=== PATIENT | female | born 1950 | race Caucasian/White ===

== ENCOUNTER → 2020-02-09 16:13 | Outpatient (CLI) | payer MEDICARE, OTHER, SELFPAY ==
[2020-02-09 17:04] LABS: Absolute Lymphocyte Count 2.25 X10^3/uL (0.83-4.51); Absolute Neutrophil Count 3.7 X10^3/uL (2.0-7.7); Basophil# 0.04 X10^3/uL; Basophil% 0.6 % (0-1); Eosinophil# 0.08 X10^3/uL; Eosinophils% 1.2 % (0-5); Hematocrit 38.9 % (37-47); Hemoglobin 12.5 g/dL (12.0-15.0); Lymphocyte # 2.25 X10^3/ul (4.0); Lymphocyte % 33.9 % (19-41); Mean Corp Hgb Conc 32.1 g/dL (32-36); Mean Corpuscular Hgb 31.4 pg (27.0-32.0); Mean Corpuscular Volume 97.7 fL (81-99); Mean Platelet Vol. 9.9 fl (6.2-12.0); Monocyte# 0.57 X10^3/uL; Monocyte% 8.6 % (0-10); NRBC Flagged by Analyzer 0 % (0-5); Neutrophil # 3.66 X10^3/uL (2.7-7.7); Neutrophil % 55.2 % (47-70); Platelet Count 282 K/mm3 (150-450); RBC Distribution Width CV 12.4 % (11.6-14.6); RBC Distribution Width SD 44.6 fl (35.1-43.9); Red Blood Count 3.98 M/mm3 (4.2-5.4); White Blood Count 6.6 K/mm3 (4.4-11.0)
[2020-02-09 18:39] LABS: AST(SGOT) 22 U/L (15-37); Alanine Aminotransfer ALT/SGPT 30 U/L (13-56); Alkaline Phosphatase 94 U/L (45-117); Anion Gap 4 (5-15); BUN 22 mg/dL (7-18); BUN/Creat Ratio 27.1 RATIO (10-20); Calcium,Total 9.3 mg/dL (8.5-10.1); Chloride 107 mmol/L (98-107); Creatinine, Serum 0.81 mg/dL (0.55-1.02); EST Glomerular Filtration Rate 74 mL/min (>60); Est Glom Filt Rate - Afr Amer 89 mL/min (>60); Glucose 89 mg/dL (74-106); Sodium Level 141 mmol/L (136-145); Thyroid Stim Hormone (TSH) 2.64 uIU/mL (0.358-3.74)
== END ==
PROVIDERS: PCP Internal Medicine; Referring Provider Internal Medicine; Visit Provider Internal Medicine
DX: I10 Essential (primary) hypertension (principal)
CPT/HCPCS: 36415; 80053; 84443; 85025

== ENCOUNTER 2024-10-28 11:02 | Inpatient (IN) | payer MEDICARE, SELFPAY ==
[2024-10-28] VITALS (9 sets, daily range): BP systolic 93–132; BP diastolic 59–87; PULSE 68–73; RESP 14–19; TEMP 35.6–36.9; O2SAT 95–100; BMI 29.3
--- NOTE | 2024-10-28 11:33 | EDS_ITS ---
HPI HPI - GI History of Present Illness Chief Complaint: GI Bleed Informant: patient and family Abdominal Pain/Flank Pain Onset: Hours Context: Gradual Onset Timing: Intermittent Current Severity: Mild Maximum Severity: Mild Worsened by: Nothing Relieved by: Nothing Nausea/Vomiting/Emesis GI Symptom: Positive for Nausea; Negative for Vomiting Severity: Mild Diarrhea/Melena/Hematochezia GI Symptom: Positive for Melena and Hematochezia; Negative for Diarrhea Onset: Today Severity: Moderate Associated Symptoms Associated Symptoms: Negative for Dysuria, Frequency, Hematuria or Urgency Narrative Narrative: 73-year-old female history of hypertension. She has had some mild nausea and intermittent abdominal discomfort. Said today she thinks she had bright red blood, clot and possibly dark stool also. She has had nausea without vomiting. She has had 3 bowel movements today. No history of GI bleed. She takes daily baby aspirin but no other blood thinners. No history of upper or lower endoscopy. Prior similar symptoms: No Recent Illness/Hospitalization: No PFSH PFS Medical History Pneumonia History of stroke History of bladder cancer Hypertension Home Medications ?Medication ?Instructions ?Recorded ?Last Taken ?Type aspirin 81 mg tablet,delayed 81 mg PO DAILY 01/01/20 0 10/27/24 History release amlodipine 5 mg tablet 5 mg PO DAILY #90 tabs 02/1310/27/24 Rx losartan 50 mg tablet 50 mg PO DAILY #90 tabs 01/2010/27/24 Rx magnesium 250 mg tablet 250 mg PO QDAY 05/07/2402/12 History turmeric 400 mg capsule 400 mg PO DAILY 10/28/2402/12 History Allergy/AdvReac Type Severity Reaction Status Date / Time No Known Allergies Allergy Verified 10/28/24 11:03 Family History Mother Myocardial infarction, Onset Age: 80 Heart disease Hypertension CVA (cerebral vascular accident) Father Myocardial infarction, Onset Age: 56 Surgical History History of hysterectomy Social History Smoking Status: Never smoker alcohol intake: never substance use type: does not use what type of physical activity do you participate in: none ROS ROS ED ROS Narrative Mild intermittent abdominal pain. Nausea. Dark stool. Bright red blood per rectum. Constitutional Constitutional ED: Denies chills or fever(s) ENT ENT ED: Denies ear pain Cardiovascular Cardiovascular: Denies chest pain Respiratory/Chest Respiratory/Chest: Denies cough or dyspnea Gastrointestinal Gastrointestinal: Reports abdominal pain, melena and nausea; Denies constipation, diarrhea or vomiting Genitourinary Genitourinary ED: Denies hematuria Musculoskeletal Musculoskeletal: Denies arthralgias Integumentary Denies abscess Neurologic Neurologic: Denies headache(s) Psychiatric Psychiatric: Denies anxiety Endocrine Endocrinology: Denies polydipsia Hematologic/Lymphatic Hematologic/Lymphatic: Denies easy bleeding Allergic/Immunologic Allergic/Immunologic ED: Denies mouth swelling, tongue swelling or urticaria EXAM Physical Exam Narrative Exam Narrative: 73-year-old female vital signs stable afebrile. No acute distress. Believes her daughter at bedside. Vital signs are stable afebrile. Patient does appear pale. H EENT exam pupils round react light. Pale. Moist mucous membranes. Neck nontender no lymphadenopathy. Lungs clear to auscultation bilaterally. Heart regular rhythm rate about 70 she does have a 4/6 systolic ejection murmur. Chest wall nontender. Abdomen soft nontender. Moving all 4 extremities. Nontender no edema. Back nontender. Neurologically she is awake alert. No focal motor deficits. Const Vital Signs: 10/28/24 11:02 10/28/24 12:30 10/28/24 13:00 Temperature 96.1 F L Temperature Source Temporal Pulse Rate 70 68 70 Respiratory Rate 14 14 16 Blood Pressure 118/76 126/76 H 131/71 H Blood Pressure Mean 90 92 91 Pulse Ox 98 96 95 Oxygen Delivery Method Room Air Room Air 10/28/24 14:00 Temperature Temperature Source Pulse Rate 70 Respiratory Rate Blood Pressure 128/69 H Blood Pressure Mean 88 Pulse Ox 97 Oxygen Delivery Method Positive well nourished and well developed; Negative for cachectic, contractures or unkempt General Appearance ED: well developed, NAD and pallor; Negative for unkempt, cachectic or contractures Nutritional Appearance: Negative for cachectic HEENT Reports moist mucous membranes normocephalic and atraumatic Eyes EOMs intact bilaterally General Eye ED: Yes pale conjunctiva Neck no lymphadenopathy, supple and no JVD General: Negative for tenderness Resp normal respiratory effort and clear to auscultation bilaterally Effort and Inspection: Negative for respiratory distress Auscultation: Negative for rales, rhonchi or wheezes Cardio regular rate, regular rhythm, S1 normal heart sound, S2 normal heart sound and no murmurs Rate: Negative for bradycardia or tachycardic Rhythm: Negative for abnormal rhythm GI non-tender, non-distended and no masses Auscultation: normoactive bowel sounds Palpation: soft; Negative for tender, guarding or rebound tenderness present Back/Spine no CVA tenderness Extremity full ROM General Extremety ED: Negative for edema or tenderness General Extremity: Negative for edema Neuro CN's II-XII intact bilaterally and moves all extremities Sensorium / Orientation: alert, oriented to person and oriented to time; Negative for orientation impaired, confused or lethargic Motor Exam: strength 5/5 throughout Psych mental status grossly normal and thought process normal Appearance: Negative for unkempt Skin no wounds General Skin Exam: pallor; Negative for jaundice Lesions: no lesions Rashes: no rashes Trauma: Negative for abrasion MDM MDM MDM Narrative Medical decision making narrative: 73-year-old female concern for GI bleed. Typed and screened and typed and crossed. Screening labs. She does not need imaging at this time abdomen is benign. If she does have a GI bleed she will need to be admitted for further evaluation. She was started on Protonix because she said her stool was dark to black which could be consistent with an upper GI bleed. Repeat exam patient doing well at 2:27 PM. I did do a rectal exam with her daug hter present in the room. It was black loose stool consistent with an upper GI bleed. No bright red blood. No clots. I discussed the patient's test results with her. She will be admitted for GI bleed suspect upper. She is already received Protonix. She has been typed and crossed but does not need blood at this time. I have the hospitalist and GI on page. History & Record Review Discussion w/independent historian: Patient and Family Additional record(s) reviewed:: Prior inpatient record, Prior outpatient record, Prior ED visit and Prior labs Lab Data Attestation: I reviewed the patient's lab results. Lab results narrative: CBC shows a white count of 8. H&H of 10.3 and 30 prior hemoglobin was above 12. Platelets 223. Chemistries show a sodium 139. Gap 10. BUN is elevated at 46 creatinine 0.8. That could also be consistent with an upper GI bleed. Glucose 115. Liver enzymes normal. Blood type A-. PT/INR of 13.9 and 1.1. Labs: Laboratory Results - last 24 hr 10/28/24 10/28/24 12:24 12:26 WBC 8.8 RBC 3.22 L Hgb 10.3 L Hct 30.9 L MCV 96.0 MCH 32.0 MCHC 33.3 RDW Std Deviation 45.1 H RDW Coeff of Roshni 12.9 Plt Count 223 MPV 9.9 Immature Gran % (Auto) 0.500 Neut % (Auto) 83.7 H Lymph % (Auto) 11.7 L Letcher % (Auto) 3.8 Eos % (Auto) 0.0 Baso % (Auto) 0.3 Absolute Neuts (auto) 7.3 Absolute Lymphs (auto) 1.02 Nucleated RBC % 0 PT 13.9 INR 1.1 Sodium 139 Potassium 4.7 Chloride 108 Carbon Dioxide 21.0 Anion Gap 10 BUN 46 H Creatinine 0.80 Estim Creat Clear Calc 63.54 Est GFR (MDRD) Non-Af 76 BUN/Creatinine Ratio 57.8 H Glucose 115 H Calcium 9.2 Total Bilirubin 0.99 AST 20 ALT 12 Alkaline Phosphatase 90 Total Protein 6.6 Albumin 4.0 Globulin 2.6 Albumin/Globulin Ratio 1.6 Blood Type A NEGATIVE Antibody Screen NEGATIVE Discharge Plan Triage Chief Complaint: GI Bleed ED Provider: Juan Diego Sauer Dx/Rx/DC Orders Clinical Impression: Acute upper GI bleed, History of bladder cancer, Anemia Prescriptions: No Action aspirin 81 mg tablet,delayed release (DR/EC) 81 mg PO DAILY magnesium 250 mg tablet 250 mg PO QDAY turmeric 400 mg capsule 400 mg PO DAILY amlodipine 5 mg tablet 5 mg PO DAILY Qty: 90 3RF losartan 50 mg tablet 50 mg PO DAILY Qty: 90 3RF Primary Care Provider: Shirin De Oliveira Referrals: Shirin De Oliveira MD [Primary Care Provider] - Print Language: Pashto Disposition Disposition: [facility]
[2024-10-28 12:48] LABS: Absolute Lymphocyte Count 1.02 X10^3/uL (0.83-4.51); Absolute Neutrophil Count 7.3 X10^3/uL (2.0-7.7); Basophil# 0.03 X10^3/uL; Basophil% 0.3 % (0-1); Hematocrit 30.9 % (37-47); Hemoglobin 10.3 g/dL (12.0-15.0); Lymphocyte # 1.02 X10^3/ul (0.83-4.51); Lymphocyte % 11.7 % (19-41); Mean Corp Hgb Conc 33.3 g/dL (32-36); Mean Platelet Vol. 9.9 fl (6.2-12.0); Monocyte# 0.33 X10^3/uL; Monocyte% 3.8 % (0-10); NRBC Flagged by Analyzer 0 % (0-5); Neutrophil # 7.33 X10^3/uL (2.7-7.7); Neutrophil % 83.7 % (47-70); Platelet Count 223 K/mm3 (150-450); RBC Distribution Width CV 12.9 % (11.6-14.6); RBC Distribution Width SD 45.1 fl (35.1-43.9); Red Blood Count 3.22 M/mm3 (4.2-5.4); White Blood Count 8.8 K/mm3 (4.4-11.0)
[2024-10-28] MEDS: Ondansetron 4 MG/2 ML Vial IV (12:53)
[2024-10-28] MEDS: Pantoprazole Sodium 80 MG in 0.9% Normal Saline (50mL Bag) 15 ML 420 MG IV BOLUS (12:53)
[2024-10-28 12:59] LABS: International Normalized Ratio 1.1; Prothrombin Time (Protime)PT. 13.9 SECONDS (11.7-14.9)
[2024-10-28 13:13] LABS: ALB/GLOB Ratio 1.6 RATIO (0.9-2.4); AST(SGOT) 20 U/L (<=31); Alanine Aminotransfer ALT/SGPT 12 U/L (<=34); Alkaline Phosphatase 90 U/L (35-104); Anion Gap 10 (5-15); BUN 46 mg/dL (4-19); BUN/Creat Ratio 57.8 RATIO (10-20); Calcium,Total 9.2 mg/dL (7.6-11.0); Chloride 108 mmol/L (98-108); EST Glomerular Filtration Rate 76 (>60); Estimated Creatinine Clearance 63.54 ml/min (50-250); Globulin 2.6 g/dL (2.2-4.2); Glucose 115 mg/dL (70-99); Potassium 4.7 mmol/L (3.3-5.1); Protein, Total 6.6 g/dL (5.9-8.4); Sodium Level 139 mmol/L (133-145); Total Bilirubin 0.99 mg/dL (0.00-1.30)
--- NOTE | 2024-10-28 14:33 | PCM.HP.STD ---
HPI - General General Date of Admission: 10/28/24 Date of Service: 10/28/24 Chief Complaint: Bright red and dark stools HPI Narrative ADEN LINDO, is a 73 F who presented to [facility] ED on 10/28/2024 with bright red and dark stools. Patient lives at home with her , has good functional status at baseline. Is on a baby aspirin, no other blood thinners. No prior history of GI bleed. She has had intermittent nausea over the past week or so but no vomiting. This morning she noticed with her first bowel movement that there was bright red blood with clot noted. She then had 2 more loose bowel movements that were very dark after this, so she came in for further evaluation. Denies any pain with these bowel movements. In the ED was hemodynamically stable with heart rate in the 70s and normal blood pressure. Last hemoglobin in 2019 was 12.5 and hemoglobin today was 10.3. BUN was elevated at 46 with normal creatinine. Given suspected upper GI bleed, she was given a dose of IV Protonix and hospitalist was contacted for admission. I saw the patient at bedside in the ED, daughter was present. Patient was sitting back comfortably in bed, conversing normally, in no acute distress. She reported feeling mildly fatigued but denied any other acute concerns currently. On my physical exam she had a significant systolic heart murmur noted. She states she has never been told she has a heart murmur. She has never had a colonoscopy done before. Has never had an upper scope done either. No other acute concerns at this time. [facility] Medical History Pneumonia History of stroke History of bladder cancer Hypertension Home Medications ?Medication ?Instructions ?Recorded ?Last Taken ?Type aspirin 81 mg tablet,delayed 81 mg PO DAILY 01/01/20 10/27/24 History release amlodipine 5 mg tablet 5 mg PO DAILY #90 tabs 02/14/24 10/27/24 Rx losartan 50 mg tablet 50 mg PO DAILY #90 tabs 02/14/24 10/27/24 Rx magnesium 250 mg tablet 250 mg PO QDAY 05/07/24 10/27/24 History turmeric 400 mg capsule 400 mg PO DAILY 10/28/24 10/27/24 History Allergy/AdvReac Type Severity Reaction Status Date / Time No Known Allergies Allergy Verified 10/28/24 11:03 Family History Mother Myocardial infarction, Onset Age: 80 Heart disease Hypertension CVA (cerebral vascular accident) Father Myocardial infarction, Onset Age: 56 Surgical History History of hysterectomy Social History Smoking Status: Never smoker alcohol intake: never substance use type: does not use what type of physical activity do you participate in: none ROS Constitutional Constitutional: Reports fatigue; Denies chills, fever(s) or weakness Eyes Eyes: Denies change in vision Cardiovascular Cardiovascular: Denies chest pain, lightheadedness or palpitations Respiratory/Chest Respiratory/Chest: Denies cough, dyspnea or shortness of breath at rest Gastrointestinal Gastrointestinal: Reports abdominal pain, dyspepsia, hematochezia, melena and nausea; Denies coffee ground emesis, constipation, hematemesis or vomiting Genitourinary Genitourinary: Denies dysuria Musculoskeletal Musculoskeletal: Denies arthralgias or myalgias Neurologic Neurologic: Denies dizziness, focal weakness or headache(s) Vital Signs Vital Signs Vital Signs: 10/28/24 11:02 10/28/24 12:30 10/28/24 13:00 Temperature 96.1 F L Temperature Source Temporal Pulse Rate 70 68 70 Respiratory Rate 14 14 16 Blood Pressure 118/76 126/76 H 131/71 H Blood Pressure Mean 90 92 91 Pulse Ox 98 96 95 Oxygen Delivery Method Room Air Room Air 10/28/24 14:00 Temperature Temperature Source Pulse Rate 70 Respiratory Rate Blood Pressure 128/69 H Blood Pressure Mean 88 Pulse Ox 97 Oxygen Delivery Method Weight Weight: 80.104 kg Body Mass Index (BMI) 29.3 Physical Exam Const alert, oriented x3, no apparent distress, average body habitus, healthy appearing and well nourished Constitutional Narrative: Pleasant elderly female, appears younger than stated age, sitting back comfortably in bed, conversing normally, in no acute distress. General Appearance: cooperative, comfortable, well kempt and well developed HEENT normocephalic, head/scalp atraumatic, hearing grossly normal bilaterally, nasal mucous membranes and turbinates normal and moist oral mucous membranes Eyes PERRL, EOMs intact bilaterally and conjunctivae normal Neck full ROM Chest inspection of chest normal Resp normal respiratory effort, normal air movement, no use of accessory muscles and clear to auscultation bilaterally Cardio regular rate, regular rhythm and peripheral pulses 2+ throughout Cardio Narrative: Significant systolic murmur noted. GI normal to inspection, nondistended, normoactive bowel sounds, soft to palpation, non-tender and non-distended Back/Spine normal ROM Extremity normal to inspection, full ROM and no pedal edema Skin no rashes or lesions noted Psych mental status grossly normal Results Lab / Micro Data 10/28/24 12:26 10/28/24 12:24 Labs: Laboratory Results - last 24 hr 10/28/24 12:24: PT 13.9, INR 1.1, Sodium 139, Potassium 4.7, Chloride 108, Carbon Dioxide 21.0, Anion Gap 10, BUN 46 H, Creatinine 0.80, Estim Creat Clear Calc 63.54, Est GFR (MDRD) Non-Af 76, BUN/Creatinine Ratio 57.8 H, Glucose 115 H, Calcium 9.2, Total Bilirubin 0.99, AST 20, ALT 12, Alkaline Phosphatase 90, Total Protein 6.6, Albumin 4.0, Globulin 2.6, Albumin/Globulin Ratio 1.6 10/28/24 12:26: WBC 8.8, RBC 3.22 L, Hgb 10.3 L, Hct 30.9 L, MCV 96.0, MCH 32.0, MCHC 33.3, RDW Std Deviation 45.1 H, RDW Coeff of Roshni 12.9, Plt Count 223, MPV 9.9, Immature Gran % (Auto) 0.500, Neut % (Auto) 83.7 H, Lymph % (Auto) 11.7 L, Carl[place] % (Auto) 3.8, Eos % (Auto) 0.0, Baso % (Auto) 0.3, Absolute Neuts (auto) 7.3, Absolute Lymphs (auto) 1.02, Nucleated RBC % 0, Blood Type A NEGATIVE, Antibody Screen NEGATIVE Assessment & Plan Assessment/Plan (1) Acute upper GI bleed: PLAN: Plan Patient is a 73-year-old female who presented to [facility] ED on 10/28/2024 with bright red and dark stools. 1. Suspected upper GI bleed with mild acute blood loss anemia ? Admit under inpatient status to PCU. GI consulted. Baseline hemoglobin around 12, hemoglobin 10.3 on admit. Most consistent with upper GI bleed given primarily melena and elevated BUN to creatinine ratio. Have suspicion for AVMs in setting of possible aortic stenosis given her systolic murmur noted on exam. Okay for clear liquid diet for now, then n.p.o. at midnight. Start IV PPI twice daily. Hold home baby aspirin. Follow-up CBC tonight and tomorrow morning. 2. Systolic murmur ? Significant systolic murmur noted on exam on admit. High suspicion is for aortic stenosis given location of murmur and patient's age. Patient denies any symptoms related to this. Echo ordered for further evaluation. 3. Hypertension ? Normotensive on admit. Will hold home amlodipine and losartan for now, restart as able. 4. History of remote CVA ? No residual deficits. Holding home baby aspirin as noted above. DVT prophylaxis: SCDs CODE STATUS: Full code, verified Expected disposition: Home, 2 to 3 days Total clinical time spent by myself addressing the patient's medical issues, reviewing all the data, and collaborating with patient's care team: 75 minutes. Charges/Coding Visit Charges Inpatient E&M: 71393 Init Hosp L3
--- NOTE | 2024-10-28 14:57 | ECHOD_ITS ---
Reason For Study : Murmur Procedure This was a 2D Doppler, Color Flow transthoracic echocardiogram. Exam performed portable in ED. Left Ventricle Normal LV size. Moderate concentric left ventricular hypertrophy. The LV systolic function is normal. EF is 65 %. Stage 1 diastolic dysfunction. Right Ventricle Normal right ventricle. Atria The left atrium is severely enlarged. Normal right atrium. Mitral Valve Mild focal mitral valve calcification, bileaflet. Mild (1+) mitral valve insufficiency. Tricuspid Valve Normal tricuspid valve. Unable to estimate RV systolic pressure due to insufficient tricuspid regurgitant envelope. Aortic Valve Aortic valve moderately calcified. Planimetered aortic valve area 1.8 cm??. However severely elevated gradients with mean peak gradient 68 mmHg. Moderate aortic valve regurgitation. Pulmonic Valve The pulmonic valve is not well visualized. Great Vessels Normal sized aortic root. Pericardium/Pleural No pericardial effusion. MMode/2D Measurements & Calculations LVIDd: 4.3 cm IVSd: 1.6 cm LVOT diam: 2.4 cm LVIDs: 2.8 cm LVPWd: 1.6 cm LVOT area: 4.5 cm2 RVDd: 3.4 cm FS: 35.2 % Ao root diam: 3.3 cm LAV(MOD-bp): 61.9 ml LVAd ap4: 25.1 cm2 LAV(MOD-bp) Indexed: 33.1 ml/m2 LVLd ap4: 7.1 cm LAV(MOD-sp2): 59.9 ml EDV(MOD-sp4): 73.7 ml LAV(MOD-sp4): 64.8 ml EDV(sp4-el): 75.8 ml LVAs ap4: 14.7 cm2 LVLs ap4: 5.7 cm ESV(MOD-sp4): 31.7 ml ESV(sp4-el): 31.8 ml EF(MOD-sp4): 56.9 % EF(sp4-el): 58.1 % SV(MOD-sp4): 41.9 ml SV(sp4-el): 44.1 ml Aortic Valve Planimetry: 1.8 cm2 SI(MOD-sp4): 22.4 ml/m2 LA A4 area: 19.7 cm2 LA dimension(2D): 5.1 cm RA A4 area: 9.1 cm2 TAPSE: 2.6 cm Time Measurements MV dec time: 0.26 sec Doppler Measurements & Calculations MV E max benton: 42.2 cm/sec Lat Peak E' Benton: 4.6 cm/sec Med Peak E' B[place]: 3.6 cm/sec MV A max benton: 87.5 cm/sec E/E' lat: 9.3 E/E' med: 11.8 MV E/A: 0.48 Ao V2 max: 478.2 cm/sec AI max benton: 338.2 cm/sec MV dec slope: 163.8 cm/sec2 Ao max P.6 mmHg AI max P.8 mmHg Ao V2 mean: 405.1 cm/sec Ao mean P.1 mmHg AI dec slope: 249.3 cm/sec2 Ao V2 VTI: 118.8 cm AI P1/2t: 397.5 msec AV (velocity ratio): 0.19 RADHA(I,D): 0.86 cm2 RADHA(V,D): 0.92 cm2 LV V1 max: 96.9 cm/sec SV(LVOT): 102.6 ml PA V2 max: 75.4 cm/sec LV V1 max P.8 mmHg LV V1 mean P.3 mmHg LV V1 mean: 73.5 cm/sec LV V1 VTI: 22.7 cm ECHO/Echo Complete Interpretation Summary The LV systolic function is normal. EF is 65 %. Stage 1 diastolic dysfunction. The left atrium is severely enlarged. Mild (1+) mitral valve insufficiency. Moderately calcified aortic valve with discordant 2D and Doppler findings. Plan imetered area compatible with mild aortic valve stenosis however mean peak gradient severely elevated at 68 mmHg. This co uld happen in high output state. Also consider supravalvular stenosis. Recommend cardiac CT scan for further evaluati on. Moderate aortic valve regurgitation. Ordering Physician: Guero Pagan Referring Physician: Shirin De Oliveira Performed By: Yi Guzman, KAMILLE, RVT
[2024-10-28 19:18] LABS: Hematocrit 27.1 % (37-47); Mean Corp Hgb Conc 33.2 g/dL (32-36); Mean Corpuscular Hgb 31.8 pg (27.0-32.0); Mean Corpuscular Volume 95.8 fL (81-99); Mean Platelet Vol. 9.9 fl (6.2-12.0); Platelet Count 203 K/mm3 (150-450); RBC Distribution Width SD 45.1 fl (35.1-43.9); Red Blood Count 2.83 M/mm3 (4.2-5.4); White Blood Count 6.9 K/mm3 (4.4-11.0)
--- NOTE | 2024-10-28 20:54 | PCM.HOSP.N ---
Hospitalist Note Notified by cardiac imaging department that preliminary read for echo showed severe aortic stenosis. Full report will be finalized tomorrow morning. I notified Dr. Moreno of this finding and will defer to him on timing of EGD given this finding.
[2024-10-28] MEDS: Pantoprazole Sodium 40 MG in 0.9% Normal Saline (100mL MB+) 100 ML 330 MG IV (21:35)
[2024-10-29] VITALS (12 sets, daily range): BP systolic 100–133; BP diastolic 63–77; PULSE 64–77; RESP 14–16; TEMP 36.1–36.9; O2SAT 93–99
[2024-10-29 05:03] LABS: Hematocrit 26.2 % (37-47); Hemoglobin 8.6 g/dL (12.0-15.0); Mean Corp Hgb Conc 32.8 g/dL (32-36); Mean Corpuscular Hgb 31.4 pg (27.0-32.0); Mean Corpuscular Volume 95.6 fL (81-99); Mean Platelet Vol. 10.1 fl (6.2-12.0); Platelet Count 207 K/mm3 (150-450); RBC Distribution Width CV 13.1 % (11.6-14.6); RBC Distribution Width SD 45.4 fl (35.1-43.9); Red Blood Count 2.74 M/mm3 (4.2-5.4); White Blood Count 5.7 K/mm3 (4.4-11.0)
[2024-10-29 05:45] LABS: Anion Gap 9 (5-15); BUN 48 mg/dL (4-19); Calcium,Total 8.9 mg/dL (7.6-11.0); Carbon Dioxide 21.7 mmol/L (21.0-32.0); Chloride 109 mmol/L (98-108); Creatinine, Serum 1.04 mg/dL (0.70-1.20); EST Glomerular Filtration Rate 56 (>60); Estimated Creatinine Clearance 48.88 ml/min (50-250); Glucose 84 mg/dL (70-99); Potassium 4.4 mmol/L (3.3-5.1); Sodium Level 139 mmol/L (133-145)
--- NOTE | 2024-10-29 05:55 | EKG12_ITS ---
Test Reason : PRE SCOPE Blood Pressure : */* mmHG Vent. Rate : 67 BPM Atrial Rate : 67 BPM P-R Int : 214 ms QRS Dur : 94 ms QT Int : 414 ms P-R-T Axes : 27 -17 149 degrees QTcB Int : 437 ms Sinus rhythm with 1st degree A-V block Left ventricular hypertrophy with repolarization abnormality ( R in aVL , [place] product ) Abnormal ECG No previous ECGs available Confirmed by Kerwin Anne ([id number]), editorial project manager CONCHITA SYLVESTER ([id number]) on 10/29/2024 10:38:55 AM Referred By: KEVIN Confirmed By: Kerwin Anne
--- NOTE | 2024-10-29 10:31 | PCM.PRE.AN2 ---
ASA Classification* ASA Classification ASA Classification: 3 Assessment & Plan Anesthesia* Anesthesia Assessment Anesthesia Assessment: Discussed sedation and/or anesthesia options, risks, benefits, and alternatives with patient/parents/legal guardian/POA. Questions invited. The patient/parents/legal guardian/POA seems to understand and agrees to proceed with anesthesia plan. Reviewed the physical assessment, medical history, allergy history and patient home medications list prior to surgery/procedure/anesthetic and documented any changes. Performed airway and anesthesia risk assessments. Anesthesia Type Anesthesia Type: MAC Anesthesia Focused Assessment* Temperature: 98.4 F Pulse Rate: 71 Blood Pressure: 111/66 Respiratory Rate: 16 Pulse Ox: 99 Airway Assessment Mouth opens: >3 cm Mallampati Score: II Labs Anesthesia Preop lab: CBC WBC 5.7 K/mm3 (4.4-11.0) 10/29/24 04:10 10/29/24 RBC 2.74 M/mm3 (4.2-5.4) L 10/29/24 04:10 10/29/24 Hgb 8.6 g/dL (12.0-15.0) L 10/29/24 04:10 10/29/24 Hct 26.2 % (37-47) L 10/29/24 04:10 10/29/24 Plt Count 207 K/mm3 (150-450) 10/29/24 04:10 10/29/24 CHEMISTRY Potassium 4.4 mmol/L (3.3-5.1) 10/29/24 04:10 10/29/24 Sodium 139 mmol/L (133-145) 10/29/24 04:10 10/29/24 BUN 48 mg/dL (4-19) H 10/29/24 04:10 10/29/24 Creatinine 1.04 mg/dL (0.70-1.20) 10/29/24 04:10 10/29/24 Glucose 84 mg/dL (70-99) 10/29/24 04:10 10/29/24 TSH 2.64 uIU/mL (0.358-3.74) 02/09/20 16:16 02/09/20 COAG PT 13.9 SECONDS (11.7-14.9) 10/28/24 12:24 10/28/24 Pre-Assessment Diagnosis/Proposed Procedure Planned Operative Procedure(s): EGD Anesthesia History 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 When Was Last Pacemaker Check QUESTION #4 FULL TEXT: You/Your Family Experience fever (hyperthermia) with Anesthesia Last Oral Intake Last Oral intake: Last Oral Intake NPO since Meds taken in AM with sips of water? 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 Has anyone observed you stop No 10/28/24 16:40 breathing during sleep? STOP Results Negative 10/28/24 16:40 QUESTION #5 FULL TEXT : Do you snore loudly (louder than talking or can be heard through closed doors)? 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 Specify any problems Hx of Preganancy in last 3 N/A 10/28/24 16:40 Months Nurse Filling Out Transfusion AHAGGERTY 10/28/24 16:40 & Questions: Date: 10/28/24 10/28/24 16:40 Time: 18:16 10/28/24 16:40 Patient unable to answer at this time (ie. 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: /Reproductive Hx- wire loop machine operator Hx Now Gestational Age (in weeks): EDC: Hx Hx Para Hx Section SAB Active Medications Active Medications: Current Medications Generic Name Dose Route Start Last Admin Trade Name Freq PRN Reason Stop Dose Admin Acetaminophen 650 mg 10/28/24 17:02 Acetaminophen 325 Mg Tablet PO Q6H PRN PRN Pain 1-10 Or Fever>100.7 Pantoprazole Sodium 40 mg/ 100 mls @ 330 mls/hr 10/28/24 22:00 10/28/24 21:54 Sodium Chloride IV Infused Q12 RAIN Infusion Melatonin 3 mg 10/28/24 17:02 Melatonin 3 Mg Tablet PO QHS PRN PRN INSOMNIA Ondansetron HCl 4 mg 10/28/24 17:02 Ondansetron 4 Mg/2 Ml Vial IV Q8H PRN PRN NAUSEA/VOMITING Sodium Chloride 10 - 40 ml 10/28/24 18:24 0.9% Saline Lock 10 Ml Syringe IV UD PRN SALINE FLUSH PFSH Medical History Pneumonia History of stroke History of bladder cancer Hypertension Home Medications ?Medication ?Instructions ?Recorded ?Last Taken ?Type aspirin 81 mg tablet,delayed 81 mg PO DAILY 01/01/20 10/27/24 History release amlodipine 5 mg tablet 5 mg PO DAILY #90 tabs 02/14/24 10/27/24 Rx losartan 50 mg tablet 50 mg PO DAILY #90 tabs 02/14/24 10/27/24 Rx magnesium 250 mg tablet 250 mg PO QDAY 05/07/24 10/27/24 History turmeric 400 mg capsule 400 mg PO DAILY 10/28/24 10/27/24 History Allergy/AdvReac Type Severity Reaction Status Date / Time No Known Allergies Allergy Verified 10/28/24 11:03 Family History Mother Myocardial infarction, Onset Age: 80 Heart disease Hypertension CVA (cerebral vascular accident) Father Myocardial infarction, Onset Age: 56 Surgical History History of hysterectomy Social History Smoking Status: Never smoker alcohol intake: never substance use type: does not use what type of physical activity do you participate in: none Review of Systems (Anesthesia) ROS Narrative System reviewed and no additional complaints, except as documented.
[2024-10-29] MEDS: Pantoprazole Sodium 40 MG in 0.9% Normal Saline (100mL MB+) 100 ML 330 MG IV ×2 (10:41→20:20)
[2024-10-29] MEDS: 0.9% Saline Lock 10 ML Syringe IV (10:41)
--- NOTE | 2024-10-29 11:34 | PCM.PN.BLA ---
Progress Note 73-year-old female history of hypertension. She has had some mild nausea and intermittent abdominal discomfort she thinks she had bright red blood, clot and possibly dark stool also. She has had nausea without vomiting. She takes daily baby aspirin but no other blood thinners. No history of upper or lower endoscopy. Physical Exam Const alert, oriented x3, no apparent distress and healthy appearing General Appearance: cooperative GI normal to inspection, nondistended, normoactive bowel sounds, soft to palpation, non-tender and non-distended Percussion: normal to percussion Rectal Exam: deferred Assessment & Plan Assessment/Plan (1) Anemia: (2) Acute upper GI bleed: PLAN: 73-year-old female history of hypertension. She has had some mild nausea and intermittent abdominal discomfort. Said today she thinks she had bright red blood, clot and possibly dark stool also. She has had nausea without vomiting. She has had 3 bowel movements today. No history of GI bleed. She takes daily baby aspirin but no other blood thinners. No history of upper or lower endoscopy.
--- NOTE | 2024-10-29 12:01 | OP.CCLET_ITS ---
10/29/2024 Shirin De Oliveira [facility] [address] [place] [address] Re : Upper GI endoscopy procedure for Idakelly Sen Dear Dr. De Oliveira This procedure was performed on Tuesday, October 29, 2024. My impressions and recommendations are as follows: Impressions : - Normal esophagus. - Chronic gastritis. Biopsied. - No gross lesions in the entire examined duodenum. Recommendations : - Return patient to hospital [facility] for ongoing care. - Clear liquid diet. - Continue present medications. - Await pathology results. My findings are described in the full procedure note, which is enclosed. If I can be of further assistance, please feel free to contact me at . Sincerely, Ney Moreno, 10/29/2024 12:00:50 PM This report has been signed electronically.
--- NOTE | 2024-10-29 12:01 | OP.EGD_ITS ---
Patient Name: Ida Sen Procedure Date: 10/29/2024 11:34 AM Date of : 1950 Age: 73 Procedure: Upper GI endoscopy Indications: Iron deficiency anemia, Melena, Recent gastrointestinal bleeding Providers: Ney Moreno DO Medicines: Monitored Anesthesia Care Patient Profile: This is a 73 year old female. Refer to note in patient chart for documentation of history and physical. Patient has symptoms of chronic epigastric abdominal pain. Complications: No immediate complications. Procedure: Pre-Anesthesia Assessment: - Prior to the procedure, a History and Physical was performed, and patient medications and allergies were reviewed. The patient is competent. The risks and benefits of the procedure and the sedation options and risks were discussed with the patient. All questions were answered and informed consent was obtained. Patient identification and proposed procedure were verified by the physician in the pre-procedure area. Mental Status Examination: alert and oriented. Airway Examination: normal oropharyngeal airway and neck mobility. Respiratory Examination: clear to auscultation. CV Examination: normal. Prophylactic Antibiotics: The patient does not require prophylactic antibiotics. Prior Anticoagulants: The patient has taken no anticoagulant or antiplatelet agents. ASA Grade Assessment: II - A patient with mild systemic disease. After reviewing the risks and benefits, the patient was deemed in satisfactory condition to undergo the procedure. The anesthesia plan was to use monitored anesthesia care (MAC). Immediately prior to administration of medications, the patient was re-assessed for adequacy to receive sedatives. The heart rate, respiratory rate, oxygen saturations, blood pressure, adequacy of pulmonary ventilation, and response to care were monitored throughout the procedure. The physical status of the patient was re-assessed after the procedure. After obtaining informed consent, the endoscope was passed under direct vision. Throughout the procedure, the patient's blood pressure, pulse, and oxygen saturations were monitored continuously. The Endoscope was introduced through the mouth, and advanced to the third part of the duodenum. Small bowel enteroscopy was deemed necessary. The upper GI endoscopy was accomplished without difficulty. The patient tolerated the procedure well. Scope In: 11:46:51 AM Scope Out: 11:50:38 AM Total Procedure Duration Time 0 hours 3 minutes 47 seconds Findings: The examined esophagus was normal. Patchy moderate inflammation characterized by erosions and erythema was found in the gastric body and in the gastric antrum. Biopsies were taken with a cold forceps for histology. Biopsies were taken with a cold forceps for Helicobacter pylori testing. Verification of patient identification for the specimen was done. Estimated blood loss was minimal. No gross lesions were noted in the entire examined duodenum. Impression: - Normal esophagus. - Chronic gastritis. Biopsied. - No gross lesions in the entire examined duodenum. Recommendation: - Return patient to hospital [facility] for ongoing care. - Clear liquid diet. - Continue present medications. - Await pathology results. Procedure Code(s): --- Professional --- 98522, Small intestinal endoscopy, enteroscopy beyond second portion of duodenum, not including ileum; with biopsy, single or multiple CPT copyright 2021 [employer]. All rights reserved. The codes documented in this report are preliminary and upon water quality control engineer review may be revised to meet current compliance requirements. Ney Moreno DO 10/29/2024 12:00:50 PM This report has been signed electronically. Number of Addenda: 0 Note Initiated On: 10/29/2024 11:34 AM
--- NOTE | 2024-10-29 12:04 | PCM.POST.ANE ---
Anesthesia: Postop Eval I Current Vital Signs Temperature: 97 F Pulse Rate: 77 Blood Pressure: 100/63 Respiratory Rate: 16 Pulse Ox: 93 Oxygen Delivery Method: Room Air Assessment Airway patent: Yes Spontaneous unlabored respirations: Yes Mental status: Awake and Calm nausea: No Vomiting: No Anesthesia Complication: No Fluid Hydration Crystalloid volume administer (ml): 300 Total IV fluid infused: 300 Progress Note Anesthesia document: Postop Eval 1 completed: Yes
--- NOTE | 2024-10-29 13:53 | PCM.POSTANE2 ---
Anesthesia Postop Eval I Sum Postop Eval Completion status Anesthesia document: Postop Eval 1 completed: Yes Anesthesia Postop Eval I Summary Anesthesia Postop Eval I Summary: Anesthesia Postop Eval I: Assessment Summary Airway patent Yes 10/29/24 12:04 [email or web address] Spontaneous unlabored Yes 10/29/24 12:04 [email or web address] respirations Mental status Awake,Calm 10/29/24 12:04 [email or web address] nausea No 10/29/24 12:04 [email or web address] Vomiting No 10/29/24 12:04 [email or web address] Anesthesia Postop Eval I: Fluid Summary Crystalloid volume administer 300 10/29/24 12:04 [email or web address] (ml) Colloids volume administered ( ml) Blood Product volume administered (ml) Total IV fluid infused 300 10/29/24 12:04 [email or web address] Anesthesia Postop Eval I: Summary Notes Anesthesia Complication No 10/29/24 12:04 [email or web address] Anesthesia Complication Comment: Post-operative progress note Anesthesia: Postop Eval II Evaluation Mental status: Awake Pain Level: 0 nausea: No Vomiting: No
--- NOTE | 2024-10-29 14:00 | EGD_PTH ---
PATIENT: ADEN LINDO LOC: [facility] U#:[id number] AGE/SX: 73/F ROOM: [facility] RE10/28/[address]: Dr. Dewayne Gonzalez DO : 1950 BED: 1 DIS: 10/30/2024 SPEC #: [id number] RECD: 10/29/24 14:38 STATUS: CHERELLE HENNING #: [id number] GERALD: 10/29/24 14:[address]: Ra Joshhsaan DEPT: SURGICAL PATHOLOGY RECD BY: Brian Roberson ENTERED: 10/29/24 15:34 SP TYPE: EGD BIOPSY OT DR: DO Dr. Shirin Espitia MD Dr. Mark Tereletsky, DO Tissues: A - Gastric mucous membrane Procedures: Immunohistochemical Stains Surgery Specimen Level IV HEADER OPERATION: EGD with biopsy PRE-OP DIAGNOSIS: Anemia, acute upper GI bleed TISSUE SUBMITTED: A- Gastric body biopsy MICROSCOPIC DIAGNOSIS A. Stomach, body, biopsy: * Oxyntic mucosa with chronic active inflammation * An immunohistochemical stain for Helicobacter pylori is negative. MICROSCOPIC DESCRIPTION Slides are reviewed. All matched controls reacted appropriately. These tests were developed and their performance characteristics determined by [facility]. They may not have been cleared or approved by the U.S. Food and Drug Administration. The FDA has determined that such clearance or approval is not necessary. The above immunohistochemical/dualISH markers are reviewed by the Pathologist. GROSS DESCRIPTION A. Received in formalin labeled with the patient's name and date of . Designated as gastric body for H. pylori and path are 4 monroe tissue fragments, 0.2 cm to 0.6 cm. Entirely submitted in 1 cassette. [facility] 10/29/2024 CPT:31866,40516
--- NOTE | 2024-10-29 14:36 | CASEMGMT ---
ARNULFO MCCALL Assessment: Face to Face with pt for initial transition planning/care coordination assessment. RN STEFANY introduced self and role at [facility], pt voices understanding and consents to assessment. Pt is A&O x4 and answers all questions appropriately at this time. Pt lying in bed in no distress, and daughter in the room. Pt agreeable to doing assessment with family present. Care providers, pharmacy, and demographics verified/updated. Strata: 1 Admitting Dx: GI Bleed PCP: Alvino Specialists: Denies Preferred Pharmacy: [facility] Insurance: [facility] Prescription Benefit: yes LNOK: Son, Chepe; Daughter, Latasha Living Arrangements: Pt lives with in a 1 level home with 1 step to enter. ADLs: Pt I with ADLs and IADLs. Transportation: Pt family provides transportation. DME: Denies HHC/SNF: Denies Hx of. Pt states no concerns with going home at time of dc. Pt states no further concerns/needs. CM to follow. Advised pt to ask CM if any further question/concerns/needs arise, voices understanding. Pt Goal: Home Plan: Home with family support. Josh ARREDONDO CM
[2024-10-29] MEDS: Bisacodyl 5 MG Tablet 20 MG PO (18:21)
--- NOTE | 2024-10-29 19:13 | PCM.PN.HOSP ---
Reason for Visit Reason for Visit: Diagnoses Anemia, unspecified (10/28/24) Gastrointestinal hemorrhage, unspecified (10/28/24) Subjective Subjective Patient was seen and examined today, she underwent an EGD which showed gastritis, there is no evidence of bleeding. Patient is due to undergo a colonoscopy tomorrow. I talked briefly with gastroenterology. Objective Data Objective Data Vital Signs: Vital Signs Temp Pulse Resp BP Pulse Ox O2 Del Method 98.3 F 76 14 108/74 95 Room Air 10/29/24 18:21 10/29/24 18:21 10/29/24 18:21 10/29/24 18:21 10/29/24 18:21 10/29/24 18:21 Oxygen Delivery Method Room Air Weight: 80.104 kg Body Mass Index (BMI) 29.3 Intake & Output: Intake and Output for Last 24 Hours 10/27/24 10/28/24 10/29/24 23:59 23:59 23:59 Intake Total 495 / 495 1100 / 1100 Output Total 2 / 2 Balance 495 / 495 1098 / 1098 Lab / Micro Data 10/29/24 04:10 10/29/24 04:10 Labs: Laboratory Results - last 24 hr 10/28/24 18:50: WBC 6.9, RBC 2.83 L, Hgb 9.0 L, Hct 27.1 L, MCV 95.8, MCH 31.8, MCHC 33.2, RDW Std Deviation 45.1 H, RDW Coeff of Roshni 13.0, Plt Count 203, MPV 9.9 10/29/24 04:10: WBC 5.7, RBC 2.74 L, Hgb 8.6 L, Hct 26.2 L, MCV 95.6, MCH 31.4, MCHC 32.8, RDW Std Deviation 45.4 H, RDW Coeff of Roshni 13.1, Plt Count 207, MPV 10.1, Sodium 139, Potassium 4.4, Chloride 109 H, Carbon Dioxide 21.7, Anion Gap 9, BUN 48 H, Creatinine 1.04, Estim Creat Clear Calc 48.88 L, Est GFR (MDRD) Non-Af 56 L, BUN/Creatinine Ratio 46.0 H, Glucose 84, Calcium 8.9 Radiography Diagnostic Testing: Radiology Impression Echocardiogram 10/28/24 14:57 Interpretation Summary The LV systolic function is normal. EF is 65 %. Stage 1 diastolic dysfunction. The left atrium is severely enlarged. Mild (1+) mitral valve insufficiency. Moderately calcified aortic valve with discordant 2D and Doppler findings. Planimetered area compatible with mild aortic valve stenosis however mean peak gradient severely elevated at 68 mmHg. This could happen in high output state. Also consider supravalvular stenosis. Recommend cardiac CT scan for further evaluation. Moderate aortic valve regurgitation. Ordering Physician: Guero Pagan Referring Physician: Shirin De Oliveira Performed By: Yi Guzman, KAMILLE, RVT Physical Exam Const alert, oriented x3, no apparent distress and healthy appearing General Appearance: cooperative, well kempt and well developed Orientation / Consciousness: awake, oriented to person, oriented to place and oriented to time HEENT normocephalic and moist oral mucous membranes Eyes PERRL, EOMs intact bilaterally and conjunctivae normal Neck supple, no JVD and thyroid normal General: trachea midline Resp normal respiratory effort, no retractions, no use of accessory muscles and clear to auscultation bilaterally Auscultation: Negative for rales, rhonchi or wheezes Cardio regular rate, regular rhythm, S1 normal heart sound, S2 normal heart sound, no rub and no gallops Cardio Narrative: There is a 2/6 systolic murmur noted at the apex and left sternal border GI normal to inspection, nondistended, normoactive bowel sounds, soft to palpation, non-tender and non-distended Extremity no clubbing, cyanosis or edema Skin no rashes or lesions noted General Skin Exam: no breakdown Neuro oriented x3, CN's II-XII intact bilaterally, moves all extremities, no focal motor deficits and no sensory deficits noted Sensorium / Orientation: awake and alert Speech: speech normal Psych affect normal Assessment & Plan Assessment/Plan (1) Anemia: PLAN: Plan 1. 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
[2024-10-29] MEDS: Electrolyte Solution/Peg's 4000 ML PO (19:36)
[2024-10-30] VITALS (10 sets, daily range): BP systolic 109–136; BP diastolic 48–79; PULSE 64–79; RESP 16–24; TEMP 36.3–37.4; O2SAT 94–99
[2024-10-30 06:18] LABS: Absolute Lymphocyte Count 1.95 X10^3/uL (0.83-4.51); Absolute Neutrophil Count 2.4 X10^3/uL (2.0-7.7); Basophil# 0.04 X10^3/uL; Basophil% 0.8 % (0-1); Eosinophil# 0.11 X10^3/uL; Eosinophils% 2.3 % (0-5); Hematocrit 25.1 % (37-47); Hemoglobin 8.3 g/dL (12.0-15.0); Lymphocyte # 1.95 X10^3/ul (0.83-4.51); Lymphocyte % 40.2 % (19-41); Mean Corp Hgb Conc 33.1 g/dL (32-36); Mean Corpuscular Hgb 31.8 pg (27.0-32.0); Mean Corpuscular Volume 96.2 fL (81-99); Mean Platelet Vol. 10.1 fl (6.2-12.0); Monocyte# 0.38 X10^3/uL; Monocyte% 7.8 % (0-10); NRBC Flagged by Analyzer 0 % (0-5); Neutrophil # 2.35 X10^3/uL (2.7-7.7); Neutrophil % 48.5 % (47-70); Platelet Count 200 K/mm3 (150-450); RBC Distribution Width CV 12.9 % (11.6-14.6); RBC Distribution Width SD 44.6 fl (35.1-43.9); Red Blood Count 2.61 M/mm3 (4.2-5.4); White Blood Count 4.9 K/mm3 (4.4-11.0)
[2024-10-30 07:04] LABS: International Normalized Ratio 1.1; Prothrombin Time (Protime)PT. 14.9 SECONDS (11.7-14.9)
[2024-10-30 07:05] LABS: Partial Thromboplast Time 26.8 Seconds (24.1-36.2)
[2024-10-30] MEDS: Pantoprazole Sodium 40 MG in 0.9% Normal Saline (100mL MB+) 100 ML 330 MG IV (08:14)
[2024-10-30] MEDS: Lactated Ringers 1,000 ML 15 ML IV (15:06)
--- NOTE | 2024-10-30 15:17 | PRE.ANES_ITS ---
ASA Classification* ASA Classification ASA Classification: 3 Assessment & Plan Anesthesia* Anesthesia Assessment Anesthesia Assessment: Discussed sedation and/or anesthesia options, risks, benefits, and alternatives with patient/parents/legal guardian/POA. Questions invited. The patient/parents/legal guardian/POA seems to understand and agrees to proceed with anesthesia plan. Reviewed the physical assessment, medical history, allergy history and patient home medications list prior to surgery/procedure/anesthetic and documented any changes. Performed airway and anesthesia risk assessments. Anesthesia Type Anesthesia Type: MAC Anesthesia Focused Assessment* Temperature: 97.3 F Pulse Rate: 64 Blood Pressure: 135/77 Respiratory Rate: 16 Pulse Ox: 96 Airway Assessment Mouth opens: >3 cm Mallampati Score: II Labs Anesthesia Preop lab: CBC WBC 4.9 K/mm3 (4.4-11.0) 10/30/24 05:00 10/30/24 RBC 2.61 M/mm3 (4.2-5.4) L 10/30/24 05:00 10/30/24 Hgb 8.3 g/dL (12.0-15.0) L 10/30/24 05:00 10/30/24 Hct 25.1 % (37-47) L 10/30/24 05:00 10/30/24 Plt Count 200 K/mm3 (150-450) 10/30/24 05:00 10/30/24 CHEMISTRY Potassium 4.4 mmol/L (3.3-5.1) 10/29/24 04:10 10/29/24 Sodium 139 mmol/L (133-145) 10/29/24 04:10 10/29/24 BUN 48 mg/dL (4-19) H 10/29/24 04:10 10/29/24 Creatinine 1.04 mg/dL (0.70-1.20) 10/29/24 04:10 10/29/24 Glucose 84 mg/dL (70-99) 10/29/24 04:10 10/29/24 TSH 2.64 uIU/mL (0.358-3.74) 02/09/20 16:16 COAG PT 14.9 SECONDS (11.7-14.9) 10/30/24 05:00 Pre-Assessment Diagnosis/Proposed Procedure Planned Operative Procedure(s): Colonoscopy Anesthesia History 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 When Was Last Pacemaker Check QUESTION #4 FULL TEXT: You/Your Family Experience fever (hyperthermia) with Anesthesia Last Oral Intake Last Oral intake: Last Oral Intake NPO since Meds taken in AM with sips of water? 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 Has anyone observed you stop No 10/28/24 16:40 breathing during sleep? STOP Results Negative 10/29/24 12:00 QUESTION #5 FULL TEXT : Do you snore loudly (louder than talking or can be heard through closed doors)? 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 Specify any problems Hx of Preganancy in last 3 N/A 10/28/24 16:40 Months Nurse Filling Out Transfusion AHAGGERTY 10/28/24 16:40 & Questions: Date: 10/28/24 10/28/24 16:40 Time: 18:16 10/28/24 16:40 Patient unable to answer at this time (ie. 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 tensioning ironworker: /Reproductive Hx- post tensioning ironworker Hx Now Gestational Age (in weeks): EDC: Hx Hx Para Hx Section SAB Active Medications Active Medications: Current Medications Generic Name Dose Route Start Last Admin Trade Name Freq PRN Reason Stop Dose Admin Acetaminophen 650 mg 10/28/24 17:02 Acetaminophen 325 Mg Tablet PO Q6H PRN PRN Pain 1-10 Or Fever>100.7 Pantoprazole Sodium 40 mg/ 100 mls @ 330 mls/hr 10/28/24 22:00 10/30/24 08:33 Sodium Chloride IV Infused Q12 RAIN Infusion Lactated Ringer's 1,000 mls @ 15 mls/hr 10/30/24 15:00 10/30/24 15:06 IV 15 mls/hr .Q48H RAIN Administration Melatonin 3 mg 10/28/24 17:02 Melatonin 3 Mg Tablet PO QHS PRN PRN INSOMNIA Ondansetron HCl 4 mg 10/28/24 17:02 Ondansetron 4 Mg/2 Ml Vial IV Q8H PRN PRN NAUSEA/VOMITING Sodium Chloride 10 - 40 ml 10/28/24 18:24 10/29/24 10:41 0.9% Saline Lock 10 Ml Syringe IV 10 ml UD PRN Administration SALINE FLUSH PFSH Medical History Pneumonia History of stroke History of bladder cancer Hypertension Home Medications ?Medication ?Instructions ?Recorded ?Last Taken ?Type aspirin 81 mg tablet,delayed 81 mg PO DAILY 01/01/20 0 10/27/24 History release amlodipine 5 mg tablet 5 mg PO DAILY #90 tabs 02/1310/27/24 Rx losartan 50 mg tablet 50 mg PO DAILY #90 tabs 01/2010/27/24 Rx magnesium 250 mg tablet 250 mg PO QDAY 05/07/2402/12 History turmeric 400 mg capsule 400 mg PO DAILY 10/28/2402/12 History Allergy/AdvReac Type Severity Reaction Status Date / Time No Known Allergies Allergy Verified 10/28/24 11:03 Family History Mother Myocardial infarction, Onset Age: 80 Heart disease Hypertension CVA (cerebral vascular accident) Father Myocardial infarction, Onset Age: 56 Surgical History History of hysterectomy Social History Smoking Status: Never smoker alcohol intake: never substance use type: does not use what type of physical activity do you participate in: none Review of Systems (Anesthesia) ROS Narrative System reviewed and no additional complaints, except as documented.
--- NOTE | 2024-10-30 16:00 | COLBX_PTH ---
PATIENT: ADEN LINDO LOC: [facility] U#:[id number] AGE/SX: 73/F ROOM: [facility] RE10/28/[address]: Dr. Dewayne Gonzalez DO : 1950 BED: 1 DIS: 10/30/2024 SPEC #: [id number] RECD: 10/31/24 07:36 STATUS: CHERELLE RETayo #: [id number] GERALD: 10/30/24 16:[address]: Ney Moreno DEPT: SURGICAL PATHOLOGY RECD BY: Brian Roberson ENTERED: 10/31/24 09:54 SP TYPE: COLON BX OTHR DR: DO Dr. Shirin Espitia MD Dr. Mark Tereletsky, DO Tissues: A - Transverse colon B - Ileum, NOS C - Rectum, NOS Procedures: Surgery Specimen Level IV Comments: @ Ordering doctor for SUIV edited from to @ ashlee COPE at 10/31/24 0955 @ Submitting doctor edited from to @ by ANATOLIY at 10/31/24 0955 HEADER OPERATION: Colonoscopy with biopsies PRE-OP DIAGNOSIS: Anemia, GI bleed TISSUE SUBMITTED: A- Transverse colon biopsy, B- Terminal ileum biopsy, C- Rectum biopsy MICROSCOPIC DIAGNOSIS A. Transverse colon, biopsy: Tubular adenoma. B. Terminal ileum, colon, biopsy: Prominent mucosal lymphoid aggregate, favor reactive. C. Rectum, colon, biopsy: Polypoid colorectal mucosa with prolapse features and melanosis coli. MICROSCOPIC DESCRIPTION Slides are reviewed. GROSS DESCRIPTION Received in 3 formalin containers labeled with the patient's name and date of .? Designated as: A.? Transverse colon BX is a 0.8 cm monroe soft tissue core.? Entirely submitted in 1 cassette. B.? Terminal ileum BX are 2 monroe soft tissue fragments, 0.3 cm each.? Entirely submitted in 1 cassette. C.? Rectum BX is a 0.8 cm monroe tissue fragment.? Entirely submitted in 1 cassette. [place] 10/31/2024 CPT:41313s1
--- NOTE | 2024-10-30 17:17 | PCM.POST.ANE ---
Anesthesia: Postop Eval I Current Vital Signs Temperature: 99.4 F Pulse Rate: 75 Blood Pressure: 109/59 Respiratory Rate: 24 Pulse Ox: 99 Oxygen Delivery Method: Room Air Assessment Airway patent: Yes Spontaneous unlabored respirations: Yes Mental status: Awake and Calm nausea: No Vomiting: No Anesthesia Complication: No Fluid Hydration Crystalloid volume administer (ml): 300 Total IV fluid infused: 300 Progress Note Anesthesia document: Postop Eval 1 completed: Yes
--- NOTE | 2024-10-30 17:19 | POSTOPAN2_ITS ---
Anesthesia Postop Eval I Sum Postop Eval Completion status Anesthesia document: Postop Eval 1 completed: Yes Anesthesia Postop Eval I Summary Anesthesia Postop Eval I Summary: Anesthesia Postop Eval I: Assessment Summary Airway patent Yes 10/30/24 17:18 [email or web address] Spontaneous unlabored Yes 10/30/24 17:18 [email or web address] respirations Mental status Awake,Calm 10/30/24 17:18 [email or web address] nausea No 10/30/24 17:18 [email or web address] Vomiting No 10/30/24 17:18 [email or web address] Anesthesia Postop Eval I: Fluid Summary Crystalloid volume administer 300 10/30/24 17:18 [email or web address] (ml) Colloids volume administered ( ml) Blood Product volume administered (ml) Total IV fluid infused 300 10/30/24 17:18 [email or web address] Anesthesia Postop Eval I: Summary Notes Anesthesia Complication No 10/30/24 17:18 [email or web address] Anesthesia Complication Comment: Post-operative progress note Anesthesia: Postop Eval II Evaluation Mental status: Awake Pain Level: 0 nausea: No Vomiting: No
--- NOTE | 2024-10-30 17:19 | PCM.POSTANE2 ---
Anesthesia Postop Eval I Sum Postop Eval Completion status Anesthesia document: Postop Eval 1 completed: Yes Anesthesia Postop Eval I Summary Anesthesia Postop Eval I Summary: Anesthesia Postop Eval I: Assessment Summary Airway patent Yes 10/30/24 17:18 [email or web address] Spontaneous unlabored Yes 10/30/24 17:18 [email or web address] respirations Mental status Awake,Calm 10/30/24 17:18 [email or web address] nausea No 10/30/24 17:18 [email or web address] Vomiting No 10/30/24 17:18 [email or web address] Anesthesia Postop Eval I: Fluid Summary Crystalloid volume administer 300 10/30/24 17:18 [email or web address] (ml) Colloids volume administered ( ml) Blood Product volume administered (ml) Total IV fluid infused 300 10/30/24 17:18 [email or web address] Anesthesia Postop Eval I: Summary Notes Anesthesia Complication No 10/30/24 17:18 [email or web address] Anesthesia Complication Comment: Post-operative progress note Anesthesia: Postop Eval II Evaluation Mental status: Awake Pain Level: 0 nausea: No Vomiting: No
--- NOTE | 2024-10-30 17:19 | ANES.CONFIRM ---
Anesthesia: Confirm Documents Multiple Procedures on Account (2) Confirmed Documents: Yes
--- NOTE | 2024-10-30 19:19 | DCINST_ITS ---
Discharge Instructions Diet Discharge Diet: No restrictions DC O2, CPAP, BIPAP needs Home O2 Discharge instructions: No Dressing / Incision Discharge Activity: Return to Normal Activity Weight Bearing Status: Full weight bearing Follow Up Care Test Results: Test results from this visit will be discussed in further detail at your follow- up appointment, if applicable. Discharge Plan Admission Admit Date/Time: 10/28/24 14:34 Primary Reason for Your Visit: Chronic gastritis, ischemic bowel Attending Provider: Dewayne Gonzalez Primary Care Provider: Shirin De Oliveira Consulting Providers: Guero Pagan Discharge Orders/Prescriptions Prescriptions: Continued aspirin 81 mg tablet,delayed release (DR/EC) 81 mg PO DAILY magnesium 250 mg tablet 250 mg PO QDAY turmeric 400 mg capsule 400 mg PO DAILY amlodipine 5 mg tablet 5 mg PO DAILY Qty: 90 3RF losartan 50 mg tablet 50 mg PO DAILY Qty: 90 3RF Referrals / Follow Up: Shirin De Oliveira MD [Primary Care Provider] - Within 2 Weeks Disposition Disposition (needs filled in before D/C Order can be placed): Home, Self Care
--- NOTE | 2024-10-30 19:24 | PCM.DC.SUM ---
Providers Date of Admission: 10/28/24 Date of Discharge: 10/30/24 Primary Care Physician: Dr. Shirin De Oliveira MD Consultations 10/28/24 17:02 Consult: Gastroenterology Routine Consulting Provider: [facility] Reason for Consult: suspected upper GI bleed EMERGENT Consult: No MD Notified: Yes Date Notified: 10/28/24 Time Notified: 17:07 Method of Notification: Text Reason For Visit: GI BLEED Diagnosis Discharge Diagnosis (1) Anemia: Status: Acute Code(s): D64.9 - Anemia, unspecified Plan 1. 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 will need follow-up with her radiographer mammographer #3 essential hypertension-patient will remain on her current blood pressure medication #4 melena with red rectal bleeding-again patient will undergo colonoscopy tomorrow #5 rectal bleeding secondary to ischemic colitis Total clinical time spent by myself addressing the patient's medical issues, reviewing all of her data, and collaborating with patient's care team: 35-minute Medications at Discharge Home Medications aspirin 81 mg tablet,delayed release 81 mg PO DAILY 01/01/20 amlodipine 5 mg tablet 5 mg PO DAILY #90 tabs 02/14/24 losartan 50 mg tablet 50 mg PO DAILY #90 tabs 02/14/24 magnesium 250 mg tablet 250 mg PO QDAY 05/07/24 turmeric 400 mg capsule 400 mg PO DAILY 10/28/24 Hospital Course Procedures Colonoscopy and EGD Summary of Care Provided Minutes Spent on Discharge: 31 Hospital Course: This 73-year-old white female was seen in the emergency room at [facility] with complaints of rectal bleeding and melanotic appearing stools. CBC showed a hemoglobin of 10.3, chemistry profile showed a BUN of 46 but was otherwise unremarkable. Patient was admitted to PCU and CBCs were monitored, patient did not require any blood transfusion. Patient underwent an EGD which showed chronic gastritis and no evidence of bleeding. Patient then underwent a colonoscopy the next day which showed areas compatible with ischemic colitis. On 10/30/2024, patient was seen and examined: On examination she appeared in good health and spirits, she does not appear to be in any distress. Vital signs as documented. Skin warm and dry and without overt rashes. Neck without JVD, thyroid appears normal, trachea is midline, neck is supple. Lungs clear, normal air movement was noted. Heart exam notable for regular rhythm, normal sounds and absence of murmurs, rubs or gallops. Abdomen unremarkable and without evidence of organomegaly, masses, or abdominal aortic enlargement, bowel sounds are present in all 4 quadrants, no abdominal tenderness was noted. Extremities nonedematous, no cyanosis was noted, no clubbing was noted. Neuro: Cranial nerves II through XII are grossly intact, no focal motor deficits were noted, sensation to light touch and pinprick is intact, motor exam 5/5 throughout. Psych: Patient is alert and oriented x3, she does not appear anxious or depressed, she does not appear agitated. Patient appears to be stable for discharge home on 10/30/2024. Weight / BMI Weight Weight: 80.104 kg Body Mass Index (BMI) 29.3 ABG / Lab / Microbiology Data 10/30/24 05:00 10/29/24 04:10 Laboratory: Laboratory Results - last 24 hr 10/28/24 12:26: Crossmatch See Detail 10/30/24 05:00: WBC 4.9, RBC 2.61 L, Hgb 8.3 L, Hct 25.1 L, MCV 96.2, MCH 31.8, MCHC 33.1, RDW Std Deviation 44.6 H, RDW Coeff of [place] 12.9, Plt Count 200, MPV 10.1, Immature Gran % (Auto) 0.400, Neut % (Auto) 48.5, Lymph % (Auto) 40.2, [place] % (Auto) 7.8, Eos % (Auto) 2.3, Baso % (Auto) 0.8, Absolute Neuts (auto) 2.4, Absolute Lymphs (auto) 1.95, Nucleated RBC % 0, PT 14.9, INR 1.1, APTT 26.8 D/C Instructions Discharge Diet: No restrictions Weight Bearing Status: Full weight bearing DC O2, CPAP, BIPAP Needs Home O2 Discharge instructions: No Meaningful Use Info Meaningful Use Meaningful Use Diagnoses (Choose all that apply): None applicable Ischemic Stroke Statin Dosing Therapy Reference: STATIN DOSE THERAPY REFERENCE: * Patients > 75 years receive moderate or high dose statin therapy. * Patients 75 years or YOUNGER should receive HIGH intensity statin dose unless contraindicated. You will be required to document reason for non-treatment if statin daily dose does not meet guidelines. HIGH DOSE STATIN THERAPY DAILY Atorvastatin > than or = to 40 mg Rosuvastatin > than or = to 20 mg Amlodipine + Atorvastatin > than or = to 2.5/40 mg Ezetimibe + Simvastatin 10/80 mg Simvastatin 80mg Discharge Plan Admission Admit Date/Time: 10/28/24 14:34 Primary Reason for Your Visit: Chronic gastritis, ischemic bowel Attending Provider: Dewayne Gonzalez Primary Care Provider: Shirin De Oliveira Consulting Providers: Guero Pagan Discharge Orders/Prescriptions Prescriptions: Continued aspirin 81 mg tablet,delayed release (DR/EC) 81 mg PO DAILY magnesium 250 mg tablet 250 mg PO QDAY turmeric 400 mg capsule 400 mg PO DAILY amlodipine 5 mg tablet 5 mg PO DAILY Qty: 90 3RF losartan 50 mg tablet 50 mg PO DAILY Qty: 90 3RF Referrals / Follow Up: Shirin De Oliveira MD [Primary Care Provider] - Within 2 Weeks Disposition Disposition (needs filled in before D/C Order can be placed): Home, Self Care Charges/Coding Visit Charges Inpatient E&M: 29324 Disch Hosp >30min
--- NOTE | 2024-10-30 19:27 | OP.COLON_ITS ---
Patient Name: Ida Sen Procedure Date: 10/30/2024 4:26 PM Date of : 1950 Age: 73 Procedure: Colonoscopy Indications: Hematochezia Providers: Ney Moreno DO Medicines: Monitored Anesthesia Care Patient Profile: This is a 73 year old female. Refer to note in patient chart for documentation of history and physical. Last Colonoscopy: none. The patient's first colonoscopy is today. Complications: No immediate complications. Procedure: Pre-Anesthesia Assessment: - Prior to the procedure, a History and Physical was performed, and patient medications and allergies were reviewed. The patient is competent. The risks and benefits of the procedure and the sedation options and risks were discussed with the patient. All questions were answered and informed consent was obtained. Patient identification and proposed procedure were verified by the physician in the pre-procedure area. Mental Status Examination: alert and oriented. CV Examination: normal. Prophylactic Antibiotics: The patient does not require prophylactic antibiotics. Prior Anticoagulants: The patient has taken no anticoagulant or antiplatelet agents except for NSAID medication. ASA Grade Assessment: II - A patient with mild systemic disease. After reviewing the risks and benefits, the patient was deemed in satisfactory condition to undergo the procedure. The anesthesia plan was to use monitored anesthesia care (MAC). Immediately prior to administration of medications, the patient was re-assessed for adequacy to receive sedatives. The heart rate, respiratory rate, oxygen saturations, blood pressure, adequacy of pulmonary ventilation, and response to care were monitored throughout the procedure. The physical status of the patient was re-assessed after the procedure. After I obtained informed consent, the scope was passed under direct vision. Throughout the procedure, the patient's blood pressure, pulse, and oxygen saturations were monitored continuously. The Colonoscope was introduced through the anus and advanced to the terminal ileum. The colonoscopy was performed without difficulty. The patient tolerated the procedure well. The quality of the bowel preparation was adequate. The terminal ileum, ileocecal valve, appendiceal orifice, and rectum were photographed. Scope In: 4:47:23 PM Scope Withdrawal Time 0 hours 6 minutes 15 seconds Scope Out: 5:04:52 PM Total Procedure Duration Time 0 hours 17 minutes 29 seconds Findings: The perianal and digital rectal examinations were normal. Non-bleeding internal hemorrhoids were found during retroflexion. The hemorrhoids were Grade II (internal hemorrhoids that prolapse but reduce spontaneously). A diffuse area of moderate melanosis was found in the entire colon. Biopsies were taken with a cold forceps for histology. Verification of patient identification for the specimen was done. Estimated blood loss was minimal. Localized moderate inflammation was found at the splenic flexure. A patchy area of the terminal ileum was congested. Biopsies were taken with a cold forceps for histology. Verification of patient identification for the specimen was done. Estimated blood loss was minimal. A 5 mm polyp was found in the transverse colon. The polyp was sessile. The polyp was removed with a cold biopsy forceps. Resection and retrieval were complete. Verification of patient identification for the specimen was done. Estimated blood loss was minimal. Impression: - Non-bleeding internal hemorrhoids. - Melanosis in the colon. Biopsied. - Localized moderate inflammation was found at the splenic flexure secondary to ischemic colitis. - Congested mucosa in the terminal ileum. Biopsied. Recommendation: - Discharge patient to home. - Resume previous diet. - Continue present medications. - Await pathology results. - Repeat colonoscopy is recommended for surveillance. The colonoscopy date will be determined after pathology results from today's exam become available for review. Procedure Code(s): --- Professional --- 72596, Colonoscopy, flexible; with biopsy, single or multiple CPT copyright 2021 [employer]. All rights reserved. The codes documented in this report are preliminary and upon telemetry rn review may be revised to meet current compliance requirements. Ney Moreno DO 10/30/2024 7:27:16 PM This report has been signed electronically. Number of Addenda: 0 Note Initiated On: 10/30/2024 4:26 PM
--- NOTE | 2024-10-30 19:27 | OP.CCLET_ITS ---
10/30/2024 Shirin De Oliveira [facility] [address] [place] [address] Re : Colonoscopy procedure for Ida Sen Dear Dr. De Oliveira This procedure was performed on October. My impressions and recommendations are as follows: Impressions : - Non-bleeding internal hemorrhoids. - Melanosis in the colon. Biopsied. - Localized moderate inflammation was found at the splenic flexure secondary to ischemic colitis. - Congested mucosa in the terminal ileum. Biopsied. Recommendations : - Discharge patient to home. - Resume previous diet. - Continue present medications. - Await pathology results. - Repeat colonoscopy is recommended for surveillance. The colonoscopy date will be determined after pathology results from today's exam become available for review. My findings are described in the full procedure note, which is enclosed. If I can be of further assistance, please feel free to contact me at . Sincerely, Ney Moreno, 10/30/2024 7:27:16 PM This report has been signed electronically.
== END 2024-10-30 20:55 | disposition home or self-care (01) | DRG 395 ==
LOC: ED 14:33 → PCU 14:58
PROVIDERS: Anesthesiology; Internal Medicine Gastroenterology; Admitting Provider Hospitalist; Emergency Provider Emergency Medicine; PCP Internal Medicine; Visit Provider Internal Medicine
PROC: 0DJ08ZZ Inspection of Upper Intestinal Tract, Via Natural or Artificial Opening Endoscopic (ICD-10-PCS; CPT 43235; principal; 2024-10-29 15:55)
PROC: 0DJD8ZZ Inspection of Lower Intestinal Tract, Via Natural or Artificial Opening Endoscopic (ICD-10-PCS; CPT 45378; principal; 2024-10-30 15:55)
DX: K55.039 Acute (reversible) ischemia of large intestine, extent unspecified (principal); D64.9 Anemia, unspecified; I10 Essential (primary) hypertension; I35.0 Nonrheumatic aortic (valve) stenosis; K29.50 Unspecified chronic gastritis without bleeding; K64.1 Second degree hemorrhoids; Z90.710 Acquired absence of both cervix and uterus; Z79.82 Long term (current) use of aspirin; K63.89 Other specified diseases of intestine; Z86.73 Personal history of transient ischemic attack (TIA), and cerebral infarction without residual deficits; R01.1 Cardiac murmur, unspecified
CPT/HCPCS: 36415; 80048; 80053; 85025; 85027; 85610; 85730; 86850; 86900; 86901; 86920; 88305; 88342; 93005; 93306; 94668; 97802; 99284; A4216; J2405

== ENCOUNTER 2024-11-27 08:58 | Inpatient (IN) | payer MEDICARE, SELFPAY ==
[2024-11-27] VITALS (22 sets, daily range): BP systolic 86–133; BP diastolic 41–71; PULSE 63–99; RESP 12–24; TEMP 36.1–37.1; O2SAT 92–100; BMI 31.1; BMI 30.1; BMI 31.4
--- NOTE | 2024-11-27 09:09 | EX.ED.DYSGE1 ---
HPI History of Present Illness Chief Complaint: Fatigue Informant: patient Onset/Context/Timing Onset: Today Context: Sudden Onset Timing: Continuous Quality: Weakness Location: Generalized Worsened by: Nothing Relieved by: Nothing Narrative Narrative: Patient presents with bloody stools with began today. Patient states she has been feeling weak. Patient states that she had a colonoscopy which showed the mucosal lining was thin. Patient states this was because she was using [id number] laxatives. Patient states she stopped using the laxatives. Patient states she has been feeling better until today when she noted some blood in her stools. Patient states it was dark red blood. Patient states she feels weak. Patient admits to some abdominal discomfort where it feels like her stomach is in a knot. Patient admits to some nausea but denies any vomiting. Patient admits to some generalized weakness. [facility] Medical History Aortic regurgitation Aortic stenosis Anemia Acute upper GI bleed Pneumonia History of stroke History of bladder cancer Hypertension Home Medications ?Medication ?Instructions ?Recorded ?Last Taken ?Type aspirin 81 mg tablet,delayed 81 mg PO DAILY 01/01/20 11/26/24 History release amlodipine 5 mg tablet 5 mg PO DAILY #90 tabs 02/14/24 11/26/24 Rx losartan 50 mg tablet 50 mg PO DAILY #90 tabs 02/14/24 11/26/24 Rx magnesium 250 mg tablet 250 mg PO QDAY 05/07/24 11/26/24 History turmeric 400 mg capsule 400 mg PO DAILY 10/28/24 11/26/24 History iron bisglycinate chelate 28 mg PO QDAY #90 caps 11/19/24 11/26/24 Rx Allergy/AdvReac Type Severity Reaction Status Date / Time No Known Allergies Allergy Verified 11/27/24 08:59 Family History Mother Myocardial infarction, Onset Age: 80 Heart disease Hypertension CVA (cerebral vascular accident) Father Myocardial infarction, Onset Age: 56 Surgical History H/O esophagogastroduodenoscopy History of hysterectomy Social History Smoking Status: Never smoker alcohol intake: never substance use type: does not use what type of physical activity do you participate in: none ROS ROS ED Constitutional Constitutional ED: Denies chills or fever(s) Eyes Eyes: Denies blurry vision or change in vision ENT ENT ED: Denies rhinorrhea or sore throat Cardiovascular Cardiovascular: Denies chest pain or palpitations Respiratory/Chest Respiratory/Chest: Denies cough or dyspnea Gastrointestinal Gastrointestinal: Reports abdominal pain and nausea; Denies vomiting Genitourinary Genitourinary ED: Denies dysuria or hematuria Musculoskeletal Musculoskeletal: Denies back pain or neck pain Integumentary Denies abscess or rash Neurologic Neurologic: Reports weakness; Denies headache(s) Allergic/Immunologic Allergic/Immunologic ED: Denies mouth swelling or urticaria EXAM Physical Exam Const Vital Signs: 11/27/24 08:59 11/27/24 08:59 11/27/24 09:18 Temperature 97 F L Temperature Source Temporal Pulse Rate 77 66 Respiratory Rate 14 12 Respiratory Effort Normal Respiratory Pattern Normal Blood Pressure 86/55 L 89/59 L Blood Pressure Mean 65 69 Pulse Ox 100 100 Oxygen Delivery Method Room Air Room Air 11/27/24 10:05 11/27/24 11:00 11/27/24 12:00 Temperature Temperature Source Pulse Rate 66 72 89 Respiratory Rate 16 21 H 24 H Respiratory Effort Respiratory Pattern Blood Pressure 102/54 L 101/54 L 90/60 Blood Pressure Mean 70 69 70 Pulse Ox 93 98 100 Oxygen Delivery Method Room Air 11/27/24 13:00 Temperature Temperature Source Pulse Rate 65 Respiratory Rate 19 H Respiratory Effort Respiratory Pattern Blood Pressure 119/58 L Blood Pressure Mean 78 Pulse Ox 100 Oxygen Delivery Method Positive well nourished and well developed General Appearance ED: well developed and NAD HEENT Reports moist mucous membranes Neck supple Resp normal respiratory effort and clear to auscultation bilaterally Cardio regular rate and regular rhythm GI non-tender and non-distended GI Narrative: Rectal exam showed good sphincter tone. There are no masses. There are no hemorrhoids noted. There is dark stool. This was Hemoccult positive. Palpation: soft Neuro oriented x3, CN's II-XII intact bilaterally and no sensory deficits noted Sensorium / Orientation: alert Motor Exam: general weakness Psych mental status grossly normal MDM MDM MDM Narrative Medical decision making narrative: Differential diagnosis includes but is not limited to gastroenteritis, diverticulitis, colitis, bowel obstruction, perforation, anemia, coagulopathy, and electrolyte abnormality. CT scan of the abdomen and pelvis will be obtained to assess for bowel obstruction, perforation, diverticulitis, and colitis. CBC will be obtained to assess for leukocytosis and anemia. Comprehensive metabolic profile will be obtained to assess for hepatic function, renal function, and electrolyte abnormality. PT with INR and PTT will be obtained to assess for coagulopathy. History & Record Review Additional record(s) reviewed:: Prior outpatient record, Prior ED visit and Prior labs Lab Data Attestation: I reviewed the patient's lab results. Lab results narrative: CBC was reviewed. There is a mild anemia with a hemoglobin of 7.8 and hematocrit of 24.6. Platelets were normal. Comprehensive metabolic profile was reviewed. BUN was elevated at 38. Glucose was slightly elevated at 155. The remainder is within normal limits. PT with INR and PTT were reviewed and were essentially within normal limits. Urinalysis was reviewed. Leukocyte Estrace was 100. There are 0-5 white blood cells. There is 1+ bacteria. Nitrites were positive. Stool for occult blood was reviewed and was positive. Labs: Laboratory Results - last 24 hr 11/27/24 11/27/24 11/27/24 09:16 09:17 10:40 WBC 8.8 RBC 2.53 L Hgb 7.8 L Hct 24.6 L MCV 97.2 MCH 30.8 MCHC 31.7 L RDW Std Deviation 46.8 H RDW Coeff of [place] 13.2 Plt Count 260 MPV 10.0 Immature Gran % (Auto) 0.300 Neut % (Auto) 85.0 H Lymph % (Auto) 10.6 L [place] % (Auto) 3.6 Eos % (Auto) 0.2 Baso % (Auto) 0.3 Absolute Neuts (auto) 7.5 Absolute Lymphs (auto) 0.93 Nucleated RBC % 0 PT 14.2 INR 1.1 APTT 23.8 L Sodium 139 Potassium 4.6 Chloride 108 Carbon Dioxide 19.3 L Anion Gap 12 BUN 38 H Creatinine 1.12 Estim Creat Clear Calc 41.75 L Est GFR (MDRD) Non-Af 51 L BUN/Creatinine Ratio 33.6 H Glucose 155 H Calcium 8.8 Phosphorus 2.1 L Magnesium 2.1 Total Bilirubin 0.82 AST 17 ALT 11 Alkaline Phosphatase 87 Total Protein 6.2 Albumin 3.8 Globulin 2.5 Albumin/Globulin Ratio 1.5 Urine Color Yellow Urine Clarity Clear Urine pH 6.0 Ur Specific [place] 1.020 Urine Protein 30 H Urine Glucose (UA) Normal Urine Ketones 5 H Urine Occult Blood 10 H Urine Nitrite Positive H Urine Bilirubin Negative Urine Urobilinogen Normal Ur Leukocyte Esterase 100 H Urine RBC 0 SEEN Urine WBC 0-5 SEEN Ur Squamous Epith Cells 0-5 SEEN Urine Bacteria 1+ Hyaline Casts 0-5 SEEN Urine Mucus 1+ Blood Type A NEGATIVE Antibody Screen NEGATIVE Radiography Diagnostic Testing: Clinical Impression(s) from Imaging Studies Abdomen/Pelvis CT 11/27/24 09:36 IMPRESSION: Hepatomegaly and fatty infiltration of the liver. Solitary gallstone Reading Location: [place] [id number] CT scan of the abdomen and pelvis was obtained. There is no mass. There is no evidence of diverticulitis. There is a solitary gallstone. There is no bowel obstruction or perforation. There is no free air or free fluid. This was interpreted by the radiologist and was also independently reviewed by myself. Management Discussion w/another healthcare provider: Hospitalist and [employer] Worker (Dr. Moreno) Treatment and Re-Evaluation :: Patient was given IV fluids and Zofran. Patient's blood pressure improved after IV fluids. Patient was given a repeat bolus of normal saline. Case was discussed with Dr. Moreno. He is agreeable to keep the patient here. Will follow patient in the hospital. Case was discussed with the hospitalist. He will admit the patient to his service. Patient and family understood and were agreeable with the plan. All questions were answered. Discharge Plan Dx/Rx/DC Orders Clinical Impression: Gastrointestinal bleeding, upper, Anemia, Aortic stenosis Disposition Disposition: Acute Care Hospital [facility] Discharge Date/Time: 11/27/24 15:36
--- NOTE | 2024-11-27 09:36 | CT_ITS ---
PROCEDURE: ABDOMEN/PELVIS W IV CONT ONLY 11/27/2024 REASON FOR EXAM: ABDOMINAL PAIN Weakness. Decreased appetite. History of bladder cancer. TECHNIQUE: ABDOMEN/PELVIS W IV CONT ONLY Coronal and Sagittal reconstruction series were provided. CONTRAST: Isovue-300 VOLUME: 100 mL One or more dose reduction techniques were used (e.g., Automated exposure control, adjustment of the mA and/or kV according to patient size, use of iterative reconstruction technique. RADIATION DOSE SUMMARY: CTDlvol: 16 mGy DLP: 715.45 mGycm COMPARISON: None FINDINGS: Lung bases: Mild dependent atelectasis Liver: Diffuse fatty infiltration.. Hepatomegaly. Gallbladder: Solitary gallstone. Spleen: Normal size. Pancreas: Diffuse fatty atrophy. Adrenals: Unremarkable Kidneys: Normal renal sizes. No hydronephrosis. Bladder: Unremarkable Reproductive Organs: Status post hysterectomy. Bowel: Colonic diverticulosis without diverticulitis. Appendix: The appendix is not identified. There is no inflammatory process identified in the right lower quadrant to suggest appendicitis. Lymph nodes: Unremarkable. Vasculature: Mild diffuse atherosclerotic calcifications are noted. Peritoneum / Retroperitoneum: Unremarkable Bones: Degenerative changes of the spine. CT/Abdomen/Pelvis W IV Cont ONLY IMPRESSION: Hepatomegaly and fatty infiltration of the liver. Solitary gallstone [id number]
[2024-11-27 09:57] LABS: Hematocrit 24.6 % (37-47); Hemoglobin 7.8 g/dL (12.0-15.0); Immature Granulocytes Count 0.030 X10^3/uL (0.0-0.0); Mean Corp Hgb Conc 31.7 g/dL (32-36); Mean Corpuscular Volume 97.2 fL (81-99); Mean Platelet Vol. 10.0 fl (6.2-12.0); NRBC Flagged by Analyzer 0 % (0-5); Platelet Count 260 K/mm3 (150-450); RBC Distribution Width CV 13.2 % (11.6-14.6); RBC Distribution Width SD 46.8 fl (35.1-43.9); Red Blood Count 2.53 M/mm3 (4.2-5.4); White Blood Count 8.8 K/mm3 (4.4-11.0)
[2024-11-27] MEDS: 0.9% Normal Saline (1000mL) 1,000 ML 999 ML IV (10:00)
[2024-11-27 10:09] LABS: Prothrombin Time (Protime)PT. 14.2 SECONDS (11.7-14.9)
[2024-11-27 10:10] LABS: Partial Thromboplast Time 23.8 Seconds (24.1-36.2)
[2024-11-27 10:14] LABS: AST(SGOT) 17 U/L (<=31); Alanine Aminotransfer ALT/SGPT 11 U/L (<=34); Albumin, Serum 3.8 g/dL (3.4-4.8); Alkaline Phosphatase 87 U/L (35-104); Anion Gap 12 (5-15); BUN 38 mg/dL (4-19); BUN/Creat Ratio 33.6 RATIO (10-20); Calcium,Total 8.8 mg/dL (7.6-11.0); Carbon Dioxide 19.3 mmol/L (21.0-32.0); Chloride 108 mmol/L (98-108); Estimated Creatinine Clearance 41.75 ml/min (50-250); Globulin 2.5 g/dL (2.2-4.2); Glucose 155 mg/dL (70-99); Potassium 4.6 mmol/L (3.3-5.1)
--- OUTSIDE RECORDS SUMMARY | 2024-11-27 10:34 | XMS RPT_ITS | CCD ---
Author Organization [facility] Care Team Providers Care Manager Procurement Name Role Phone BERNICE DE LA TORRE Attending Unavailable BERNICE DE LA TORRE Consulting Unavailable BERNICE DE LA TORRE Primary Care Unavailable BERNICE DE LA TORRE Admitting Unavailable PROVIDER, UNKNOWN Consulting Unavailable Alvino CAMACHO, Dr. Carpio Primary Care Provider [phone] Dr. Juan Diego Sauer MD Emergency Provider Kevin VELOZ, Dr. Jack Admit Provider Dr. Guero Pagan DO Attending Provider Dr. Guero Pagan DO Other Provider Dr. Dewayne Gonzalez DO Attending Provider Dr. Arya Johnson MD Attending Provider Dr. Dewayne Gonzalez DO Other Provider Dr. Ney Moreno DO Attending Provider Dr. Dewayne Gonzalez DO Referring Provider Alvino CAMACHO, Dr. Carpio Attending Provider Dewayne Gonzalez Attending Unavailable Guero Pagan Consulting Unavailable Guero Pagan Admitting Unavailable Bernice De La Torre Primary Care Unavailable Dewayne Gonzalez Consulting Unavailable Guero Pagan Attending Unavailable Ney Moreno Attending Unavailable Dewayne Gonzalez Referring Unavailable Bernice De La Torre Attending Unavailable Bernice De La Torre Primary Care Unavailable Bernice De La Torre Primary Care Unavailable Bernice De La Torre Attending Unavailable Ney Moreno Attending Unavailable Dewayne Gonzalez Referring Unavailable Bernice De La Torre Primary Care Unavailable Bernice De La Torre Primary Care Unavailable Arya Johnson Attending Unavailable Bernice De La Torre Primary Care Unavailable Bernice De La Torre Attending Unavailable Guero Pagan Admitting Unavailable Dewayne Gonzalez Attending Unavailable Guero Pagan Consulting Unavailable Bernice De La Torre Primary Care Unavailable Medications Current Medications Medication Drug Class(es) Dates Sig (Normalized) Sig (Original) aspirin 81 mg delayed release oral tablet (3 sources) Platelet Aggregation Inhibitor, Nonsteroidal Anti-inflammatory Drug Start: 01-01-2020 take 1 tablet by mouth once daily Aspirin 81 mg tablet,delayed release (DR/EC) Active 81 mg PO DAILY January 01, 2020 12:00am Iron Bisglycinate Chelate 28 mg iron capsule (1 source) Start: 11-19-2024 take 1 capsule by mouth once daily Iron Bisglycinate Chelate 28 mg iron capsule Active 28 mg PO daily 90 November 19, 2024 12:00am Magnesium (3 sources) Start: 05-07-2024 take 1 tablet by mouth once daily Magnesium 250 mg tablet Active 250 mg PO daily May 07, 2024 1:00am Turmeric extract (3 sources) Start: 10-28-2024 take 1 capsule by mouth once daily Turmeric 400 mg capsule Active 400 mg PO DAILY October 28, 2024 12:00am Completed/Discontinued Medications Medication Drug Class(es) Dates Sig (Normalized) Sig (Original) amLODIPine 5 mg oral tablet (18 sources) Dihydropyridine Calcium Channel José Miguel Start: 01-01-2020 End: 02-14-2024 take 1 tablet by mouth once daily Amlodipine 5 mg tablet Discontinued 5 mg PO DAILY March 21, 2023 11:24am February 14, 2024 3:39pm azithromycin 500 mg oral tablet (3 sources) Macrolide Antimicrobial Start: 05-07-2024 End: 05-14-2024 take 1 tablet by mouth once daily Azithromycin (Zithromax) 500 mg tablet Discontinued 500 mg PO daily 7 7 0 May 07, 2024 1:00am May 13, 2024 1:00am May 14, 2024 1:09am losartan potassium 50 mg oral tablet (18 sources) Angiotensin 2 Receptor José Miguel Start: 01-01-2020 End: 02-14-2024 take 1 tablet by mouth once daily Losartan 50 mg tablet Discontinued 50 mg PO DAILY March 21, 2023 11:24am February 14, 2024 3:39pm Butte-3 Fatty Acids 1,000 mg capsule (3 sources) Start: 05-07-2024 End: 10-28-2024 take 1 capsule by mouth once daily Butte-3 Fatty Acids 1,000 mg capsule Discontinued 1000 mg PO daily May 07, 2024 1:00am October 28, 2024 11:25am Problems Active Problems Problem Classification Problem Date Documented Da te Episodic/Chronic Cancer of bladder (6 sources) H/O: malignant neoplasm; Translations: [Personal history of malignant neoplasm of bladder] 01-01-2020 Episodic Deficiency and other anemia (6 sources) Anemia; Translations: [Anemia, unspecified] 10-28-2024 Episodic Deficiency and other anemia (2 sources) Anemia, unspecified; Translations: [Anemia, unspecified] Onset: 5 Episodic Essential hypertension (4 sources) Hypertensive disorder; Translations: [Essential (primary) hypertension] Onset: 5 01-01-2020 Chronic Fracture of lower limb (3 sources) Fracture of distal end of fibula; Translations: [Other fracture of upper and lower end of unspecified fibula, initial encounter for closed fracture] 04-28-2021 Episodic Gastrointestinal hemorrhage (8 sources) Acute upper gastrointestinal hemorrhage; Translations: [Gastrointestinal hemorrhage, unspecified] Onset: 5 10-28-2024 Episodic Other circulatory disease (3 sources) History of cerebrovascular accident; Translations: [Personal history of transient ischemic attack (TIA), and cerebral infarction without residual deficits] 01-01-2020 Episodic Residual codes; unclassified (3 sources) Pain, unspecified; Translations: [Pain aggravated by walking] 04-28-2021 Episodic Sprains and strains (3 sources) Sprain of left knee; Translations: [Sprain of unspecified site of left knee, initial encounter] 04-28-2021 Episodic Past or Other Problems Problem Classification Problem Date Documented Da te Episodic/Chronic Pneumonia (except that caused by tuberculosis or sexually transmitted disease) (4 sources) Pneumonia; Translations: [Pneumonia, unspecified organism] Onset: 05-07-2024 05-07-2024 Episodic Results Test Name Value Interpretation Reference Range Facility /Angelo 11-19-2024 [facility] [address] [facility] [address] [place] [id number] OFFICE VISIT Date of Service: 11/19/24 MR#: [id number] Acct: [id number] Name: ADEN LINDO Rep #: [id number] : 1950 Provider: Dr. Bernice edmond MD Age/Sex: 73/F Location: [facility] Status: Signed Intake Vital Signs 10/29/24 13:49 11/19/24 09:52 Height 5 ft 5 in 5 ft 5 in Weight: 171 lb 4 oz BMI 28.5 BP 163/69 H Blood Pressure Location Lt brachial Position Sitting Respiration 16 Pulse 55 L Pulse Source Monitor Temp 98.6 F Temp Source Temporal Pulse Oximetry (%) 98 Oxygen Delivery Method room air Intake Visit Reasons: [facility] Discharge FU Chief Complaint: [facility] Discharge FU Hot Box Checker Required: No Accompanied by: Is patient in pain?: No Allergies No Known Allergies Allergy (Verified 11/19/24 09:47) Medications ???Medication ???Instructions ???Recorded ???Confirmed ???Type aspirin 81 mg tablet,delayed 81 mg PO DAILY 01/01/20 11/19/24 H istory release amlodipine 5 mg tablet 5 mg PO DAILY #90 tabs 02/14/24 Rx losartan 50 mg tablet 50 mg PO DAILY #90 tabs 02/14/24 0 11/19/24 Rx magnesium 250 mg tablet 250 mg PO QDAY 05/07/24 11/19/24 H istory turmeric 400 mg capsule 400 mg PO DAILY 10/28/24 11/19/24 History iron bisglycinate chelate 28 mg PO QDAY #90 caps 11/19/24 Rx Have you fallen in the past year?: No [facility] Medical History (Updated 11/19/24 @ 10:[address] Bernice De La Torre MD) Aortic regurgitation Aortic stenosis Anemia Acute upper GI bleed Pneumonia History of stroke History of bladder cancer Hypertension Surgical History History of hysterectomy Family History Mother Myocardial infarction, Onset Age: 80 Heart disease Hypertension CVA (cerebral vascular accident) Father Myocardial infarction, Onset Age: 56 Social History Smoking Status: Never smoker alcohol intake: never substance use type: does not use what type of physical activity do you participate in: none HPI HPI Chief Complaint: [facility] Discharge FU Details: ADEN LINDO, is a 73 F who presents to the office today for is a 73-year-old female follows up after recent hospitalization. She was having GI bleeding, ultimately appeared to be a hemorrhagic colitis, presumed related to her regular use of laxatives. She has longstanding history of constipation since childhood, and previously would discuss this. In addition, she had an upper scope apparently, showing some chronic gastritis. I had always suggested she increased amount of fiber in the diet, fresh fruits and vegetables, and try and avoid laxatives. In any event, her hemoglobin which is normally over 12, was 8.3 at discharge. She was not recommended to use any iron supplement. She can continues to have ongoing fatigue and tiredness that she did not have prior to the GI bleed episode. Does not get easily or overtly winded anything beyond her usual. They did have concern about murmurs and evaluated with echo at the hospital. She has a known history of mild AI, mild , and mild MR, follow clinically. Last echo was in 2019, done outside institution, [facility]. Did not appears to be significantly worse than previous at her last visit in 2023. During hospitalization again because of the concerned about the murmurs, she did have an echo, suggesting of significantly worsened AI and AAS with a high gradient although she is under high flow state at that point in time. Some degree of MR as well. Despite this she did not report being significantly short of breath, chest pain, chest tightness under those circumstances of the anemia. No further GI bleeding. There was a polyp removed. The patient herself was unaware of this. I am not sure if gastroenterology reached out to patient since her pathology came back. They were uncl ear about whether any follow-up was needed. I do suggest they might reach out to Dr. Moreno's office and see exactly what the follow-up was recommended but presumed 5-year, based off of the polyp pathology. She did get back onto her blood pressure medication and her average blood pressure currently as she brings in readings is 136/74. Review of systems per chart. Physical exam. Vital signs on chart. PERRLA. Sclera are clear. TMs are unremarkable with normal light reflexes. Canals are unremarkable. Posterior pharynx is unremarkable. Upper and lower plates. No cervical or supraclavicular lymph nodes enlarged or tender. No clear thyromegaly. No thyroid nodules readily palpable. Lungs are without wheeze, rhonchi, rales. No E/A changes are heard. Heart is regular. Not tachycardic. No clear rub or (more content not included)... Normal [facility] Absolute lymphocyte countOrd ered By: Alejandro Davila on 10-30-2024 Lymphocytes Auto (Unsp spec) [#/Vol] 1.95 10*3/uL 0.83-4.51 [facility] Absolute neutrophil countOrd ered By: Alejandro Davila on 10-30-2024 Neutrophils (Bld) [#/Vol] 2.4 10*3/uL 2.0-7.7 [facility] Activated partial thrombopla stin time (aPTT) in platelet poor plasma by coagulation aOrdered By: Alejandro Davial on 10-30-2024 aPTT Coag (PPP) [Time] 26.8 s 24.1-36.2 [facility] Automated blood erythrocyte countOrdered By: Alejandro Davila on 10-30-2024 RBC (Bld) [#/Vol] 2.61 10*6/uL Low 4.2-5.4 [facility] Comment on above: Performed By: #### L 100.0100, L300.4310, L300.3900 ####[facility] [address] [place], [place], [phone] Automated blood hematocrit ( percentage)Ordered By: Alejandro Davila on 10-30-2024 Hematocrit (Bld) [Volume fraction] 25.1 % Low 37-47 [facility] Comment on above: Performed By: #### L 100.0100, L300.4310, L300.3900 ####[facility] [address] [place], [place], [phone] Automated lymphocyte count a s percentage of total leukocytesOrdered By: Alejandro Davila on 10-30-2024 Lymphocytes/100 WBC Auto (Unsp spec) 40.2 % [facility] Basophil percentageOrdered B y: Alejandro Davila on 10-30-2024 Basophils/100 WBC (Bld) 0.8 % Normal 0-1 [facility] Comment on above: Performed By: #### L 100.0100, L300.4310, L300.3900 ####[facility] [address] [place], [address] CBC W/Diff, Automatedon 10-19 Absolute Lymph 1.95 X10 3/uL Normal 0.83-4.51 [facility] Comment on above: Performed By: #### L 100.0100, L300.4310, L300.3900 ####[facility] [address] [place], [address] Absolute Neut 2.4 X10 3/uL Normal 2.0-7.7 [facility] Comment on above: Performed By: #### L 100.0100, L300.4310, L300.3900 ####[facility] [address] [place], [address] IG% 0.400 Normal 0.0-0.9 [facility] Comment on above: Result Comment: IG% - Immature Granulocytes (promyelocytes, myelocytes and metamyelocytes) > 1% indicates that a LEFT SHIFT is Present. Performed By: #### L 100.0100, L300.4310, L300.3900 ####[facility] [address] [place], [address] Lymphocytes/100 WBC (Bld) 40.2 % Normal [facility] Comment on above: Performed By: #### L 100.0100, L300.4310, L300.3900 ####[facility] [address] [place], [address] Nucleated RBC (Bld) [#/Vol] 0 10*3/uL Normal 0-5 [facility] Comment on above: Performed By: #### L 100.0100, L300.4310, L300.3900 ####[facility] [address] [place], [address] RDW SD 44.6 fl High 35.1-43.9 [facility] Comment on above: Performed By: #### L 100.0100, L300.4310, L300.3900 ####[facility] [address] [place], [address] Colonoscopy Reporton 025 Colonoscopy Report [facility] Medical Records Department [address] [place] [address] Colonoscopy Report MR#: [id number] Acct: [id number] Name: ADEN LINDO Rep #: [id number] : 1950 73 From: Ney Moreno DO PCP: Dr. Bernice De La Torre MD Status:ADM IN Patient Name: Aden Lindo Procedure Date: 10/30/2024 4:26 PM Date of : 1950 Age: 73 Procedure: Colonoscopy Indications: Hematochezia Providers: Ney Moreno DO Medicines: Monitored Anesthesia Care Patient Profile: This is a 73 year old female. Refer to note in patient chart for documentation of history and physical. Last Colonoscopy: none. The patient's first colonoscopy is today. Complications: No immediate complications. Procedure: Pre-Anesthesia Assessment: - Prior to the procedure, a History and Physical was performed, and patient medications and allergies were reviewed. The patient is competent. The risks and benefits of the procedure and the sedation options and risks were discussed with the patient. All questions were answered and informed consent was obtained. Patient identification and proposed procedure were verified by the physician in the pre-procedure area. Mental Status Examination: alert and oriented. CV Examination: normal. Prophylactic Antibiotics: The patient does not require prophylactic antibiotics. Prior Anticoagulants: The patient has taken no anticoagulant or antiplatelet agents except for NSAID medication. ASA Grade Assessment: II - A patient with mild systemic disease. After reviewing the risks and benefits, the patient was deemed in satisfactory condition to undergo the procedure. The anesthesia plan was to use monitored anesthesia care (MAC). Immediately prior to administration of medications, the patient was re-assessed for adequacy to receive sedatives. The heart rate, respiratory rate, oxygen saturations, blood pressure, adequacy of pulmonary ventilation, and response to care were monitored throughout the procedure. The physical status of the patient was re-assessed after the procedure. After I obtained informed consent, the scope was passed under direct vision. Throughout the procedure, the patient's blood pressure, pulse, and oxygen saturations were monitored continuously. The Colonoscope was introduced through the anus and advanced to the terminal ileum. The colonoscopy was performed without difficulty. The patient tolerated the procedure well. The quality of the bowel preparation was adequate. The terminal ileum, ileocecal valve, appendiceal orifice, and rectum were photographed. Scope In: 4:47:23 PM Scope Withdrawal Time 0 hours 6 minutes 15 seconds Scope Out: 5:04:52 PM Total Procedure Duration Time 0 hours 17 minutes 29 seconds Findings: The perianal and digital rectal examinations were normal. Non-bleeding internal hemorrhoids were found during retroflexion. The hemorrhoids were Grade II (internal hemorrhoids that prolapse but reduce spontaneously). A diffuse area of moderate melanosis was found in the entire colon. Biopsies were taken with a cold forceps for histology. Verification of patient identification for the specimen was done. Estimated blood loss was minimal. Localized moderate inflammation was found at the splenic flexure. A patchy area of the terminal ileum was congested. Biopsies were taken with a cold forceps for histology. Verification of patient identification for the specimen was done. Estimated blood loss was minimal. A 5 mm polyp was found in the transverse colon. The polyp was sessile. The polyp was removed with a cold biopsy forceps. Resection and retrieval were complete. Verification of patient identification for the specimen was done. Estimated blood loss was minimal. Impression: - Non-bleeding internal hemorrhoids. - Melanosis in the colon. Biopsied. - Localized moderate inflammation was found at the splenic flexure secondary to ischemic colitis. - Congested mucosa in the terminal ileum. Biopsied. Recommendation: - Discharge patient to home. - Resume previous diet. - Continue present medications. - Await pathology results. - Repeat colonoscopy is recommended for surveillance. The colonoscopy date will be determined after pathology results from today's exam become available for review. Procedure Code(s): --- Professional --- 73500, Colonoscopy, flexible; with biopsy, single or multiple CPT copyright 2021 [employer]. All rights reserved. The codes documented in this report are preliminary and upon site controller review may be revised to meet current compliance requirements. Ney DO Josh 10/30/2024 7:27:16 PM This report has been signed electronically. Number of Addenda: 0 Note Initiated On: 10/30/2024 4:26 PM 10/30/241926 Date Ra (more content not included)... Normal [facility] Discharge Instructionon 10-19 Discharge Instruction [facility] Medical Records Department [address] [place] [address] Instructions for Home/Discharge Instructions 10/30/241918 MR#: [id number] Acct: [id number] Name: ADEN LINDO Rep #: [id number] : 1950 73 From: Dewayne Gonzalez DO PCP: Dr. Bernice De La Torre MD Status:ADM IN Discharge Instructions Diet Discharge Diet: No restrictions DC O2, CPAP, BIPAP needs Home O2 Discharge instructions: No Dressing / Incision Discharge Activity: Return to Normal Activity Weight Bearing Status: Full weight bearing Follow Up Care Test Results: Test results from this visit will be discussed in further detail at your follow-up appointment, if applicable. Discharge Plan Admission Admit Date/Time: 10/28/24 14:34 Primary Reason for Your Visit: Chronic gastritis, ischemic bowel Attending Provider: Dewayne Gonzalez Primary Care Provider: Bernice De La Torre Consulting Providers: Guero Pagan Discharge Orders/Prescriptions Prescriptions: Continued aspirin 81 mg tablet,delayed release (DR/EC) 81 mg PO DAILY magnesium 250 mg tablet 250 mg PO QDAY turmeric 400 mg capsule 400 mg PO DAILY amlodipine 5 mg tablet 5 mg PO DAILY Qty: 90 3RF losartan 50 mg tablet 50 mg PO DAILY Qty: 90 3RF Referrals / Follow Up: Bernice De La Torre MD [Primary Care Provider] - Within 2 Weeks Disposition Disposition (needs filled in before D/C Order can be placed): Home, Self Care 10/30/241923 Dewayne Gonzalez DO CC: Dr. Guero Pagan DO; Dr. Bernice De La Torre MD Signed Normal [facility] Eosinophil percentageOrdered By: Alejandro Davila on 10-30-2024 Eosinophils/100 WBC (Bld) 2.3 % Normal 0-5 [facility] Comment on above: Performed By: #### L 100.0100, L300.4310, L300.3900 ####[facility] [address] [place], [address] Erythrocyte distribution wid th ratioOrdered By: Alejandro Davila on 10-30-2024 Erythrocyte distribution width (RBC) [Ratio] 12.9 % Normal 11.6-14.6 [facility] Comment on above: Performed By: #### L 100.0100, L300.4310, L300.3900 ####[facility] [address] [place], [address] Erythrocyte distribution wid th standard deviationOrdered By: Alejandro Davila on 10-30-2024 Erythrocyte distribution width (RBC) [Ratio] 44.6 fl High 35.1-43.9 [facility] Hemoglobin measurementOrdere d By: Alejandro Davila on 10-30-2024 Hemoglobin (Bld) [Mass/Vol] 8.3 g/dL Low 12.0-15.0 [facility] Comment on above: Performed By: #### L 100.0100, L300.4310, L300.3900 ####[facility] [address] [place], [address] Immature granulocytes/100 WB C Auto (Bld)Ordered By: Alejandro Davila on 10-30-2024 Immature granulocytes/100 WBC (Bld) 0.400 % 0.0-0.9 [facility] Comment on above: IG% - Immature Granu locytes (promyelocytes, myelocytes and metamyelocytes) > 1% indicates that a LEFT SHIFT is Present. International normalized rat io (INR) calculationOrdered By: Alejandro Davila on 10-30-2024 INR Coag (Bld) [Relative time] 1.1 {INR} [facility] MCV (mean corpuscular volume ) determinationOrdered By: Alejandro Davila on 10-30-2024 MCV (RBC) [Entitic vol] 96.2 fL Normal 81-99 [facility] Comment on above: Performed By: #### L 100.0100, L300.4310, L300.3900 ####[facility] [address] [place], [address] MR/POSTOP.ANEon 10-30-2024 MR/POSTOP.[facility] Medical Records Department [address] [place] [address] Anesthesia Postop Eval I 10/30/241716 MR#: [id number] Acct: [id number] Name: ADEN LINDO Rep #: [id number] : 1950 73 From: Pedro Akers CRNA PCP: Dr. Bernice De La Torre MD Status:ADM IN Y Race: C Location: [place] [address] Anesthesia: Postop Eval I Current Vital Signs Temperature: 99.4 F Pulse Rate: 75 Blood Pressure: 109/59 Respiratory Rate: 24 Pulse Ox: 99 Oxygen Delivery Method: Room Air Assessment Airway patent: Yes Spontaneous unlabored respirations: Yes Mental status: Awake and Calm nausea: No Vomiting: No Anesthesia Complication: No Fluid Hydration Crystalloid volume administer (ml): 300 Total IV fluid infused: 300 Progress Note Anesthesia document: Postop Eval 1 completed: Yes 10/30/241717 Date Pedro Akers CRNA Cosigner Signature: Date CC: Signed Normal [facility] MR/FOWYROOE3ow 10-30-2024 MR/POSTOPAN2 [facility] Medical Records Department [address] [place] [address] Anesthesia Postop Eval II 10/30/241718 MR#: [id number] Acct: [id number] Name: ADEN LINDO Rep #: [id number] : 1950 73 From: Alejandro Davila MD PCP: Dr. Bernice De La Torre MD Status:ADM IN Y Race: C Location: [place] [address] Anesthesia Postop Eval I Sum Postop Eval Completion status Anesthesia document: Postop Eval 1 completed: Yes Anesthesia Postop Eval I Summary Anesthesia Postop Eval I Summary: Anesthesia Postop Eval I: Assessment Summary Airway patent Yes 10/30/24 17:18 KEY ACCOUNT REPRESENTATIVE.DMAY Spontaneous unlabored Yes 10/30/24 17:18 KEY ACCOUNT REPRESENTATIVE.DMAY respirations Mental status Awake,Calm 10/30/24 17:18 KEY ACCOUNT REPRESENTATIVE.DMAY nausea No 10/30/24 17:18 KEY ACCOUNT REPRESENTATIVE.DMAY Vomiting No 10/30/24 17:18 KEY ACCOUNT REPRESENTATIVE.DMAY Anesthesia Postop Eval I: Fluid Summary Crystalloid volume administer 300 10/30/24 17:18 KEY ACCOUNT REPRESENTATIVE.DMAY (ml) Colloids volume administered ( ml) Blood Product volume administered (ml) Total IV fluid infused 300 10/30/24 17:18 KEY ACCOUNT REPRESENTATIVE.DMAY Anesthesia Postop Eval I: Summary Notes Anesthesia Complication No 10/30/24 17:18 KEY ACCOUNT REPRESENTATIVE.DMAY Anesthesia Complication Comment: Post-operative progress note Anesthesia: Postop Eval II Evaluation Mental status: Awake Pain Level: 0 nausea: No Vomiting: No 10/30/241718 Date [facility] Signature: Date CC: Signed Normal [facility] Mean corpuscular hemoglobin (MCH) determinationOrdered By: Alejandro Davila on 10-30-2024 MCH (RBC) [Entitic mass] 31.8 pg Normal 27.0-32.0 [facility] Comment on above: Performed By: #### L 100.0100, L300.4310, L300.3900 ####[facility] [address] [place], [address] Mean corpuscular hemoglobin concentration (MCHC) determinationOrdered By: Alejandro Davila on 10-30-2024 MCHC (RBC) [Mass/Vol] 33.1 g/dL Normal 32-36 [facility] Comment on above: Performed By: #### L 100.0100, L300.4310, L300.3900 ####[facility] [address] [place], [address] Mean platelet volume determi nationOrdered By: Alejandro Davila on 10-30-2024 Platelet mean volume (Bld) [Entitic vol] 10.1 fL Normal 6.2-12.0 [facility] Comment on above: Performed By: #### L 100.0100, L300.4310, L300.3900 ####[facility] [address] [place], [address] Monocyte percentageOrdered B y: Alejandro Davila on 10-30-2024 Monocytes/100 WBC (Bld) 7.8 % Normal 0-10 [facility] Comment on above: Performed By: #### L 100.0100, L300.4310, L300.3900 ####[facility] [address] [place], [address] Neutrophil percentageOrdered By: Alejandro Davila on 10-30-2024 Neutrophils/100 WBC (Bld) 48.5 % Normal 47-70 [facility] Comment on above: Performed By: #### L 100.0100, L300.4310, L300.3900 ####[facility] [address] [place], [address] Nucleated red blood cell per centageOrdered By: Alejandro Davila on 10-30-2024 Nucleated RBC/100 WBC (Bld) [Ratio] 0 % 0-5 [facility] Partial Thromboplast Timeon 10-30-2024 aPTT Coag (Bld) [Time] 26.8 s Normal 24.1-36.2 [facility] Comment on above: Performed By: #### L 100.0100, L300.4310, L300.3900 ####[facility] [address] [place], [place], [phone] Platelet countOrdered By: Marco A Davila on 10-30-2024 Platelets (Bld) [#/Vol] 200 10*3/uL Normal 150-450 [facility] Comment on above: Performed By: #### L 100.0100, L300.4310, L300.3900 ####[facility] [address] [place], [place], [id number] Prothrombin Time w/INRon INR Coag (PPP) [Relative time] 1.1 {INR} Normal [facility] Comment on above: Performed By: #### L 100.0100, L300.4310, L300.3900 ####[facility] [address] [place], [place], [phone] Prothrombin timeOrdered By: Alejandro Davila on 10-30-2024 PT Coag (PPP) [Time] 14.9 s Normal 11.7-14.9 [facility] Comment on above: Performed By: #### L 100.0100, L300.4310, L300.3900 ####[facility] [address] [place], [place], [id number] Surgery Specimen Level Carlos 10-30-2024 Surgery Specimen Level IV ---- Patient Age/Sex Location Account Attending Physician ---- ADEN LINDO 73/F [facility] [id number] Dr. Dewayne Gonzalez, DO ---- Specimen: [id number] Received: 10/31/24 Status: CHERELLE Stewart Num: [id number] Spec Type: COLON BX Subm Dr: DO ELIANA Lockwood OPERATION: Colonoscopy with biopsies PRE-OP DIAGNOSIS: Anemia, GI bleed TISSUE SUBMITTED: A- Transverse colon biopsy, B- Terminal ileum biopsy, C- Rectum biopsy ---- MICROSCOPIC DIAGNOSIS A. Transverse colon, biopsy: Tubular adenoma. B. Terminal ileum, colon, biopsy: Prominent mucosal lymphoid aggregate, favor reactive. C. Rectum, colon, biopsy: Polypoid colorectal mucosa with prolapse features and melanosis coli. MICROSCOPIC DESCRIPTION Slides are reviewed. GROSS DESCRIPTION Received in 3 formalin containers labeled with the patient's name and date of .??? Designated as: A.??? Transverse colon BX is a 0.8 cm monroe soft tissue core.??? Entirely submitted in 1 cassette. B.??? Terminal ileum BX are 2 monroe soft tissue fragments, 0.3 cm each.??? Entirely submitted in 1 cassette. C.??? Rectum BX is a 0.8 cm monroe tissue fragment.??? Entirely submitted in 1 cassette. ND 10/31/2024 CPT:13121b5 ---- Patient Age/Sex Location Account Attending Physician ---- ADEN LINDO 73/F [facility] [id number] Dr. Dewayne Gonzalez, DO ---- Signed (signature on file) Dr. Sravatnhi Jaramillo MD 11/11/24 0903 ---- Normal [facility] Comment on above: Performed By: #### P SUIV #### [facility] Laboratory [address] [place], [place], [address] Surgical pathology reportOrd ered By: Sulaiman Brown on 10-30-2024 Surgical pathology study [facility] White blood cell (WBC) count Ordered By: Alejandro Davila on 10-30-2024 WBC (Bld) [#/Vol] 4.9 10*3/uL Normal 4.4-11.0 [facility] Comment on above: Performed By: #### L 100.0100, L300.4310, L300.3900 ####[facility] [address] [facility] [place], [address] 12 Lead EKGon 10-29-2024 12 Lead EKG [facility] Cardiovascular Services [address] [place] [address] 12 Lead EKG 10/29/24 0508 MR#: [id number] Acct: [id number] Name: ADEN LINDO Rep #: [id number] : 1950 73 From: Kerwin Anne MD Attending Dr: Dr. Dewayne Gonzalez, DO Status: A DM IN Ordering Dr: Alejandro Davila MD Date: 10/29/24 Location: [facility] Sex: F C Admitted: 10/28/24 Test Reason : PRE SCOPE Blood Pressure : */* mmHG Vent. Rate : 67 BPM Atrial Rate : 67 BPM P-R Int : 214 ms QRS Dur : 94 ms QT Int : 414 ms P-R-T Axes : 27 -17 149 degrees QTcB Int : 437 ms Sinus rhythm with 1st degree A-V block Left ventricular hypertrophy with repolarization abnormality ( R in aVL , Todd product ) Abnormal ECG No previous ECGs available Confirmed by Kerwin Anne ([id number]), non linear editor CONCHITA SYLVESTER ([id number]) on 10/29/2024 10:38:55 AM Referred By: KEVIN Confirmed By: Kerwin Anne 10/29/24 1038 Date Kerwin Anne MD CC: Dr. Alejandro Davila MD; Dr. Bernice De La Torre MD; Dr. Dewayne Gonzalez, DO Signed Normal [facility] Anion gap in Serum or Plasma Ordered By: Guero Pagan on 10-29-2024 Anion gap [Moles/Vol] 9 mmol/L -15 [facility] BUN/creatinine ratioOrdered By: Guero Pagan on 10-29-2024 Urea nitrogen/Creatinine [Mass ratio] 46.0 mg/mg High 03-09 [facility] Basic Metabolic Profile (BMP )on 10-29-2024 BUN/CRE 46.0 RATIO High 03-09 [facility] Comment on above: Performed By: #### L 500.2500, L100.0500 ####[facility] [address] [place], [address] Calcium [Mass/Vol] 8.9 mg/dL Normal 7.6-11.0 [facility] Comment on above: Performed By: #### L 500.2500, L100.0500 ####[facility] [address] [place], [address] Chloride [Moles/Vol] 109 mmol/L High 98-108 [facility] Comment on above: Performed By: #### L 500.2500, L100.0500 ####[facility] [address] [place], [address] CO2 [Moles/Vol] 21.7 mmol/L Normal 21.0-32.0 [facility] Comment on above: Performed By: #### L 500.2500, L100.0500 ####[facility] [address] [place], [address] Creatinine [Mass/Vol] 1.04 mg/dL Normal 0.70-1.20 [facility] Comment on above: Performed By: #### L 500.2500, L100.0500 ####[facility] [address] [place], [address] ECRCL 48.88 ml/min Low 50-250 [facility] Comment on above: Performed By: #### L 500.2500, L100.0500 ####[facility] [address] [place], [address] GAP 9 Normal 5-15 [facility] Comment on above: Performed By: #### L 500.2500, L100.0500 ####[facility] [address] [place], [address] GFR/1.73 sq M.predicted among non-blacks MDRD (S/P/Bld) [Vol rate/Area] 56 mL/min/{1.73_m2} Low >60 [facility] Comment on above: Result Comment: mL/m in/1.73m2 CKD-EPI Creatinine Equation (2020) Performed By: #### L 500.2500, L100.0500 ####[facility] [address] [place], [address] Glucose [Mass/Vol] 84 mg/dL Normal 70-99 [facility] Comment on above: Performed By: #### L 500.2500, L100.0500 ####[facility] [address] [place], [address] Potassium [Moles/Vol] 4.4 mmol/L Normal 3.3-5.1 [facility] Comment on above: Performed By: #### L 500.2500, L100.0500 ####[facility] [address] [place], [address] Sodium [Moles/Vol] 139 mmol/L Normal 133-145 [facility] Comment on above: Performed By: #### L 500.2500, L100.0500 ####[facility] [address] [place], [address] Urea nitrogen [Mass/Vol] 48 mg/dL High 4-19 [facility] Comment on above: Performed By: #### L 500.2500, L100.0500 ####[facility] [address] [place], [address] CBC-Complete Blood Cnt No Di ffon 10-29-2024 Erythrocyte distribution width (RBC) [Ratio] 13.1 % Normal 11.6-14.6 [facility] Comment on above: Performed By: #### L 500.2500, L100.0500 ####[facility] [address] [place], [address] Hematocrit (Bld) [Volume fraction] 26.2 % Low 37-47 [facility] Comment on above: Performed By: #### L 500.2500, L100.0500 ####[facility] [address] [place], [address] Hemoglobin (Bld) [Mass/Vol] 8.6 g/dL Low 12.0-15.0 [facility] Comment on above: Performed By: #### L 500.2500, L100.0500 ####[facility] [address] [place], [address] MCH (RBC) [Entitic mass] 31.4 pg Normal 27.0-32.0 [facility] Comment on above: Performed By: #### L 500.2500, L100.0500 ####[facility] [address] [place], [address] MCHC (RBC) [Mass/Vol] 32.8 g/dL Normal 32-36 [facility] Comment on above: Performed By: #### L 500.2500, L100.0500 ####[facility] [address] [place], [address] MCV (RBC) [Entitic vol] 95.6 fL Normal 81-99 [facility] Comment on above: Performed By: #### L 500.2500, L100.0500 ####[facility] [address] [place], [address] Platelet mean volume (Bld) [Entitic vol] 10.1 fL Normal 6.2-12.0 [facility] Comment on above: Performed By: #### L 500.2500, L100.0500 ####[facility] [address] [place], [address] Platelets (Bld) [#/Vol] 207 10*3/uL Normal 150-450 [facility] Comment on above: Performed By: #### L 500.2500, L100.0500 ####[facility] [address] [place], [address] RBC (Bld) [#/Vol] 2.74 10*6/uL Low 4.2-5.4 [facility] Comment on above: Performed By: #### L 500.2500, L100.0500 ####[facility] [address] [place], [address] RDW SD 45.4 fl High 35.1-43.9 [facility] Comment on above: Performed By: #### L 500.2500, L100.0500 ####[facility] [address] [place], [address] WBC (Bld) [#/Vol] 5.7 10*3/uL Normal 4.4-11.0 [facility] Comment on above: Performed By: #### L 500.2500, L100.0500 ####[facility] [address] [place], [address] Carbon dioxide, total [Moles /volume] in Central venous bloodOrdered By: Guero Pagan on 10-29-2024 CO2 [Moles/Vol] 21.7 mmol/L 21.0-32.0 [facility] Chloride assayOrdered By: Josué billbryanna Pagan on 10-29-2024 Chloride [Moles/Vol] 109 mmol/L High 98-108 [facility] EGD Reporton 10-29-2024 EGD Report [facility] Medical Records Department [address] [place] [address] EGD Report MR#: [id number] Acct: [id number] Name: ADEN LINDO Rep #: [id number] : 1950 73 From: Ney Moreno DO PCP: Dr. Bernice De La Torre MD Status:ADM IN Patient Name: Aden Lindo Procedure Date: 10/29/2024 11:34 AM Date of : 1950 Age: 73 Procedure: Upper GI endoscopy Indications: Iron deficiency anemia, Melena, Recent gastrointestinal bleeding Providers: Ney Moreno DO Medicines: Monitored Anesthesia Care Patient Profile: This is a 73 year old female. Refer to note in patient chart for documentation of history and physical. Patient has symptoms of chronic epigastric abdominal pain. Complications: No immediate complications. Procedure: Pre-Anesthesia Assessment: - Prior to the procedure, a History and Physical was performed, and patient medications and allergies were reviewed. The patient is competent. The risks and benefits of the procedure and the sedation options and risks were discussed with the patient. All questions were answered and informed consent was obtained. Patient identification and proposed procedure were verified by the physician in the pre-procedure area. Mental Status Examination: alert and oriented. Airway Examination: normal oropharyngeal airway and neck mobility. Respiratory Examination: clear to auscultation. CV Examination: normal. Prophylactic Antibiotics: The patient does not require prophylactic antibiotics. Prior Anticoagulants: The patient has taken no anticoagulant or antiplatelet agents. ASA Grade Assessment: II - A patient with mild systemic disease. After reviewing the risks and benefits, the patient was deemed in satisfactory condition to undergo the procedure. The anesthesia plan was to use monitored anesthesia care (MAC). Immediately prior to administration of medications, the patient was re-assessed for adequacy to receive sedatives. The heart rate, respiratory rate, oxygen saturations, blood pressure, adequacy of pulmonary ventilation, and response to care were monitored throughout the procedure. The physical status of the patient was re-assessed after the procedure. After obtaining informed consent, the endoscope was passed under direct vision. Throughout the procedure, the patient's blood pressure, pulse, and oxygen saturations were monitored continuously. The Endoscope was introduced through the mouth, and advanced to the third part of the duodenum. Small bowel enteroscopy was deemed necessary. The upper GI endoscopy was accomplished without difficulty. The patient tolerated the procedure well. Scope In: 11:46:51 AM Scope Out: 11:50:38 AM Total Procedure Duration Time 0 hours 3 minutes 47 seconds Findings: The examined esophagus was normal. Patchy moderate inflammation characterized by erosions and erythema was found in the gastric body and in the gastric antrum. Biopsies were taken with a cold forceps for histology. Biopsies were taken with a cold forceps for Helicobacter pylori testing. Verification of patient identification for the specimen was done. Estimated blood loss was minimal. No gross lesions were noted in the entire examined duodenum. Impression: - Normal esophagus. - Chronic gastritis. Biopsied. - No gross lesions in the entire examined duodenum. Recommendation: - Return patient to hospital [facility] for ongoing care. - Clear liquid diet. - Continue present medications. - Await pathology results. Procedure Code(s): --- Professional --- 67148, Small intestinal endoscopy, enteroscopy beyond second portion of duodenum, not including ileum; with biopsy, single or multiple CPT copyright 2021 [employer]. All rights reserved. The codes documented in this report are preliminary and upon site controller review may be revised to meet current compliance requirements. Ney Moreno DO 10/29/2024 12:00:50 PM This report has been signed electronically. Number of Addenda: 0 Note Initiated On: 10/29/2024 11:34 AM 10/29/24 1200 Date Ney Sloan Signature: Date (if indicated) CC: Dr. Bernice De La Torre MD; Ney Moreno DO Date Dictated: 10/29/24 1134 Date Transcribed: Bulb Weeder: RF Signed Normal [facility] Echocardiogram study reportO rdered By: Arya Johnson on 10-29-2024 Study report [facility] [place] [address] Echo Complete 10/28/24 1521 MR#: [id number] Acct: [id number] Name: ADEN LINDO Rep #:[id number] : 1950 73 From: Arya Johnson MD Attending Dr: Dr. Dewayne Gonzalez DO Status: ADM IN Ordering Dr: Guero Pagan DO Da te: 10/28/24 Location: [facility] Sex: F C Admitted: 10/28/24 Reason For Study Reason For Study: Murmur Procedure This was a 2D Doppler, Color Flow transthoracic echocardiogram. Exam performed portable in ED. Left Ventricle Normal LV size. Moderate concentric left ventricular hypertrophy. The LV systolic function is normal. EF is 65 %. Stage 1 diastolic dysfunction. Right Ventricle Normal right ventricle. Atria The left atrium is severely enlarged. Normal right atrium. Mitral Valve Mild focal mitral valve calcification, bileaflet. Mild (1+) mitral valve insufficiency. Tricuspid Valve Normal tricuspid valve. Unable to estimate RV systolic pressure due to insufficient tricuspid regurgitant envelope. 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 Planimetered aortic valve area 1.8 cm??. However severely elevated gradients with mean peak gradient 68 mmHg. Moderate aortic valve regurgitation. Pulmonic Valve The pulmonic valve is not well visualized. Great Vessels Normal sized aortic root. Pericardium/Pleural No pericardial effusion. MMode/2D Measurements & Calculations LVIDd: 4.3 cm IVSd: 1.6 cm LVOT diam: 2.4 cm LVIDs: 2.8 cm LVPWd: 1.6 cm LVOT area: 4.5 cm2 RVDd: 3.4 cm FS: 35.2 % Ao root diam: 3.3 cm LAV(MOD-bp): 61.9 ml LVAd ap4: 25.1 cm2 LAV(MOD-bp) Indexed: 33.1 ml/m2 LVLd ap4: 7.1 cm LAV(MOD-sp2): 59.9 ml EDV(MOD-sp4): 73.7 ml LAV(MOD-sp4): 64.8 ml EDV(sp4-el): 75.8 ml LVAs ap4: 14.7 cm2 LVLs ap4: 5.7 cm ESV(MOD-sp4): 31.7 ml ESV(sp4-el): 31.8 ml EF(MOD-sp4): 56.9 % EF(sp4-el): 58.1 % SV(MOD-sp4): 41.9 ml SV(sp4-el): 44.1 ml Aortic Valve Planimetry: 1.8 cm2 SI(MOD-sp4): 22.4 ml/m2 LA A4 area: 19.7 cm2 LA dimension(2D): 5.1 cm RA A4area: 9.1 cm2 TAPSE: 2.6 cm Time Measurements MV dec time: 0.26 sec Doppler Measurements & Calculations MV E max benton: 42.2 cm/sec Lat Peak E' Benton: 4.6 cm/sec Med Peak E' Benton: 3.6 cm/sec MV A max benton: 87.5 cm/sec E/E' lat: 9.3 E/E' med: 11.8 MV E/A: 0.48 Ao V2 max: 478.2 cm/sec AI max benton: 338.2 cm/sec MV dec slope: 163.8 cm/sec2 Ao max P.6 mmHg AI max P.8 mmHg Ao V2 mean: 405.1 cm/sec Ao mean P.1 mmHg AI dec slope: 249.3 cm/sec2 Ao V2 VTI: 118.8 cm AI P1/2t: 397.5 msec AV (velocity ratio): 0.19 RADHA(I,D): 0.86 cm2 RADHA(V,D): 0.92 cm2 LV V1 max: 96.9 cm/sec SV(LVOT): 102.6 ml PA V2 max: 75.4 cm/sec LV V1 max P.8 mmHg LV V1 mean P.3 mmHg LV V1 mean: 73.5 cm/sec LV V1 VTI: 22.7 cm ECHO/Echo Complete Interpretation Summary The LV systolic function is normal. EF is 65 %. Stage 1 diastolic dysfunction. The left atrium is severely enlarged. Mild (1+) mitral valve insufficiency. Moderately calcified aortic valve with discordant 2D and Doppler findings. Planimetered area compatible with mild aortic valve stenosis however mean peak gradient severely elevated at 68 mmHg. This could happen in high output state. Also consider supravalvular stenosis. Recommend cardiac CT scan for further evaluation. Moderate aortic valve regurgitation. Ordering Physician: Guero Pagan Referring Physician: Bernice De La Torre Performed By: Yi Guzman, KAMILLE, RVT 10/29/24930 Date _ Arya Johnson MD CC: Dr. Guero Pagan DO; Dr. Bernice De La Torre MD; Dr. Dewayne Gonzalez DO ~ Date Dictated: 10/28/24 1521 Date Transcribed: 10/29/24930 Bulb Weeder: Signed [facility] Work Phone: Electrocardiogram reportOrde red By: Kerwin Anne on 10-29-2024 EKG study [facility] Cardiovascular Services [address] [place] [address] 12 Lead EKG 10/29/24 0508 MR#: [id number] Acct: [id number] Name: ELVIRAMARTAADEN Rep #:[id number] : 1950 73 From: Kerwin de la rosa MD Attending Dr: Dr. Dewayne Gonzalez, Status: ADM IN Ordering Dr: Alejandro Davila MD Date: 10/19 06/14 Location: [facility] Sex: F C Admitted: 10/28/24 Test Reason : PRE SCOPE Blood Pressure : */* mmHG Vent. Rate : 67 BPM Atrial Rate : 67 BPM P-R Int : 214 ms QRS Dur : 94 ms QT Int : 414 ms P-R-T Axes : 27 -17 149 degrees QTcB Int : 437 ms Sinus rhythm with 1st degree A-V block Left ventricular hypertrophy with repolarization abnormality ( R in aVL , Todd product ) Abnormal ECG No previous ECGs available Confirmed by Kerwin Anne ([id number]), non linear editor CONCIHTA SYLVESTER ([id number]) on 10/29/2024 10:38:55 AM Referred By: KEVIN Confirmed By: Kerwin Anne 10/29/24 1038 Date _ Kerwin Anne MD CC: Dr. Alejandro Davila MD; Dr. Bernice De La Torre MD; Dr. Dewayne Gonzalez, ~ Signed [facility] Other Phone: Glomerular filtration rate ( GFR) estimation/1.73 sq m using serum, plasma, or whole bOrdered By: Guero Pagan on 10-29-2024 GFR/1.73 sq M.predicted among non-blacks MDRD (S/P/Bld) [Vol rate/Area] 56 mL/min/{1.73_m2} Low >60 [facility] Comment on above: mL/min/1.73m2 CKD-EP I Creatinine Equation (2020) MR/POSTOP.ANEon 10-29-2024 MR/POSTOP.[facility] Medical Records Department [address] [place] [address] Anesthesia Postop Eval I 10/29/24 1204 MR#: [id number] Acct: [id number] Name: ADEN LINDO Rep #: [id number] : 1950 73 From: Kevin Sage PCP: Dr. Bernice De La Torre MD Status:ADM IN Y Race: C Location: [place] [address] Anesthesia: Postop Eval I Current Vital Signs Temperature: 97 F Pulse Rate: 77 Blood Pressure: 100/63 Respiratory Rate: 16 Pulse Ox: 93 Oxygen Delivery Method: Room Air Assessment Airway patent: Yes Spontaneous unlabored respirations: Yes Mental status: Awake and Calm nausea: No Vomiting: No Anesthesia Complication: No Fluid Hydration Crystalloid volume administer (ml): 300 Total IV fluid infused: 300 Progress Note Anesthesia document: Postop Eval 1 completed: Yes 10/29/24 1204 Date Kevin Suarez Signature: Date CC: Signed Normal [facility] MR/USXWBDHP2gj 10-29-2024 [facility] Medical Records Department [address] [place], [place] [id number] Anesthesia Postop Eval II 10/29/24 1353 MR#: [id number] Acct: [id number] Name: ADEN LINDO Rep #: [id number] : 1950 73 From: Alejandro Davila MD PCP: Dr. Bernice De La Torre MD Status:ADM IN Y Race: C Location: [place] [address] Anesthesia Postop Eval I Sum Postop Eval Completion status Anesthesia document: Postop Eval 1 completed: Yes Anesthesia Postop Eval I Summary Anesthesia Postop Eval I Summary: Anesthesia Postop Eval I: Assessment Summary Airway patent Yes 10/29/24 12:04 [email or web address] Spontaneous unlabored Yes 10/29/24 12:04 [email or web address] respirations Mental status Awake,Calm 10/29/24 12:04 [email or web address] nausea No 10/29/24 12:04 [email or web address] Vomiting No 10/29/24 12:04 [email or web address] Anesthesia Postop Eval I: Fluid Summary Crystalloid volume administer 300 10/29/24 12:04 [email or web address] (ml) Colloids volume administered ( ml) Blood Product volume administered (ml) Total IV fluid infused 300 10/29/24 12:04 [email or web address] Anesthesia Postop Eval I: Summary Notes Anesthesia Complication No 10/29/24 12:04 [email or web address] Anesthesia Complication Comment: Post-operative progress note Anesthesia: Postop Eval II Evaluation Mental status: Awake Pain Level: 0 nausea: No Vomiting: No 10/29/24 1353 Date Alejandro Suarez Signature: Date CC: Signed [facility] Potassium measurement (mass/ volume)Ordered By: Guero aPgan on 10-29-2024 Potassium (Unsp spec) [Mass/Vol] 4.4 mmol/L 3.3-5.1 [facility] ,Urineon 10-29-2024 Beta HCG ( test) Ql (U) [facility] Comment on above: Order Comment: Femal es 12-55 or menstruation outside age [id number] Result Comment: NOT NEEDED. PATIENT IS 73 Performed By: #### L 400.7600 ####[facility] [address] [place], [place], [address] INTERNAL QC OK? Normal [facility] Comment on above: Order Comment: Femal es 12-55 or menstruation outside age [id number] Result Comment: NOT NEEDED. PATIENT IS 73 Performed By: #### L 400.7600 ####[facility] [address] [place], [place], [address] RECORD KIT LOT# Normal [facility] Comment on above: Order Comment: Femal es 12-55 or menstruation outside age [id number] Result Comment: NOT NEEDED. PATIENT IS 73 Performed By: #### L 400.7600 ####[facility] [address] [place], [address] Serum creatinine measurement (mass/volume)Ordered By: Guero Pagan on 10-29-2024 Creatinine [Mass/Vol] 1.04 mg/dL 0.70-1.20 [facility] Serum glucose measurement (m ass/volume)Ordered By: Guero Pagan on 10-29-2024 Glucose [Mass/Vol] 84 mg/dL 70-99 [facility] Serum or plasma calcium armen urement (mass/volume)Ordered By: Guero Pagan on 10-29-2024 Calcium [Mass/Vol] 8.9 mg/dL 7.6-11.0 [facility] Serum or plasma urea nitroge n measurement (mass/volume)Ordered By: Guero Pagan on 10-29-2024 Urea nitrogen [Mass/Vol] 48 mg/dL High 4-19 [facility] Sodium levelOrdered By: Hector Pagan on 10-29-2024 Sodium [Moles/Vol] 139 mmol/L 133-145 [facility] Surgery Specimen Level Carlos 10-29-2024 Surgery Specimen Level IV ---- Patient Age/Sex Location Account Attending Physician ---- ADEN LINDO 73/F [facility] [id number] Dr. Dewayne Gonzalez, DO ---- Specimen: [id number] Received: 10/29/24 Status: CHERELLE Stewart Num: [id number] Spec Type: EGD BIOPSY Subm Dr: Ney Moreno DO HEADER OPERATION: EGD with biopsy PRE-OP DIAGNOSIS: Anemia, acute upper GI bleed TISSUE SUBMITTED: A- Gastric body biopsy ---- MICROSCOPIC DIAGNOSIS A. Stomach, body, biopsy: * Oxyntic mucosa with chronic active inflammation * An immunohistochemical stain for Helicobacter pylori is negative. MICROSCOPIC DESCRIPTION Slides are reviewed. All matched controls reacted appropriately. These tests were developed and their performance characteristics determined by [facility]. They may not have been cleared or approved by the U.S. Food and Drug Administration. The FDA has determined that such clearance or approval is not necessary. The above immunohistochemical/du alISH markers are reviewed by the Pathologist. GROSS DESCRIPTION A. Received in formalin labeled with the patient's name and date of . Designated as gastric body for H. pylori and path are 4 monroe tissue fragments, 0.2 cm to 0.6 cm. Entirely submitted in 1 cassette. [facility] [place] 10/29/2024 CPT:68921,30241 ---- Patient Age/Sex Location Account Attending Physician ---- ADEN LINDO 73/F [facility] [id number] Dr. Dewayne Gonzalez, DO ---- Signed (signature on file) Dr. Sulaiman Sorensen MD 10/30/24 1333 ---- Normal [facility] Comment on above: Performed By: #### P SUIV ####[facility] [address] [place], [place], [id number] Absolute lymphocyte countOrd ered By: Juan Diego Sauer on 10-28-2024 Lymphocytes Auto (Unsp spec) [#/Vol] 1.02 10*3/uL 0.83-4.51 [facility] Absolute neutrophil countOrd ered By: Juan Diego Sauer on 10-28-2024 Neutrophils (Bld) [#/Vol] 7.3 10*3/uL 2.0-7.7 [facility] Anion gap in Serum or Plasma Ordered By: Juan Diego Sauer on 10-28-2024 Anion gap [Moles/Vol] 10 mmol/L 5-15 [facility] Automated lymphocyte count a s percentage of total leukocytesOrdered By: Juan Diego Sauer on 10-28-2024 Lymphocytes/100 WBC Auto (Unsp spec) 11.7 % Low 19-41 [facility] BRCon 10-28-2024 RC Normal [facility] Comment on above: Result Comment: [id number] ON RC XM COMPATIBLE [id number] ON RC XM COMPATIBLE Performed By: #### B RC ####[facility] [address] [place], [address] BUN/creatinine ratioOrdered By: Juan Diego Sauer on 10-28-2024 Urea nitrogen/Creatinine [Mass ratio] 57.8 mg/mg High 10-20 [facility] Basophil percentageOrdered B y: Juan Diego Sauer on 10-28-2024 Basophils/100 WBC (Bld) 0.3 % 0-1 [facility] Bilirubin, totalOrdered By: Juan Diego Sauer on 10-28-2024 Bilirubin [Mass/Vol] 0.99 mg/dL 0.00-1.30 [facility] CBC W/Diff, Automatedon 10-19-2024 Absolute Lymph 1.02 X10 3/uL Normal 0.83-4.51 [facility] Comment on above: Performed By: #### L 300.3900, L500.4050, L100.0100, BTS #### [facility] [address] [place], [address] Absolute Neut 7.3 X10 3/uL Normal 2.0-7.7 [facility] Comment on above: Performed By: #### L 300.3900, L500.4050, L100.0100, BTS #### [facility] [address] [place], [address] Basophils/100 WBC (Bld) 0.3 % Normal 0-1 [facility] Comment on above: Performed By: #### L 300.3900, L500.4050, L100.0100, BTS #### [facility] [address] [place], [address] Eosinophils/100 WBC (Bld) 0.0 % Normal 0-5 [facility] Comment on above: Performed By: #### L 300.3900, L500.4050, L100.0100, BTS #### [facility] [address] [place], [address] Erythrocyte distribution width (RBC) [Ratio] 12.9 % Normal 11.6-14.6 [facility] Comment on above: Performed By: #### L 300.3900, L500.4050, L100.0100, BTS #### [facility] [address] [place], [address] Hematocrit (Bld) [Volume fraction] 30.9 % Low 37-47 [facility] Comment on above: Performed By: #### L 300.3900, L500.4050, L100.0100, BTS #### [facility] [address] [place], [address] Hemoglobin (Bld) [Mass/Vol] 10.3 g/dL Low 12.0-15.0 [facility] Comment on above: Performed By: #### L 300.3900, L500.4050, L100.0100, BTS #### [facility] [address] [place], [address] IG% 0.500 Normal 0.0-0.9 [facility] Comment on above: Result Comment: IG% - Immature Granulocytes (promyelocytes, myelocytes and metamyelocytes) > 1% indicates that a LEFT SHIFT is Present. Performed By: #### L 300.3900, L500.4050, L100.0100, BTS #### [facility] [address] [place], [address] Lymphocytes/100 WBC (Bld) 11.7 % Low 19-41 [facility] Comment on above: Performed By: #### L 300.3900, L500.4050, L100.0100, BTS #### [facility] [address] [place], [address] MCH (RBC) [Entitic mass] 32.0 pg Normal 27.0-32.0 [facility] Comment on above: Performed By: #### L 300.3900, L500.4050, L100.0100, BTS #### [facility] [address] [place], [address] MCHC (RBC) [Mass/Vol] 33.3 g/dL Normal 32-36 [facility] Comment on above: Performed By: #### L 300.3900, L500.4050, L100.0100, BTS #### [facility] [address] [place], [address] MCV (RBC) [Entitic vol] 96.0 fL Normal 81-99 [facility] Comment on above: Performed By: #### L 300.3900, L500.4050, L100.0100, BTS #### [facility] [address] [place], [address] Monocytes/100 WBC (Bld) 3.8 % Normal 0-10 [facility] Comment on above: Performed By: #### L 300.3900, L500.4050, L100.0100, BTS #### [facility] [address] [place], [address] Neutrophils/100 WBC (Bld) 83.7 % High 47-70 [facility] Comment on above: Performed By: #### L 300.3900, L500.4050, L100.0100, BTS #### [facility] [address] [place], [address] Nucleated RBC (Bld) [#/Vol] 0 10*3/uL Normal 0-5 [facility] Comment on above: Performed By: #### L 300.3900, L500.4050, L100.0100, BTS #### [facility] [address] [place], [address] Platelet mean volume (Bld) [Entitic vol] 9.9 fL Normal 6.2-12.0 [facility] Comment on above: Performed By: #### L 300.3900, L500.4050, L100.0100, BTS #### [facility] [address] [place], [address] Platelets (Bld) [#/Vol] 223 10*3/uL Normal 150-450 [facility] Comment on above: Performed By: #### L 300.3900, L500.4050, L100.0100, BTS #### [facility] [address] [place], [address] RBC (Bld) [#/Vol] 3.22 10*6/uL Low 4.2-5.4 [facility] Comment on above: Performed By: #### L 300.3900, L500.4050, L100.0100, BTS #### [facility] [address] [place], [address] RDW SD 45.1 fl High 35.1-43.9 [facility] Comment on above: Performed By: #### L 300.3900, L500.4050, L100.0100, BTS #### [facility] [address] [place], [address] WBC (Bld) [#/Vol] 8.8 10*3/uL Normal 4.4-11.0 [facility] Comment on above: Performed By: #### L 300.3900, L500.4050, L100.0100, BTS #### [facility] [address] [place], [address] CBC-Complete Blood Cnt No Di ffon 10-28-2024 Erythrocyte distribution width (RBC) [Ratio] 13.0 % Normal 11.6-14.6 [facility] Comment on above: Performed By: #### L 100.0500 #### [facility] [address] [place], [address] Hematocrit (Bld) [Volume fraction] 27.1 % Low 37-47 [facility] Comment on above: Performed By: #### L 100.0500 #### [facility] [address] [place], [address] Hemoglobin (Bld) [Mass/Vol] 9.0 g/dL Low 12.0-15.0 [facility] Comment on above: Performed By: #### L 100.0500 #### [facility] [address] [place], [address] MCH (RBC) [Entitic mass] 31.8 pg Normal 27.0-32.0 [facility] Comment on above: Performed By: #### L 100.0500 #### [facility] [address] [place], [address] MCHC (RBC) [Mass/Vol] 33.2 g/dL Normal 32-36 [facility] Comment on above: Performed By: #### L 100.0500 #### [facility] [address] [place], [address] MCV (RBC) [Entitic vol] 95.8 fL Normal 81-99 [facility] Comment on above: Performed By: #### L 100.0500 #### [facility] [address] [place], [address] Platelet mean volume (Bld) [Entitic vol] 9.9 fL Normal 6.2-12.0 [facility] Comment on above: Performed By: #### L 100.0500 #### [facility] [address] [place], [address] Platelets (Bld) [#/Vol] 203 10*3/uL Normal 150-450 [facility] Comment on above: Performed By: #### L 100.0500 #### [facility] [address] [place], [address] RBC (Bld) [#/Vol] 2.83 10*6/uL Low 4.2-5.4 [facility] Comment on above: Performed By: #### L 100.0500 #### [facility] [address] [place], [address] RDW SD 45.1 fl High 35.1-43.9 [facility] Comment on above: Performed By: #### L 100.0500 #### [facility] [address] [place], [address] WBC (Bld) [#/Vol] 6.9 10*3/uL Normal 4.4-11.0 [facility] Comment on above: Performed By: #### L 100.0500 #### [facility] [address] [place], [address] Carbon dioxide, total [Moles /volume] in Central venous bloodOrdered By: Juan Diego Sauer on 10-28-2024 CO2 [Moles/Vol] 21.0 mmol/L 21.0-32.0 [facility] Chloride assayOrdered By: Nav Sauer on 10-28-2024 Chloride [Moles/Vol] 108 mmol/L 98-108 [facility] Comprehensive Metabolic Prof ilon 10-28-2024 Albumin [Mass/Vol] 4.0 g/dL Normal 3.4-4.8 [facility] Comment on above: Performed By: #### L 300.3900, L500.4050, L100.0100, BTS #### [facility] [address] [place], [address] Albumin/Globulin [Mass ratio] 1.6 {ratio} Normal 0.9-2.4 [facility] Comment on above: Performed By: #### L 300.3900, L500.4050, L100.0100, BTS #### [facility] [address] [place], [address] ALK PHOS 90 U/L Normal 35-104 [facility] Comment on above: Performed By: #### L 300.3900, L500.4050, L100.0100, BTS #### [facility] [address] [place], [address] ALT [Catalytic activity/Vol] 12 U/L Normal <=34 [facility] Comment on above: Performed By: #### L 300.3900, L500.4050, L100.0100, BTS #### [facility] [address] [place], [address] AST [Catalytic activity/Vol] 20 U/L Normal <=31 [facility] Comment on above: Performed By: #### L 300.3900, L500.4050, L100.0100, BTS #### [facility] [address] [place], [address] Bilirubin [Mass/Vol] 0.99 mg/dL Normal 0.00-1.30 [facility] Comment on above: Performed By: #### L 300.3900, L500.4050, L100.0100, BTS #### [facility] [address] [place], [address] BUN/CRE 57.8 RATIO High 10-20 [facility] Comment on above: Performed By: #### L 300.3900, L500.4050, L100.0100, BTS #### [facility] [address] [place], [address] Calcium [Mass/Vol] 9.2 mg/dL Normal 7.6-11.0 [facility] Comment on above: Performed By: #### L 300.3900, L500.4050, L100.0100, BTS #### [facility] [address] [place], [address] Chloride [Moles/Vol] 108 mmol/L Normal 98-108 [facility] Comment on above: Performed By: #### L 300.3900, L500.4050, L100.0100, BTS #### [facility] [address] [place], [address] CO2 [Moles/Vol] 21.0 mmol/L Normal 21.0-32.0 [facility] Comment on above: Performed By: #### L 300.3900, L500.4050, L100.0100, BTS #### [facility] [address] [place], [address] Creatinine [Mass/Vol] 0.80 mg/dL Normal 0.70-1.20 [facility] Comment on above: Performed By: #### L 300.3900, L500.4050, L100.0100, BTS #### [facility] [address] [place], [address] ECRCL 63.54 ml/min Normal 50-250 [facility] Comment on above: Performed By: #### L 300.3900, L500.4050, L100.0100, BTS #### [facility] [address] [place], [address] GAP 10 Normal 5-15 [facility] Comment on above: Performed By: #### L 300.3900, L500.4050, L100.0100, BTS #### [facility] [address] [place], [address] GFR/1.73 sq M.predicted among non-blacks MDRD (S/P/Bld) [Vol rate/Area] 76 mL/min/{1.73_m2} Normal >60 [facility] Comment on above: Result Comment: mL/m in/1.73m2 CKD-EPI Creatinine Equation (2020) Performed By: #### L 300.3900, L500.4050, L100.0100, BTS #### [facility] [address] [place], [address] Globulin (S) [Mass/Vol] 2.6 g/dL Normal 2.2-4.2 [facility] Comment on above: Performed By: #### L 300.3900, L500.4050, L100.0100, BTS #### [facility] [address] [place], [address] Glucose [Mass/Vol] 115 mg/dL High 70-99 [facility] Comment on above: Performed By: #### L 300.3900, L500.4050, L100.0100, BTS #### [facility] [address] [place], [address] Potassium [Moles/Vol] 4.7 mmol/L Normal 3.3-5.1 [facility] Comment on above: Performed By: #### L 300.3900, L500.4050, L100.0100, BTS #### [facility] [address] [place], [address] Sodium [Moles/Vol] 139 mmol/L Normal 133-145 [facility] Comment on above: Performed By: #### L 300.3900, L500.4050, L100.0100, BTS #### [facility] [address] [place], [address] T PROT 6.6 g/dL Normal 5.9-8.4 [facility] Comment on above: Performed By: #### L 300.3900, L500.4050, L100.0100, BTS #### [facility] [address] [place], [address] Urea nitrogen [Mass/Vol] 46 mg/dL High 4-19 [facility] Comment on above: Performed By: #### L 300.3900, L500.4050, L100.0100, BTS #### [facility] [address] [place], [address] Echo Completeon 10-28-2024 Echo Complete [facility] [address] [place] [address] Echo Complete 10/28/24 1521 MR#: [id number] Acct: [id number] Name: ADEN LINDO Rep #: [id number] : 1950 73 From: Arya Johnson MD Attending Dr: Dr. Dewayne Gonzalez DO Status: A DM IN Ordering Dr: Guero Pagan DO Date: 10/28/24 Location: PCU Sex: F C Admitted: 10/28/24 Reason For Study Reason For Study: Murmur Procedure This was a 2D Doppler, Color Flow transthoracic echocardiogram. Exam performed portable in ED. Left Ventricle Normal LV size. Moderate concentric left ventricular hypertrophy. The LV systolic function is normal. EF is 65 %. Stage 1 diastolic dysfunction. Right Ventricle Normal right ventricle. Atria The left atrium is severely enlarged. Normal right atrium. Mitral Valve Mild focal mitral valve calcification, bileaflet. Mild (1+) mitral valve insufficiency. Tricuspid Valve Normal tricuspid valve. Unable to estimate RV systolic pressure due to insufficient tricuspid regurgitant envelope. 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 Planimetered aortic valve area 1.8 cm??. However severely elevated gradients with mean peak gradient 68 mmHg. Moderate aortic valve regurgitation. Pulmonic Valve The pulmonic valve is not well visualized. Great Vessels Normal sized aortic root. Pericardium/Pleural No pericardial effusion. MMode/2D Measurements Calculations LVIDd: 4.3 cm IVSd: 1.6 cm LVOT diam: 2.4 cm LVIDs: 2.8 cm LVPWd: 1.6 cm LVOT area: 4.5 cm2 RVDd: 3.4 cm FS: 35.2 % Ao root diam: 3.3 cm LAV(MOD-bp): 61.9 ml LVAd ap4: 25.1 cm2 LAV(MOD-bp) Indexed: 33.1 ml/m2 LVLd ap4: 7.1 cm LAV(MOD-sp2): 59.9 ml EDV(MOD-sp4): 73.7 ml LAV(MOD-sp4): 64.8 ml EDV(sp4-el): 75.8 ml LVAs ap4: 14.7 cm2 LVLs ap4: 5.7 cm ESV(MOD-sp4): 31.7 ml ESV(sp4-el): 31.8 ml EF(MOD-sp4): 56.9 % EF(sp4-el): 58.1 % SV(MOD-sp4): 41.9 ml SV(sp4-el): 44.1 ml Aortic Valve Planimetry: 1.8 cm2 SI(MOD-sp4): 22.4 ml/m2 LA A4 area: 19.7 cm2 LA dimension(2D): 5.1 cm RA A4 area: 9.1 cm2 TAPSE: 2.6 cm Time Measurements MV dec time: 0.26 sec Doppler Measurements Calculations MV E max benton: 42.2 cm/sec Lat Peak E' Benton: 4.6 cm/sec Med Peak E' Benton: 3.6 cm/sec MV A max benton: 87.5 cm/sec E/E' lat: 9.3 E/E' med: 11.8 MV E/A: 0.48 Ao V2 max: 478.2 cm/sec AI max benton: 338.2 cm/sec MV dec slope: 163.8 cm/sec2 Ao max P.6 mmHg AI max P.8 mmHg Ao V2 mean: 405.1 cm/sec Ao mean P.1 mmHg AI dec slope: 249.3 cm/sec2 Ao V2 VTI: 118.8 cm AI P1/2t: 397.5 msec AV (velocity ratio): 0.19 RADHA(I,D): 0.86 cm2 RADHA(V,D): 0.92 cm2 LV V1 max: 96.9 cm/sec SV(LVOT): 102.6 ml PA V2 max: 75.4 cm/sec LV V1 max P.8 mmHg LV V1 mean P.3 mmHg LV V1 mean: 73.5 cm/sec LV V1 VTI: 22.7 cm ECHO/Echo Complete Interpretation Summary The LV systolic function is normal. EF is 65 %. Stage 1 diastolic dysfunction. The left atrium is severely enlarged. Mild (1+) mitral valve insufficiency. Moderately calcified aortic valve with discordant 2D and Doppler findings. Planimetered area compatible with mild aortic valve stenosis however mean peak gradient severely elevated at 68 mmHg. This could happen in high output state. Also consider supravalvular stenosis. Recommend cardiac CT scan for further evaluation. Moderate aortic valve regurgitation. Ordering Physician: Guero Pagan Referring Physician: Bernice De La Torre Performed By: Yi Guzman, KAMILLE, RVT 10/29/24930 Date Arya Johnson MD CC: Dr. Guero Pagan DO; Dr. Bernice De La Torre MD; Dr. Dewayne Gonzalez DO Date Dictated: 10/28/24 1521 Date Transcribed: 10/29/24930 Bulb Weeder: Signed Normal [facility] Emergency Department Summary on 10-28-2024 Emergency Department Summary [facility] Medical Records Department [address] [place] [address] Emergency Department Summary 10/28/24 MR#: [id number] Acct: [id number] Name: ADEN LINDO Rep #: [id number] : 1950 73 From: Juan Diego Sauer MD PCP: Dr. Bernice De La Torre MD Status:REG ER Location: ED HPI HPI - GI History of Present Illness Chief Complaint: GI Bleed Informant: patient and family Abdominal Pain/Flank Pain Onset: Hours Context: Gradual Onset Timing: Intermittent Current Severity: Mild Maximum Severity: Mild Worsened by: Nothing Relieved by: Nothing Nausea/Vomiting/Emesis GI Symptom: Positive for Nausea; Negative for Vomiting Severity: Mild Diarrhea/Melena/Hemato chezia GI Symptom: Positive for Melena and Hematochezia; Negative for Diarrhea Onset: Today Severity: Moderate Associated Symptoms Associated Symptoms: Negative for Dysuria, Frequency, Hematuria or Urgency Narrative Narrative: 73-year-old female history of hypertension. She has had some mild nausea and intermittent abdominal discomfort. Said today she thinks she had bright red blood, clot and possibly dark stool also. She has had nausea without vomiting. She has had 3 bowel movements today. No history of GI bleed. She takes daily baby aspirin but no other blood thinners. No history of upper or lower endoscopy. Prior similar symptoms: No Recent Illness/Hospitalizatio n: No PFSH [facility] Medical History Pneumonia History of stroke History of bladder cancer Hypertension Home Medications ???Medication ???Instructions ???Recorded ???Last Taken ???Type aspirin 81 mg tablet,delayed 81 mg PO DAILY 01/01/20 10/27/24 H istory release amlodipine 5 mg tablet 5 mg PO DAILY #90 tabs 02/14/24 Rx losartan 50 mg tablet 50 mg PO DAILY #90 tabs 02/14/24 0 10/27/24 Rx magnesium 250 mg tablet 250 mg PO QDAY 05/07/24 10/27/24 H istory turmeric 400 mg capsule 400 mg PO DAILY 10/28/24 10/27/24 History Allergy/AdvReac Type Severity Reaction Status Date / Time No Known Allergies Allergy Verified 10/28/24 11:03 Family History Mother Myocardial infarction, Onset Age: 80 Heart disease Hypertension CVA (cerebral vascular accident) Father Myocardial infarction, Onset Age: 56 Surgical History History of hysterectomy Social History Smoking Status: Never smoker alcohol intake: never substance use type: does not use what type of physical activity do you participate in: none ROS ROS ED ROS Narrative Mild intermittent abdominal pain. Nausea. Dark stool. Bright red blood per rectum. Constitutional Constitutional ED: Denies chills or fever(s) ENT ENT ED: Denies ear pain Cardiovascular Cardiovascular: Denies chest pain Respiratory/Chest Respiratory/Chest: Denies cough or dyspnea Gastrointestinal Gastrointestinal: Reports abdominal pain, melena and nausea; Denies constipation, diarrhea or vomiting Genitourinary Genitourinary ED: Denies hematuria Musculoskeletal Musculoskeletal: Denies arthralgias Integumentary Denies abscess Neurologic Neurologic: Denies headache(s) Psychiatric Psychiatric: Denies anxiety Endocrine Endocrinology: Denies polydipsia Hematologic/Lymphatic Hematologic/Lymphatic: Denies easy bleeding Allergic/Immunologic Allergic/Immunologic ED: Denies mouth swelling, tongue swelling or urticaria EXAM Physical Exam Narrative Exam Narrative: 73-year-old female vital signs stable afebrile. No acute distress. Believes her daughter at bedside. Vital signs are stable afebrile. Patient does appear pale. H EENT exam pupils round react light. Pale. Moist mucous membranes. Neck nontender no lymphadenopathy. Lungs clear to auscultation bilaterally. Heart regular rhythm rate about 70 she does have a 4/6 systolic ejection murmur. Chest wall nontender. Abdomen soft nontender. Moving all 4 extremities. Nontender no edema. Back nontender. Neurologically she is awake alert. No focal motor deficits. Const Vital Signs: 10/28/24 11:02 10/28/24 12:30 10/28/24 13:00 Temperature 96.1 F L Temperature Source Temporal Pulse Rate 70 68 70 Respiratory Rate 14 14 16 Blood Pressure 118/76 126/76 H 131/71 H Blood Pressure Mean 90 92 91 Pulse Ox 98 96 95 Oxygen Delivery Method Room Air Room Air 10/28/24 14:00 Temperature Temperature Source Pulse Rate 70 Respiratory Rate Blood Pressure 128/69 H Blood Pressure Mean 88 Pulse Ox 97 Oxygen Delivery Method Positive well nourished and well developed; Negative for cachectic, contractures or unkempt General Appearance ED: [facility] develo (more content not included)... Normal [facility] Eosinophil percentageOrdered By: Juan Diego Sauer on 10-28-2024 Eosinophils/100 WBC (Bld) 0.0 % 0-5 [facility] Erythrocyte distribution wid th ratioOrdered By: Juan Diego Sauer on 10-28-2024 Erythrocyte distribution width (RBC) [Ratio] 12.9 % 11.6-14.6 [facility] Erythrocyte distribution wid th standard deviationOrdered By: Juan Diego Sauer on 10-28-2024 Erythrocyte distribution width (RBC) [Ratio] 45.1 fl High 35.1-43.9 [facility] Glomerular filtration rate ( GFR) estimation/1.73 sq m using serum, plasma, or whole bOrdered By: Juan Diego Sauer on 10-28-2024 GFR/1.73 sq M.predicted among non-blacks MDRD (S/P/Bld) [Vol rate/Area] 76 mL/min/{1.73_m2} >60 [facility] Comment on above: mL/min/1.73m2 CKD-EP I Creatinine Equation (2020) H AND P Exam - [place] 10-28-2024 H&P Exam - Hospitalist [facility] Medical Records Department [address] [place] [address] H P Exam - Hospitalist 10/28/24 1433 MR#: [id number] Acct: [id number] Name: ADEN LINDO Rep #: [id number] : 1950 73 From: Guero Pagan DO PCP: Dr. Bernice De La Torre MD Status:ADM IN Location: [facility] [id number] HPI - General General Date of Admission: 10/28/24 Date of Service: 10/28/24 Chief Complaint: Bright red and dark stools HPI Narrative ADEN LINDO, is a 73 F who presented to [facility] ED on 10/28/2024 with bright red and dark stools. Patient lives at home with her , has good functional status at baseline. Is on a baby aspirin, no other blood thinners. No prior history of GI bleed. She has had intermittent nausea over the past week or so but no vomiting. This morning she noticed with her first bowel movement that there was bright red blood with clot noted. She then had 2 more loose bowel movements that were very dark after this, so she came in for further evaluation. Denies any pain with these bowel movements. In the ED was hemodynamically stable with heart rate in the 70s and normal blood pressure. Last hemoglobin in 2019 was 12.5 and hemoglobin today was 10.3. BUN was elevated at 46 with normal creatinine. Given suspected upper GI bleed, she was given a dose of IV Protonix and hospitalist was contacted for admission. I saw the patient at bedside in the ED, daughter was present. Patient was sitting back comfortably in bed, conversing normally, in no acute distress. She reported feeling mildly fatigued but denied any other acute concerns currently. On my physical exam she had a significant systolic heart murmur noted. She states she has never been told she has a heart murmur. She has never had a colonoscopy done before. Has never had an upper scope done either. No other acute concerns at this time. [facility] Medical History Pneumonia History of stroke History of bladder cancer Hypertension Home Medications ???Medication ???Instructions ???Recorded ???Last Taken ???Type aspirin 81 mg tablet,delayed 81 mg PO DAILY 01/01/20 10/27/24 H istory release amlodipine 5 mg tablet 5 mg PO DAILY #90 tabs 02/14/24 Rx losartan 50 mg tablet 50 mg PO DAILY #90 tabs 02/14/24 0 10/27/24 Rx magnesium 250 mg tablet 250 mg PO QDAY 05/07/24 10/27/24 H istory turmeric 400 mg capsule 400 mg PO DAILY 10/28/24 10/27/24 History Allergy/AdvReac Type Severity Reaction Status Date / Time No Known Allergies Allergy Verified 10/28/24 11:03 Family History Mother Myocardial infarction, Onset Age: 80 Heart disease Hypertension CVA (cerebral vascular accident) Father Myocardial infarction, Onset Age: 56 Surgical History History of hysterectomy Social History Smoking Status: Never smoker alcohol intake: never substance use type: does not use what type of physical activity do you participate in: none ROS Constitutional Constitutional: Reports fatigue; Denies chills, fever(s) or weakness Eyes Eyes: Denies change in vision Cardiovascular Cardiovascular: Denies chest pain, lightheadedness or palpitations Respiratory/Chest Respiratory/Chest: Denies cough, dyspnea or shortness of breath at rest Gastrointestinal Gastrointestinal: Reports abdominal pain, dyspepsia, hematochezia, melena and nausea; Denies coffee ground emesis, constipation, hematemesis or vomiting Genitourinary Genitourinary: Denies dysuria Musculoskeletal Musculoskeletal: Denies arthralgias or myalgias Neurologic Neurologic: Denies dizziness, focal weakness or headache(s) Vital Signs Vital Signs Vital Signs: 10/28/24 11:02 10/28/24 12:30 10/28/24 13:00 Temperature 96.1 F L Temperature Source Temporal Pulse Rate 70 68 70 Respiratory Rate 14 14 16 Blood Pressure 118/76 126/76 H 131/71 H Blood Pressure Mean 90 92 91 Pulse Ox 98 96 95 Oxygen Delivery Method Room Air Room Air 10/28/24 14:00 Temperature Temperature Source Pulse Rate 70 Respiratory Rate Blood Pressure 128/69 H Blood Pressure Mean 88 Pulse Ox 97 Oxygen Delivery Method Weight Weight: 80.104 kg Body Mass Index (BMI) 29.3 Physical Exam Const alert, oriented x3, no apparent distress, average body habitus, healthy appearing and well nourished Constitutional Narrative: Pleasant elderly female, appears younger than stated age, sitting back comfortably in bed, conversing normally, in no acute distress. General Appearance: cooperative, comfortable, well kempt and well developed HEENT normocephalic, head/ (more content not included)... Normal [facility] Hematocrit Auto (Bld) [Volum e fraction]Ordered By: Juan Diego Sauer on 10-28-2024 Hematocrit (Bld) [Volume fraction] 30.9 % Low 37-47 [facility] Hemoglobin measurementOrdere d By: Juan Diego Sauer on 10-28-2024 Hemoglobin (Bld) [Mass/Vol] 10.3 g/dL Low 12.0-15.0 [facility] Immature granulocytes/100 WB C Auto (Bld)Ordered By: Juan Diego Sauer on 10-28-2024 Immature granulocytes/100 WBC (Bld) 0.500 % 0.0-0.9 [facility] Comment on above: IG% - Immature Granu locytes (promyelocytes, myelocytes and metamyelocytes) > 1% indicates that a LEFT SHIFT is Present. International normalized rat io (INR) calculationOrdered By: Juan Diego Sauer on 10-28-2024 INR Coag (Bld) [Relative time] 1.1 {INR} [facility] Laboratory - Chemistry and C hemistry - challengeOrdered By: Juan Diego Sauer on 10-28-2024 AST [Catalytic activity/Vol] 20 U/L <32 [facility] MCV (mean corpuscular volume ) determinationOrdered By: Juan Diego Sauer on 10-28-2024 MCV (RBC) [Entitic vol] 96.0 fL 81-99 [facility] Mean corpuscular hemoglobin (MCH) determinationOrdered By: Juan Diego Sauer on 10-28-2024 MCH (RBC) [Entitic mass] 32.0 pg 27.0-32.0 [facility] Mean corpuscular hemoglobin concentration (MCHC) determinationOrdered By: Juan Diego Sauer on 10-28-2024 MCHC (RBC) [Mass/Vol] 33.3 g/dL 32-36 [facility] Mean platelet volume determi nationOrdered By: Juan Diego Sauer on 10-28-2024 Platelet mean volume (Bld) [Entitic vol] 9.9 fL 6.2-12.0 [facility] Monocyte percentageOrdered B y: Juan Diego Sauer on 10-28-2024 Monocytes/100 WBC (Bld) 3.8 % 0-10 [facility] Neutrophil percentageOrdered By: Juan Diego Sauer on 10-28-2024 Neutrophils/100 WBC (Bld) 83.7 % High 47-70 [facility] Nucleated red blood cell per centageOrdered By: Juan Diego Sauer on 10-28-2024 Nucleated RBC/100 WBC (Bld) [Ratio] 0 % 0-5 [facility] Platelet countOrdered By: Nav Sauer on 10-28-2024 Platelets (Bld) [#/Vol] 223 10*3/uL 150-450 [facility] Potassium measurement (mass/ volume)Ordered By: Juan Diego Sauer on 10-28-2024 Potassium (Unsp spec) [Mass/Vol] 4.7 mmol/L 3.3-5.1 [facility] Prothrombin Time w/INRon INR Coag (PPP) [Relative time] 1.1 {INR} Normal [facility] Comment on above: Performed By: #### L 300.3900, L500.4050, L100.0100, BTS #### [facility] Laboratory [address] [place], [address] PT Coag (PPP) [Time] 13.9 s Normal 11.7-14.9 [facility] Comment on above: Performed By: #### L 300.3900, L500.4050, L100.0100, BTS #### [facility] Laboratory [address] [place], [address] Prothrombin timeOrdered By: Juan Diego Sauer on 10-28-2024 PT Coag (PPP) [Time] 13.9 s 11.7-14.9 [facility] RBC Auto (Bld) [#/Vol]Ordere d By: Juan Diego Sauer on 10-28-2024 RBC (Bld) [#/Vol] 3.22 10*6/uL Low 4.2-5.4 [facility] Serum creatinine measurement (mass/volume)Ordered By: Juan Diego Sauer on 10-28-2024 Creatinine [Mass/Vol] 0.80 mg/dL 0.70-1.20 [facility] Serum globulin measurementOr dered By: Juan Diego Sauer on 10-28-2024 Globulin (S) [Mass/Vol] 2.6 g/dL 2.2-4.2 [facility] Serum glucose measurement (m ass/volume)Ordered By: Juan Diego Sauer on 10-28-2024 Glucose [Mass/Vol] 115 mg/dL High 70-99 [facility] Serum or plasma alanine jackson otransferase (ALT) measurementOrdered By: Juan Diego Sauer on 10-28-2024 ALT [Catalytic activity/Vol] 12 U/L <35 [facility] Serum or plasma albumin armen urement (mass/volume)Ordered By: Juan Diego Sauer on 10-28-2024 Albumin [Mass/Vol] 4.0 g/dL 3.4-4.8 [facility] Serum or plasma albumin/glob ulin mass ratioOrdered By: Juan Diego Sauer on 10-28-2024 Albumin/Globulin [Mass ratio] 1.6 {ratio} 0.9-2.4 [facility] Serum or plasma alkaline erasmo sphatase measurementOrdered By: Juan Diego Sauer on 10-28-2024 ALP [Catalytic activity/Vol] 90 U/L 35-104 [facility] Serum or plasma calcium armen urement (mass/volume)Ordered By: Juan Diego Sauer on 10-28-2024 Calcium [Mass/Vol] 9.2 mg/dL 7.6-11.0 [facility] Serum or plasma urea nitroge n measurement (mass/volume)Ordered By: Juan Diego Sauer on 10-28-2024 Urea nitrogen [Mass/Vol] 46 mg/dL High 4-19 [facility] Sodium levelOrdered By: Juan Diego Sauer on 10-28-2024 Sodium [Moles/Vol] 139 mmol/L 133-145 [facility] Total proteinOrdered By: Michael Sauer on 10-28-2024 Protein [Mass/Vol] 6.6 g/dL 5.9-8.4 [facility] Type AND Screenon 10-28-2024 Ab SCREEN GEL Negative Normal [facility] Comment on above: Order Comment: HGI Performed By: #### L 300.3900, L500.4050, L100.0100, BTS ####[facility] [id number] [place], [place], [id number] White blood cell (WBC) count Ordered By: Juan Diego Sauer on 10-28-2024 WBC (Bld) [#/Vol] 8.8 10*3/uL 4.4-11.0 [facility] CHEST 2 VIEWSon 05-07-2024 CHEST [address] [address] Patient: ADEN LINDO Phone#: : 1950 Age: 73 Gender: F Pt. Type: Out Account: [id number] Location: Ordering: BERNICE DE LA TORRE Exam Date: 05/07/2024/10:44 Family Phys: Charge Code: [id number] Physician: [place] Order #: [id number] Dose#: PROCEDURE: X-RAY CHEST 2 VIEWS COMPARISON: None. INDICATIONS: Pneumonia. FINDINGS: LUNGS: Normal. No significant pulmonary parenchymal abnormalities. VASCULATURE: Normal. Unremarkable pulmonary vasculature. CARDIAC: Normal. No cardiac silhouette abnormality or cardiomegaly. MEDIASTINUM: Normal. No visible mass or adenopathy. PLEURA: Normal. No effusion or pleural thickening. BONES: Normal. No fracture or visible bony lesion. OTHER: Negative. CONCLUSION: No acute disease. Dictated by: Jennifer Boston MD on 05/07/2024 at 11:03 Approved by: Jennifer Boston MD on 05/07/2024 at 11:18 Normal [facility] MR/BMS.[facility] 05-07-2024 MR/BMS.B [facility] [address] [place] [address] [place] [address] OFFICE VISIT Date of Service: 05/07/24 MR#: [id number] Acct: [id number] Name: ADEN LINDO Rep #: [id number] : 1950 Provider: Dr. Bernice edmond MD Age/Sex: 73/F Location: [facility] Status: Signed Intake Vital Signs 04/28/21 10:11 05/07/24 09:07 Height 5 ft 3 in 5 ft 3 in Weight: 175 lb 4 oz BMI 31.0 BP 132/78 H Blood Pressure Location Rt brachial Position Sitting Respiration 16 Pulse 65 Pulse Source Monitor Temp 98.6 F Temp Source Temporal Pulse Oximetry (%) 95 Oxygen Delivery Method room air Intake Visit Reasons: Cough, Congestion Chief Complaint: cough, congestion Hot Box Checker Required: No Accompanied by: Is patient in pain?: No Allergies No Known Allergies Allergy (Unverified 05/07/24 08:54) Medications ???Medication ???Instructions ???Recorded ???Confirmed ???Type aspirin 81 mg tablet,delayed 81 mg PO DAILY 01/01/20 05/07/24 History release amlodipine 5 mg tablet 5 mg PO DAILY #90 tabs 02/14/24 05/07/24 Rx losartan 50 mg tablet 50 mg PO DAILY #90 tabs 02/14/24 05/07/24 Rx magnesium 250 mg tablet 250 mg PO QDAY 05/07/24 05/07/24 History omega-3 fatty acids 1,000 mg 1,000 mg PO QDAY 05/07/24 05/07/24 History capsule Have you fallen in the past year?: No PFSH Medical History (Updated 05/07/24 @ 09:[address] Bernice De La Torre MD) Pneumonia History of stroke History of bladder cancer Hypertension Surgical History History of hysterectomy Family History Mother Myocardial infarction, Onset Age: 80 Heart disease Hypertension CVA (cerebral vascular accident) Father Myocardial infarction, Onset Age: 56 Social History Smoking Status: Never smoker alcohol intake: never substance use type: does not use what type of physical activity do you participate in: none HPI HPI Chief Complaint: cough, congestion Details: ADEN LINDO, is a 73 F who presents to the office today for acute care follow-up visit. Patient has a history of CVA remotely, hypertension, on amlodipine 5 mg daily losartan as well as aspirin, magnesium and omega-3 fatty acids. Generally speaking she has been doing quite well. Her is also being seen today and will be admitted the hospital for pneumonia. She started about 1 week ago with cough, chest congestion, diffuse achiness, weakness, chills. No high-grade fevers documented. Her actually started with symptoms back Thanksgiving time however was seemingly getting better but then both basically over the last week of developed similar symptoms. This may actually represent a different organism or cause. Most likely viral as we discussed. Appetite has been decreased. Trying to maintain good oral volume fluid intake however. Using some electrolyte drinks. Review of systems per chart. Physical exam. Vital signs on chart. PERRLA. Sclera are clear. TMs are unremarkable with normal light reflexes. Canals are unremarkable. Posterior pharynx is unremarkable. No cervical supraclavicular lymph nodes enlarged or tender. No thyromegaly. No clear thyroid nodules noted. Her lungs are largely clear however she does have left basilar rales posteriorly. Subtle E/a changes present there as well. Cannot appreciate rales elsewhere in the chest. No clear rhonchi. Heart is regular. Not tachycardic. No gallops are noted. The abdomen is soft. Bowel sounds are present. ROS Const Constitutional: Positive for body ache, chills and weakness; No excessive sweating, fatigue, fever(s), frequent falls, headache(s), snoring or change in appetite Eyes Eyes: No blurry vision, change in vision, eye pain or Light sensitivity ENT ENT: No abnormal hearing, ear or mastoid pain, tinnitus, headache(s), neck pain or sore throat Resp Respiratory: Positive for cough; No shortness of breath, snoring or wheezing Cardio Cardiology: No chest pain at rest, chest pain with exertion, excessive sweating, dyspnea on exertion, lightheadedness, orthopnea or palpitations Gastro GI: No abdominal pain, change in bowel habits, constipation, cramping, diarrhea, nausea/dyspepsia or vomiting Genitourinary-Female: No burning urination, painful urination, urinary incontinence or urinary frequency Musc Musculoskeletal: No abnormal gait, joint pain, back pain, limited range of motion, muscle weakness, neck pain or numbness Skin Skin: No dry skin, redness, lesions, itchy eyes, rash or wounds Neuro Neurology: Positive for weakness; No abnormal gait, abnormal hearing, frequent falls, headache(s), memory loss or numbness Psych Psychiatric: No anxiety, No c (more content not included)... Normal [facility] Vital Signs Date Time Vital Sign Value Performing Clinician Rosetta almanzar 11-19-2024 09:52-0400 Body height 165.[address] Bernice De La Torre MD Work Phone: [facility] 11-19-2024 09:52-0400 Body mass index (BMI) [Ratio] 28.5 kg/m2 Dr. Bernice De La Torre MD Work Phone: [facility] 11-19-2024 09:52-0400 Body temperature 98.6 [degF] Dr. Bernice De La Torre MD Work Phone: [facility] 11-19-2024 09:52-0400 Body weight 77.[address] Bernice De La Torre MD Work Phone: [facility] 11-19-2024 09:52-0400 Diastolic blood pressure 69 mm[Hg] Dr. Bernice De La Torre MD Work Phone: [facility] 11-19-2024 09:52-0400 Heart rate 55 /min Dr. Bernice De La Torre MD Work Phone: [facility] 11-19-2024 09:52-0400 Respiratory rate 16 /min Dr. Bernice De La Torre MD Work Phone: [facility] 11-19-2024 09:52-0400 SaO2% (BldA) [Mass fraction] 98 % Dr. Bernice De La Torre MD Work Phone: [facility] 11-19-2024 09:52-0400 Systolic blood pressure 163 mm[Hg] Dr. Bernice De La Torre MD Work Phone: [facility] 10-30-2024 18:33-0400 Body temperature 98.2 [degF] Dr. Bernice De La Torre MD Work Phone: [facility] 10-30-2024 18:33-0400 Diastolic blood pressure 79 mm[Hg] Dr. Bernice De La Torre MD Work Phone: [facility] 10-30-2024 18:33-0400 Heart rate 66 /min Dr. Bernice De La Torre MD Work Phone: [facility] 10-30-2024 18:33-0400 Respiratory rate 16 /min Dr. Bernice De La Torre MD Work Phone: [facility] 10-30-2024 18:33-0400 SaO2% (BldA) [Mass fraction] 97 % Dr. Bernice De La Torre MD Work Phone: [facility] 10-30-2024 18:33-0400 Systolic blood pressure 133 mm[Hg] Dr. Bernice De La Torre MD Work Phone: [facility] 10-29-2024 13:49-0400 Body height 165.[address] Bernice De La Torre MD Work Phone: [facility] 10-29-2024 13:49-0400 Body weight 80.[address] Bernice De La Torre MD Work Phone: [facility] 10-28-2024 16:40-0400 Body mass index (BMI) [Ratio] 29.3 kg/m2 Dr. Berniec De La Torre MD Work Phone: [facility] 10-28-2024 16:00-0400 Diastolic blood pressure 59 mm[Hg] Dr. Bernice De La Torre MD Work Phone: [facility] 10-28-2024 16:00-0400 Heart rate 71 /min Dr. Bernice De aL Torre MD Work Phone: [facility] 10-28-2024 16:00-0400 Respiratory rate 17 /min Dr. Bernice De La Torre MD Work Phone: [facility] 10-28-2024 16:00-0400 SaO2% (BldA) [Mass fraction] 98 % Dr. Bernice De La Torre MD Work Phone: [facility] [facility] [place] 10-28-2024 16:00-0400 Systolic blood pressure 93 mm[Hg] Dr. Bernice De La Torre MD Work Phone: [facility] 10-28-2024 14:59-0400 Body temperature 98.4 [degF] Dr. Bernice De La Torre MD Work Phone: [facility] 10-28-2024 12:02-0400 Body mass index (BMI) [Ratio] 29.3 kg/m2 Dr. Bernice De La Torre MD Work Phone: [facility] 10-28-2024 12:02-0400 Body weight 80.[address] Bernice De La Torre MD Work Phone: [facility] 10-28-2024 11:02-0400 Body height 165.[address] Bernice De La Torre MD Work Phone: [facility] Encounters Encounter Date Encounter Type Care Provider Facility Start: 11-19-2024 End: 11-19-[address] Bernice De La Torre MD -[facility] Work Phone: Start: 11-19-2024 End: 11-19-[address] Bernice De La Torre MD Work Phone: -[facility] Start: 10-30-2024 Non-patient / Non-visit Dr. Dewayne Parrish DO [facility] Work Phone: Start: 10-30-2024 ambulatory Ney Moreno Facility :[facility] Start: 10-30-2024 Non-patient / Non-visit Ney Kathleen nd [facility] Start: 10-29-2024 Non-patient / Non-visit Dr. Dewayne Parrish [facility] Work Phone: Start: 10-29-2024 Non-patient / Non-visit Ney Kathleen nd [facility] Start: 10-28-2024 Non-patient / Non-visit Dr. Arya schwartz MD -[facility] Start: 10-28-2024 ambulatory Bernice De La Torre Facility :[facility] Start: 10-28-2024 End: 10-30-2024 Evaluation and management of inpatient Dr. Guero Pagan DO [facility] Work Phone: Start: 05-07-2024 End: 05-07-2024 ambulatory BERNICE DE LA TORRE [facility] Start: 05-07-2024 End: 05-07-2024 ambulatory Bernice De La Torre Facility:[facility] Procedures Date Procedure Procedure Detail Performing Clinician Start: 10-30-[address] Bernice Diggs Work Phone: Start: 10-29-[address] Bernice ceballos MD Work Phone: Start: 10-29-[address] Bernice De La Torre MD Work Phone: Start: 10-28-[address] Bernice De La Torre MD Work Phone: Plan of Treatment Date Care Activity Detail Author Start: 10-30-2024 Patient discharge [facility] Start: 10-29-2024 Care planning and pr oblem solving actions [facility] Start: 10-28-2024 Application of inter mittent pneumatic compression device [facility] Start: 10-28-2024 Following clinical p athway protocol [facility] Start: 10-28-2024 Ambulation without limitation [facility] Start: 10-28-2024 Assessment of risk o f venous thromboembolism [facility] Start: 10-28-2024 Insertion of cathete r into peripheral vein [facility] Start: 10-28-2024 Oxygen therapy [facility] Start: 10-28-2024 Providing care accor ding to standard [facility] Start: 10-28-2024 Referral to gastroen terology service [facility] Start: 10-28-2024 [facility] Start: 10-28-2024 Verification routine [facility] Start: 10-28-2024 Admission procedure [facility] Start: 10-28-2024 Hospital admission, emergency, from emergency room, medical nature [facility] Start: 10-28-2024 Leukocyte reduced red blood cells [facility] Start: 10-28-2024 [facility] Start: 10-28-2024 Patient referral to dietitian [facility] Basic metabolic 2008 panel with ionized calcium - Serum or Plasma [facility] spital CBC W Auto Different ial panel - Blood [facility] Iron and Iron bindin g capacity panel - Serum or Plasma [facility] Patient referral [facility] Work Phone: Thyroid stimulating hormone measurement [facility] Payers Date Payer Category Payer Medicare [id number] 2024 Medicare [id number] 2024 Self-pay 2024 Unknown [id number] 1950 Unknown [id number] 2.16.8 [id number] Unknown [id number] 2.16.8 [id number] Unknown [id number] 2.16.8 [id number] Unknown [id number] 2.16.8 [id number] Unknown [id number] 2.16.8 [id number] Unknown [id number] 2.16.8 [id number] Unknown [id number] 2.16.8 [id number] Unknown [id number] 2.16.8 [id number] Unknown [id number] 2.16.8 [id number] Unknown [id number] 2.16.8 [id number] Unknown [id number] 2.16.8 [id number] Social History Date Type Detail Facility Start: 10-28-2024 End: 10-28-2024 Tobacco smoking status NHIS Never smoked tobacco (finding) [facility] Start: 1950 Sex Assigned At Female W [facility] Goals Date Patient Goal Desired Activity /State Functional Status Date Assessment Result Facility 10-30-2024 Functional status Ambulates [facility] Work Phone: Mental Status Date Assessment Result Facility 10-30-2024 Cognitive function Voice/Name [facility] Work Phone: 10-30-2024 Cognitive function Appropriate;Zak tapia [facility] Work Phone: Clinical Notes 10-28-2024 to 10-30-2024 Note Date & Type Note Facility 10-30-2024 Discharge summary Note Date/Time October 30, 2024 7:24pm [facility] Medical Records Department [address] [place] [address] Instructions for Home/Discharge Instructions 10/30/241918 MR#: [id number] Acct: [id number] Name: ADEN LINDO Rep #:[id number] : 1950 73 From: Dewayne Gonzalez DO PCP: Dr. Bernice De La Torre MD Status:ADM IN Discharge Instructions Diet Discharge Diet: No restrictions DC O2, CPAP, BIPAP needs Home O2 Discharge instructions: No Dressing / Incision Discharge Activity: Return to Normal Activity Weight Bearing Status: Full weight bearing Follow Up Care Test Results: Test results from this visit will be discussed in further detail at your follow-up appointment, if applicable. Discharge Plan Admission Admit Date/Time: 10/28/24 14:34 Primary Reason for Your Visit: Chronic gastritis, ischemic bowel Attending Provider: Dewayne Gonzalez Primary Care Provider: Bernice De La Torre Consulting Providers: Guero Pagan Discharge Orders/Prescriptions Prescriptions: Continued aspirin 81 mg tablet,delayed release (DR/EC) 81 mg PO DAILY magnesium 250 mg tablet 250 mg PO QDAY turmeric 400 mg capsule 400 mg PO DAILY amlodipine 5 mg tablet 5 mg PO DAILY Qty: 90 3RF losartan 50 mg tablet 50 mg PO DAILY Qty: 90 3RF Referrals / Follow Up: Bernice De La Torre MD [Primary Care Provider] - Within 2 Weeks Disposition Disposition (needs filled in before D/C Order can be placed): Home, Self Care 10/30/241923<Electronically signed by Dewayne Gonzalez DO>Dewayne Gonzalez DO CC: Dr. Guero Pagan DO; Dr. Bernice De La Torre MD ~ Signed [facility] Work Phone: 1(674) 287-528606-12-2025 Procedure note [facility] Medical Records Department [address] [place] [address] Colonoscopy Report MR#: [id number] Acct: [id number] Name: ADEN LINDO Rep #:[id number] : 1950 73 From: Ney Moreno DO PCP: Dr. Bernice De La Torre MD Status:ADM IN Patient Name: Aden Lindo Procedure Date: 10/30/2024 4:26 PM Date of : 1950 Age: 73 Procedure: Colonoscopy Indications: Hematochezia Providers: Ney Moreno DO Medicines: Monitored Anesthesia Care Patient Profile: This is a 73 year old female. Refer to note in patient chart for documentation of history and physical. Last Colonoscopy: none. The patient's first colonoscopy is today. Complications: No immediate complications. Procedure: Pre-Anesthesia Assessment: - Prior to the procedure, a History and Physical was performed, and patient medications and allergies were reviewed. The patient is competent. The risks and benefits of the procedure and the sedation options and risks were discussed with the patient. All questions were answered and informed consent was obtained. Patient identification and proposed procedure were verified by the physician in the pre-procedure area. Mental Status Examination: alert and oriented. CV Examination: normal. Prophylactic Antibiotics: The patient does not require prophylactic antibiotics. Prior Anticoagulants: The patient has taken no anticoagulant or antiplatelet agents except for NSAID medication. ASA Grade Assessment: II - A patient with mild systemic disease. After reviewing the risks and benefits, the patient was deemed in satisfactory condition to undergo the procedure. The anesthesia plan was to use monitored anesthesia care (MAC). Immediately prior to administration of medications, the patient was re-assessed for adequacy to receive sedatives. The heart rate, respiratory rate, oxygen saturations, blood pressure, adequacy of pulmonary ventilation, and response to care were monitored throughout the procedure. The physical status of the patient was re-assessed after the procedure. After I obtained informed consent, the scope was passed under direct vision. Throughout the procedure, the patient's blood pressure, pulse, and oxygen saturations were monitored continuously. The Colonoscope was introduced through the anus and advanced to the terminal ileum. The colonoscopy was performed without difficulty. The patient tolerated the procedure well. The quality of the bowel preparation was adequate. The terminal ileum, ileocecal valve, appendiceal orifice, and rectum were photographed. Scope In: 4:47:23 PM Scope Withdrawal Time 0 hours 6 minutes 15 seconds Scope Out: 5:04:52 PM Total Procedure Duration Time 0 hours 17 minutes 29 seconds Findings: The perianal and digital rectal examinations were normal. Non-bleeding internal hemorrhoids were found during retroflexion. The hemorrhoids were Grade II (internal hemorrhoids that prolapse but reduce spontaneously). A diffuse area of moderate melanosis was found in the entire colon. Biopsies were taken with a cold forceps for histology. Verification of patient identification for the specimen was done. Estimated blood loss was minimal. Localized moderate inflammation was found at the splenic flexure. A patchy area of the terminal ileum was congested. Biopsies were taken with a cold forceps for histology. Verification of patient identification for the specimen was done. Estimated blood loss was minimal. A 5 mm polyp was found in the transverse colon. The polyp was sessile. The polyp was removed with a cold biopsy forceps. Resection and retrieval were complete. Verification of patient identification for the specimen was done. Estimated blood loss was minimal. Impression: - Non-bleeding internal hemorrhoids. - Melanosis in the colon. Biopsied. - Localized moderate inflammation was found at the splenic flexure secondary to ischemic colitis. - Congested mucosa in the terminal ileum. Biopsied. Recommendation: - Discharge patient to home. - Resume previous diet. - Continue present medications. - Await pathology results. - Repeat colonoscopy is recommended for surveillance. The colonoscopy date will be determined after pathology results from today's exam become available for review. Procedure Code(s): --- Professional --- 71436, Colonoscopy, flexible; with biopsy, single or multiple CPT copyright 2021 [employer]. All rights reserved. The codes documented in this report are preliminary and upon site controller review may be revised to meet current compliance requirements. Ney Moreno DO 10/30/2024 7:27:16 PM This report has been signed electronically. Number of Addenda: 0 Note Initiated On: 10/30/2024 4:26 PM 10/30/241926 Date _ Ney Moreno DO Cosigner Signature: Date (if indicated) CC: Dr. Bernice De La Torre MD; Ney Moreno DO ~ Date Dictated: 10/30/24 1626 Date Transcribed: Bulb Weeder: RF Signed [facility]06-12-2025 Procedure note [facility] Medical Records Department [address] [place] [address] Operative Report - CC Letter MR#: [id number] Acct: [id number] Name: ADEN LINDO Rep #:[id number] : 1950 73 From: Ney Moreno DO PCP: Dr. Bernice De La Torre MD Status:ADM IN 10/30/2024 Bernice De La Torre [facility] [address] [place] [address] Re : Colonoscopy procedure for Aden Lindo Dear Dr. De La Torre This procedure was performed on October. My impressions and recommendations are as follows: Impressions : - Non-bleeding internal hemorrhoids. - Melanosis in the colon. Biopsied. - Localized moderate inflammation was found at the splenic flexure secondary to ischemic colitis. - Congested mucosa in the terminal ileum. Biopsied. Recommendations : - Discharge patient to home. - Resume previous diet. - Continue present medications. - Await pathology results. - Repeat colonoscopy is recommended for surveillance. The colonoscopy date will be determined after pathology results from today's exam become available for review. My findings are described in the full procedure note, which is enclosed. If I can be of further assistance, please feel free to contact me at . Sincerely, Ney Moreno DO 10/30/2024 7:27:16 PM This report has been signed electronically. 10/30/241926 Date _ Ney Moreno DO Cosigner Signature: Date (if indicated) CC: Dr. Guero Pagan DO; Dr. Bernice De La Torre MD; Dr. Dewayne Gonzalez DO ~ Date Dictated: 10/30/24 1626 Date Transcribed: Bulb Weeder: RF Signed [facility]06-12-2025 Discharge summary [facility] Medical Records Department [address] [place] [address] Instructions for Home/Discharge Instructions 10/30/241918 MR#: [id number] Acct: [id number] Name: ADEN LINDO Rep #:[id number] : 1950 73 From: Dewayne Gonzalez DO PCP: Dr. Bernice De La Torre MD Status:ADM IN Discharge Instructions Diet Discharge Diet: No restrictions DC O2, CPAP, BIPAP needs Home O2 Discharge instructions: No Dressing / Incision Discharge Activity: Return to Normal Activity Weight Bearing Status: Full weight bearing Follow Up Care Test Results: Test results from this visit will be discussed in further detail at your follow- up appointment, if applicable. Discharge Plan Admission Admit Date/Time: 10/28/24 14:34 Primary Reason for Your Visit: Chronic gastritis, ischemic bowel Attending Provider: Dewayne Gonzalez Primary Care Provider: Bernice De La Torre Consulting Providers: Guero Pagan Discharge Orders/Prescriptions Prescriptions: Continued aspirin 81 mg tablet,delayed release (DR/EC) 81 mg PO DAILY magnesium 250 mg tablet 250 mg PO QDAY turmeric 400 mg capsule 400 mg PO DAILY amlodipine 5 mg tablet 5 mg PO DAILY Qty: 90 3RF losartan 50 mg tablet 50 mg PO DAILY Qty: 90 3RF Referrals / Follow Up: Bernice De La Torre MD [Primary Care Provider] - Within 2 Weeks Disposition Disposition (needs filled in before D/C Order can be placed): Home, Self Care 10/30/241923Dewayne Gonzalez DO CC: Dr. Guero Pagan DO; Dr. Bernice De La Torre MD ~ Signed [facility]06-12-2025 [facility] Medical Records Department [address] [place] [address] Discharge Summary 10/30/241923 MR#: [id number] Acct: [id number] Name: ADEN LINDO Rep #: [id number] : 1950 73 From: Dewayne Gonzalez DO PCP: Dr. Bernice De La Torre MD Status:DIS IN Location: [place] [address] Providers Date of Admission: 10/28/24 Date of Discharge: 10/30/24 Primary Care Physician: Dr. Bernice De La Torre MD Consultations 10/28/24 17:02 Consult: Gastroenterology Routine Consulting Provider: [facility] Reason for Consult: suspected upper GI bleed EMERGENT Consult: No MD Notified: Yes Date Notified: 10/28/24 Time Notified: 17:07 Method of Notification: Text Reason For Visit: GI BLEED Diagnosis Discharge Diagnosis (1) Anemia: Status: Acute Code(s): D64.9 - Anemia, unspecified Plan 1. 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 #3 essential hypertension-patient will remain on her current blood pressure medication #4 melena with red rectal bleeding-again patient will undergo colonoscopy tomorrow #5 rectal bleeding secondary to ischemic colitis Total clinical time spent by myself addressing the patient's medical issues, reviewing all of her data, and collaborating with patient's care team: 35-minute Medications at Discharge Home Medications aspirin 81 mg tablet,delayed release 81 mg PO DAILY 01/01/20 amlodipine 5 mg tablet 5 mg PO DAILY #90 tabs 02/14/24 losartan 50 mg tablet 50 mg PO DAILY #90 tabs 02/14/24 magnesium 250 mg tablet 250 mg PO QDAY 05/07/24 turmeric 400 mg capsule 400 mg PO DAILY 10/28/24 Hospital Course Procedures Colonoscopy and EGD Summary of Care Provided Minutes Spent on Discharge: 31 Hospital Course: This 73-year-old white female was seen in the emergency room at [facility] with complaints of rectal bleeding and melanotic appearing stools. CBC showed a hemoglobin of 10.3, chemistry profile showed a BUN of 46 but was otherwise unremarkable. Patient was admitted to PCU and CBCs were monitored, patient did not require any blood transfusion. Patient underwent an EGD which showed chronic gastritis and no evidence of bleeding. Patient then underwent a colonoscopy the next day which showed areas compatible with ischemic colitis. On 10/30/2024, patient was seen and examined: On examination she appeared in good health and spirits, she does not appear to be in any distress. Vital signs as documented. Skin warm and dry and without overt rashes. Neck without JVD, thyroid appears normal, trachea is midline, neck is supple. Lungs clear, normal air movement was noted. Heart exam notable for regular rhythm, normal sounds and absence of murmurs, rubs or gallops. Abdomen unremarkable and without evidence of organomegaly, masses, or abdominal aortic enlargement, bowel sounds are present in all 4 quadrants, no abdominal tenderness was noted. Extremities nonedematous, no cyanosis was noted, no clubbing was noted. Neuro: Cranial nerves II through XII are grossly intact, no focal motor deficits were noted, sensation to light touch and pinprick is intact, motor exam 5/5 throughout. Psych: Patient is alert and oriented x3, she does not appear anxious or depressed, she does not appear agitated. Patient appears to be stable for discharge home on 10/30/2024. Weight / BMI Weight Weight: 80.104 kg Body Mass Index (BMI) 29.3 ABG / Lab / Microbiology Data 10/30/24 05:00 10/29/24 04:10 Laboratory: Laboratory Results - last 24 hr 10/28/24 12:26: Crossmatch See Detail 10/30/24 05:00: WBC 4.9, RBC 2.61 L, Hgb 8.3 L, Hct 25.1 L, MCV 96.2, MCH 31.8, MCHC 33.1, RDW Std Deviation 44.6 H, RDW Coeff of Roshni 12.9, Plt Count 200, MPV 10.1, Immature Gran % (Auto) 0.400, Neut % (Auto) 48.5, Lymph % (Auto) 40.2, [place] % (Auto) 7.8, Eos % (Auto) 2.3, Baso % (Auto) 0.8, Absolute Neuts (auto) 2.4, Absolute Lymphs (auto) 1.95, Nucleated RBC % 0, PT 14.9, INR 1.1, APTT 26.8 D/C Instructions Discharge Diet: No restrictions Weight Bearing Status: Full weight bearing DC O2, CPAP, BIPAP Needs Home O2 Discharge instructions: No Meaningful Use Info Meaningful Use Meaningful Use Diagnoses (Choose all that apply): None applicable Ischemic Stroke Statin Dosing Therapy Reference: STATIN DOSE THERAPY REFERENCE: * Patients > 75 years receive moderate or high dose statin therapy. * Patients 75 years or YOUNGER should receive HIGH intensity statin dose unless contraindicated. You will be required to document reason for non-treatment if statin daily dose does not meet guidelines. HIGH DOSE STATIN THERAPY DAILY Atorvas (more content not included)...[facility]06-12-2025 Consult note Author Alejandro Davila [facility] [place] Note Date/Time October 30, 2024 5:19 pm [facility] Medical Records Department [address] [facility] [place] [address] Anesthesia Postop Eval II 10/30/24 1719 MR#: [id number] Acct: [id number] Name: ADEN LINDO Rep #:[id number] : 1950 73 From: Alejandro Davila MD PCP: Dr. Bernice De La Torre MD Status:ADM IN Y Race: C Location: [place] [address] 3-1 Anesthesia Postop Eval I Sum Postop Eval Completion status Anesthesia document: Postop Eval 1 completed: Yes Anesthesia Postop Eval I Summary Anesthesia Postop Eval I Summary: Anesthesia Postop Eval I: Assessment Summary Airway patent Yes 10/30/24 17:18 KEY ACCOUNT REPRESENTATIVE.DMAY Spontaneous unlabored Yes 10/30/24 17:18 KEY ACCOUNT REPRESENTATIVE.DMAY respirations Mental status Awake,Calm 10/30/24 17:18 KEY ACCOUNT REPRESENTATIVE.DMAY nausea No 10/30/24 17:18 KEY ACCOUNT REPRESENTATIVE.DMAY Vomiting No 10/30/24 17:18 KEY ACCOUNT REPRESENTATIVE.DMAY Anesthesia Postop Eval I: Fluid Summary Crystalloid volume administer 300 10/30/24 17:18 KEY ACCOUNT REPRESENTATIVE.DMAY (ml) Colloids volume administered ( ml) Blood Product volume administered (ml) Total IV fluid infused 300 10/30/24 17:18 KEY ACCOUNT REPRESENTATIVE.DMAY Anesthesia Postop Eval I: Summary Notes Anesthesia Complication No 10/30/24 17:18 KEY ACCOUNT REPRESENTATIVE.DMAY Anesthesia Complication Comment: Post-operative progress note Anesthesia: Postop Eval II Evaluation Mental status: Awake Pain Level: 0 nausea: No Vomiting: No 10/30/241718 <Electronically signed by Alejandro Davila MD > Date _ Alejandro Davila MD Cosigner Signature: Date CC: ~ Signed [facility] Work Phone: 1(320) 377-517006-12-2025 Consult note Author [facility] Note Date/Time October 30, 2024 5:18 pm [facility] Medical Records Department [address] [place] [address] Anesthesia Postop Eval I 10/30/241716 MR#: [id number] Acct: [id number] Name: ADEN LINDO Rep #:[id number] : 1950 73 From: Pedro Negrete PCP: Dr. Bernice De La Torre MD Status:ADM IN Y Race: C Location: [address] Anesthesia: Postop Eval I Current Vital Signs Temperature: 99.4 F Pulse Rate: 75 Blood Pressure: 109/59 Respiratory Rate: 24 Pulse Ox: 99 Oxygen Delivery Method: Room Air Assessment Airway patent: Yes Spontaneous unlabored respirations: Yes Mental status: Awake and Calm nausea: No Vomiting: No Anesthesia Complication: No Fluid Hydration Crystalloid volume administer (ml): 300 Total IV fluid infused: 300 Progress Note Anesthesia document: Postop Eval 1 completed: Yes 10/30/241717 <Electronically signed by Pedro Carter RNA> Date _ Pedro [facility] KEY ACCOUNT REPRESENTATIVE Cosigner Signature: CC: ~ Signed [facility] Work Phone: 1(561) 905-928806-12-2025 Consult note [facility] Medical Records Department [address] [place] [address] Anesthesia Postop Eval II 10/30/241718 MR#: [id number] Acct: [id number] Name: ADEN LINDO Rep #:[id number] : 1950 73 From: Alejandro Davila MD PCP: Dr. Bernice De La Torre MD Status:ADM IN Y Race: C Location: [place] [address] 3-1 Anesthesia Postop Eval I Sum Postop Eval Completion status Anesthesia document: Postop Eval 1 completed: Yes Anesthesia Postop Eval I Summary Anesthesia Postop Eval I Summary: Anesthesia Postop Eval I: Assessment Summary Airway patent Yes 10/30/24 17:18 KEY ACCOUNT REPRESENTATIVE.DMAY Spontaneous unlabored Yes 10/30/24 17:18 KEY ACCOUNT REPRESENTATIVE.DMAY respirations Mental status Awake,Calm 10/30/24 17:18 KEY ACCOUNT REPRESENTATIVE.DMAY nausea No 10/30/24 17:18 KEY ACCOUNT REPRESENTATIVE.DMAY Vomiting No 10/30/24 17:18 KEY ACCOUNT REPRESENTATIVE.DMAY Anesthesia Postop Eval I: Fluid Summary Crystalloid volume administer 300 10/30/24 17:18 KEY ACCOUNT REPRESENTATIVE.DMAY (ml) Colloids volume administered ( ml) Blood Product volume administered (ml) Total IV fluid infused 300 10/30/24 17:18 KEY ACCOUNT REPRESENTATIVE.DMAY Anesthesia Postop Eval I: Summary Notes Anesthesia Complication No 10/30/24 17:18 KEY ACCOUNT REPRESENTATIVE.DMAY Anesthesia Complication Comment: Post-operative progress note Anesthesia: Postop Eval II Evaluation Mental status: Awake Pain Level: 0 nausea: No Vomiting: No 10/30/241718 > Date _ Alejandro Davila MD Cosigner Signature: Date CC: ~ Signed [facility]06-12-2025 Consult note [facility] Medical Records Department [address] [place] [address] Anesthesia Postop Eval I 10/30/241716 MR#: [id number] Acct: [id number] Name: ADEN LINDO Rep #:[id number] : 1950 73 From: Pedro Negrete PCP: Dr. Bernice De La Torre MD Status:ADM IN Y Race: C Location: [place] [address] Anesthesia: Postop Eval I Current Vital Signs Temperature: 99.4 F Pulse Rate: 75 Blood Pressure: 109/59 Respiratory Rate: 24 Pulse Ox: 99 Oxygen Delivery Method: Room Air Assessment Airway patent: Yes Spontaneous unlabored respirations: Yes Mental status: Awake and Calm nausea: No Vomiting: No Anesthesia Complication: No Fluid Hydration Crystalloid volume administer (ml): 300 Total IV fluid infused: 300 Progress Note Anesthesia document: Postop Eval 1 completed: Yes 10/30/241717 RNA> Date _ Pedro Akers KEY ACCOUNT REPRESENTATIVE Cosigner Signature: Date CC: ~ Signed [facility]06-12-2025 Consult note Author Alejandro Davila [facility] Note Date/Time October 30, 2024 3:17 pm [facility] Medical Records Department [address] [place] [address] Pre-Anesthesia Evaluation 10/30/24 1517 MR#: [id number] Acct: [id number] Name: ADEN LINDO Rep #:[id number] : 1950 73 From: Alejandro Davila MD PCP: Dr. Bernice De La Torre MD Status:ADM IN Y Race: C Location: [place] [address] 3-1 ASA Classification* ASA Classification ASA Classification: 3 Assessment & Plan Anesthesia* Anesthesia Assessment Anesthesia Assessment: Discussed sedation and/or anesthesia options, risks, benefits, and alternatives with patient/parents/legal guardian/POA. Questions invited. The patient/parents/legal guardian/POA seems to understand and agrees to proceedwith anesthesia plan. Reviewed the physical assessment, medical history, allergy history and patient home medications list prior to surgery/procedure/anesthetic and documented any changes. Performed airway and anesthesia risk assessments. Anesthesia Type Anesthesia Type: MAC Anesthesia Focused Assessment* Temperature: 97.3 F Pulse Rate: 64 Blood Pressure: 135/77 Respiratory Rate: 16 Pulse Ox: 96 Airway Assessment Mouth opens: >3 cm Mallampati Score: II Labs Anesthesia Preop lab: CBC WBC 4.9 K/mm3 (4.4-11.0) 10/30/24 05:00 10/30/24 RBC 2.61 M/mm3 (4.2-5.4) L 10/30/24 05:00 10/30/24 Hgb 8.3 g/dL (12.0-15.0) L 10/30/24 05:00 10/30/24 Hct 25.1 % (37-47) L 10/30/24 05:00 10/30/24 Plt Count 200 K/mm3 (150-450) 10/30/24 05:00 10/30/24 CHEMISTRY Potassium 4.4 mmol/L (3.3-5.1) 10/29/24 04:10 10/29/24 Sodium 139 mmol/L (133-145) 10/29/24 04:10 10/29/24 BUN 48 mg/dL (4-19) H 10/29/24 04:10 10/29/24 Creatinine 1.04 mg/dL (0.70-1.20) 10/29/24 04:10 10/29/24 Glucose 84 mg/dL (70-99) 10/29/24 04:10 10/29/24 TSH 2.64 uIU/mL (0.358-3.74) 02/09/20 16:16 COAG PT 14.9 SECONDS (11.7-14.9) 10/30/24 05:00 Pre-Assessment Diagnosis/Proposed Procedure Planned Operative Procedure(s): Colonoscopy Anesthesia History 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 When Was Last Pacemaker Check QUESTION #4 FULL TEXT: You/Your Family Experience fever (hyperthermia) with Anesthesia Last Oral Intake Last Oral intake: Last Oral Intake NPO since Meds taken in AM with sips of water? Meds patient instructed to take am of surgery PONV PONV - casino cage cashier: PONV - casino cage cashier Female HX of Motion Sickness HX of N/V After Surgery Non-Smoker Duration of Surgery greater than 60 minutes Number of Risk Factors PONV Score Height & Weight Height & Weight: Anesthesia: Height & Weight Height 5 ft 5 in 10/29/24 13:49 Weight: 80.104 kg 10/29/24 13:49 Body Mass Index (BMI) 29.3 10/28/24 16:40 Respiratory Assessment Respiratory Assessment - casino cage cashier: Respiratory Tract Infection Hx - casino cage cashier Hx Respiratory Tract Infection STOP Sleep Apnea STOP Sleep Apnea - casino cage cashier: STOP Sleep Apnea - casino cage cashier Hx Hypertension No 10/28/24 16:40 Hx Sleep Apnea No 10/28/24 16:40 CPAP BIPAP Do you snore loudly (louder No 10/28/24 16:40 than talking or can be heard Do you often feel tired/ No 10/28/24 16:40 fatigued/ sleepy during daytime? Has anyone observed you stop No 10/28/24 16:40 breathing during sleep? STOP Results Negative 10/29/24 12:00 QUESTION #5 FULL TEXT : Do you snore loudly (louder than talking or can be heard through closed doors)? 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 Specify any problems Hx of Preganancy in last 3 N/A 10/28/24 16:40 Months Nurse Filling Out Transfusion AHAGGERTY 10/28/24 16:40 & Questions: Date: 10/28/24 10/28/24 16:40 Time: 18:16 10/28/24 16:40 Patient unable to answer at this time (ie. confused, unrespo /Reproduction History /Reproductive History - casino cage cashier: /Reproductive Hx- casino cage cashier Hx Now Gestational Age (in weeks): EDC: Hx Hx Para Hx Section SAB Active Medications Active Medications: Current Medications Generic Name Dose Route Start Last Admin Trade Name Freq PRN Reason Stop Dose Admin Acetaminophen 650 mg 10/28/24 17:02 Acetaminophen 325 Mg Tablet PO Q6H PRN PRN Pain 1-10 Or Fever>100.7 Pantoprazole Sodium 40 mg/ 100 mls @ 330 mls/hr 10/28/24 22:00 10/30/24 08:33 Sodium Chloride IV Infused Q12 RAIN Infusion Lactated Ringer's 1,000 mls @ 15 mls/hr 10/30/24 15:00 10/30/24 15:06 IV 15 mls/hr .Q48H RAIN Administration Melatonin 3 mg 10/28/24 17:02 Melatonin 3 Mg Tablet PO QHS PRN PRN INSOMNIA Ondansetron HCl 4 mg 10/28/24 17:02 Ondansetron 4 Mg/2 Ml Vial IV Q8H PRN PRN NAUSEA/VOMITING Sodium Chloride 10 - 40 ml 10/28/24 18:24 10/29/24 10:41 0.9% Saline Lock 10 Ml Syringe IV 10 ml UD PRN Administration SALINE FLUSH PFSH Medical History Pneumonia History of stroke History of bladder cancer Hypertension Home Medications ?Medication ?Instructions ?Recorded ?Last Taken ?Type aspirin 81 mg tablet,delayed 81 mg PO DAILY 01/01/20 0 10/27/24 History release amlodipine 5 mg tablet 5 mg PO DAILY #90 tabs 02/1310/27/24 Rx losartan 50 mg tablet 50 mg PO DAILY #90 tabs 01/2010/27/24 Rx magnesium 250 mg tablet 250 mg PO QDAY 05/07/2402/12 History turmeric 400 mg capsule 400 mg PO DAILY 10/28/2402/12 History Allergy/AdvReac Type Severity Reaction Status Date / Time No Known Allergies Allergy Verified 10/28/24 11:03 Family History Mother Myocardial infarction, Onset Age: 80 Heart disease Hypertension CVA (cerebral vascular accident) Father Myocardial infarction, Onset Age: 56 Surgical History History of hysterectomy Social History Smoking Status: Never smoker alcohol intake: never substance use type: does not use what type of physical activity do you participate in: none Review of Systems (Anesthesia) ROS Narrative System reviewed and no additional complaints, except as documented. 10/30/241516 <Electronically signed by Alejandro Davila MD > Date _ Alejandro Davila MD Cosigner Signature: Date CC: ~ Signed [facility] Work Phone: 1(646) 286-474406-12-2025 Consult note [facility] Medical Records Department [address] [place] [address] Pre-Anesthesia Evaluation 10/30/241516 MR#: [id number] Acct: [id number] Name: ADEN LINDO Rep #:[id number] : 1950 73 From: Alejandro Davila MD PCP: Dr. Bernice De La Torre MD Status:ADM IN Y Race: C Location: [place] [address] 3-1 ASA Classification* ASA Classification ASA Classification: 3 Assessment & Plan Anesthesia* Anesthesia Assessment Anesthesia Assessment: Discussed sedation and/or anesthesia options, risks, benefits, and alternatives with patient/parents/legal guardian/POA. Questions invited. The patient/parents/legal guardian/POA seems to understand and agrees to proceedwith anesthesia plan. Reviewed the physical assessment, medical history, allergy history and patient home medications list prior to surgery/procedure/anesthetic and documented any changes. Performed airway and anesthesia risk assessments. Anesthesia Type Anesthesia Type: MAC Anesthesia Focused Assessment* Temperature: 97.3 F Pulse Rate: 64 Blood Pressure: 135/77 Respiratory Rate: 16 Pulse Ox: 96 Airway Assessment Mouth opens: >3 cm Mallampati Score: II Labs Anesthesia Preop lab: CBC WBC 4.9 K/mm3 (4.4-11.0) 10/30/24 05:00 10/30/24 RBC 2.61 M/mm3 (4.2-5.4) L 10/30/24 05:00 10/30/24 Hgb 8.3 g/dL (12.0-15.0) L 10/30/24 05:00 10/30/24 Hct 25.1 % (37-47) L 10/30/24 05:00 10/30/24 Plt Count 200 K/mm3 (150-450) 10/30/24 05:00 10/30/24 CHEMISTRY Potassium 4.4 mmol/L (3.3-5.1) 10/29/24 04:10 10/29/24 Sodium 139 mmol/L (133-145) 10/29/24 04:10 10/29/24 BUN 48 mg/dL (4-19) H 10/29/24 04:10 10/29/24 Creatinine 1.04 mg/dL (0.70-1.20) 10/29/24 04:10 10/29/24 Glucose 84 mg/dL (70-99) 10/29/24 04:10 10/29/24 TSH 2.64 uIU/mL (0.358-3.74) 02/09/20 16:16 COAG PT 14.9 SECONDS (11.7-14.9) 10/30/24 05:00 Pre-Assessment Diagnosis/Proposed Procedure Planned Operative Procedure(s): Colonoscopy Anesthesia History 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 When Was Last Pacemaker Check QUESTION #4 FULL TEXT: You/Your Family Experience fever (hyperthermia) with Anesthesia Last Oral Intake Last Oral intake: Last Oral Intake NPO since Meds taken in AM with sips of water? Meds patient instructed to take am of surgery PONV PONV - casino cage cashier: PONV - casino cage cashier Female HX of Motion Sickness HX of N/V After Surgery Non-Smoker Duration of Surgery greater than 60 minutes Number of Risk Factors PONV Score Height & Weight Height & Weight: Anesthesia: Height & Weight Height 5 ft 5 in 10/29/24 13:49 Weight: 80.104 kg 10/29/24 13:49 Body Mass Index (BMI) 29.3 10/28/24 16:40 Respiratory Assessment Respiratory Assessment - casino cage cashier: Respiratory Tract Infection Hx - casino cage cashier Hx Respiratory Tract Infection STOP Sleep Apnea STOP Sleep Apnea - casino cage cashier: STOP Sleep Apnea - casino cage cashier Hx Hypertension No 10/28/24 16:40 Hx Sleep Apnea No 10/28/24 16:40 CPAP BIPAP Do you snore loudly (louder No 10/28/24 16:40 than talking or can be heard Do you often feel tired/ No 10/28/24 16:40 fatigued/ sleepy during daytime? Has anyone observed you stop No 10/28/24 16:40 breathing during sleep? STOP Results Negative 10/29/24 12:00 QUESTION #5 FULL TEXT : Do you snore loudly (louder than talking or can be heard through closeddoors)? 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 Specify any problems Hx of Preganancy in last 3 N/A 10/28/24 16:40 Months Nurse Filling Out Transfusion AHAGGERTY 10/28/24 16:40 & Questions: Date: 10/28/24 10/28/24 16:40 Time: 18:16 10/28/24 16:40 Patient unable to answer at this time (ie. confused, unrespo /Reproduction History /Reproductive History - casino cage cashier: /Reproductive Hx- casino cage cashier Hx Now Gestational Age (in weeks): EDC: Hx Hx Para Hx Section SAB Active Medications Active Medications: Current Medications Generic Name Dose Route Start Last Admin Trade Name Freq PRN Reason Stop Dose Admin Acetaminophen 650 mg 10/28/24 17:02 Acetaminophen 325 Mg Tablet PO Q6H PRN PRN Pain 1-10 Or Fever>100.7 Pantoprazole Sodium 40 mg/ 100 mls @ 330 mls/hr 10/28/24 22:00 10/30/24 08:33 Sodium Chloride IV Infused Q12 RAIN Infusion Lactated Ringer's 1,000 mls @ 15 mls/hr 10/30/24 15:00 10/30/24 15:06 IV 15 mls/hr .Q48H RAIN Administration Melatonin 3 mg 10/28/24 17:02 Melatonin 3 Mg Tablet PO QHS PRN PRN INSOMNIA Ondansetron HCl 4 mg 10/28/24 17:02 Ondansetron 4 Mg/2 Ml Vial IV Q8H PRN PRN NAUSEA/VOMITING Sodium Chloride 10 - 40 ml 10/28/24 18:24 10/29/24 10:41 0.9% Saline Lock 10 Ml Syringe IV 10 ml UD PRN Administration SALINE FLUSH PFSH Medical History Pneumonia History of stroke History of bladder cancer Hypertension Home Medications ?Medication ?Instructions ?Recorded ?Last Taken ?Type aspirin 81 mg tablet,delayed 81 mg PO DAILY 01/01/20 0 10/27/24 History release amlodipine 5 mg tablet 5 mg PO DAILY #90 tabs 02/1310/27/24 Rx losartan 50 mg tablet 50 mg PO DAILY #90 tabs 01/2010/27/24 Rx magnesium 250 mg tablet 250 mg PO QDAY 05/07/2402/12 History turmeric 400 mg capsule 400 mg PO DAILY 10/28/2402/12 History Allergy/AdvReac Type Severity Reaction Status Date / Time No Known Allergies Allergy Verified 10/28/24 11:03 Family History Mother Myocardial infarction, Onset Age: 80 Heart disease Hypertension CVA (cerebral vascular accident) Father Myocardial infarction, Onset Age: 56 Surgical History History of hysterectomy Social History Smoking Status: Never smoker alcohol intake: never substance use type: does not use what type of physical activity do you participate in: none Review of Systems (Anesthesia) ROS Narrative System reviewed and no additional complaints, except as documented. 10/30/24 1517 > Date _ Alejandro Davila MD Cosigner Signature: Date CC: ~ Signed [facility]06-11-2025 Progress note Author Dewayne Gonzalez [facility] Note Date/Time October 29, 2024 8:19 pm [facility] Medical Records Department [address] [place] [address] Progress Note - Hospitalist 10/29/241912 MR#: [id number] Acct: [id number] Name: ADEN LINDO Rep #:[id number] : 1950 73 From: Dewayne Gonzalez DO PCP: Dr. Bernice De La Torre MD Status:ADM IN Location: [address] Reason for Visit Reason for Visit: Diagnoses Anemia, unspecified (10/28/24) Gastrointestinal hemorrhage, unspecified (10/28/24) Subjective Subjective Patient was seen and examined today, she underwent an EGD which showed gastritis, there is no evidence of bleeding. Patient is due to undergo a colonoscopy tomorrow. I talked briefly with gastroenterology. Objective Data Objective Data Vital Signs: Vital Signs Temp Pulse Resp BP Pulse Ox O2 Del Method 98.3 F 76 14 108/74 95 Room Air 10/29/24 18:21 10/29/24 18:21 10/29/24 18:21 10/29/24 18:21 10/29/24 18:21 10/29/24 18:21 Oxygen Delivery Method Room Air Weight: 80.104 kg Body Mass Index (BMI) 29.3 Intake & Output: Intake and Output for Last 24 Hours 10/27/24 10/28/24 10/29/24 23:59 23:59 23:59 Intake Total 495 / 495 1100 / 1100 Output Total 2 / 2 Balance 495 / 495 1098 / 1098 Lab / Micro Data 10/29/24 04:10 10/29/24 04:10 Labs: Laboratory Results - last 24 hr 10/28/24 18:50: WBC 6.9, RBC 2.83 L, Hgb 9.0 L, Hct 27.1 L, MCV 95.8, MCH 31.8, MCHC 33.2, RDW Std Deviation 45.1 H, RDW Coeff of Roshni 13.0, Plt Count 203, MPV 9.9 10/29/24 04:10: WBC 5.7, RBC 2.74 L, Hgb 8.6 L, Hct 26.2 L, MCV 95.6, MCH 31.4, MCHC 32.8, RDW Std Deviation 45.4 H, RDW Coeff of Roshni 13.1, Plt Count 207, MPV 10.1, Sodium 139, Potassium 4.4, Chloride 109 H, Carbon Dioxide 21.7, Anion Gap 9, BUN 48 H, Creatinine 1.04, Estim Creat Clear Calc 48.88 L, Est GFR (MDRD) Non-Af 56 L, BUN/Creatinine Ratio 46.0 H, Glucose 84, Calcium 8.9 Radiography Diagnostic Testing: Radiology Impression Echocardiogram 10/28/24 14:57 Interpretation Summary The LV systolic function is normal. EF is 65 %. Stage 1 diastolic dysfunction. The left atrium is severely enlarged. Mild (1+) mitral valve insufficiency. Moderately calcified aortic valve with discordant 2D and Doppler findings. Planimetered area compatible with mild aortic valve stenosis however mean peak gradient severely elevated at 68 mmHg. This could happen in high output state. Also consider supravalvular stenosis. Recommend cardiac CT scan for further evaluation. Moderate aortic valve regurgitation. Ordering Physician: Guero Pagan Referring Physician: Bernice De La Torre Performed By: Yi Guzman, KAMILLE, RVT Physical Exam Const alert, oriented x3, no apparent distress and healthy appearing General Appearance: cooperative, well kempt and well developed Orientation / Consciousness: awake, oriented to person, oriented to place and oriented to time HEENT normocephalic and moist oral mucous membranes Eyes PERRL, EOMs intact bilaterally and conjunctivae normal Neck supple, no JVD and thyroid normal General: trachea midline Resp normal respiratory effort, no retractions, no use of accessory muscles and clearto auscultation bilaterally Auscultation: Negative for rales, rhonchi or wheezes Cardio regular rate, regular rhythm, S1 normal heart sound, S2 normal heart sound, no rub and no gallops Cardio Narrative: There is a 2/6 systolic murmur noted at the apex and left sternal border GI normal to inspection, nondistended, normoactive bowel sounds, soft to palpation,non-tender and non-distended Extremity no clubbing, cyanosis or edema Skin no rashes or lesions noted General Skin Exam: no breakdown Neuro oriented x3, CN's II-XII intact bilaterally, moves all extremities, no focal motor deficits and no sensory deficits noted Sensorium / Orientation: awake and alert Speech: speech normal Psych affect normal Assessment & Plan Assessment/Plan (1) Anemia: PLAN: Plan 1. 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 #3 essential hypertension-patient will remain on her current blood pressure medication #4 melena with red rectal bleeding-again patient will undergo colonoscopy tomorrow Total clinical time spent by myself addressing the patient's medical issues, reviewing all of her data, and collaborating with patient's care team: 35-minute Charges/Coding Visit Charges Inpatient E&M: 43462 Subs Hosp L2 10/29/242018 <Electronically signed by Dewayne Gonzalez DO> Cosigner Signature (if applicable): CC: ~ Signed [facility] Work Phone: 1(627) 621-639906-11-2025 Progress note [facility] Medical Records Department [address] [place] [address] Progress Note - Hospitalist 10/29/241912 MR#: [id number] Acct: [id number] Name: ADEN LINDO Rep #:[id number] : 1950 73 From: Dewayne Gonzalez DO PCP: Dr. Bernice De La Torre MD Status:ADM IN Location: [place] [address] Reason for Visit Reason for Visit: Diagnoses Anemia, unspecified (10/28/24) Gastrointestinal hemorrhage, unspecified (10/28/24) Subjective Subjective Patient was seen and examined today, she underwent an EGD which showed gastritis, there is no evidence of bleeding. Patient is due to undergo a colonoscopy tomorrow. I talked briefly with gastroenterology. Objective Data Objective Data Vital Signs: Vital Signs Temp Pulse Resp BP Pulse Ox O2 Del Method 98.3 F 76 14 108/74 95 Room Air 10/29/24 18:21 10/29/24 18:21 10/29/24 18:21 10/29/24 18:21 10/29/24 18:21 10/29/24 18:21 Oxygen Delivery Method Room Air Weight: 80.104 kg Body Mass Index (BMI) 29.3 Intake & Output: Intake and Output for Last 24 Hours 10/27/24 10/28/24 10/29/24 23:59 23:59 23:59 Intake Total 495 / 495 1100 / 1100 Output Total 2 / 2 Balance 495 / 495 1098 / 1098 Lab / Micro Data 10/29/24 04:10 10/29/24 04:10 Labs: Laboratory Results - last 24 hr 10/28/24 18:50: WBC 6.9, RBC 2.83 L, Hgb 9.0 L, Hct 27.1 L, MCV 95.8, MCH 31.8, MCHC 33.2, RDW Std Deviation 45.1 H, RDW Coeff of Roshni 13.0, Plt Count 203, MPV 9.9 10/29/24 04:10: WBC 5.7, RBC 2.74 L, Hgb 8.6 L, Hct 26.2 L, MCV 95.6, MCH 31.4, MCHC 32.8, RDW Std Deviation 45.4 H, RDW Coeff of Roshni 13.1, Plt Count 207, MPV 10.1, Sodium 139, Potassium 4.4, Chloride 109 H, Carbon Dioxide 21.7, Anion Gap 9, BUN 48 H, Creatinine 1.04, Estim Creat Clear Calc 48.88 L, Est GFR (MDRD) Non-Af 56 L, BUN/Creatinine Ratio 46.0 H, Glucose 84, Calcium 8.9 Radiography Diagnostic Testing: Radiology Impression Echocardiogram 10/28/24 14:57 Interpretation Summary The LV systolic function is normal. EF is 65 %. Stage 1 diastolic dysfunction. The left atrium is severely enlarged. Mild (1+) mitral valve insufficiency. Moderately calcified aortic valve with discordant 2D and Doppler findings. Planimetered area compatible with mild aortic valve stenosis however mean peak gradient severely elevated at 68 mmHg. This could happen in high output state. Also consider supravalvular stenosis. Recommend cardiac CT scan for further evaluation. Moderate aortic valve regurgitation. Ordering Physician: Guero Pagan Referring Physician: Bernice De La Torre Performed By: Yi Guzman, KAMILLE, RVT Physical Exam Const alert, oriented x3, no apparent distress and healthy appearing General Appearance: cooperative, well kempt and well developed Orientation / Consciousness: awake, oriented to person, oriented to place and oriented to time HEENT normocephalic and moist oral mucous membranes Eyes PERRL, EOMs intact bilaterally and conjunctivae normal Neck supple, no JVD and thyroid normal General: trachea midline Resp normal respiratory effort, no retractions, no use of accessory muscles and clearto auscultation bilaterally Auscultation: Negative for rales, rhonchi or wheezes Cardio regular rate, regular rhythm, S1 normal heart sound, S2 normal heart sound, no rub and no gallops Cardio Narrative: There is a 2/6 systolic murmur noted at the apex and left sternal border GI normal to inspection, nondistended, normoactive bowel sounds, soft to palpation,non-tender and non-distended Extremity no clubbing, cyanosis or edema Skin no rashes or lesions noted General Skin Exam: no breakdown Neuro oriented x3, CN's II-XII intact bilaterally, moves all extremities, no focal motor deficits and no sensory deficits noted Sensorium / Orientation: awake and alert Speech: speech normal Psych affect normal Assessment & Plan Assessment/Plan (1) Anemia: PLAN: Plan 1. 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 #3 essential hypertension-patient will remain on her current blood pressure medication #4 melena with red rectal bleeding-again patient will undergo colonoscopy tomorrow Total clinical time spent by myself addressing the patient's medical issues, reviewing all of her data, and collaborating with patient's care team: 35-minute Charges/Coding Visit Charges Inpatient E&M: 80309 Subs Hosp L2 10/29/242018 Cosigner Signature (if applicable): CC: ~ Signed [facility]06-11-2025 Consult note Author Alejandro Davila [facility] Note Date/Time October 29, 2024 1:53 pm [facility] Medical Records Department [address] [place] [address] Anesthesia Postop Eval II 10/29/24 1353 MR#: [id number] Acct: [id number] Name: ADEN LINDO Rep #:[id number] : 1950 73 From: Alejandro Davila MD PCP: Dr. Bernice De La Torre MD Status:ADM IN Y Race: C Location: [place] [address] 3-1 Anesthesia Postop Eval I Sum Postop Eval Completion status Anesthesia document: Postop Eval 1 completed: Yes Anesthesia Postop Eval I Summary Anesthesia Postop Eval I Summary: Anesthesia Postop Eval I: Assessment Summary Airway patent Yes 10/29/24 12:04 [email or web address] Spontaneous unlabored Yes 10/29/24 12:04 [email or web address] respirations Mental status Awake,Calm 10/29/24 12:04 [email or web address] nausea No 10/29/24 12:04 [email or web address] Vomiting No 10/29/24 12:04 [email or web address] Anesthesia Postop Eval I: Fluid Summary Crystalloid volume administer 300 10/29/24 12:04 [email or web address] (ml) Colloids volume administered ( ml) Blood Product volume administered (ml) Total IV fluid infused 300 10/29/24 12:04 [email or web address] Anesthesia Postop Eval I: Summary Notes Anesthesia Complication No 10/29/24 12:04 [email or web address] Anesthesia Complication Comment: Post-operative progress note Anesthesia: Postop Eval II Evaluation Mental status: Awake Pain Level: 0 nausea: No Vomiting: No 10/29/24 1353 <Electronically signed by Alejandro Davila MD > Date _ Alejandro Davila MD [facility] Signature: Date CC: ~ Signed [facility] Work Phone: 1(231) 799-302706-11-2025 Consult note Author Kevin Sage [facility] Note Date/Time October 29, 2024 12:0 4pm [facility] Medical Records Department [address] [place] [address] Anesthesia Postop Eval I 10/29/24 1204 MR#: [id number] Acct: [id number] Name: ADEN LINDO Rep #:[id number] : 1950 73 From: Kevin Sage PCP: Dr. Bernice De La Torre MD Status:ADM IN Y Race: C Location: [place] [address] 07-19 Anesthesia: Postop Eval I Current Vital Signs Temperature: 97 F Pulse Rate: 77 Blood Pressure: 100/63 Respiratory Rate: 16 Pulse Ox: 93 Oxygen Delivery Method: Room Air Assessment Airway patent: Yes Spontaneous unlabored respirations: Yes Mental status: Awake and Calm nausea: No Vomiting: No Anesthesia Complication: No Fluid Hydration Crystalloid volume administer (ml): 300 Total IV fluid infused: 300 Progress Note Anesthesia document: Postop Eval 1 completed: Yes 10/29/24 1204 <Electronically signed by Kevin Sage > Date _ Kevin Suarez Signature: Date CC: ~ Signed [facility] Work Phone: 1(468) 864-284706-11-2025 Consult note [facility] Medical Records Department [address] [place] [address] Anesthesia Postop Eval II 10/29/24 1353 MR#: [id number] Acct: [id number] Name: ADEN LINDO Rep #:[id number] : 1950 73 From: Alejandro Davila MD PCP: Dr. Bernice De La Torre MD Status:ADM IN Y Race: C Location: [place] [address] 07-19 Anesthesia Postop Eval I Sum Postop Eval Completion status Anesthesia document: Postop Eval 1 completed: Yes Anesthesia Postop Eval I Summary Anesthesia Postop Eval I Summary: Anesthesia Postop Eval I: Assessment Summary Airway patent Yes 10/29/24 12:04 [email or web address] Spontaneous unlabored Yes 10/29/24 12:04 [email or web address] respirations Mental status Awake,Calm 10/29/24 12:04 [email or web address] nausea No 10/29/24 12:04 [email or web address] Vomiting No 10/29/24 12:04 [email or web address] Anesthesia Postop Eval I: Fluid Summary Crystalloid volume administer 300 10/29/24 12:04 [email or web address] (ml) Colloids volume administered ( ml) Blood Product volume administered (ml) Total IV fluid infused 300 10/29/24 12:04 [email or web address] Anesthesia Postop Eval I: Summary Notes Anesthesia Complication No 10/29/24 12:04 [email or web address] Anesthesia Complication Comment: Post-operative progress note Anesthesia: Postop Eval II Evaluation Mental status: Awake Pain Level: 0 nausea: No Vomiting: No 10/29/24 1353 > Date _ Alejandro Suarez Signature: Date CC: ~ Signed [facility]06-11-2025 Progress note Author Ney Moreno [facility] Note Date/Time October 29, 2024 11:3 5am [facility] Medical Records Department [address] [place] [address] Progress Note 10/29/24 1134 MR#: [id number] Acct: [id number] Name: ADEN LINDO Rep #:[id number] : 1950 73 From: Ney Moreno DO PCP: Dr. Bernice De La Torre MD Status:ADM IN Location: [place] [address] Progress Note 73-year-old female history of hypertension. She has had some mild nausea and intermittent abdominal discomfort she thinks she had bright red blood, clot and possibly dark stool also. She has had nausea without vomiting. She takes daily baby aspirin but no other blood thinners. No history of upper or lower endoscopy. Physical Exam Const alert, oriented x3, no apparent distress and healthy appearing General Appearance: cooperative GI normal to inspection, nondistended, normoactive bowel sounds, soft to palpation,non-tender and non-distended Percussion: normal to percussion Rectal Exam: deferred Assessment & Plan Assessment/Plan (1) Anemia: (2) Acute upper GI bleed: PLAN: 73-year-old female history of hypertension. She has had some mild nausea and intermittent abdominal discomfort. Said today she thinks she had bright redblood, clot and possibly dark stool also. She has had nausea without vomiting. She has had 3 bowel movements today. No history of GI bleed. She takes daily baby aspirin but no other blood thinners. No history of upper or lower endoscopy. 10/29/24 1135 <Electronically signed by Ney Moreno DO> Ney Moreno DO Cosigner Signature (if applicable): CC: ~ Signed ADDENDUM by Ney Moreno DO on 10/29/24 at 1135 Visit Charges Inpatient E&M: 97193 Subs Hosp L2 10/29/24 1135 <Electronically signed by Ney diggs DO> Date _ Ney Moreno DO Cosigner Signature (if applicable): Date cc: ~* Signed [facility] Work Phone: 1(738) 150-710506-11-2025 Consult note Author Alejandro Davila [facility] Note Date/Time October 29, 2024 10:3 1am [facility] Medical Records Department [address] [place] [address] Pre-Anesthesia Evaluation 10/29/24 1031 MR#: [id number] Acct: [id number] Name: ADEN LINDO Rep #:[id number] : 1950 73 From: Alejandro Davila MD PCP: Dr. Bernice De La Torre MD Status:ADM IN Y Race: C Location: [place] [address] 3-1 ASA Classification* ASA Classification ASA Classification: 3 Assessment & Plan Anesthesia* Anesthesia Assessment Anesthesia Assessment: Discussed sedation and/or anesthesia options, risks, benefits, and alternatives with patient/parents/legal guardian/POA. Questions invited. The patient/parents/legal guardian/POA seems to understand and agrees to proceedwith anesthesia plan. Reviewed the physical assessment, medical history, allergy history and patient home medications list prior to surgery/procedure/anesthetic and documented any changes. Performed airway and anesthesia risk assessments. Anesthesia Type Anesthesia Type: MAC Anesthesia Focused Assessment* Temperature: 98.4 F Pulse Rate: 71 Blood Pressure: 111/66 Respiratory Rate: 16 Pulse Ox: 99 Airway Assessment Mouth opens: >3 cm Mallampati Score: II Labs Anesthesia Preop lab: CBC WBC 5.7 K/mm3 (4.4-11.0) 10/29/24 04:10 10/29/24 RBC 2.74 M/mm3 (4.2-5.4) L 10/29/24 04:10 10/29/24 Hgb 8.6 g/dL (12.0-15.0) L 10/29/24 04:10 10/29/24 Hct 26.2 % (37-47) L 10/29/24 04:10 10/29/24 Plt Count 207 K/mm3 (150-450) 10/29/24 04:10 10/29/24 CHEMISTRY Potassium 4.4 mmol/L (3.3-5.1) 10/29/24 04:10 10/29/24 Sodium 139 mmol/L (133-145) 10/29/24 04:10 10/29/24 BUN 48 mg/dL (4-19) H 10/29/24 04:10 10/29/24 Creatinine 1.04 mg/dL (0.70-1.20) 10/29/24 04:10 10/29/24 Glucose 84 mg/dL (70-99) 10/29/24 04:10 10/29/24 TSH 2.64 uIU/mL (0.358-3.74) 02/09/20 16:16 COAG PT 13.9 SECONDS (11.7-14.9) 10/28/24 12:24 Pre-Assessment Diagnosis/Proposed Procedure Planned Operative Procedure(s): EGD Anesthesia History 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 When Was Last Pacemaker Check QUESTION #4 FULL TEXT: You/Your Family Experience fever (hyperthermia) with Anesthesia Last Oral Intake Last Oral intake: Last Oral Intake NPO since Meds taken in AM with sips of water? Meds patient instructed to take am of surgery PONV PONV - casino cage cashier: PONV - casino cage cashier Female HX of Motion Sickness HX of N/V After Surgery Non-Smoker Duration of Surgery greater than 60 minutes Number of Risk Factors PONV Score Height & Weight Height & Weight: Anesthesia: Height & Weight Height 5 ft 5 in 10/28/24 16:40 Weight: 80.104 kg 10/28/24 16:40 Body Mass Index (BMI) 29.3 10/28/24 16:40 Respiratory Assessment Respiratory Assessment - casino cage cashier: Respiratory Tract Infection Hx - casino cage cashier Hx Respiratory Tract Infection STOP Sleep Apnea STOP Sleep Apnea - casino cage cashier: STOP Sleep Apnea - casino cage cashier Hx Hypertension No 10/28/24 16:40 Hx Sleep Apnea No 10/28/24 16:40 CPAP BIPAP Do you snore loudly (louder No 10/28/24 16:40 than talking or can be heard Do you often feel tired/ No 10/28/24 16:40 fatigued/ sleepy during daytime? Has anyone observed you stop No 10/28/24 16:40 breathing during sleep? STOP Results Negative 10/28/24 16:40 QUESTION #5 FULL TEXT : Do you snore loudly (louder than talking or can be heard through closed doors)? 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 Specify any problems Hx of Preganancy in last 3 N/A 10/28/24 16:40 Months Nurse Filling Out Transfusion AHAGGERTY 10/28/24 16:40 & Questions: Date: 10/28/24 10/28/24 16:40 Time: 18:16 10/28/24 16:40 Patient unable to answer at this time (ie. confused, unrespo /Reproduction History /Reproductive History - casino cage cashier: /Reproductive Hx- casino cage cashier Hx Now Gestational Age (in weeks): EDC: Hx Hx Para Hx Section SAB Active Medications Active Medications: Current Medications Generic Name Dose Route Start Last Admin Trade Name Freq PRN Reason Stop Dose Admin Acetaminophen 650 mg 10/28/24 17:02 Acetaminophen 325 Mg Tablet PO Q6H PRN PRN Pain 1-10 Or Fever>100.7 Pantoprazole Sodium 40 mg/ 100 mls @ 330 mls/hr 10/28/24 22:00 10/28/24 21:54 Sodium Chloride IV Infused Q12 RAIN Infusion Melatonin 3 mg 10/28/24 17:02 Melatonin 3 Mg Tablet PO QHS PRN PRN INSOMNIA Ondansetron HCl 4 mg 10/28/24 17:02 Ondansetron 4 Mg/2 Ml Vial IV Q8H PRN PRN NAUSEA/VOMITING Sodium Chloride 10 - 40 ml 10/28/24 18:24 0.9% Saline Lock 10 Ml Syringe IV UD PRN SALINE FLUSH PFSH Medical History Pneumonia History of stroke History of bladder cancer Hypertension Home Medications ?Medication ?Instructions ?Recorded ?Last Taken ?Type aspirin 81 mg tablet,delayed 81 mg PO DAILY 01/01/20 0 10/27/24 History release amlodipine 5 mg tablet 5 mg PO DAILY #90 tabs 02/1310/27/24 Rx losartan 50 mg tablet 50 mg PO DAILY #90 tabs 01/2010/27/24 Rx magnesium 250 mg tablet 250 mg PO QDAY 05/07/2402/12 History turmeric 400 mg capsule 400 mg PO DAILY 10/28/2402/12 History Allergy/AdvReac Type Severity Reaction Status Date / Time No Known Allergies Allergy Verified 10/28/24 11:03 Family History Mother Myocardial infarction, Onset Age: 80 Heart disease Hypertension CVA (cerebral vascular accident) Father Myocardial infarction, Onset Age: 56 Surgical History History of hysterectomy Social History Smoking Status: Never smoker alcohol intake: never substance use type: does not use what type of physical activity do you participate in: none Review of Systems (Anesthesia) ROS Narrative System reviewed and no additional complaints, except as documented. 10/29/24 1031 <Electronically signed by Alejandro Davila MD > Date _ Alejandro Davila MD Cosigner Signature: Date CC: ~ Signed [facility] Work Phone: [phone]) 105-655906-11-2025 Consult note [facility] Medical Records Department [address] [place] [address] Anesthesia Postop Eval I 10/29/24 1204 MR#: [id number] Acct: [id number] Name: ADEN LINDO Rep #:[id number] : 1950 73 From: Kevin Sage PCP: Dr. Bernice De La Torre MD Status:ADM IN Y Race: C Location: [place] [address] 3-1 Anesthesia: Postop Eval I Current Vital Signs Temperature: 97 F Pulse Rate: 77 Blood Pressure: 100/63 Respiratory Rate: 16 Pulse Ox: 93 Oxygen Delivery Method: Room Air Assessment Airway patent: Yes Spontaneous unlabored respirations: Yes Mental status: Awake and Calm nausea: No Vomiting: No Anesthesia Complication: No Fluid Hydration Crystalloid volume administer (ml): 300 Total IV fluid infused: 300 Progress Note Anesthesia document: Postop Eval 1 completed: Yes 10/29/24 1204 > Date _ Kevin Suarez Signature: Date CC: ~ Signed [facility]06-11-2025 Procedure note [facility] Medical Records Department [address] [place] [address] EGD Report MR#: [id number] Acct: [id number] Name: ADEN LINDO Rep #:[id number] : 1950 73 From: Ney Moreno DO PCP: Dr. Bernice De La Torre MD Status:ADM IN Patient Name: Aden Lindo Procedure Date: 10/29/2024 11:34 AM Date of : 1950 Age: 73 Procedure: Upper GI endoscopy Indications: Iron deficiency anemia, Melena, Recent gastrointestinal bleeding Providers: Ney Moreno DO Medicines: Monitored Anesthesia Care Patient Profile: This is a 73 year old female. Refer to note in patient chart for documentation of history and physical. Patient has symptoms of chronic epigastric abdominal pain. Complications: No immediate complications. Procedure: Pre-Anesthesia Assessment: - Prior to the procedure, a History and Physical was performed, and patient medications and allergies were reviewed. The patient is competent. The risks and benefits of the procedure and the sedation options and risks were discussed with the patient. All questions were answered and informed consent was obtained. Patient identification and proposed procedure were verified by the physician in the pre-procedure area. Mental Status Examination: alert and oriented. Airway Examination: normal oropharyngeal airway and neck mobility. Respiratory Examination: clear to auscultation. CV Examination: normal. Prophylactic Antibiotics: The patient does not require prophylactic antibiotics. Prior Anticoagulants: The patient has taken no anticoagulant or antiplatelet agents. ASA Grade Assessment: II - A patient with mild systemic disease. After reviewing the risks and benefits, the patient was deemed in satisfactory condition to undergo the procedure. The anesthesia plan was to use monitored anesthesia care (MAC). Immediately prior to administration of medications, the patient was re-assessed for adequacy to receive sedatives. The heart rate, respiratory rate, oxygen saturations, blood pressure, adequacy of pulmonary ventilation, and response to care were monitored throughout the procedure. The physical status of the patient was re-assessed after the procedure. After obtaining informed consent, the endoscope was passed under direct vision. Throughout the procedure, the patient's blood pressure, pulse, and oxygen saturations were monitored continuously. The Endoscope was introduced through the mouth, and advanced to the third part of the duodenum. Small bowel enteroscopy was deemed necessary. The upper GI endoscopy was accomplished without difficulty. The patient tolerated the procedure well. Scope In: 11:46:51 AM Scope Out: 11:50:38 AM Total Procedure Duration Time 0 hours 3 minutes 47 seconds Findings: The examined esophagus was normal. Patchy moderate inflammation characterized by erosions and erythema was found in the gastric body and in the gastric antrum. Biopsies were taken with a cold forceps for histology. Biopsies were taken with a cold forceps for Helicobacter pylori testing. Verification of patient identification for the specimen was done. Estimated blood loss was minimal. No gross lesions were noted in the entire examined duodenum. Impression: - Normal esophagus. - Chronic gastritis. Biopsied. - No gross lesions in the entire examined duodenum. Recommendation: - Return patient to hospital chaudhry for ongoing care. - Clear liquid diet. - Continue present medications. - Await pathology results. Procedure Code(s): --- Professional --- 78369, Small intestinal endoscopy, enteroscopy beyond second portion of duodenum, not including ileum; with biopsy, single or multiple CPT copyright 2021 [employer]. All rights reserved. The codes documented in this report are preliminary and upon site controller review may be revised to meet current compliance requirements. Ney Moreno DO 10/29/2024 12:00:50 PM This report has been signed electronically. Number of Addenda: 0 Note Initiated On: 10/29/2024 11:34 AM 10/29/24 1200 Date _ Ney Moreno DO Cosigner Signature: Date (if indicated) CC: Dr. Bernice De La Torre MD; Ney Moreno DO ~ Date Dictated: 10/29/24 1134 Date Transcribed: Bulb Weeder: RF Signed [facility]06-11-2025 Procedure note [facility] Medical Records Department [address] [place] [address] Operative Report - CC Letter MR#: [id number] Acct: [id number] Name: ADEN LINDO Rep #:[id number] : 1950 73 From: Ney Moreno DO PCP: Dr. Bernice De La Torre MD Status:ADM IN 10/29/2024 Bernice De La Torre [facility] [address] [place] [address] Re : Upper GI endoscopy procedure for Aden Lindo Dear Dr. De La Torre This procedure was performed on Tuesday, October 29, 2024. My impressions and recommendations are as follows: Impressions : - Normal esophagus. - Chronic gastritis. Biopsied. - No gross lesions in the entire examined duodenum. Recommendations : - Return patient to hospital chaudhry for ongoing care. - Clear liquid diet. - Continue present medications. - Await pathology results. My findings are described in the full procedure note, which is enclosed. If I can be of further assistance, please feel free to contact me at . Sincerely, Ney Moreno DO 10/29/2024 12:00:50 PM This report has been signed electronically. 10/29/24 1200 Date _ Ney Sloan Signature: Date (if indicated) CC: Dr. Guero Pagan DO; Dr. Bernice De La Torre MD; Dr. Dewayne Gonzalez DO ~ Date Dictated: 10/29/24 113 Date Transcribed: Bulb Weeder: RF Signed [facility]06-11-2025 Progress note [facility] Medical Records Department [address] [place] [address] Progress Note 10/29/241133 MR#: [id number] Acct: [id number] Name: ADEN LINDO Rep #:[id number] : 1950 73 From: Ney Moreno DO PCP: Dr. Bernice De La Torre MD Status:ADM IN Location: [place] [id number]- 1 Progress Note 73-year-old female history of hypertension. She has had some mild nausea and intermittent abdominaldiscomfort she thinks she had bright red blood, clot and possibly dark stool also. She has had nausea without vomiting. She takes daily baby aspirin but no other blood thinners. No history of upper or lower endoscopy. Physical Exam Const alert, oriented x3, no apparent distress and healthy appearing General Appearance: cooperative GI normal to inspection, nondistended, normoactive bowel sounds, soft to palpation,non-tender and non-distended Percussion: normal to percussion Rectal Exam: deferred Assessment & Plan Assessment/Plan (1) Anemia: (2) Acute upper GI bleed: PLAN: 73-year-old female history of hypertension. She has had some mild nausea and intermittent abdominal discomfort. Said today she thinks she had bright redblood, clot and possibly dark stool also.She has had nausea without vomiting. She has had 3 bowel movements today. No history of GI bleed. She takes daily baby aspirin but no other blood thinners. No history of upper or lower endoscopy. 10/29/241134 Ney Friend DO Cosigner Signature (if applicable): CC: ~ Signed ADDENDUM by Ney Moreno DO on 10/29/24 at 1135 Visit Charges Inpatient E&M: 86267 Subs Hosp L2 10/29/24 1135 d DO> Date _ Ney Moreno DO Cosigner Signature (if applicable): Date cc: ~* Signed [facility]06-11-2025 Consult note [facility] Medical Records Department [address] [facility] [place] [address] Pre-Anesthesia Evaluation 10/29/24 1031 MR#: [id number] Acct: [id number] Name: ADEN LINDO Rep #:[id number] : 1950 73 From: Alejandro Davila MD PCP: Dr. Bernice De La Torre MD Status:ADM IN Y Race: C Location: [place] [address] 3-1 ASA Classification* ASA Classification ASA Classification: 3 Assessment & Plan Anesthesia* Anesthesia Assessment Anesthesia Assessment: Discussed sedation and/or anesthesia options, risks, benefits, and alternatives with patient/parents/legal guardian/POA. Questions invited. The patient/parents/legal guardian/POA seems to understand and agrees to proceedwith anesthesia plan. Reviewed the physical assessment, medical history, allergy history and patient home medications list prior to surgery/procedure/anesthetic and documented any changes. Performed airway and anesthesia risk assessments. Anesthesia Type Anesthesia Type: MAC Anesthesia Focused Assessment* Temperature: 98.4 F Pulse Rate: 71 Blood Pressure: 111/66 Respiratory Rate: 16 Pulse Ox: 99 Airway Assessment Mouth opens: >3 cm Mallampati Score: II Labs Anesthesia Preop lab: CBC WBC 5.7 K/mm3 (4.4-11.0) 10/29/24 04:10 10/29/24 RBC 2.74 M/mm3 (4.2-5.4) L 10/29/24 04:10 10/29/24 Hgb 8.6 g/dL (12.0-15.0) L 10/29/24 04:10 10/29/24 Hct 26.2 % (37-47) L 10/29/24 04:10 10/29/24 Plt Count 207 K/mm3 (150-450) 10/29/24 04:10 10/29/24 CHEMISTRY Potassium 4.4 mmol/L (3.3-5.1) 10/29/24 04:10 10/29/24 Sodium 139 mmol/L (133-145) 10/29/24 04:10 10/29/24 BUN 48 mg/dL (4-19) H 10/29/24 04:10 10/29/24 Creatinine 1.04 mg/dL (0.70-1.20) 10/29/24 04:10 10/29/24 Glucose 84 mg/dL (70-99) 10/29/24 04:10 10/29/24 TSH 2.64 uIU/mL (0.358-3.74) 02/09/20 16:16 COAG PT 13.9 SECONDS (11.7-14.9) 10/28/24 12:24 Pre-Assessment Diagnosis/Proposed Procedure Planned Operative Procedure(s): EGD Anesthesia History 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 When Was Last Pacemaker Check QUESTION #4 FULL TEXT: You/Your Family Experience fever (hyperthermia) with Anesthesia Last Oral Intake Last Oral intake: Last Oral Intake NPO since Meds taken in AM with sips of water? Meds patient instructed to take am of surgery PONV PONV - casino cage cashier: PONV - casino cage cashier Female HX of Motion Sickness HX of N/V After Surgery Non-Smoker Duration of Surgery greater than 60 minutes Number of Risk Factors PONV Score Height & Weight Height & Weight: Anesthesia: Height & Weight Height 5 ft 5 in 10/28/24 16:40 Weight: 80.104 kg 10/28/24 16:40 Body Mass Index (BMI) 29.3 10/28/24 16:40 Respiratory Assessment Respiratory Assessment - casino cage cashier: Respiratory Tract Infection Hx - casino cage cashier Hx Respiratory Tract Infection STOP Sleep Apnea STOP Sleep Apnea - casino cage cashier: STOP Sleep Apnea - casino cage cashier Hx Hypertension No 10/28/24 16:40 Hx Sleep Apnea No 10/28/24 16:40 CPAP BIPAP Do you snore loudly (louder No 10/28/24 16:40 than talking or can be heard Do you often feel tired/ No 10/28/24 16:40 fatigued/ sleepy during daytime? Has anyone observed you stop No 10/28/24 16:40 breathing during sleep? STOP Results Negative 10/28/24 16:40 QUESTION #5 FULL TEXT : Do you snore loudly (louder than talking or can be heard through closeddoors)? 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 Specify any problems Hx of Preganancy in last 3 N/A 10/28/24 16:40 Months Nurse Filling Out Transfusion AHAGGERTY 10/28/24 16:40 & Questions: Date: 10/28/24 10/28/24 16:40 Time: 18:16 10/28/24 16:40 Patient unable to answer at this time (ie. confused, unrespo /Reproduction History /Reproductive History - casino cage cashier: /Reproductive Hx- casino cage cashier Hx Now Gestational Age (in weeks): EDC: Hx Hx Para Hx Section SAB Active Medications Active Medications: Current Medications Generic Name Dose Route Start Last Admin Trade Name Freq PRN Reason Stop Dose Admin Acetaminophen 650 mg 10/28/24 17:02 Acetaminophen 325 Mg Tablet PO Q6H PRN PRN Pain 1-10 Or Fever>100.7 Pantoprazole Sodium 40 mg/ 100 mls @ 330 mls/hr 10/28/24 22:00 10/28/24 21:54 Sodium Chloride IV Infused Q12 RAIN Infusion Melatonin 3 mg 10/28/24 17:02 Melatonin 3 Mg Tablet PO QHS PRN PRN INSOMNIA Ondansetron HCl 4 mg 10/28/24 17:02 Ondansetron 4 Mg/2 Ml Vial IV Q8H PRN PRN NAUSEA/VOMITING Sodium Chloride 10 - 40 ml 10/28/24 18:24 0.9% Saline Lock 10 Ml Syringe IV UD PRN SALINE FLUSH PFSH Medical History Pneumonia History of stroke History of bladder cancer Hypertension Home Medications ?Medication ?Instructions ?Recorded ?Last Taken ?Type aspirin 81 mg tablet,delayed 81 mg PO DAILY 01/01/20 0 10/27/24 History release amlodipine 5 mg tablet 5 mg PO DAILY #90 tabs 02/1310/27/24 Rx losartan 50 mg tablet 50 mg PO DAILY #90 tabs 01/2010/27/24 Rx magnesium 250 mg tablet 250 mg PO QDAY 05/07/2402/12 History turmeric 400 mg capsule 400 mg PO DAILY 10/28/2402/12 History Allergy/AdvReac Type Severity Reaction Status Date / Time No Known Allergies Allergy Verified 10/28/24 11:03 Family History Mother Myocardial infarction, Onset Age: 80 Heart disease Hypertension CVA (cerebral vascular accident) Father Myocardial infarction, Onset Age: 56 Surgical History History of hysterectomy Social History Smoking Status: Never smoker alcohol intake: never substance use type: does not use what type of physical activity do you participate in: none Review of Systems (Anesthesia) ROS Narrative System reviewed and no additional complaints, except as documented. 10/29/24 1031 > Date _ Alejandro Suarez Signature: Date CC: ~ Signed [facility]06-10-2025 Progress note Author [facility] Note Date/Time October 28, 2024 8:55 pm [facility] Medical Records Department [address] [place] [address] Progress Note - Hospitalist 10/28/242053 MR#: [id number] Acct: [id number] Name: BELGICAADEN E Rep #:[id number] : 1950 73 From: Guero scales DO PCP: Dr. Bernice De La Torre MD Status:ADM IN Location: [place] [address] Hospitalist Note Notified by cardiac imaging department that preliminary read for echo showed severe aortic stenosis. Full report will be finalized tomorrow morning. I notified Dr. Moreno of this finding and will defer to him on timing of EGD giventhis finding. 10/28/242054 <Electronically signed by Guero Kevin > Daniela Signature (if applicable): CC: ~ Signed [facility] Work Phone: [phone]) 218-681006-10-2025 Progress note [facility] Medical Records Department [address] [place] [address] Progress Note - Hospitalist 10/28/242053 MR#: [id number] Acct: [id number] Name: BELGICAADEN E Rep #:[id number] : 1950 73 From: Guero scales DO PCP: Dr. Bernice De La Torre MD Status:ADM IN Location: [place] [address] Hospitalist Note Notified by cardiac imaging department that preliminary read for echo showed severe aortic stenosis. Full report will be finalized tomorrow morning. I notified Dr. Moreno of this finding and will defer to him on timing of EGD giventhis finding. 10/28/242054 Cosigner Signature (if applicable): CC: ~ Signed [facility]06-10-2025 History and physical note Author Guero Pagan [facility] Note Date/Time October 28, 2024 3:09 pm [facility] Medical Records Department [address] [place] [address] H&P Exam - Hospitalist 10/28/24 1433 MR#: [id number] Acct: [id number] Name: ADEN LINDO Rep #:[id number] : 1950 73 From: Guero scales DO PCP: Dr. Bernice De La Torre MD Status:ADM IN Location: [facility] [id number] HPI - General General Date of Admission: 10/28/24 Date of Service: 10/28/24 Chief Complaint: Bright red and dark stools HPI Narrative ADEN LINDO, is a 73 F who presented to [facility] ED on 10/28/2024 with bright red and dark stools. Patient lives at home with her , has good functional status at baseline. Is on a baby aspirin, no otherblood thinners. No prior history of GI bleed. She has had intermittent nausea over the past week or so but no vomiting. This morning she noticed with her first bowel movement that there was bright red blood with clot noted. She then had 2 more loose bowel movements that were very dark after this, so she came in for further evaluation. Denies any pain with these bowel movements. In the ED was hemodynamically stable with heart rate in the 70s and normal blood pressure. Last hemoglobin in 2019 was 12.5 and hemoglobin today was 10.3. BUN was elevated at 46 with normal creatinine. Given suspected upper GI bleed, she was given a dose of IV Protonix and hospitalist was contacted for admission. I saw the patient at bedside in the ED, daughter was present. Patient was sitting back comfortably in bed, conversing normally, in no acute distress. Shereported feeling mildly fatigued but denied any other acute concerns currently. On my physical exam she had a significant systolic heart murmur noted. She states she has never been told she has a heart murmur. She has never had a colonoscopy done before. Has never had an upper scope done either. No other acute concerns at this time. [facility] Medical History Pneumonia History of stroke History of bladder cancer Hypertension Home Medications ?Medication ?Instructions ?Recorded ?Last Taken ?Type aspirin 81 mg tablet,delayed 81 mg PO DAILY 01/01/20 0 10/27/24 History release amlodipine 5 mg tablet 5 mg PO DAILY #90 tabs 02/1310/27/24 Rx losartan 50 mg tablet 50 mg PO DAILY #90 tabs 01/2010/27/24 Rx magnesium 250 mg tablet 250 mg PO QDAY 05/07/2402/12 History turmeric 400 mg capsule 400 mg PO DAILY 10/28/2402/12 History Allergy/AdvReac Type Severity Reaction Status Date / Time No Known Allergies Allergy Verified 10/28/24 11:03 Family History Mother Myocardial infarction, Onset Age: 80 Heart disease Hypertension CVA (cerebral vascular accident) Father Myocardial infarction, Onset Age: 56 Surgical History History of hysterectomy Social History Smoking Status: Never smoker alcohol intake: never substance use type: does not use what type of physical activity do you participate in: none ROS Constitutional Constitutional: Reports fatigue; Denies chills, fever(s) or weakness Eyes Eyes: Denies change in vision Cardiovascular Cardiovascular: Denies chest pain, lightheadedness or palpitations Respiratory/Chest Respiratory/Chest: Denies cough, dyspnea or shortness of breath at rest Gastrointestinal Gastrointestinal: Reports abdominal pain, dyspepsia, hematochezia, melena and nausea; Denies coffee ground emesis, constipation, hematemesis or vomiting Genitourinary Genitourinary: Denies dysuria Musculoskeletal Musculoskeletal: Denies arthralgias or myalgias Neurologic Neurologic: Denies dizziness, focal weakness or headache(s) Vital Signs Vital Signs Vital Signs: 10/28/24 11:02 10/28/24 12:30 10/28/24 13:00 Temperature 96.1 F L Temperature Source Temporal Pulse Rate 70 68 70 Respiratory Rate 14 14 16 Blood Pressure 118/76 126/76 H 131/71 H Blood Pressure Mean 90 92 91 Pulse Ox 98 96 95 Oxygen Delivery Method Room Air Room Air 10/28/24 14:00 Temperature Temperature Source Pulse Rate 70 Respiratory Rate Blood Pressure 128/69 H Blood Pressure Mean 88 Pulse Ox 97 Oxygen Delivery Method Weight Weight: 80.104 kg Body Mass Index (BMI) 29.3 Physical Exam Const alert, oriented x3, no apparent distress, average body habitus, healthy appearing and well nourished Constitutional Narrative: Pleasant elderly female, appears younger than stated age, sitting back comfortably in bed, conversing normally, in no acute distress. General Appearance: cooperative, comfortable, well kempt and well developed HEENT normocephalic, head/scalp atraumatic, hearing grossly normal bilaterally, nasal mucous membranes and turbinates normal and moist oral mucous membranes Eyes PERRL, EOMs intact bilaterally and conjunctivae normal Neck full ROM Chest inspection of chest normal Resp normal respiratory effort, normal air movement, no use of accessory muscles and clear to auscultation bilaterally Cardio regular rate, regular rhythm and peripheral pulses 2+ throughout Cardio Narrative: Significant systolic murmur noted. GI normal to inspection, nondistended, normoactive bowel sounds, soft to palpation,non-tender and non-distended Back/Spine normal ROM Extremity normal to inspection, full ROM and no pedal edema Skin no rashes or lesions noted Psych mental status grossly normal Results Lab / Micro Data 10/28/24 12:26 10/28/24 12:24 Labs: Laboratory Results - last 24 hr 10/28/24 12:24: PT 13.9, INR 1.1, Sodium 139, Potassium 4.7, Chloride 108, Carbon Dioxide 21.0, Anion Gap 10, BUN 46 H, Creatinine 0.80, Estim Creat Clear Calc 63.54, Est GFR (MDRD) Non-Af 76, BUN/Creatinine Ratio 57.8 H, Glucose 115 H, Calcium 9.2, Total Bilirubin 0.99, AST 20, ALT 12, Alkaline Phosphatase 90, Total Protein 6.6, Albumin 4.0, Globulin 2.6, Albumin/Globulin Ratio 1.6 10/28/24 12:26: WBC 8.8, RBC 3.22 L, Hgb 10.3 L, Hct 30.9 L, MCV 96.0, MCH 32.0,MCHC 33.3, RDW Std Deviation 45.1 H, RDW Coeff of [place]oshni 12.9, Plt Count 223, MPV 9.9, Immature Gran % (Auto) 0.500, Neut % (Auto) 83.7 H, Lymph % (Auto) 11.7 L, [place] % (Auto) 3.8, Eos % (Auto) 0.0, Baso % (Auto) 0.3, Absolute Neuts (auto) 7.3, Absolute Lymphs (auto) 1.02, Nucleated RBC % 0, Blood Type A NEGATIVE, Antibody Screen NEGATIVE Assessment & Plan Assessment/Plan (1) Acute upper GI bleed: PLAN: Plan Patient is a 73-year-old female who presented to [facility] ED on 10/28/2024 with bright red and dark stools. 1. Suspected upper GI bleed with mild acute blood loss anemia ? Admit under inpatient status to PCU. GI consulted. Baseline hemoglobin around 12, hemoglobin 10.3 on admit. Most consistent with upper GI bleed given primarily melena and elevated BUN to creatinine ratio. Have suspicion for AVMs in setting of possible aortic stenosis given her systolic murmur noted on exam. Okay for clear liquid diet for now, then n.p.o. at midnight. Start IV PPI twicedaily. Hold home baby aspirin. Follow-up CBC tonight and tomorrow morning. 2. Systolic murmur ? Significant systolic murmur noted on exam on admit. High suspicion is for aortic stenosis given location of murmur and patient's age. Patient denies any symptoms related to this. Echo ordered for further evaluation. 3. Hypertension ? Normotensive on admit. Will hold home amlodipine and losartan for now, restart as able. 4. History of remote CVA ? No residual deficits. Holding home baby aspirin as noted above. DVT prophylaxis: SCDs CODE STATUS: Full code, verified Expected disposition: Home, 2 to 3 days Total clinical time spent by myself addressing the patient's medical issues, reviewing all the data, and collaborating with patient's care team: 75 minutes. Charges/Coding Visit Charges Inpatient E&M: 15226 Init Hosp L3 10/28/24 0329 <Electronically signed by Guero Pagan DO> Cosigner Signature (if applicable): CC: Dr. Guero Pagan DO; Dr. Bernice De La Torre MD~ Signed [facility] Work Phone: [phone]) 290-464706-10-2025 Evaluation note* Diagnosis Onset Date Resolution Status Admit Date Acute upper GI bleed acute October 28, 2024 2:34pm [facility] Work Phone: [phone]) 771-680206-10-2025 Evaluation note* Diagnosis Onset Date Resolution Status Admit Date Acute upper GI bleed acute October 28, 2024 2:34pm Anemia acute October 28 2:34pm [facility] Work Phone: [phone]) 259-589606-10-2025 Evaluation note* Diagnosis Onset Date Resolution Status Admit Date Anemia acute October 28 2:34pm Acute upper GI bleed inactive October 28, 2024 2:34pm Anemia acute November 19, 2024 9:45am [facility] Work Phone: [phone] Discharge summary Author Juan Diego Sauer [facility] Note Date/Time October 28, 2024 2:33 pm [facility] Medical Records Department [address] [place] [address] Emergency Department Summary 10/28/24 MR#: [id number] Acct: [id number] Name: ADEN LINDO Rep #:[id number] : 1950 73 From: Juan Diego Sauer MD PCP: Dr. Bernice De La Torre MD Status:REG ER Location: ED HPI HPI - GI History of Present Illness Chief Complaint: GI Bleed Informant: patient and family Abdominal Pain/Flank Pain Onset: Hours Context: Gradual Onset Timing: Intermittent Current Severity: Mild Maximum Severity: Mild Worsened by: Nothing Relieved by: Nothing Nausea/Vomiting/Emesis GI Symptom: Positive for Nausea; Negative for Vomiting Severity: Mild Diarrhea/Melena/Hematochezia GI Symptom: Positive for Melena and Hematochezia; Negative for Diarrhea Onset: Today Severity: Moderate Associated Symptoms Associated Symptoms: Negative for Dysuria, Frequency, Hematuria or Urgency Narrative Narrative: 73-year-old female history of hypertension. She has had some mild nausea and intermittent abdominal discomfort. Said today she thinks she had bright red blood, clot and possibly dark stool also. She has had nausea without vomiting. She has had 3 bowel movements today. No history of GI bleed. She takes daily baby aspirin but no other blood thinners. No history of upper or lower endoscopy. Prior similar symptoms: No Recent Illness/Hospitalization: No PFSH PFSH Medical History Pneumonia History of stroke History of bladder cancer Hypertension Home Medications ?Medication ?Instructions ?Recorded ?Last Taken ?Type aspirin 81 mg tablet,delayed 81 mg PO DAILY 01/01/20 0 10/27/24 History release amlodipine 5 mg tablet 5 mg PO DAILY #90 tabs 02/1310/27/24 Rx losartan 50 mg tablet 50 mg PO DAILY #90 tabs 01/2010/27/24 Rx magnesium 250 mg tablet 250 mg PO QDAY 05/07/2402/12 History turmeric 400 mg capsule 400 mg PO DAILY 10/28/2402/12 History Allergy/AdvReac Type Severity Reaction Status Date / Time No Known Allergies Allergy Verified 10/28/24 11:03 Family History Mother Myocardial infarction, Onset Age: 80 Heart disease Hypertension CVA (cerebral vascular accident) Father Myocardial infarction, Onset Age: 56 Surgical History History of hysterectomy Social History Smoking Status: Never smoker alcohol intake: never substance use type: does not use what type of physical activity do you participate in: none ROS ROS ED ROS Narrative Mild intermittent abdominal pain. Nausea. Dark stool. Bright red blood per rectum. Constitutional Constitutional ED: Denies chills or fever(s) ENT ENT ED: Denies ear pain Cardiovascular Cardiovascular: Denies chest pain Respiratory/Chest Respiratory/Chest: Denies cough or dyspnea Gastrointestinal Gastrointestinal: Reports abdominal pain, melena and nausea; Denies constipation, diarrhea or vomiting Genitourinary Genitourinary ED: Denies hematuria Musculoskeletal Musculoskeletal: Denies arthralgias Integumentary Denies abscess Neurologic Neurologic: Denies headache(s) Psychiatric Psychiatric: Denies anxiety Endocrine Endocrinology: Denies polydipsia Hematologic/Lymphatic Hematologic/Lymphatic: Denies easy bleeding Allergic/Immunologic Allergic/Immunologic ED: Denies mouth swelling, tongue swelling or urticaria EXAM Physical Exam Narrative Exam Narrative: 73-year-old female vital signs stable afebrile. No acute distress. Believes her daughter at bedside. Vital signs are stable afebrile. Patient does appear pale. H EENT exam pupils round react light. Pale. Moist mucous membranes. Neck nontender no lymphadenopathy. Lungs clear to auscultation bilaterally. Heart regular rhythm rate about 70 she does have a 4/6 systolic ejection murmur. Chest wall nontender. Abdomen soft nontender. Moving all 4 extremities. Nontender no edema. Back nontender. Neurologically she is awake alert. No focal motor deficits. Const Vital Signs: 10/28/24 11:02 10/28/24 12:30 10/28/24 13:00 Temperature 96.1 F L Temperature Source Temporal Pulse Rate 70 68 70 Respiratory Rate 14 14 16 Blood Pressure 118/76 126/76 H 131/71 H Blood Pressure Mean 90 92 91 Pulse Ox 98 96 95 Oxygen Delivery Method Room Air Room Air 10/28/24 14:00 Temperature Temperature Source Pulse Rate 70 Respiratory Rate Blood Pressure 128/69 H Blood Pressure Mean 88 Pulse Ox 97 Oxygen Delivery Method Positive well nourished and well developed; Negative for cachectic, contracturesor unkempt General Appearance ED: well developed, NAD and pallor; Negative for unkempt, cachectic or contractures Nutritional Appearance: Negative for cachectic HEENT Reports moist mucous membranes normocephalic and atraumatic Eyes EOMs intact bilaterally General Eye ED: Yes pale conjunctiva Neck no lymphadenopathy, supple and no JVD General: Negative for tenderness Resp normal respiratory effort and clear to auscultation bilaterally Effort and Inspection: Negative for respiratory distress Auscultation: Negative for rales, rhonchi or wheezes Cardio regular rate, regular rhythm, S1 normal heart sound, S2 normal heart sound and no murmurs Rate: Negative for bradycardia or tachycardic Rhythm: Negative for abnormal rhythm GI non-tender, non-distended and no masses Auscultation: normoactive bowel sounds Palpation: soft; Negative for tender, guarding or rebound tenderness present Back/Spine no CVA tenderness Extremity full ROM General Extremety ED: Negative for edema or tenderness General Extremity: Negative for edema Neuro CN's II-XII intact bilaterally and moves all extremities Sensorium / Orientation: alert, oriented to person and oriented to time; Negative for orientation impaired, confused or lethargic Motor Exam: strength 5/5 throughout Psych mental status grossly normal and thought process normal Appearance: Negative for unkempt Skin no wounds General Skin Exam: pallor; Negative for jaundice Lesions: no lesions Rashes: no rashes Trauma: Negative for abrasion MDM MDM MDM Narrative Medical decision making narrative: 73-year-old female concern for GI bleed. Typed and screened and typed and crossed. Screening labs. She does not need imaging at this time abdomen is benign. If she does have a GI bleed she will need to be admitted for further evaluation. She was started on Protonix because she said her stool was dark to black which could be consistent with an upper GI bleed. Repeat exam patient doing well at 2:27 PM. I did do a rectal exam with her daughter present in the room. It was black loose stool consistent with an upperGI bleed. No bright red blood. No clots. I discussed the patient's test results with her. She will be admitted for GI bleed suspect upper. She is already received Protonix. She has been typed and crossed but does not need blood at this time. I have the hospitalist and GI on page. History & Record Review Discussion w/independent historian: Patient and Family Additional record(s) reviewed:: Prior inpatient record, Prior outpatient record,Prior ED visit and Prior labs Lab Data Attestation: I reviewed the patient's lab results. Lab results narrative: CBC shows a white count of 8. H&H of 10.3 and 30 prior hemoglobin was above 12. Platelets 223. Chemistries show a sodium 139. Gap 10. BUN is elevated at 46 creatinine 0.8. That could also be consistent with an upper GI bleed. Glucose 115. Liver enzymes normal. Blood type A-. PT/INR of 13.9 and 1.1. Labs: Laboratory Results - last 24 hr 10/28/24 10/28/24 12:24 12:26 WBC 8.8 RBC 3.22 L Hgb 10.3 L Hct 30.9 L MCV 96.0 MCH 32.0 MCHC 33.3 RDW Std Deviation 45.1 H RDW Coeff of [place] 12.9 Plt Count 223 MPV 9.9 Immature Gran % (Auto) 0.500 Neut % (Auto) 83.7 H Lymph % (Auto) 11.7 L [place] % (Auto) 3.8 Eos % (Auto) 0.0 Baso % (Auto) 0.3 Absolute Neuts (auto) 7.3 Absolute Lymphs (auto) 1.02 Nucleated RBC % 0 PT 13.9 INR 1.1 Sodium 139 Potassium 4.7 Chloride 108 Carbon Dioxide 21.0 Anion Gap 10 BUN 46 H Creatinine 0.80 Estim Creat Clear Calc 63.54 Est GFR (MDRD) Non-Af 76 BUN/Creatinine Ratio 57.8 H Glucose 115 H Calcium 9.2 Total Bilirubin 0.99 AST 20 ALT 12 Alkaline Phosphatase 90 Total Protein 6.6 Albumin 4.0 Globulin 2.6 Albumin/Globulin Ratio 1.6 Blood Type A NEGATIVE Antibody Screen NEGATIVE Discharge Plan Triage Chief Complaint: GI Bleed ED Provider: Juan Diego Sauer Dx/Rx/DC Orders Clinical Impression: Acute upper GI bleed, History of bladder cancer, Anemia Prescriptions: No Action aspirin 81 mg tablet,delayed release (DR/EC) 81 mg PO DAILY magnesium 250 mg tablet 250 mg PO QDAY turmeric 400 mg capsule 400 mg PO DAILY amlodipine 5 mg tablet 5 mg PO DAILY Qty: 90 3RF losartan 50 mg tablet 50 mg PO DAILY Qty: 90 3RF Primary Care Provider: Bernice De La Torre Referrals: Bernice De La Torre MD [Primary Care Provider] - Print Language: Azerbaijani Disposition Disposition: Acute Care Hospital [facility] What to do if you have Problems For any increased pain, shortness of breath, bleeding, nausea or vomiting, chestpain, or any unexpected problems, contact your Primary Care Provider. Call [facility] ([phone]) or report to the closest Emergency Room. Call 911 if necessary. 10/28/24 1433 <Electronically signed by Juan Diego Sauer MD> Cosigner Signature (if applicable): CC: Dr. Bernice De La Torre MD ~ Signed [facility] Work Phone: [phone] 374-394906-10-2025 Discharge summary Author Juan Diego Sauer [facility] Note Date/Time October 28, 2024 2:33 pm [facility] Medical Records Department [address] [place] [address] Emergency Department Summary 10/28/24 MR#: [id number] Acct: [id number] Name: ADEN LINDO Rep #:[id number] : 1950 73 From: Juan Diego Sauer MD PCP: Dr. Bernice De La Torre MD Status:REG ER Location: ED HPI HPI - GI History of Present Illness Chief Complaint: GI Bleed Informant: patient and family Abdominal Pain/Flank Pain Onset: Hours Context: Gradual Onset Timing: Intermittent Current Severity: Mild Maximum Severity: Mild Worsened by: Nothing Relieved by: Nothing Nausea/Vomiting/Emesis GI Symptom: Positive for Nausea; Negative for Vomiting Severity: Mild Diarrhea/Melena/Hematochezia GI Symptom: Positive for Melena and Hematochezia; Negative for Diarrhea Onset: Today Severity: Moderate Associated Symptoms Associated Symptoms: Negative for Dysuria, Frequency, Hematuria or Urgency Narrative Narrative: 73-year-old female history of hypertension. She has had some mild nausea and intermittent abdominal discomfort. Said today she thinks she had bright red blood, clot and possibly dark stool also. She has had nausea without vomiting. She has had 3 bowel movements today. No history of GI bleed. She takes daily baby aspirin but no other blood thinners. No history of upper or lower endoscopy. Prior similar symptoms: No Recent Illness/Hospitalization: No PFSH PFSH Medical History Pneumonia History of stroke History of bladder cancer Hypertension Home Medications ?Medication ?Instructions ?Recorded ?Last Taken ?Type aspirin 81 mg tablet,delayed 81 mg PO DAILY 01/01/20 0 10/27/24 History release amlodipine 5 mg tablet 5 mg PO DAILY #90 tabs 02/1310/27/24 Rx losartan 50 mg tablet 50 mg PO DAILY #90 tabs 01/2010/27/24 Rx magnesium 250 mg tablet 250 mg PO QDAY 05/07/2402/12 History turmeric 400 mg capsule 400 mg PO DAILY 10/28/2402/12 History Allergy/AdvReac Type Severity Reaction Status Date / Time No Known Allergies Allergy Verified 10/28/24 11:03 Family History Mother Myocardial infarction, Onset Age: 80 Heart disease Hypertension CVA (cerebral vascular accident) Father Myocardial infarction, Onset Age: 56 Surgical History History of hysterectomy Social History Smoking Status: Never smoker alcohol intake: never substance use type: does not use what type of physical activity do you participate in: none ROS ROS ED ROS Narrative Mild intermittent abdominal pain. Nausea. Dark stool. Bright red blood per rectum. Constitutional Constitutional ED: Denies chills or fever(s) ENT ENT ED: Denies ear pain Cardiovascular Cardiovascular: Denies chest pain Respiratory/Chest Respiratory/Chest: Denies cough or dyspnea Gastrointestinal Gastrointestinal: Reports abdominal pain, melena and nausea; Denies constipation, diarrhea or vomiting Genitourinary Genitourinary ED: Denies hematuria Musculoskeletal Musculoskeletal: Denies arthralgias Integumentary Denies abscess Neurologic Neurologic: Denies headache(s) Psychiatric Psychiatric: Denies anxiety Endocrine Endocrinology: Denies polydipsia Hematologic/Lymphatic Hematologic/Lymphatic: Denies easy bleeding Allergic/Immunologic Allergic/Immunologic ED: Denies mouth swelling, tongue swelling or urticaria EXAM Physical Exam Narrative Exam Narrative: 73-year-old female vital signs stable afebrile. No acute distress. Believes her daughter at bedside. Vital signs are stable afebrile. Patient does appear pale. H EENT exam pupils round react light. Pale. Moist mucous membranes. Neck nontender no lymphadenopathy. Lungs clear to auscultation bilaterally. Heart regular rhythm rate about 70 she does have a 4/6 systolic ejection murmur. Chest wall nontender. Abdomen soft nontender. Moving all 4 extremities. Nontender no edema. Back nontender. Neurologically she is awake alert. No focal motor deficits. Const Vital Signs: 10/28/24 11:02 10/28/24 12:30 10/28/24 13:00 Temperature 96.1 F L Temperature Source Temporal Pulse Rate 70 68 70 Respiratory Rate 14 14 16 Blood Pressure 118/76 126/76 H 131/71 H Blood Pressure Mean 90 92 91 Pulse Ox 98 96 95 Oxygen Delivery Method Room Air Room Air 10/28/24 14:00 Temperature Temperature Source Pulse Rate 70 Respiratory Rate Blood Pressure 128/69 H Blood Pressure Mean 88 Pulse Ox 97 Oxygen Delivery Method Positive well nourished and well developed; Negative for cachectic, contracturesor unkempt General Appearance ED: well developed, NAD and pallor; Negative for unkempt, cachectic or contractures Nutritional Appearance: Negative for cachectic HEENT Reports moist mucous membranes normocephalic and atraumatic Eyes EOMs intact bilaterally General Eye ED: Yes pale conjunctiva Neck no lymphadenopathy, supple and no JVD General: Negative for tenderness Resp normal respiratory effort and clear to auscultation bilaterally Effort and Inspection: Negative for respiratory distress Auscultation: Negative for rales, rhonchi or wheezes Cardio regular rate, regular rhythm, S1 normal heart sound, S2 normal heart sound and no murmurs Rate: Negative for bradycardia or tachycardic Rhythm: Negative for abnormal rhythm GI non-tender, non-distended and no masses Auscultation: normoactive bowel sounds Palpation: soft; Negative for tender, guarding or rebound tenderness present Back/Spine no CVA tenderness Extremity full ROM General Extremety ED: Negative for edema or tenderness General Extremity: Negative for edema Neuro CN's II-XII intact bilaterally and moves all extremities Sensorium / Orientation: alert, oriented to person and oriented to time; Negative for orientation impaired, confused or lethargic Motor Exam: strength 5/5 throughout Psych mental status grossly normal and thought process normal Appearance: Negative for unkempt Skin no wounds General Skin Exam: pallor; Negative for jaundice Lesions: no lesions Rashes: no rashes Trauma: Negative for abrasion MDM MDM MDM Narrative Medical decision making narrative: 73-year-old female concern for GI bleed. Typed and screened and typed and crossed. Screening labs. She does not need imaging at this time abdomen is benign. If she does have a GI bleed she will need to be admitted for further evaluation. She was started on Protonix because she said her stool was dark to black which could be consistent with an upper GI bleed. Repeat exam patient doing well at 2:27 PM. I did do a rectal exam with her daughter present in the room. It was black loose stool consistent with an upperGI bleed. No bright red blood. No clots. I discussed the patient's test results with her. She will be admitted for GI bleed suspect upper. She is already received Protonix. She has been typed and crossed but does not need blood at this time. I have the hospitalist and GI on page. History & Record Review Discussion w/independent historian: Patient and Family Additional record(s) reviewed:: Prior inpatient record, Prior outpatient record,Prior ED visit and Prior labs Lab Data Attestation: I reviewed the patient's lab results. Lab results narrative: CBC shows a white count of 8. H&H of 10.3 and 30 prior hemoglobin was above 12. Platelets 223. Chemistries show a sodium 139. Gap 10. BUN is elevated at 46 creatinine 0.8. That could also be consistent with an upper GI bleed. Glucose 115. Liver enzymes normal. Blood type A-. PT/INR of 13.9 and 1.1. Labs: Laboratory Results - last 24 hr 10/28/24 10/28/24 12:24 12:26 WBC 8.8 RBC 3.22 L Hgb 10.3 L Hct 30.9 L MCV 96.0 MCH 32.0 MCHC 33.3 RDW Std Deviation 45.1 H RDW Coeff of [place] 12.9 Plt Count 223 MPV 9.9 Immature Gran % (Auto) 0.500 Neut % (Auto) 83.7 H Lymph % (Auto) 11.7 L [place] % (Auto) 3.8 Eos % (Auto) 0.0 Baso % (Auto) 0.3 Absolute Neuts (auto) 7.3 Absolute Lymphs (auto) 1.02 Nucleated RBC % 0 PT 13.9 INR 1.1 Sodium 139 Potassium 4.7 Chloride 108 Carbon Dioxide 21.0 Anion Gap 10 BUN 46 H Creatinine 0.80 Estim Creat Clear Calc 63.54 Est GFR (MDRD) Non-Af 76 BUN/Creatinine Ratio 57.8 H Glucose 115 H Calcium 9.2 Total Bilirubin 0.99 AST 20 ALT 12 Alkaline Phosphatase 90 Total Protein 6.6 Albumin 4.0 Globulin 2.6 Albumin/Globulin Ratio 1.6 Blood Type A NEGATIVE Antibody Screen NEGATIVE Discharge Plan Triage Chief Complaint: GI Bleed ED Provider: Juan Diego Sauer Dx/Rx/DC Orders Clinical Impression: Acute upper GI bleed, History of bladder cancer, Anemia Prescriptions: No Action aspirin 81 mg tablet,delayed release (DR/EC) 81 mg PO DAILY magnesium 250 mg tablet 250 mg PO QDAY turmeric 400 mg capsule 400 mg PO DAILY amlodipine 5 mg tablet 5 mg PO DAILY Qty: 90 3RF losartan 50 mg tablet 50 mg PO DAILY Qty: 90 3RF Primary Care Provider: Bernice De La Torre Referrals: Bernice De La Torre MD [Primary Care Provider] - Print Language: Azerbaijani Disposition Disposition: Acute Care Hospital [facility] What to do if you have Problems For any increased pain, shortness of breath, bleeding, nausea or vomiting, chestpain, or any unexpected problems, contact your Primary Care Provider. Call [facility] ([phone]) or report to the closest Emergency Room. Call 911 if necessary. 10/28/24 1433 <Electronically signed by Juan Diego Sauer MD> Cosigner Signature (if applicable): CC: Dr. Bernice De La Torre MD ~ Signed [facility] Work Phone: [phone] 969-263606-10-2025 History and physical note Author Guero Pagan [facility] Note Date/Time October 28, 2024 3:09 pm [facility] Medical Records Department [address] [place] [address] H&P Exam - Hospitalist 10/28/24 1433 MR#: [id number] Acct: [id number] Name: ADEN LINDO Rep #:[id number] : 1950 73 From: Guero scales DO PCP: Dr. Bernice De La Torre MD Status:ADM IN Location: [place] [id number] HPI - General General Date of Admission: 10/28/24 Date of Service: 10/28/24 Chief Complaint: Bright red and dark stools HPI Narrative ADEN LINDO, is a 73 F who presented to [facility] ED on 10/28/2024 with bright red and dark stools. Patient lives at home with her , has good functional status at baseline. Is on a baby aspirin, no otherblood thinners. No prior history of GI bleed. She has had intermittent nausea over the past week or so but no vomiting. This morning she noticed with her first bowel movement that there was bright red blood with clot noted. She then had 2 more loose bowel movements that were very dark after this, so she came in for further evaluation. Denies any pain with these bowel movements. In the ED was hemodynamically stable with heart rate in the 70s and normal blood pressure. Last hemoglobin in 2019 was 12.5 and hemoglobin today was 10.3. BUN was elevated at 46 with normal creatinine. Given suspected upper GI bleed, she was given a dose of IV Protonix and hospitalist was contacted for admission. I saw the patient at bedside in the ED, daughter was present. Patient was sitting back comfortably in bed, conversing normally, in no acute distress. Shereported feeling mildly fatigued but denied any other acute concerns currently. On my physical exam she had a significant systolic heart murmur noted. She states she has never been told she has a heart murmur. She has never had a colonoscopy done before. Has never had an upper scope done either. No other acute concerns at this time. [facility] Medical History Pneumonia History of stroke History of bladder cancer Hypertension Home Medications ?Medication ?Instructions ?Recorded ?Last Taken ?Type aspirin 81 mg tablet,delayed 81 mg PO DAILY 01/01/20 0 10/27/24 History release amlodipine 5 mg tablet 5 mg PO DAILY #90 tabs 02/1310/27/24 Rx losartan 50 mg tablet 50 mg PO DAILY #90 tabs 01/2010/27/24 Rx magnesium 250 mg tablet 250 mg PO QDAY 05/07/2402/12 History turmeric 400 mg capsule 400 mg PO DAILY 10/28/2402/12 History Allergy/AdvReac Type Severity Reaction Status Date / Time No Known Allergies Allergy Verified 10/28/24 11:03 Family History Mother Myocardial infarction, Onset Age: 80 Heart disease Hypertension CVA (cerebral vascular accident) Father Myocardial infarction, Onset Age: 56 Surgical History History of hysterectomy Social History Smoking Status: Never smoker alcohol intake: never substance use type: does not use what type of physical activity do you participate in: none ROS Constitutional Constitutional: Reports fatigue; Denies chills, fever(s) or weakness Eyes Eyes: Denies change in vision Cardiovascular Cardiovascular: Denies chest pain, lightheadedness or palpitations Respiratory/Chest Respiratory/Chest: Denies cough, dyspnea or shortness of breath at rest Gastrointestinal Gastrointestinal: Reports abdominal pain, dyspepsia, hematochezia, melena and nausea; Denies coffee ground emesis, constipation, hematemesis or vomiting Genitourinary Genitourinary: Denies dysuria Musculoskeletal Musculoskeletal: Denies arthralgias or myalgias Neurologic Neurologic: Denies dizziness, focal weakness or headache(s) Vital Signs Vital Signs Vital Signs: 10/28/24 11:02 10/28/24 12:30 10/28/24 13:00 Temperature 96.1 F L Temperature Source Temporal Pulse Rate 70 68 70 Respiratory Rate 14 14 16 Blood Pressure 118/76 126/76 H 131/71 H Blood Pressure Mean 90 92 91 Pulse Ox 98 96 95 Oxygen Delivery Method Room Air Room Air 10/28/24 14:00 Temperature Temperature Source Pulse Rate 70 Respiratory Rate Blood Pressure 128/69 H Blood Pressure Mean 88 Pulse Ox 97 Oxygen Delivery Method Weight Weight: 80.104 kg Body Mass Index (BMI) 29.3 Physical Exam Const alert, oriented x3, no apparent distress, average body habitus, healthy appearing and well nourished Constitutional Narrative: Pleasant elderly female, appears younger than stated age, sitting back comfortably in bed, conversing normally, in no acute distress. General Appearance: cooperative, comfortable, well kempt and well developed HEENT normocephalic, head/scalp atraumatic, hearing grossly normal bilaterally, nasal mucous membranes and turbinates normal and moist oral mucous membranes Eyes PERRL, EOMs intact bilaterally and conjunctivae normal Neck full ROM Chest inspection of chest normal Resp normal respiratory effort, normal air movement, no use of accessory muscles and clear to auscultation bilaterally Cardio regular rate, regular rhythm and peripheral pulses 2+ throughout Cardio Narrative: Significant systolic murmur noted. GI normal to inspection, nondistended, normoactive bowel sounds, soft to palpation,non-tender and non-distended Back/Spine normal ROM Extremity normal to inspection, full ROM and no pedal edema Skin no rashes or lesions noted Psych mental status grossly normal Results Lab / Micro Data 10/28/24 12:26 10/28/24 12:24 Labs: Laboratory Results - last 24 hr 10/28/24 12:24: PT 13.9, INR 1.1, Sodium 139, Potassium 4.7, Chloride 108, Carbon Dioxide 21.0, Anion Gap 10, BUN 46 H, Creatinine 0.80, Estim Creat Clear Calc 63.54, Est GFR (MDRD) Non-Af 76, BUN/Creatinine Ratio 57.8 H, Glucose 115 H, Calcium 9.2, Total Bilirubin 0.99, AST 20, ALT 12, Alkaline Phosphatase 90, Total Protein 6.6, Albumin 4.0, Globulin 2.6, Albumin/Globulin Ratio 1.6 10/28/24 12:26: WBC 8.8, RBC 3.22 L, Hgb 10.3 L, Hct 30.9 L, MCV 96.0, MCH 32.0,MCHC 33.3, RDW Std Deviation 45.1 H, RDW Coeff of [place] 12.9, Plt Count 223, MPV 9.9, Immature Gran % (Auto) 0.500, Neut % (Auto) 83.7 H, Lymph % (Auto) 11.7 L, [place] % (Auto) 3.8, Eos % (Auto) 0.0, Baso % (Auto) 0.3, Absolute Neuts (auto) 7.3, Absolute Lymphs (auto) 1.02, Nucleated RBC % 0, Blood Type A NEGATIVE, Antibody Screen NEGATIVE Assessment & Plan Assessment/Plan (1) Acute upper GI bleed: PLAN: Plan Patient is a 73-year-old female who presented to [facility] ED on 10/28/2024 with bright red and dark stools. 1. Suspected upper GI bleed with mild acute blood loss anemia ? Admit under inpatient status to PCU. GI consulted. Baseline hemoglobin around 12, hemoglobin 10.3 on admit. Most consistent with upper GI bleed given primarily melena and elevated BUN to creatinine ratio. Have suspicion for AVMs in setting of possible aortic stenosis given her systolic murmur noted on exam. Okay for clear liquid diet for now, then n.p.o. at midnight. Start IV PPI twicedaily. Hold home baby aspirin. Follow-up CBC tonight and tomorrow morning. 2. Systolic murmur ? Significant systolic murmur noted on exam on admit. High suspicion is for aortic stenosis given location of murmur and patient's age. Patient denies any symptoms related to this. Echo ordered for further evaluation. 3. Hypertension ? Normotensive on admit. Will hold home amlodipine and losartan for now, restart as able. 4. History of remote CVA ? No residual deficits. Holding home baby aspirin as noted above. DVT prophylaxis: SCDs CODE STATUS: Full code, verified Expected disposition: Home, 2 to 3 days Total clinical time spent by myself addressing the patient's medical issues, reviewing all the data, and collaborating with patient's care team: 75 minutes. Charges/Coding Visit Charges Inpatient E&M: 85825 Init Hosp L3 10/28/24 1509 <Electronically signed by Guero Pagan DO> Cosigner Signature (if applicable): CC: Dr. Guero Pagan DO; Dr. Bernice De La Torre MD~ Signed [facility] Work Phone: [phone] History and physical note [facility] Medical Records Department [address] [place] [address] H&P Exam - Hospitalist 10/28/24 1433 MR#: [id number] Acct: [id number] Name: ADEN LINDO Rep #:[id number] : 1950 73 From: Guero scales DO PCP: Dr. Bernice De La Torre MD Status:ADM IN Location: [facility] [id number] HPI - General General Date of Admission: 10/28/24 Date of Service: 10/28/24 Chief Complaint: Bright red and dark stools HPI Narrative ADEN LINDO, is a 73 F who presented to [facility] ED on 10/28/2024 with bright red and dark stools. Patient lives at home with her , has good functional status at baseline. Is on a baby aspirin, no otherblood thinners. No prior history of GI bleed. She has had intermittent n ausea over the past week or so but no vomiting. This morning she noticed with her first bowel movement that there was bright red blood with clot noted. She then had 2 more loose bowel movements that were very dark after this, so she came in for further evaluation. Denies any pain with these bowel movements. In the ED was hemodynamically stable with heart rate in the 70s and normal blood pressure.Last hemoglobin in 2019 was 12.5 and hemoglobin today was 10.3. BUN was elevated at 46 with normal creatinine. Given suspected upper GI bleed, she was given a dose of IV Protonix and hospitalist was contacted for admission. I saw the patient at bedside in the ED, daughter was present. Patient was sitting back comfortably in bed, conversing normally, in no acute distress. Shereported feeling mildly fatigued but denied any other acute concerns currently. On my physical exam she had a significant systolic heart murmur not ed. She states she has never been told she has a heart murmur. She has never had a colonoscopy donebefore. Has never had an upper scope done either. No other acute concerns at this time. [facility] Medical History Pneumonia History of stroke History of bladder cancer Hypertension Home Medications ?Medication ?Instructions ?Recorded ?Last Taken ?Type aspirin 81 mg tablet,delayed 81 mg PO DAILY 01/01/20 0 10/27/24 History release amlodipine 5 mg tablet 5 mg PO DAILY #90 tabs 02/1310/27/24 Rx losartan 50 mg tablet 50 mg PO DAILY #90 tabs 01/2010/27/24 Rx magnesium 250 mg tablet 250 mg PO QDAY 05/07/2402/12 History turmeric 400 mg capsule 400 mg PO DAILY 10/28/2402/12 History Allergy/AdvReac Type Severity Reaction Status Date / Time No Known Allergies Allergy Verified 10/28/24 11:03 Family History Mother Myocardial infarction, Onset Age: 80 Heart disease Hypertension CVA (cerebral vascular accident) Father Myocardial infarction, Onset Age: 56 Surgical History History of hysterectomy Social History Smoking Status: Never smoker alcohol intake: never substance use type: does not use what type of physical activity do you participate in: none ROS Constitutional Constitutional: Reports fatigue; Denies chills, fever(s) or weakness Eyes Eyes: Denies change in vision Cardiovascular Cardiovascular: Denies chest pain, lightheadedness or palpitations Respiratory/Chest Respiratory/Chest: Denies cough, dyspnea or shortness of breath at rest Gastrointestinal Gastrointestinal: Reports abdominal pain, dyspepsia, hematochezia, melena and nausea; Denies coffeeground emesis, constipation, hematemesis or vomiting Genitourinary Genitourinary: Denies dysuria Musculoskeletal Musculoskeletal: Denies arthralgias or myalgias Neurologic Neurologic: Denies dizziness, focal weakness or headache(s) Vital Signs Vital Signs Vital Signs: 10/28/24 11:02 10/28/24 12:30 10/28/24 13:00 Temperature 96.1 F L Temperature Source Temporal Pulse Rate 70 68 70 Respiratory Rate 14 14 16 Blood Pressure 118/76 126/76 H 131/71 H Blood Pressure Mean 90 92 91 Pulse Ox 98 96 95 Oxygen Delivery Method Room Air Room Air 10/28/24 14:00 Temperature Temperature Source Pulse Rate 70 Respiratory Rate Blood Pressure 128/69 H Blood Pressure Mean 88 Pulse Ox 97 Oxygen Delivery Method Weight Weight: 80.104 kg Body Mass Index (BMI) 29.3 Physical Exam Const alert, oriented x3, no apparent distress, average body habitus, healthy appearing and well nourished Constitutional Narrative: Pleasant elderly female, appears younger than stated age, sitting back comfortably in bed, conversing normally, in no acute distress. General Appearance: cooperative, comfortable, well kempt and well developed HEENT normocephalic, head/scalp atraumatic, hearing grossly normal bilaterally, nasal mucous membranes and turbinates normal and moist oral mucous membranes Eyes PERRL, EOMs intact bilaterally and conjunctivae normal Neck full ROM Chest inspection of chest normal Resp normal respiratory effort, normal air movement, no use of accessory muscles and clear to auscultation bilaterally Cardio regular rate, regular rhythm and peripheral pulses 2+ throughout Cardio Narrative: Significant systolic murmur noted. GI normal to inspection, nondistended, normoactive bowel sounds, soft to palpation,non-tender and non-distended Back/Spine normal ROM Extremity normal to inspection, full ROM and no pedal edema Skin no rashes or lesions noted Psych mental status grossly normal Results Lab / Micro Data 10/28/24 12:26 10/28/24 12:24 Labs: Laboratory Results - last 24 hr 10/28/24 12:24: PT 13.9, INR 1.1, Sodium 139, Potassium 4.7, Chloride 108, Carbon Dioxide 21.0, Anion Gap 10, BUN 46 H, Creatinine 0.80, Estim Creat Clear Calc 63.54, Est GFR (MDRD) Non-Af 76, BUN/Creatinine Ratio 57.8 H, Glucose 115 H, Calcium 9.2, Total Bilirubin 0.99, AST 20, ALT 12, Alkaline Phosphatase 90, Total Protein 6.6, Albumin 4.0, Globulin 2.6, Albumin/Globulin Ratio 1.6 10/28/24 12:26: WBC 8.8, RBC 3.22 L, Hgb 10.3 L, Hct 30.9 L, MCV 96.0, MCH 32.0,MCHC 33.3, RDW Std Deviation 45.1 H, RDW Coeff of [place] 12.9, Plt Count 223, MPV 9.9, Immature Gran % (Auto) 0.500, Neut % (Auto) 83.7 H, Lymph % (Auto) 11.7 L, [place] % (Auto) 3.8, Eos % (Auto) 0.0, Baso % (Auto) 0.3, Absolute Neuts (auto) 7.3, Absolute Lymphs (auto) 1.02, Nucleated RBC % 0, Blood Type A NEGATIVE, Antibody Screen NEGATIVE Assessment & Plan Assessment/Plan (1) Acute upper GI bleed: PLAN: Plan Patient is a 73-year-old female who presented to [facility] ED on 10/28/2024 with bright red and dark stools. 1. Suspected upper GI bleed with mild acute blood loss anemia ? Admit under inpatient status to PCU. GI consulted. Baseline hemoglobin around 12, hemoglobin 10.3on admit. Most consistent with upper GI bleed given primarily melena and elevated BUN to creatinineratio. Have suspicion for AVMs in setting of possible aortic stenosis given her systolic murmur noted on exam. Okay for clear liquid diet for now, then n.p.o. at midnight. Start IV PPI twicedaily. Hol d home baby aspirin. Follow-up CBC tonight and tomorrow morning. 2. Systolic murmur ? Significant systolic murmur noted on exam on admit. High suspicion is for aortic stenosis given location of murmur and patient's age. Patient denies any symptoms related to this. Echo ordered for further evaluation. 3. Hypertension ? Normotensive on admit. Will hold home amlodipine and losartan for now, restart as able. 4. History of remote CVA ? No residual deficits. Holding home baby aspirin as noted above. DVT prophylaxis: SCDs CODE STATUS: Full code, verified Expected disposition: Home, 2 to 3 days Total clinical time spent by myself addressing the patient's medical issues, reviewing all the data, and collaborating with patient's care team: 75 minutes. Charges/Coding Visit Charges Inpatient E&M: 82807 Init Hosp L3 10/28/24 1509 Cosigner Signature (if applicable): CC: Dr. Guero Pagan DO; Dr. Bernice De La Torre MD~ Signed [facility]06-10-2025 Discharge summary [facility] Medical Records Department [address] [place] [address] Emergency Department Summary 10/28/24 MR#: [id number] Acct: [id number] Name: ADEN LINDO Rep #:[id number] : 1950 73 From: Juan Diego Sauer MD PCP: Dr. Bernice De La Torre MD Status:REG ER Location: ED HPI HPI - GI History of Present Illness Chief Complaint: GI Bleed Informant: patient and family Abdominal Pain/Flank Pain Onset: Hours Context: Gradual Onset Timing: Intermittent Current Severity: Mild Maximum Severity: Mild Worsened by: Nothing Relieved by: Nothing Nausea/Vomiting/Emesis GI Symptom: Positive for Nausea; Negative for Vomiting Severity: Mild Diarrhea/Melena/Hematochezia GI Symptom: Positive for Melena and Hematochezia; Negative for Diarrhea Onset: Today Severity: Moderate Associated Symptoms Associated Symptoms: Negative for Dysuria, Frequency, Hematuria or Urgency Narrative Narrative: 73-year-old female history of hypertension. She has had some mild nausea and intermittent abdominaldiscomfort. Said today she thinks she had bright red blood, clot and possibly dark stool also. She has had nausea without vomiting. She has had 3 bowel movements today. No history of GI bleed. She takes daily baby aspirin but no other blood thinners. No history of upper or lower endoscopy. Prior similar symptoms: No Recent Illness/Hospitalization: No PFSH PFS Medical History Pneumonia History of stroke History of bladder cancer Hypertension Home Medications ?Medication ?Instructions ?Recorded ?Last Taken ?Type aspirin 81 mg tablet,delayed 81 mg PO DAILY 01/01/20 0 10/27/24 History release amlodipine 5 mg tablet 5 mg PO DAILY #90 tabs 02/1310/27/24 Rx losartan 50 mg tablet 50 mg PO DAILY #90 tabs 01/2010/27/24 Rx magnesium 250 mg tablet 250 mg PO QDAY 05/07/2402/12 History turmeric 400 mg capsule 400 mg PO DAILY 10/28/2402/12 History Allergy/AdvReac Type Severity Reaction Status Date / Time No Known Allergies Allergy Verified 10/28/24 11:03 Family History Mother Myocardial infarction, Onset Age: 80 Heart disease Hypertension CVA (cerebral vascular accident) Father Myocardial infarction, Onset Age: 56 Surgical History History of hysterectomy Social History Smoking Status: Never smoker alcohol intake: never substance use type: does not use what type of physical activity do you participate in: none ROS ROS ED ROS Narrative Mild intermittent abdominal pain. Nausea. Dark stool. Bright red blood per rectum. Constitutional Constitutional ED: Denies chills or fever(s) ENT ENT ED: Denies ear pain Cardiovascular Cardiovascular: Denies chest pain Respiratory/Chest Respiratory/Chest: Denies cough or dyspnea Gastrointestinal Gastrointestinal: Reports abdominal pain, melena and nausea; Denies constipation, diarrhea or vomiting Genitourinary Genitourinary ED: Denies hematuria Musculoskeletal Musculoskeletal: Denies arthralgias Integumentary Denies abscess Neurologic Neurologic: Denies headache(s) Psychiatric Psychiatric: Denies anxiety Endocrine Endocrinology: Denies polydipsia Hematologic/Lymphatic Hematologic/Lymphatic: Denies easy bleeding Allergic/Immunologic Allergic/Immunologic ED: Denies mouth swelling, tongue swelling or urticaria EXAM Physical Exam Narrative Exam Narrative: 73-year-old female vital signs stable afebrile. No acute distress. Believes her daughter at bedside. Vital signs are stable afebrile. Patient does appear pale. H EENT exam pupils round react light. Pale. Moist mucous membranes. Neck nontender no lymphadenopathy. Lungs clear to auscultation bilaterally. Heart regular rhythm rate about 70 she does have a 4/6 systolic ejection murmur. Chest wall nontender. Abdomen soft nontender. Moving all 4 extremities. Nontender no edema. Back nontender. Neurologically she is awake alert. No focal motor deficits. Const Vital Signs: 10/28/24 11:02 10/28/24 12:30 10/28/24 13:00 Temperature 96.1 F L Temperature Source Temporal Pulse Rate 70 68 70 Respiratory Rate 14 14 16 Blood Pressure 118/76 126/76 H 131/71 H Blood Pressure Mean 90 92 91 Pulse Ox 98 96 95 Oxygen Delivery Method Room Air Room Air 10/28/24 14:00 Temperature Temperature Source Pulse Rate 70 Respiratory Rate Blood Pressure 128/69 H Blood Pressure Mean 88 Pulse Ox 97 Oxygen Delivery Method Positive well nourished and well developed; Negative for cachectic, contracturesor unkempt General Appearance ED: well developed, NAD and pallor; Negative for unkempt, cachectic or contractures Nutritional Appearance: Negative for cachectic HEENT Reports moist mucous membranes normocephalic and atraumatic Eyes EOMs intact bilaterally General Eye ED: Yes pale conjunctiva Neck no lymphadenopathy, supple and no JVD General: Negative for tenderness Resp normal respiratory effort and clear to auscultation bilaterally Effort and Inspection: Negative for respiratory distress Auscultation: Negative for rales, rhonchi or wheezes Cardio regular rate, regular rhythm, S1 normal heart sound, S2 normal heart sound and no murmurs Rate: Negative for bradycardia or tachycardic Rhythm: Negative for abnormal rhythm GI non-tender, non-distended and no masses Auscultation: normoactive bowel sounds Palpation: soft; Negative for tender, guarding or rebound tenderness present Back/Spine no CVA tenderness Extremity full ROM General Extremety ED: Negative for edema or tenderness General Extremity: Negative for edema Neuro CN's II-XII intact bilaterally and moves all extremities Sensorium / Orientation: alert, oriented to person and oriented to time; Negative for orientation impaired, confused or lethargic Motor Exam: strength 5/5 throughout Psych mental status grossly normal and thought process normal Appearance: Negative for unkempt Skin no wounds General Skin Exam: pallor; Negative for jaundice Lesions: no lesions Rashes: no rashes Trauma: Negative for abrasion MDM MDM MDM Narrative Medical decision making narrative: 73-year-old female concern for GI bleed. Typed and screened and typed and crossed. Screening labs. She does not need imaging at this time abdomen is benign. If she does have a GI bleed she will need to be admitted for further evaluation. She was started on Protonix because she said her stool was dark to black which could be consistent with an upper GI bleed. Repeat exam patient doing well at 2:27 PM. I did do a rectal exam with her daughter present in the room. It was black loose stool consistent with an upperGI bleed. No bright red blood. No clots. I discussed the patient's test results with her. She will be admitted for GI bleed suspect upper. She isalready received Protonix. She has been typed and crossed but does not need blood at this time. I have the hospitalist and GI on page. History & Record Review Discussion w/independent historian: Patient and Family Additional record(s) reviewed:: Prior inpatient record, Prior outpatient record,Prior ED visit and Prior labs Lab Data Attestation: I reviewed the patient's lab results. Lab results narrative: CBC shows a white count of 8. H&H of 10.3 and 30 prior hemoglobin was above 12. Platelets 223. Chemistries show a sodium 139. Gap 10. BUN is elevated at 46 creatinine 0.8. That could also be consistent with an upper GI bleed. Glucose 115. Liver enzymes normal. Blood type A-. PT/INR of 13.9 and 1.1. Labs: Laboratory Results - last 24 hr 10/28/24 10/28/24 12:24 12:26 WBC 8.8 RBC 3.22 L Hgb 10.3 L Hct 30.9 L MCV 96.0 MCH 32.0 MCHC 33.3 RDW Std Deviation 45.1 H RDW Coeff of [place] 12.9 Plt Count 223 MPV 9.9 Immature Gran % (Auto) 0.500 Neut % (Auto) 83.7 H Lymph % (Auto) 11.7 L [place] % (Auto) 3.8 Eos % (Auto) 0.0 Baso % (Auto) 0.3 Absolute Neuts (auto) 7.3 Absolute Lymphs (auto) 1.02 Nucleated RBC % 0 PT 13.9 INR 1.1 Sodium 139 Potassium 4.7 Chloride 108 Carbon Dioxide 21.0 Anion Gap 10 BUN 46 H Creatinine 0.80 Estim Creat Clear Calc 63.54 Est GFR (MDRD) Non-Af 76 BUN/Creatinine Ratio 57.8 H Glucose 115 H Calcium 9.2 Total Bilirubin 0.99 AST 20 ALT 12 Alkaline Phosphatase 90 Total Protein 6.6 Albumin 4.0 Globulin 2.6 Albumin/Globulin Ratio 1.6 Blood Type A NEGATIVE Antibody Screen NEGATIVE Discharge Plan Triage Chief Complaint: GI Bleed ED Provider: Juan Diego Sauer Dx/Rx/DC Orders Clinical Impression: Acute upper GI bleed, History of bladder cancer, Anemia Prescriptions: No Action aspirin 81 mg tablet,delayed release (DR/EC) 81 mg PO DAILY magnesium 250 mg tablet 250 mg PO QDAY turmeric 400 mg capsule 400 mg PO DAILY amlodipine 5 mg tablet 5 mg PO DAILY Qty: 90 3RF losartan 50 mg tablet 50 mg PO DAILY Qty: 90 3RF Primary Care Provider: Bernice De La Torre Referrals: Bernice De La Torre MD [Primary Care Provider] - Print Language: Azerbaijani Disposition Disposition: [facility] What to do if you have Problems For any increased pain, shortness of breath, bleeding, nausea or vomiting, chestpain, or any unexpected problems, contact your Primary Care Provider. Call [facility] ([phone]) or report tothe closest Emergency Room. Call 911 if necessary. 10/28/24 1433 Cosigner Signature (if applicable): CC: Dr. Bernice De La Torre MD ~ Signed [facility] (narrative)No reason for referral information availableWProMedica Flower [facility] Work Phone: Summary Purpose Family History No Family History Records Found Relationship Condition Age at Onset Recorded Date/T nelia mother Myocardial infarction 80 Cardiac disease Unknown Hypertension Unknown Cerebrovascular accident (CVA) Unknown father Myocardial infarction 56 Advance Directives No Advanced Directives Records Found Advance Directive Response Recorded Date/ Time Do you have a Healthcare Power of [employer]? No October 28, 2024 12:31pm Advance Directive Response Recorded Date/ Time Do you have a Healthcare Power of [employer]? No October 28, 2024 4:40pm Chief Complaint and Reason for Visit Chief Complaint Admit Date GI BLEED October 28, 2024 2:34 pm Reason for Visit Admit Date Acute upper GI bleed October 28, 2024 2:3 4pm Chief Complaint Admit Date GI BLEED October 28, 2024 2:34 pm GI BLEED October 29, 2024 11:3 4am GI BLEED October 29, 2024 7:13 pm Reason for Visit Admit Date Acute upper GI bleed October 28, 2024 2:3 4pm Anemia October 28, 2024 2:34 pm Chief Complaint Admit Date GI BLEED October 28, 2024 2:34 pm GI BLEED October 29, 2024 11:3 4am GI BLEED October 29, 2024 7:13 pm GI BLEED October 30, 2024 7:24 pm [facility] Discharge FU November 19, 2024 9:45a m Reason for Visit Admit Date Anemia October 28, 2024 2:34 pm Acute upper GI bleed October 28, 2024 2:3 4pm Anemia November 19, 2024 9:45a m Additional Source Comments INFORMATION SOURCE (unrecogn ized section and content) DATE CREATED AUTHOR 05/10/2024 [facility] DATE CREATED AUTHOR AUTHOR'S ORGANIZ ATION 11/20/2024 [facility] Care Teams (unrecognized sec tion and content) Team Status: Active Member Role Status Dates Dr. Bernice De La Torre MD Primary Care Provider Active Team Status: Inactive Member Role Status Dates Dr. Bernice De La Torre MD Primary Care Provider Active Start: October 28, 2024 End: October 30, 2024 Dr. Juan Diego Sauer MD Emergency Provider Active S tart: October 28, 2024 End: October 30, 2024 Dr. Guero Pagan DO Admit Provider Active Start: October 28, 2024 End: October 30, 2024 Dr. Guero Pagan DO Other Provider Active Start: October 28, 2024 End: October 30, 2024 Dr. Dewayne Gonzalez DO Attending Provider Active Start: October 28, 2024 End: October 30, 2024 Team Status: Active Member Role Status Dates Dr. Bernice De La Torre MD Primary Care Provider Active Start: October 28, 2024 Dr. Arya Johnson MD Attending Provider Active Start: October 28, 2024 Team Status: Active Member Role Status Dates Dr. Bernice De La Torre MD Primary Care Provider Active Start: October 29, 2024 Dr. Juan Diego Sauer MD Emergency Provider Active S tart: October 29, 2024 Dr. Guero Pagan DO Admit Provider Active Start: October 29, 2024 Dr. Guero Pagan DO Other Provider Active Start: October 29, 2024 Dr. Dewayne Gonzalez DO Other Provider Active S tart: October 29, 2024 Dr. Ney Moreno DO Attending Provider Active Start: October 29, 2024 Team Status: Active Member Role Status Dates Dr. Bernice De La Torre MD Primary Care Provider Active Start: October 29, 2024 Dr. Juan Diego Sauer MD Emergency Provider Active S tart: October 29, 2024 Dr. Guero Pagan DO Admit Provider Active Start: October 29, 2024 Dr. Guero Pagan DO Other Provider Active Start: October 29, 2024 Dr. Dewayne Gonzalez DO Attending Provider Active Start: October 29, 2024 Dr. Dewayne Gonzalez DO Other Provider Active S tart: October 29, 2024 Team Status: Active Member Role Status Dates Dr. Bernice De La Torre MD Primary Care Provider Active Start: October 30, 2024 Dr. Ney Moreno DO Attending Provider Active Start: October 30, 2024 Team Status: Active Member Role Status Dates Dr. Bernice De La Torre MD Primary Care Provider Active Start: October 28, 2024 Dr. Juan Diego Sauer MD Emergency Provider Active S tart: October 28, 2024 Dr. Guero Pagan DO Admit Provider Active Start: October 28, 2024 Dr. Guero Pagan DO Attending Provider Active Start: October 28, 2024 Dr. Guero Pagan DO Other Provider Active Start: October 28, 2024 Team Status: Active Member Role/Relationship Status Dates Dr. Bernice De La Torre MD Primary Care Provider Active Team Status: Inactive Member Role/Relationship Status Dates Dr. Bernice De La Torre MD Primary Care Provider Active Start: October 28, 2024 End: October 30, 2024 Dr. Juan Diego Sauer MD Emergency Provider Active S tart: October 28, 2024 End: October 30, 2024 Dr. Guero Pagan DO Admit Provider Active Start: October 28, 2024 End: October 30, 2024 Dr. Guero Pagan DO Other Provider Active Start: October 28, 2024 End: October 30, 2024 Dr. Dewayne Gonzalez DO Attending Provider Active Start: October 28, 2024 End: October 30, 2024 Team Status: Active Member Role/Relationship Status Dates Dr. Bernice De La Torre MD Primary Care Provider Active Start: October 28, 2024 Dr. Arya Johnson MD Attending Provider Active Start: October 28, 2024 Team Status: Active Member Role/Relationship Status Dates Dr. Bernice De La Torre MD Primary Care Provider Active Start: October 29, 2024 Dr. Juan Diego Sauer MD Emergency Provider Active S tart: October 29, 2024 Dr. Guero Pagan , DO Admit Provider Active Start: October 29, 2024 Dr. Guero Pagan , DO Other Provider Active Start: October 29, 2024 Dr. Dewayne Gonzalez DO Referring Provider Active Start: October 29, 2024 Dr. Dewayne Gonzalez DO Other Provider Active S tart: October 29, 2024 Dr. Ney Moreno , Attending Provider Active Start: October 29, 2024 Team Status: Active Member Role/Relationship Status Dates Dr. Bernice De La Torre MD Primary Care Provider Active Start: October 29, 2024 Dr. Juan Diego Sauer MD Emergency Provider Active S tart: October 29, 2024 Dr. Guero Pagan DO Admit Provider Active Start: October 29, 2024 Dr. Guero Pagan DO Other Provider Active Start: October 29, 2024 Dr. Dewayne Gonzalez DO Attending Provider Active Start: October 29, 2024 Dr. Dewayne Gonzalez DO Other Provider Active S tart: October 29, 2024 Team Status: Active Member Role/Relationship Status Dates Dr. Bernice De La Torre MD Primary Care Provider Active Start: October 30, 2024 Dr. Ney Moreno , Attending Provider Active Start: October 30, 2024 Dr. Dewayne Gonzalez DO Referring Provider Active Start: October 30, 2024 Team Status: Active Member Role/Relationship Status Dates Dr. Bernice De La Torre MD Primary Care Provider Active Start: October 30, 2024 Dr. Juan Diego Sauer MD Emergency Provider Active S tart: October 30, 2024 Dr. Guero Pagan DO Admit Provider Active Start: October 30, 2024 Dr. Guero Pagan DO Other Provider Active Start: October 30, 2024 Dr. Dewayne Gonzalez DO Attending Provider Active Start: October 30, 2024 Dr. Dewayne Gonzalez DO Other Provider Active S tart: October 30, 2024 Team Status: Inactive Member Role/Relationship Status Dates Dr. Bernice De La Torre MD Primary Care Provider Active Start: November 19, 2024 End: November 19, 2024 Dr. Bernice De La Torre MD Attending Provider Active Start: November 19, 2024 End: November 19, 2024 Goals (unrecognized section and content) Goals may be documented in a n alternate section FOR RECORDS PERTAINING TO PATIENTS WHO ARE OR HAVE BEEN ENROLLED IN A CHEMICAL DEPENDENCY/SUBSTANCEABUSE PROGRAM, SOME INFORMATION MAY BE OMITTED. This clinical summary was aggregated from multiple sources. Caution should be exercised in using it in the provision of clinical care. This summary normalizes information from multiple sources, and as a consequence, information in this document may materially change the coding, format and clinical context of patient data. In addition, data may be omitted in some cases. CLINICAL DECISIONS SHOULD BE BASED ON THE PRIMARY CLINICAL RECORDS. [employer] provides no warranty or guarantee of the accuracy or completeness of information in this document.
[2024-11-27 10:50] LABS: Red Blood Cells-Urine 0 SEEN /hpf (0-5)
[2024-11-27 10:56] LABS: Color, Urine Yellow (Yellow); Glucose, Dipstick Normal (Normal); Ketone-Dipstick 5 mg/dl (Negative); Leukocyte Esterase-Dipstick 100 /ul (Negative); Nitrite-Dipstick Positive (Negative); Occult Blood-Urine 10 /ul (Negative); Protein-Dipstick 30 mg/dl (Negative); Specific Gravity, Urine 1.020 (1.002-1.030); Urine Bilirubin Dipstick Negative (Negative)
[2024-11-27 11:35] LABS: Mucous, Urine 1+ /hpf (<or=2+); Squamous Epithelial Cells - UA 0-5 SEEN /hpf (5-10)
[2024-11-27] MEDS: Pantoprazole Sodium 80 MG in 0.9% Normal Saline (50mL Bag) 15 ML 420 MG IV BOLUS (13:02)
[2024-11-27] MEDS: 0.9% Normal Saline (1000mL) 1,000 ML 1000 ML IV (13:06)
--- NOTE | 2024-11-27 13:38 | HP.PCM.HOS_ITS ---
HPI - General General Date of Admission: 11/27/24 Date of Service: 11/27/24 Chief Complaint: Patient not feeling good since her last EGD and colonoscopy feeling weak. Melena today HPI Narrative ADEN LINDO, is a 73 F with recent admission in October came to ED with 2024 feeling very weak, dizziness lightheadedness with no energy or walking. She also was getting shortness of breath on walking. No chest pain/pressure or tightness she felt like she will fall when she stand up or walk. She had one- time moderate amount of melena, black stool with surrounding brownish/reddish hue. She also complained of epigastric/RUQ discomfort felt like not but she states it is not pain. In ED, her BP was low 86/55, 89/59, MAP 65 went up with IV fluid normal send bolus 102/54 but again dropped to 97/60. Hemoglobin was 7.8. she had EGD and colonoscopy on 10/30/2024. She is undergoing resuscitation with 1 more liter of Ringer lactate bolus and then admitted. [facility] Medical History Aortic regurgitation Aortic stenosis Anemia Acute upper GI bleed Pneumonia History of stroke History of bladder cancer Hypertension Home Medications ?Medication ?Instructions ?Recorded ?Last Taken ?Type aspirin 81 mg tablet,delayed 81 mg PO DAILY 01/01/20 0 11/26/24 History release amlodipine 5 mg tablet 5 mg PO DAILY #90 tabs 02/1311/26/24 Rx losartan 50 mg tablet 50 mg PO DAILY #90 tabs 01/2011/26/24 Rx magnesium 250 mg tablet 250 mg PO QDAY 05/07/2402/12 History turmeric 400 mg capsule 400 mg PO DAILY 10/28/2402/12 History iron bisglycinate chelate 28 mg PO QDAY #90 caps 11/1911/26/24 Rx Allergy/AdvReac Type Severity Reaction Status Date / Time No Known Allergies Allergy Verified 11/27/24 08:59 Family History Mother Myocardial infarction, Onset Age: 80 Heart disease Hypertension CVA (cerebral vascular accident) Father Myocardial infarction, Onset Age: 56 Surgical History History of hysterectomy Social History Smoking Status: Never smoker alcohol intake: never substance use type: does not use what type of physical activity do you participate in: none ROS ROS Narrative Constitutional: Reports fatigue and weakness. No fever. HEENT: Reports systems reviewed and no addt'l complaints, except as documented Respiratory/Chest: No acute shortness of breath or respiratory distress or wheezing. CVS: No chest pain pressure or tightness Gastrointestinal: No nausea/vomiting/hematemesis. Rest as described in HPI Genitourinary: Denies burning urination or new urinary tract symptoms Musculoskeletal: Denies acute joint pain or limited range of motion. No acute injury Neurologic: Denies seizure-like symptoms. skin: No ulcer. No rash Endocrinology: Reports systems reviewed and no addt'l complaints, except as documented Hematologic/Lymphatic: Reports systems reviewed and no addt'l complaints, except as documented Rest 14 ROS are negative except as mentioned in HPI Vital Signs Vital Signs Vital Signs: 11/27/24 08:59 11/27/24 08:59 11/27/24 09:18 Temperature 97 F L Temperature Source Temporal Pulse Rate 77 66 Respiratory Rate 14 12 Respiratory Effort Normal Respiratory Pattern Normal Blood Pressure 86/55 L 89/59 L Blood Pressure Mean 65 69 Pulse Ox 100 100 Oxygen Delivery Method Room Air Room Air 11/27/24 10:05 11/27/24 11:00 11/27/24 12:00 Temperature Temperature Source Pulse Rate 66 72 89 Respiratory Rate 16 21 H 24 H Respiratory Effort Respiratory Pattern Blood Pressure 102/54 L 101/54 L 90/60 Blood Pressure Mean 70 69 70 Pulse Ox 93 98 100 Oxygen Delivery Method Room Air 11/27/24 13:00 Temperature Temperature Source Pulse Rate 65 Respiratory Rate 19 H Respiratory Effort Respiratory Pattern Blood Pressure 119/58 L Blood Pressure Mean 78 Pulse Ox 100 Oxygen Delivery Method Weight Weight: 170 lb 3.15 oz Body Mass Index (BMI) 31.1 Physical Exam Narrative General: Alert, Oriented x3, Cooperative. BMI 31.1 kg/m?, looks fatigued HEENT: Atraumatic, PERRLA, EOMI, Normocephalic. Oral: No Gingival or Mucosal Lesions/ Ulcerations Neck: Supple, No JVD, Negative Carotid Bruits Chest wall/Lungs: Air entry equal in bilateral lung bases. No crepitation/rhonchi Cardiovascular: Regular rate and rhythm, Normal S1,S2, systolic murmur right second ICS/6. Abdomen: Bowel Sounds Present, Soft, Non Tender, Non-Distended : No dysuria. No renal angle tenderness. No suprapubic tenderness. Extremities: No edema, Capillary Refill Less than 3 Seconds Skin: No rashes, No breakdown Musculoskeletal: No Tenderness to Palpation of Joints or Extremities. Degenerative arthritis of knees. Neurological: Cranial nerves II-XII grossly intact, DTR 2+/4. No acute focal neurological deficit. Psych/Mental Status: Normal Affect, Appropriate. Results Lab / Micro Data 11/27/24 09:17 11/27/24 09:17 Labs: Laboratory Results - last 24 hr 11/27/24 09:16: Blood Type A NEGATIVE, Antibody Screen NEGATIVE 11/27/24 09:17: WBC 8.8, RBC 2.53 L, Hgb 7.8 L, Hct 24.6 L, MCV 97.2, MCH 30.8, MCHC 31.7 L, RDW Std Deviation 46.8 H, RDW Coeff of Roshni 13.2, Plt Count 260, MPV 10.0, Immature Gran % (Auto) 0.300, Neut % (Auto) 85.0 H, Lymph % (Auto) 10.6 L, [place] % (Auto) 3.6, Eos % (Auto) 0.2, Baso % (Auto) 0.3, Absolute Neuts (auto) 7.5, Absolute Lymphs (auto) 0.93, Nucleated RBC % 0, PT 14.2, INR 1.1, APTT 23.8 L, Sodium 139, Potassium 4.6, Chloride 108, Carbon Dioxide 19.3 L, Anion Gap 12, BUN 38 H, Creatinine 1.12, Estim Creat Clear Calc 41.75 L, Est GFR (MDRD) Non-Af 51 L, BUN/Creatinine Ratio 33.6 H, Glucose 155 H, Calcium 8.8, Total Bilirubin 0.82, AST 17, ALT 11, Alkaline Phosphatase 87, Total Protein 6.2, Albumin 3.8, Globulin 2.5, Albumin/Globulin Ratio 1.5 11/27/24 10:40: Urine Color Yellow, Urine Clarity Clear, Urine pH 6.0, Ur Specific [place] 1.020, Urine Protein 30 H, Urine Glucose (UA) Normal, Urine Ketones 5 H, Urine Occult Blood 10 H, Urine Nitrite Positive H, Urine Bilirubin Negative, Urine Urobilinogen Normal, Ur Leukocyte Esterase 100 H, Urine RBC 0 SEEN, Urine WBC 0-5 SEEN, Ur Squamous Epith Cells 0-5 SEEN, Urine Bacteria 1+, Hyaline Casts 0-5 SEEN, Urine Mucus 1+ Micro: Microbiology 11/27/24 12:27 Stool Stool Occult Blood (GERALDO) - Final Occult Blood Positive Imaging Radiology Impression Abdomen/Pelvis CT 11/27/24 09:36 IMPRESSION: Hepatomegaly and fatty infiltration of the liver. Solitary gallstone [facility] Assessment & Plan Assessment/Plan (1) Gastrointestinal bleeding, upper: PLAN: Plan This is a 73-year-old female Came to ED with acute on recurrent GI bleed presented with melena, hypotension and near syncope symptoms. 1. Acute GI bleed most likely upper GI bleed: Patient is being admitted in PCU. 1 more liter of Ringer lactate bolus, IV fluid resuscitation. Keep MAP more than 65, SBP more than 90. Hold antihypertensive medications. H&H every 6 hourly. Keep NPO as she might be taken for EGD today. Type and crossmatch and transfuse if hemoglobin less than 7 g%. GI consulted discussed with Dr. Moreno. 2. Symptomatic anemia: Patient has been symptomatic for about 1 month with fatigue and near syncope symptoms. No fall. Baseline H&H stays between 8 to 9 g. She was 10.3 on 10/28. Currently 7.8/24.6%. Platelet count 260K. IV iron infusion ordered later for the day. At home she is on iron sulfate 3. Aortic stenosis plus aortic regurgitation. 2D echo showed EF 65%, stage I diastolic dysfunction, LA severely enlarged, mild MR, moderately calcified aortic valve with mean peak gradient severely elevated 68 mmHg possible high output state/supravalvular stenosis. Moderate AR. Bioprosthetic aortic valve. RADHA area 1.8 cm. Follow-up cardiology office. 4. Hypertension: Currently patient blood pressure is low. 5. History of remote CVA: No residual defect. Hold baby aspirin. DVT prophylaxis, high risk but patient has active hemorrhage therefore absolute contraindication to pharmacological prophylaxis. Bilateral SCD Living will/advanced directive/end of life care: Patient does not have living will or advanced directive. 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 After discussion of benefits/risks procedures involved with full code, DNR CC arrest and DNR CC, the patient opted for full code. Patient does want artificial life support including intubation, tube feed, ventilator and/chest compression, central venous catheter, vasopressor and DC shock if needed Total time spent in [id number] encounter in discussion of advanced directive 17 minutes. Microbiology Past 72 Hours 11/27/24 12:27 Stool Stool Occult Blood (GERALDO) - Final Occult Blood Positive Laboratory Results 11/27/24 09:16: Blood Type A NEGATIVE, Antibody Screen NEGATIVE 11/27/24 09:17: WBC 8.8, RBC 2.53 L, Hgb 7.8 L, Hct 24.6 L, MCV 97.2, MCH 30.8, MCHC 31.7 L, RDW Std Deviation 46.8 H, RDW Coeff of [place]oshni 13.2, Plt Count 260, MPV 10.0, Immature Gran % (Auto) 0.300, Neut % (Auto) 85.0 H, Lymph % (Auto) 10.6 L, [place] % (Auto) 3.6, Eos % (Auto) 0.2, Baso % (Auto) 0.3, Absolute Neuts (auto) 7.5, Absolute Lymphs (auto) 0.93, Nucleated RBC % 0, PT 14.2, INR 1.1, APTT 23.8 L, Sodium 139, Potassium 4.6, Chloride 108, Carbon Dioxide 19.3 L, Anion Gap 12, BUN 38 H, Creatinine 1.12, Estim Creat Clear Calc 41.75 L, Est GFR (MDRD) Non-Af 51 L, BUN/Creatinine Ratio 33.6 H, Glucose 155 H, Calcium 8.8, Total Bilirubin 0.82, AST 17, ALT 11, Alkaline Phosphatase 87, Total Protein 6.2, Albumin 3.8, Globulin 2.5, Albumin/Globulin Ratio 1.5 11/27/24 10:40: Urine Color Yellow, Urine Clarity Clear, Urine pH 6.0, Ur Specific [place] 1.020, Urine Protein 30 H, Urine Glucose (UA) Normal, Urine Ketones 5 H, Urine Occult Blood 10 H, Urine Nitrite Positive H, Urine Bilirubin Negative, Urine Urobilinogen Normal, Ur Leukocyte Esterase 100 H, Urine RBC 0 SEEN, Urine WBC 0-5 SEEN, Ur Squamous Epith Cells 0-5 SEEN, Urine Bacteria 1+, Hyaline Casts 0-5 SEEN, Urine Mucus 1+ Charges/Coding Visit Charges Inpatient E&M: 36079 Init Hosp L3 Procedures Hospitalists Procedures: 83853 Advncd Care Plan 30 Min
[2024-11-27 14:23] LABS: Magnesium 2.1 mg/dL (1.5-2.2)
--- NOTE | 2024-11-27 15:42 | PRE.ANES_ITS ---
ASA Classification* ASA Classification ASA Classification: 3 and E Assessment & Plan Anesthesia* Anesthesia Assessment Anesthesia Assessment: Discussed sedation and/or anesthesia options, risks, benefits, and alternatives with patient/parents/legal guardian/POA. Questions invited. The patient/parents/legal guardian/POA seems to understand and agrees to proceed with anesthesia plan. Reviewed the physical assessment, medical history, allergy history and patient home medications list prior to surgery/procedure/anesthetic and documented any changes. Performed airway and anesthesia risk assessments. Anesthesia Type Anesthesia Type: MAC History Source History Obtained from:: Patient and Chart Anesthesia Focused Assessment* Temperature: 98.5 F Pulse Rate: 73 Blood Pressure: 111/71 Respiratory Rate: 20 Pulse Ox: 100 Oxygen Delivery Method: Room Air Airway Assessment Mouth opens: >3 cm Mallampati Score: II Teeth Condition: Dentures (Patient has full upper and lower dentures.) Neck Range of motion (ROM): Full ROM Labs Anesthesia Preop lab: CBC WBC 8.8 K/mm3 (4.4-11.0) 11/27/24 09:11/27/24 RBC 2.53 M/mm3 (4.2-5.4) L 11/27/24 09:17 11/27/24 Hgb 7.8 g/dL (12.0-15.0) L 11/27/24 09:17 11/27/24 Hct 24.6 % (37-47) L 11/27/24 09:17 11/27/24 Plt Count 260 K/mm3 (150-450) 11/27/24 09:17 11/27/24 CHEMISTRY Potassium 4.6 mmol/L (3.3-5.1) 11/27/24 09:17 11/27/24 Sodium 139 mmol/L (133-145) 11/27/24 09:11/27/24 Magnesium 2.1 mg/dL (1.5-2.2) 11/27/24 09:11/27/24 Phosphorus 2.1 mg/dL (2.7-4.5) L 11/27/24 09:17 11/27/24 BUN 38 mg/dL (4-19) H 11/27/24 09:17 11/27/24 Creatinine 1.12 mg/dL (0.70-1.20) 11/27/24 09:17 11/27/24 Glucose 155 mg/dL (70-99) H 11/27/24 09:17 11/27/24 TSH 2.64 uIU/mL (0.358-3.74) 02/09/20 16:16 COAG PT 14.2 SECONDS (11.7-14.9) 11/27/24 09:17 Pre-Assessment Diagnosis/Proposed Procedure Planned Operative Procedure(s): Esophagogastroduodenoscopy. 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 When Was Last Pacemaker Check QUESTION #4 FULL TEXT: You/Your Family Experience fever (hyperthermia) with Anesthesia Last Oral Intake Last Oral intake: Last Oral Intake NPO since Meds taken in AM with sips of water? Meds patient instructed to take am of surgery Any additional information?: Yes NPO since: 13:00 (Patient had water about 4 ounces at approximately 1300.) Meds taken in AM with sips of water?: No PONV PONV - water regulator and valve repairer: PONV - water regulator and valve repairer Female HX of Motion Sickness HX of N/V After Surgery Non-Smoker Duration of Surgery greater than 60 minutes Number of Risk Factors PONV Score Height & Weight Height & Weight: Anesthesia: Height & Weight Height 5 ft 2 in 11/27/24 08:59 Weight: 77.2 kg 11/27/24 09:19 Body Mass Index (BMI) 31.1 11/27/24 09:19 Respiratory Assessment Respiratory Assessment - water regulator and valve repairer: Respiratory Tract Infection Hx - water regulator and valve repairer Hx Respiratory Tract Infection Any additional information?: Yes Hx Respiratory Tract Infection: No STOP Sleep Apnea STOP Sleep Apnea - water regulator and valve repairer: STOP Sleep Apnea - water regulator and valve repairer Hx Hypertension No 10/28/24 16:40 Hx Sleep Apnea No 10/30/24 17:29 CPAP BIPAP Do you snore loudly (louder than talking or can be heard Do you often feel tired/ fatigued/ sleepy during daytime? Has anyone observed you stop breathing during sleep? STOP Results QUESTION #5 FULL TEXT : Do you snore loudly (louder than talking or can be heard through closed doors)? 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 Specify any problems Hx of Preganancy in last 3 Months Nurse Filling Out Transfusion & Questions: Date: Time: Patient unable to answer at this time (ie. confused, unrespo /Reproduction History /Reproductive History - water regulator and valve repairer: /Reproductive Hx- water regulator and valve repairer Hx Now Gestational Age (in weeks): EDC: Hx Hx Para [facility] Medical History Aortic regurgitation Aortic stenosis Anemia Acute upper GI bleed Pneumonia History of stroke History of bladder cancer Hypertension Home Medications ?Medication ?Instructions ?Recorded ?Last Taken ?Type aspirin 81 mg tablet,delayed 81 mg PO DAILY 01/01/20 0 11/26/24 History release amlodipine 5 mg tablet 5 mg PO DAILY #90 tabs 02/1311/26/24 Rx losartan 50 mg tablet 50 mg PO DAILY #90 tabs 01/2011/26/24 Rx magnesium 250 mg tablet 250 mg PO QDAY 05/07/2402/12 History turmeric 400 mg capsule 400 mg PO DAILY 10/28/2402/12 History iron bisglycinate chelate 28 mg PO QDAY #90 caps 11/1911/26/24 Rx Allergy/AdvReac Type Severity Reaction Status Date / Time No Known Allergies Allergy Verified 11/27/24 08:59 Family History Mother Myocardial infarction, Onset Age: 80 Heart disease Hypertension CVA (cerebral vascular accident) Father Myocardial infarction, Onset Age: 56 Surgical History (Updated 11/27/24 @ 15:[address] Jesus Bradshaw MD) H/O esophagogastroduodenoscopy History of hysterectomy Social History Smoking Status: Never smoker alcohol intake: never substance use type: does not use what type of physical activity do you participate in: none Review of Systems (Anesthesia) ROS Narrative System reviewed and no additional complaints, except as documented.
--- NOTE | 2024-11-27 16:11 | CON.PCM.GI_ITS ---
HPI Consult Data Date of Consult: 11/27/24 HPI Narrative Reason for Consultation: GI bleed HPI Narrative: ADEN LINDO, is a 73-year-old white female who is known to the GI service was seen in the emergency room at [facility] with complaints of rectal bleeding and melanotic appearing stools. Her previous CBC showed a hemoglobin of 10.3, chemistry profile showed a BUN of 46 but was otherwise unremarkable. Patient was admitted to PCU and CBCs were monitored, patient did not require any blood transfusion. Patient underwent an EGD which showed chronic gastritis and no evidence of bleeding. Patient then underwent a colonoscopy the next day which showed areas compatible with ischemic colitis. Patient presents to the ER with bloody stools with began today. Patient states she has been feeling weak. Patient states this was because she was using [id number] laxatives. Patient states she stopped using the laxatives. Patient states she has been feeling better until today when she noted some blood in her stools. Patient states it was dark red blood. Patient states she feels weak. Patient admits to some abdominal discomfort where it feels like her stomach is in a knot. Patient admits to some nausea but denies any vomiting. Patient admits to some generalized weakness. Her hemoglobin in the ER was 7.8 with a normal MCV and normal platelet count. Her BUN/creatinine ratio was elevated at 38-1.7. She only takes 81 mg of aspirin plus tumeric. [facility] Medical History Aortic regurgitation Aortic stenosis Anemia Acute upper GI bleed Pneumonia History of stroke History of bladder cancer Hypertension Home Medications ?Medication ?Instructions ?Recorded ?Last Taken ?Type aspirin 81 mg tablet,delayed 81 mg PO DAILY 01/01/20 0 11/26/24 History release amlodipine 5 mg tablet 5 mg PO DAILY #90 tabs 02/1311/26/24 Rx losartan 50 mg tablet 50 mg PO DAILY #90 tabs 01/2011/26/24 Rx magnesium 250 mg tablet 250 mg PO QDAY 05/07/2402/12 History turmeric 400 mg capsule 400 mg PO DAILY 10/28/2402/12 History iron bisglycinate chelate 28 mg PO QDAY #90 caps 11/1911/26/24 Rx Allergy/AdvReac Type Severity Reaction Status Date / Time No Known Allergies Allergy Verified 11/27/24 08:59 Family History Mother Myocardial infarction, Onset Age: 80 Heart disease Hypertension CVA (cerebral vascular accident) Father Myocardial infarction, Onset Age: 56 Surgical History H/O esophagogastroduodenoscopy History of hysterectomy Social History Smoking Status: Never smoker alcohol intake: never substance use type: does not use what type of physical activity do you participate in: none ROS Constitutional Constitutional: Denies fatigue, fever(s), poor appetite, weight gain or weight loss Gastrointestinal Gastrointestinal: Denies belching, bloating, change in bowel habits, change in stool character, chewing difficulty, coffee ground emesis, constipation, cramping, diarrhea, dyspepsia, dysphagia, early satiety, excessive flatus, fecal incontinence, heartburn, hematemesis, hematochezia, hemorrhoids, loose stools, melena, nausea, odynophagia, rectal bleeding, tenesmus, vomiting or weight changes Physical Exam Const alert, oriented x3, no apparent distress and healthy appearing General Appearance: cooperative GI normal to inspection, nondistended, normoactive bowel sounds, soft to palpation, non-tender and non-distended Percussion: normal to percussion Rectal Exam: deferred Lab / Micro Data 11/27/24 09:17 11/27/24 09:17 Labs: Laboratory Results - last 24 hr 11/27/24 09:16: Blood Type A NEGATIVE, Antibody Screen NEGATIVE 11/27/24 09:17: WBC 8.8, RBC 2.53 L, Hgb 7.8 L, Hct 24.6 L, MCV 97.2, MCH 30.8, MCHC 31.7 L, RDW Std Deviation 46.8 H, RDW Coeff of Roshni 13.2, Plt Count 260, MPV 10.0, Immature Gran % (Auto) 0.300, Neut % (Auto) 85.0 H, Lymph % (Auto) 10.6 L, [place] % (Auto) 3.6, Eos % (Auto) 0.2, Baso % (Auto) 0.3, Absolute Neuts (auto) 7.5, Absolute Lymphs (auto) 0.93, Nucleated RBC % 0, PT 14.2, INR 1.1, APTT 23.8 L, Sodium 139, Potassium 4.6, Chloride 108, Carbon Dioxide 19.3 L, Anion Gap 12, BUN 38 H, Creatinine 1.12, Estim Creat Clear Calc 41.75 L, Est GFR (MDRD) Non-Af 51 L, BUN/Creatinine Ratio 33.6 H, Glucose 155 H, Calcium 8.8, Phosphorus 2.1 L, Magnesium 2.1, Total Bilirubin 0.82, AST 17, ALT 11, Alkaline Phosphatase 87, Total Protein 6.2, Albumin 3.8, Globulin 2.5, Albumin/Globulin Ratio 1.5 11/27/24 10:40: Urine Color Yellow, Urine Clarity Clear, Urine pH 6.0, Ur Specific [place] 1.020, Urine Protein 30 H, Urine Glucose (UA) Normal, Urine Ketones 5 H, Urine Occult Blood 10 H, Urine Nitrite Positive H, Urine Bilirubin Negative, Urine Urobilinogen Normal, Ur Leukocyte Esterase 100 H, Urine RBC 0 SEEN, Urine WBC 0-5 SEEN, Ur Squamous Epith Cells 0-5 SEEN, Urine Bacteria 1+, Hyaline Casts 0-5 SEEN, Urine Mucus 1+ Micro: Microbiology 11/27/24 12:27 Stool Stool Occult Blood (GERALDO) - Final Occult Blood Positive Imaging Radiology Impression Abdomen/Pelvis CT 11/27/24 09:36 IMPRESSION: Hepatomegaly and fatty infiltration of the liver. Solitary gallstone Reading Location: [facility] Assessment & Plan Assessment/Plan (1) Gastrointestinal bleeding, upper: (2) Anemia: PLAN: 73-year-old who was recently in the hospital for acute GI bleed and was discovered to have ischemic colitis. She comes in now with recurrent GI bleeding. Hemoglobin is down to 7.8. She is on a PPI drip. Because of her elevated BUN/creatinine ratio I think she would benefit from an upper endoscopy. She may need a capsule endoscopy. She was explained alternatives, risk and benefits include not withstanding bleeding, infection, subs, perforation, need for surgery . She will have an ASA of 3. Charges/Coding Visit Charges Inpatient E&M: 19820 Init Hosp L3
--- NOTE | 2024-11-27 17:34 | OP.EGD_ITS ---
Patient Name: Ida Sen Procedure Date: 11/27/2024 3:42 PM Date of : 1950 Age: 73 Procedure: Upper GI endoscopy Indications: Epigastric abdominal pain, Melena Providers: Ney Moreno DO Medicines: Monitored Anesthesia Care Patient Profile: This is a 73 year old female. Refer to note in patient chart for documentation of history and physical. Patient has symptoms of acute epigastric abdominal pain. Complications: No immediate complications. Procedure: Pre-Anesthesia Assessment: - Prior to the procedure, a History and Physical was performed, and patient medications and allergies were reviewed. The patient is competent. The risks and benefits of the procedure and the sedation options and risks were discussed with the patient. All questions were answered and informed consent was obtained. Patient identification and proposed procedure were verified by the physician in the pre-procedure area. Mental Status Examination: alert and oriented. Airway Examination: normal oropharyngeal airway and neck mobility. Respiratory Examination: clear to auscultation. CV Examination: normal. Prophylactic Antibiotics: The patient does not require prophylactic antibiotics. Prior Anticoagulants: The patient has taken no anticoagulant or antiplatelet agents except for NSAID medication. ASA Grade Assessment: II - A patient with mild systemic disease. After reviewing the risks and benefits, the patient was deemed in satisfactory condition to undergo the procedure. The anesthesia plan was to use monitored anesthesia care (MAC). Immediately prior to administration of medications, the patient was re-assessed for adequacy to receive sedatives. The heart rate, respiratory rate, oxygen saturations, blood pressure, adequacy of pulmonary ventilation, and response to care were monitored throughout the procedure. The physical status of the patient was re-assessed after the procedure. After obtaining informed consent, the endoscope was passed under direct vision. Throughout the procedure, the patient's blood pressure, pulse, and oxygen saturations were monitored continuously. The colonoscope was introduced through the mouth, and advanced to the jejunum. Small bowel enteroscopy was deemed necessary. The upper GI endoscopy was accomplished without difficulty. The patient tolerated the procedure well. Scope In: 4:35:52 PM Scope Out: 5:22:29 PM Total Procedure Duration Time 0 hours 46 minutes 37 seconds Findings: The examined esophagus was normal. Two oozing cratered gastric ulcers with pigmented material were found in the cardia. The largest lesion was 16 mm in largest dimension. To stop active bleeding, one hemostatic clip was successfully placed. Clip silk soaker: AppTrigger. There was no bleeding at the end of the procedure. Coagulation for hemostasis using argon plasma at 0.4 liters/minute and 30 talbot was successful. Estimated blood loss was minimal. One spurting cratered gastric ulcer with a visible vessel was found in the gastric body. The lesion was 21 mm in largest dimension. Coagulation for hemostasis using argon plasma at 0.4 liters/minute and 30 talbot was successful. Estimated blood loss was minimal. One non-bleeding linear duodenal ulcer with no stigmata of bleeding was found in the duodenal bulb. The lesion was 6 mm in largest dimension. Coagulation for destruction of remaining portion of lesion using argon plasma at 0.3 liters/minute and 20 talbot was successful. Estimated blood loss was minimal. Impression: - Normal esophagus. - Oozing gastric ulcers with pigmented material. Clip was placed. Clip silk soaker: AppTrigger. Treated with argon plasma coagulation (APC). - Spurting gastric ulcer with a visible vessel. Treated with argon plasma coagulation (APC). - Non-bleeding duodenal ulcer with no stigmata of bleeding. Treated with argon plasma coagulation (APC). - No specimens collected. Recommendation: - Return patient to hospital [facility] for ongoing care. - Clear liquid diet. - Continue present medications. - No NSAIDs including aspirin - Carafate 1 g 4 times a day - Continue PPI drip - N.p.o. past midnight for possible repeat endoscopy tomorrow Procedure Code(s): --- Professional --- 55466, Small intestinal endoscopy, enteroscopy beyond second portion of duodenum, not including ileum; with ablation of tumor(s), polyp(s), or other lesion(s) not amenable to removal by hot biopsy forceps, bipolar cautery or snare technique 42008, 59,51, Small intestinal endoscopy, enteroscopy beyond second portion of duodenum, not including ileum; with control of bleeding (eg, injection, bipolar cautery, unipolar cautery, laser, heater probe, stapler, plasma social service assistant) CPT copyright 2021 [employer]. All rights reserved. The codes documented in this report are preliminary and upon shrimp peeling machine tender review may be revised to meet current compliance requirements. Ney Moreno DO 11/27/2024 5:33:48 PM This report has been signed electronically. Number of Addenda: 0 Note Initiated On: 11/27/2024 3:42 PM
--- NOTE | 2024-11-27 17:34 | OP.CCLET_ITS ---
11/27/2024 Shirin De Oliveira [facility] [address] [place] [address] Re : Upper GI endoscopy procedure for Ida Sen Dear Dr. De Oliveira This procedure was performed on November. My impressions and recommendations are as follows: Impressions : - Normal esophagus. - Oozing gastric ulcers with pigmented material. Clip was placed. 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 Treated with argon plasma coagulation (APC). - Spurting gastric ulcer with a visible vessel. Treated with argon plasma coagulation (APC). - Non-bleeding duodenal ulcer with no stigmata of bleeding. Treated with argon plasma coagulation (APC). - No specimens collected. Recommendations : - Return patient to hospital [facility] for ongoing care. - Clear liquid diet. - Continue present medications. - No NSAIDs including aspirin - Carafate 1 g 4 times a day - Continue PPI drip - N.p.o. past midnight for possible repeat endoscopy tomorrow My findings are described in the full procedure note, which is enclosed. If I can be of further assistance, please feel free to contact me at . Sincerely, Ney Moreno, 11/27/2024 5:33:48 PM This report has been signed electronically.
--- NOTE | 2024-11-27 17:35 | PCM.POST.ANE ---
Anesthesia: Postop Eval I Current Vital Signs Temperature: 97.1 F Pulse Rate: 81 Blood Pressure: 90/41 Respiratory Rate: 14 Pulse Ox: 98 Oxygen Delivery Method: Venturi Mask Oxygen Flow Rate (L/min): 6 Assessment Airway patent: Yes Spontaneous unlabored respirations: Yes Mental status: Awake and Calm nausea: No Vomiting: No Anesthesia Complication: No Fluid Hydration Crystalloid volume administer (ml): 500 Total IV fluid infused: 500 Progress Note Anesthesia document: Postop Eval 1 completed: Yes
[2024-11-27] MEDS: 0.9% Saline Lock 10 ML Syringe IV ×2 (19:05→21:20)
[2024-11-27] MEDS: Lactated Ringers 1,000 ML 125 ML IV (19:05)
[2024-11-27] MEDS: Magnesium Chloride 64 MG Delay Rel.Tablet PO (19:23)
[2024-11-27 20:26] LABS: Hematocrit 21.2 % (37-47); Hemoglobin 6.7 g/dL (12.0-15.0)
--- NOTE | 2024-11-27 21:10 | PCM.HOSP.N ---
Hospitalist Note Repeat hemoglobin 6.7 this evening, down from 7.8 this morning. Will give 1 unit of blood now and repeat hemoglobin after transfusion is completed.
[2024-11-27] MEDS: Pantoprazole Sodium 40 MG in 0.9% Normal Saline (100mL MB+) 100 ML 300 MG IV (21:20)
--- NOTE | 2024-11-27 21:33 | POSTOPAN2_ITS ---
Anesthesia Postop Eval I Sum Postop Eval Completion status Anesthesia document: Postop Eval 1 completed: Yes Anesthesia Postop Eval I Summary Anesthesia Postop Eval I Summary: Anesthesia Postop Eval I: Assessment Summary Airway patent Yes 11/27/24 17:35 [email or web address] Spontaneous unlabored Yes 11/27/24 17:35 [email or web address] respirations Mental status Awake,Calm 11/27/24 17:35 [email or web address] nausea No 11/27/24 17:35 [email or web address] Vomiting No 11/27/24 17:35 [email or web address] Anesthesia Postop Eval I: Fluid Summary Crystalloid volume administer 500 11/27/24 17:35 [email or web address] (ml) Colloids volume administered ( ml) Blood Product volume administered (ml) Total IV fluid infused 500 11/27/24 17:35 [email or web address] Anesthesia Postop Eval I: Summary Notes Anesthesia Complication No 11/27/24 17:35 [email or web address] Anesthesia Complication Comment: Post-operative progress note Anesthesia: Postop Eval II Evaluation Mental status: Asleep Pain Level: 0 nausea: Yes Vomiting: Yes Progress Note Post-operative progress note: Patient had more bloody emesis in PACU. Afterwards seem to settle down. Complications Anesthesia Complication: No
--- NOTE | 2024-11-27 21:33 | PCM.POSTANE2 ---
Anesthesia Postop Eval I Sum Postop Eval Completion status Anesthesia document: Postop Eval 1 completed: Yes Anesthesia Postop Eval I Summary Anesthesia Postop Eval I Summary: Anesthesia Postop Eval I: Assessment Summary Airway patent Yes 11/27/24 17:35 [email or web address] Spontaneous unlabored Yes 11/27/24 17:35 [email or web address] respirations Mental status Awake,Calm 11/27/24 17:35 [email or web address] nausea No 11/27/24 17:35 [email or web address] Vomiting No 11/27/24 17:35 [email or web address] Anesthesia Postop Eval I: Fluid Summary Crystalloid volume administer 500 11/27/24 17:35 [email or web address] (ml) Colloids volume administered ( ml) Blood Product volume administered (ml) Total IV fluid infused 500 11/27/24 17:35 [email or web address] Anesthesia Postop Eval I: Summary Notes Anesthesia Complication No 11/27/24 17:35 [email or web address] Anesthesia Complication Comment: Post-operative progress note Anesthesia: Postop Eval II Evaluation Mental status: Asleep Pain Level: 0 nausea: Yes Vomiting: Yes Progress Note Post-operative progress note: Patient had more bloody emesis in PACU. Afterwards seem to settle down. Complications Anesthesia Complication: No
[2024-11-27] MEDS: Sodium Ferric Gluconat/Sucrose 250 MG in 0.9% Normal Saline (250mL Bag) 250 ML 135 MG IV (21:43)
--- OUTSIDE RECORDS SUMMARY | 2024-11-27 22:12 | XMS RPT_ITS | CCD ---
Author Organization [facility] Care Team Providers Care Waitstaff Name Role Phone BERNICE DE LA TORRE Attending Unavailable BERNICE DE LA TORRE Consulting Unavailable BERNICE DE LA TORRE Primary Care Unavailable BERNICE DE LA TORRE Admitting Unavailable PROVIDER, UNKNOWN Consulting Unavailable Britt CAMACHO, Dr. Carpio Primary Care Provider Camacho CAMACHO, Dr. Adamson Emergency Provider Kevin VELOZ, Dr. Jack Admit Provider Dr. Guero Pagan DO Attending Provider Dr. Guero Pagan DO Other Provider Lisa VELOZ, Dr. Buchanan Attending Provider Dr. Arya Johnson MD Attending Provider Dr. Dewayne Gonzalez DO Other Provider Dr. Ney Moreno DO Attending Provider Dr. Dewayne Gonzalze DO Referring Provider Britt CAMACHO, Dr. Carpio Attending Provider Dewayne Gonzalez Attending Unavailable Guero Pagan Consulting Unavailable Guero Pagan Admitting Unavailable Britt, Bernice Primary Care Unavailable Dewayne Gonzalez Consulting Unavailable Guero Pagan Attending Unavailable Ney Moreno Attending Unavailable Dewayne Gonzalez Referring Unavailable Bernice De La Torre Attending Unavailable Britt, Bernice Primary Care Unavailable Britt, Bernice Primary Care Unavailable Bernice De La Torre Attending Unavailable Ney Moreno Attending Unavailable Dewayne Gonzalez Referring Unavailable Britt, Bernice Primary Care Unavailable Britt, Bernice Primary Care Unavailable Arya Johnson Attending Unavailable BrittBernice ceballos Primary Care Unavailable Britt, Bernice Attending Unavailable Guero Pagan Admitting Unavailable Dewayne Gonzalez Attending Unavailable Guero Pagan Consulting Unavailable Bernice De La Torre Primary Care Unavailable Dr. Harvey Morrissey DO Emergency Provider Yash CAMACHO, Dr. Souza Admit Provider Yash CAMACHO, Dr. Souza Attending Provider Yash CAMACHO, Dr. Souza Other Provider Medications Current Medications Medication Drug Class(es) Dates Sig (Normalized) Sig (Original) aspirin 81 mg delayed release oral tablet (4 sources) Platelet Aggregation Inhibitor, Nonsteroidal Anti-inflammatory Drug Start: 01-01-2020 take 1 tablet by mouth once daily Aspirin 81 mg tablet,delayed release (DR/EC) Active 81 mg PO DAILY January 01, 2020 12:00am Iron Bisglycinate Chelate 28 mg iron capsule (2 sources) Start: 11-19-2024 take 1 capsule by mouth once daily Iron Bisglycinate Chelate 28 mg iron capsule Active 28 mg PO daily 90 November 19, 2024 12:00am Magnesium (4 sources) Start: 05-07-2024 take 1 tablet by mouth once daily Magnesium 250 mg tablet Active 250 mg PO daily May 07, 2024 1:00am Turmeric extract (4 sources) Start: 10-28-2024 take 1 capsule by mouth once daily Turmeric 400 mg capsule Active 400 mg PO DAILY October 28, 2024 12:00am Completed/Discontinued Medications Medication Drug Class(es) Dates Sig (Normalized) Sig (Original) amLODIPine 5 mg oral tablet (20 sources) Dihydropyridine Calcium Channel José Miguel Start: 01-01-2020 End: 02-14-2024 take 1 tablet by mouth once daily Amlodipine 5 mg tablet Discontinued 5 mg PO DAILY 90 3 March 21, 2023 11:24am February 14, 2024 3:39pm azithromycin 500 mg oral tablet (4 sources) Macrolide Antimicrobial Start: 05-07-2024 End: 05-14-2024 take 1 tablet by mouth once daily Azithromycin (Zithromax) 500 mg tablet Discontinued 500 mg PO daily 7 7 0 May 07, 2024 1:00am May 13, 2024 1:00am May 14, 2024 1:09am losartan potassium 50 mg oral tablet (20 sources) Angiotensin 2 Receptor José Miguel Start: 01-01-2020 End: 02-14-2024 take 1 tablet by mouth once daily Losartan 50 mg tablet Discontinued 50 mg PO DAILY 90 3 March 21, 2023 11:24am February 14, 2024 3:39pm Beulah-3 Fatty Acids 1,000 mg capsule (4 sources) Start: 05-07-2024 End: 10-28-2024 take 1 capsule by mouth once daily Beulah-3 Fatty Acids 1,000 mg capsule Discontinued 1000 mg PO daily May 07, 2024 1:00am October 28, 2024 11:25am Problems Problem Classification Problem Date Documented Da te Episodic/Chronic Cancer of bladder (8 sources) H/O: malignant neoplasm; Translations: [Personal history of malignant neoplasm of bladder] 01-01-2020 Episodic Deficiency and other anemia (10 sources) Anemia; Translations: [Anemia, unspecified] 10-28-2024 Episodic Deficiency and other anemia (2 sources) Anemia, unspecified; Translations: [Anemia, unspecified] Onset: 5 Episodic Essential hypertension (6 sources) Hypertensive disorder; Translations: [Essential (primary) hypertension] Onset: 5 01-01-2020 Chronic Fracture of lower limb (4 sources) Fracture of distal end of fibula; Translations: [Other fracture of upper and lower end of unspecified fibula, initial encounter for closed fracture] 04-28-2021 Episodic Gastrointestinal hemorrhage (12 sources) Acute upper gastrointestinal hemorrhage; Translations: [Gastrointestinal hemorrhage, unspecified] Onset: 5 10-28-2024 Episodic Heart valve disorders (5 sources) Aortic valve regurgitation; Translations: [Nonrheumatic aortic (valve) insufficiency] 11-19-2024 Chronic Other circulatory disease (4 sources) History of cerebrovascular accident; Translations: [Personal history of transient ischemic attack (TIA), and cerebral infarction without residual deficits] 01-01-2020 Episodic Pneumonia (except that caused by tuberculosis or sexually transmitted disease) (5 sources) Pneumonia; Translations: [Pneumonia, unspecified organism] Onset: 4 05-07-2024 Episodic Residual codes; unclassified (4 sources) Pain, unspecified; Translations: [Pain aggravated by walking] 04-28-2021 Episodic Sprains and strains (4 sources) Sprain of left knee; Translations: [Sprain of unspecified site of left knee, initial encounter] 04-28-2021 Episodic Results Test Name Value Interpretation Reference Range Facility Absolute lymphocyte countOrd ered By: Harvey Morrissey on 11-27-2024 Lymphocytes Auto (Unsp spec) [#/Vol] 0.93 10*3/uL 0.83-4.51 [facility] Absolute neutrophil countOrd ered By: Harvey Morrissey on 11-27-2024 Neutrophils (Bld) [#/Vol] 7.5 10*3/uL 2.0-7.7 [facility] Activated partial thrombopla stin time (aPTT) in platelet poor plasma by coagulation aOrdered By: Harvey Morrissey on 11-27-2024 aPTT Coag (PPP) [Time] 23.8 s Low 24.1-36.2 [facility] Anion gap in Serum or Plasma Ordered By: Harvey Morrissey on 11-27-2024 Anion gap [Moles/Vol] 12 mmol/L 5-15 [facility] Automated lymphocyte count a s percentage of total leukocytesOrdered By: Harvey Morrissey on 11-27-2024 Lymphocytes/100 WBC Auto (Unsp spec) 10.6 % Low 19-41 [facility] BUN/creatinine ratioOrdered By: Harvey Morrissey on 11-27-2024 Urea nitrogen/Creatinine [Mass ratio] 33.6 mg/mg High 10-20 [facility] Basophil percentageOrdered B y: Harvey Morrissey on 11-27-2024 Basophils/100 WBC (Bld) 0.3 % 0-1 [facility] Bilirubin Test strip Ql (U)O rdered By: Harvey Morrissey on 11-27-2024 Bilirubin Ql (U) Negative Negative [facility] Bilirubin, totalOrdered By: Harvey Morrissey on 11-27-2024 Bilirubin [Mass/Vol] 0.82 mg/dL 0.00-1.30 [facility] Carbon dioxide, total [Moles /volume] in Central venous bloodOrdered By: Harvey Morrissey on 11-27-2024 CO2 [Moles/Vol] 19.3 mmol/L Low 21.0-32.0 [facility] Chloride assayOrdered By: Ye Morrissey on 11-27-2024 Chloride [Moles/Vol] 108 mmol/L 98-108 [facility] Eosinophil percentageOrdered By: Harvey Morrissey 11-27-2024 Eosinophils/100 WBC (Bld) 0.2 % 0-5 [facility] Erythrocyte distribution wid th ratioOrdered By: Harvey Morrissey on 11-27-2024 Erythrocyte distribution width (RBC) [Ratio] 13.2 % 11.6-14.6 [facility] Erythrocyte distribution wid th standard deviationOrdered By: Harvey Morrissey on 11-27-2024 Erythrocyte distribution width (RBC) [Ratio] 46.8 fl High 35.1-43.9 [facility] Glomerular filtration rate ( GFR) estimation/1.73 sq m using serum, plasma, or whole bOrdered By: Harvey Morrissey on 11-27-2024 GFR/1.73 sq M.predicted among non-blacks MDRD (S/P/Bld) [Vol rate/Area] 51 mL/min/{1.73_m2} Low >60 [facility] Comment on above: mL/min/1.73m2 CKD-EP I Creatinine Equation (2020) Hematocrit Auto (Bld) [Volum e fraction]Ordered By: Harvey Morrissey 11-27-2024 Hematocrit (Bld) [Volume fraction] 24.6 % Low 37-47 [facility] Hemoglobin measurementOrdere d By: Harvey Morrissey 11-27-2024 Hemoglobin (Bld) [Mass/Vol] 7.8 g/dL Low 12.0-15.0 [facility] Hyaline casts LM.LPF (Urine sed) [#/Area]Ordered By: Harvey Morrissey 11-27-2024 Hyaline casts (Urine sed) [#/Area] 0 /[LPF] 0-5 [facility] Immature granulocytes/100 WB C Auto (Bld)Ordered By: Harvey Morrissey 11-27-2024 Immature granulocytes/100 WBC (Bld) 0.300 % 0.0-0.9 [facility] Comment on above: IG% - Immature Granu locytes (promyelocytes, myelocytes and metamyelocytes) > 1% indicates that a LEFT SHIFT is Present. International normalized rat io (INR) calculationOrdered By: Harvey Morrissey on 11-27-2024 INR Coag (Bld) [Relative time] 1.1 {INR} [facility] Ketones Test strip Ql (U)Ord ered By: Harvey Morrissey on 11-27-2024 Ketones Ql (U) 5 mg/dl High Negative [facility] Laboratory - Chemistry and C hemistry - challengeOrdered By: Harvey Morrissey on 11-27-2024 AST [Catalytic activity/Vol] 17 U/L <32 [facility] MCV (mean corpuscular volume ) determinationOrdered By: Harvey Morrissey on 11-27-2024 MCV (RBC) [Entitic vol] 97.2 fL 81-99 [facility] Magnesium measurement (mass/ volume)Ordered By: Harley Berrios on 11-27-2024 Magnesium (Unsp spec) [Mass/Vol] 2.1 mg/dL 1.5-2.2 [facility] Mean corpuscular hemoglobin (MCH) determinationOrdered By: Harvey Morrissey on 11-27-2024 MCH (RBC) [Entitic mass] 30.8 pg 27.0-32.0 [facility] Mean corpuscular hemoglobin concentration (MCHC) determinationOrdered By: Harvey Morrissey on 11-27-2024 MCHC (RBC) [Mass/Vol] 31.7 g/dL Low 32-36 [facility] Mean platelet volume determi nationOrdered By: Harvey Morrissey on 11-27-2024 Platelet mean volume (Bld) [Entitic vol] 10.0 fL 6.2-12.0 [facility] Microscopic analysis of urin e for red blood cells (RBC)Ordered By: Harvey Morrissey on 11-27-2024 Microscopic analysis of urine for red blood cells (RBC) 0 SEEN /hpf 0-5 [facility] Monocyte percentageOrdered B y: Harvey Morrissey on 11-27-2024 Monocytes/100 WBC (Bld) 3.6 % 0-10 [facility] Mucus LM Ql (Urine sed)Order ed By: Harvey Morrissey on 11-27-2024 Mucus Ql (Urine sed) 1+ /hpf [facility] Neutrophil percentageOrdered By: Harvey Morrissey on 11-27-2024 Neutrophils/100 WBC (Bld) 85.0 % High 47-70 [facility] Nitrite Test strip Ql (U)Ord ered By: Harvey Morrissey on 11-27-2024 Nitrite Ql (U) Positive High Negative [facility] Nucleated red blood cell per centageOrdered By: Harvey Morrissey on 11-27-2024 Nucleated RBC/100 WBC (Bld) [Ratio] 0 % 0-5 [facility] Platelet countOrdered By: Ye Morrissey on 11-27-2024 Platelets (Bld) [#/Vol] 260 10*3/uL 150-450 [facility] Potassium measurement (mass/ volume)Ordered By: Harvey Morrissey on 11-27-2024 Potassium (Unsp spec) [Mass/Vol] 4.6 mmol/L 3.3-5.1 [facility] Protein Test strip Ql (U)Ord ered By: Harvey Morrissey on 11-27-2024 Protein Ql (U) 30 mg/dl High Negative [facility] Prothrombin timeOrdered By: Harvey Morrissey on 11-27-2024 PT Coag (PPP) [Time] 14.2 s 11.7-14.9 [facility] RBC Auto (Bld) [#/Vol]Ordere d By: Harvey Morrissey on 11-27-2024 RBC (Bld) [#/Vol] 2.53 10*6/uL Low 4.2-5.4 [facility] Serum creatinine measurement (mass/volume)Ordered By: Harvey Morrissey on 11-27-2024 Creatinine [Mass/Vol] 1.12 mg/dL 0.70-1.20 [facility] Serum globulin measurementOr dered By: Harvey Morrissey on 11-27-2024 Globulin (S) [Mass/Vol] 2.5 g/dL 2.2-4.2 [facility] Serum glucose measurement (m ass/volume)Ordered By: Harvey Morrissey on 11-27-2024 Glucose [Mass/Vol] 155 mg/dL High 70-99 [facility] Serum or plasma alanine jackson otransferase (ALT) measurementOrdered By: Harvey Morrissey on 11-27-2024 ALT [Catalytic activity/Vol] 11 U/L <35 [facility] Serum or plasma albumin armen urement (mass/volume)Ordered By: Harvey Morrissey on 11-27-2024 Albumin [Mass/Vol] 3.8 g/dL 3.4-4.8 [facility] Serum or plasma albumin/glob ulin mass ratioOrdered By: Harvey Morrissey on 11-27-2024 Albumin/Globulin [Mass ratio] 1.5 {ratio} 0.9-2.4 [facility] Serum or plasma alkaline erasmo sphatase measurementOrdered By: Harvey Morrissey on 11-27-2024 ALP [Catalytic activity/Vol] 87 U/L 35-104 [facility] Serum or plasma calcium armen urement (mass/volume)Ordered By: Harvey Morrissey on 11-27-2024 Calcium [Mass/Vol] 8.8 mg/dL 7.6-11.0 [facility] Serum or plasma urea nitroge n measurement (mass/volume)Ordered By: Harvey Morrissey on 11-27-2024 Urea nitrogen [Mass/Vol] 38 mg/dL High 4-19 [facility] Sodium levelOrdered By: Harvey Morrissey on 11-27-2024 Sodium [Moles/Vol] 139 mmol/L 133-145 [facility] Squamous epithelial cells de tection in urine sediment by light microscopyOrdered By: Harvey Morrissey on 11-27-2024 Epithelial cells.squamous LM Ql (Urine sed) 0-5 SEEN /hpf 5-10 [facility] Stool gastrointestinal hemog lobin detection by immunologic methodOrdered By: Harvey Morrissey on 11-27-2024 Lower GI hemoglobin IA Ql (Stl) Positive Abnormal [facility] Total proteinOrdered By: Mary Morrissey on 11-27-2024 Protein [Mass/Vol] 6.2 g/dL 5.9-8.4 [facility] Urine clarityOrdered By: Mary Morrissey on 11-27-2024 Clarity (U) Clear Clear [facility] Urine color determinationOrd ered By: Harvey Morrissey on 11-27-2024 Color (U) Yellow Yellow [facility] Urine glucose detectionOrder ed By: Harvey Morrissey on 11-27-2024 Glucose Ql (U) Normal mg/dl Normal [facility] Urine leukocyte esterase det ection by dipstickOrdered By: Harvey Morrissey on 11-27-2024 Leukocyte esterase Test strip Ql (U) 100 /ul High Negative [facility] Urine pHOrdered By: Harvey harris on 11-27-2024 pH (U) 6.0 [pH] 5.0 - 8.0 [facility] Urine sediment bacteria coun t by microscopy (number/high power field)Ordered By: Harvey Morrissey on 11-27-2024 Bacteria LM.HPF (Urine sed) [#/Area] 1 /[HPF] None Seen [facility] Urine specific gravity measu rementOrdered By: Harvey Morrissey on 11-27-2024 Specific gravity (U) [Rel density] 1.020 1.002-1.030 [facility] Urine urobilinogen measureme ntOrdered By: Harvey Morrissey on 11-27-2024 Urobilinogen Ql (U) Normal mg/dl Normal [facility] White blood cell (WBC) count Ordered By: Harvey Morrissey on 11-27-2024 WBC (Bld) [#/Vol] 8.8 10*3/uL 4.4-11.0 [facility] White blood cell countOrdere d By: Harvey Morrissey on 11-27-2024 White blood cell count 0-5 SEEN /hpf 0-5 [facility] MR/BMS.Bon 11-19-2024 MR/BMS.B [facility] [address] [facility] [address] [place] [address] OFFICE VISIT Date of Service: 11/19/24 MR#: [id number] Acct: [id number] Name: ADEN LINDO Rep #: [id number] : 1950 Provider: Dr. Bernice edmond MD Age/Sex: 73/F Location: [facility] Status: Signed Intake Vital Signs 10/29/24 13:49 11/19/24 09:52 Height 5 ft 5 in 5 ft 5 in Weight: 171 lb 4 oz BMI 28.5 BP 163/69 H Blood Pressure Location Lt brachial Position Sitting Respiration 16 Pulse 55 L Pulse Source Monitor Temp 98.6 F Temp Source Temporal Pulse Oximetry (%) 98 Oxygen Delivery Method room air Intake Visit Reasons: [facility] Discharge FU Chief Complaint: [facility] Discharge FU Buhr Dresser Required: No Accompanied by: Is patient in [...] you fallen in the past year?: No [facility] Medical History (Updated 11/19/24 @ 10:57 [...] participate in: none HPI HPI Chief Complaint: [facility] Discharge FU Details: ADEN LINDO, is a [...] echo was in 2019, done outside institution, [facility]. Did not appears to be significantly worse [...] (more content not included)... Normal [facility] Absolute lymphocyte countOrd ered By: Alejandro Davila on 10-30-2024 Lymphocytes Auto (Unsp spec) [#/Vol] 1.95 10*3/uL 0.83-4.51 [facility] Absolute neutrophil countOrd ered By: Alejandro Davila on 10-30-2024 Neutrophils (Bld) [#/Vol] 2.4 10*3/uL 2.0-7.7 [facility] Activated partial thrombopla stin time (aPTT) in platelet poor plasma by coagulation aOrdered By: Alejandro Davila on 10-30-2024 aPTT Coag (PPP) [Time] 26.8 s 24.1-36.2 [facility] Automated blood erythrocyte countOrdered By: Alejandro Davila on 10-30-2024 RBC (Bld) [#/Vol] 2.61 10*6/uL Low 4.2-5.4 [facility] Comment on above: Performed By: #### L 100.0100, L300.4310, L300.3900 ####[facility] [id number] [place], [place], [id number] Automated blood hematocrit ( percentage)Ordered By: Alejandro Davila on 10-30-2024 Hematocrit (Bld) [Volume fraction] 25.1 % Low 37-47 [facility] Comment on above: Performed By: #### L 100.0100, L300.4310, L300.3900 ####[facility] [id number] [place], [address] Automated lymphocyte count a s percentage of total leukocytesOrdered By: Alejandro Davila on 10-30-2024 Lymphocytes/100 WBC Auto (Unsp spec) 40.2 % 19-41 [facility] Basophil percentageOrdered B y: Alejandro Davila on 10-30-2024 Basophils/100 WBC (Bld) 0.8 % 0-1 [facility] Comment on above: Performed By: #### L 100.0100, L300.4310, L300.3900 ####[facility] [id number] [place], [place], [id number] CBC W/Diff, Automatedon 10-19 Absolute Lymph 1.95 X10 3/uL Normal 0.83-4.51 [facility] Comment on above: Performed By: #### L 100.0100, L300.4310, L300.3900 ####[facility] [address] [place], [address] Absolute Neut 2.4 X10 3/uL Normal 2.0-7.7 [facility] Comment on above: Performed By: #### L 100.0100, L300.4310, L300.3900 ####[facility] [id number] [place], [address] IG% 0.400 Normal 0.0-0.9 [facility] Comment on above: Result Comment: IG% - Immature Granulocytes (promyelocytes, myelocytes and metamyelocytes) > 1% indicates that a LEFT SHIFT is Present. Performed By: #### L 100.0100, L300.4310, L300.3900 ####[facility] [address] [place], [address] Lymphocytes/100 WBC (Bld) 40.2 % Normal 19-41 [facility] Comment on above: Performed By: #### L 100.0100, L300.4310, L300.3900 ####[facility] [address] [place], [address] Nucleated RBC (Bld) [#/Vol] 0 10*3/uL Normal 0-5 [facility] Comment on above: Performed By: #### L 100.0100, L300.4310, L300.3900 ####[facility] [address] [place], [address] RDW SD 44.6 fl High 35.1-43.9 [facility] Comment on above: Performed By: #### L 100.0100, L300.4310, L300.3900 ####[facility] [address] [place], [address] Colonoscopy Reporton 025 Colonoscopy Report [facility] Medical Records Department [address] [place] [address] Colonoscopy Report MR#: [id number] Acct: [id number] Name: ADEN LINDO Rep #: [id number] : 1950 73 From: Ney Moreno DO [...] for review. Procedure Code(s): --- Professional --- 94357, Colonoscopy, flexible; with biopsy, single or multiple CPT copyright 2021 [employer]. All rights reserved. The codes documented in this report are preliminary and upon custodial aide review may be revised to meet current compliance requirements. Ney Moreno DO 10/30/2024 7:27:16 PM This report has been signed electronically. Number of Addenda: 0 Note Initiated On: 10/30/2024 4:26 PM 10/30/241926 Date Ra (more content not included)... Normal [facility] Discharge Instructionon 10-19 Discharge Instruction [facility] Medical Records Department [address] [place] [address] Instructions for Home/Discharge Instructions 10/30/241918 MR#: [id number] Acct: [id number] Name: ADEN LINDO Rep #: [id number] : 1950 73 From: Dewayne Gonzalez DO [...] 3RF Referrals / Follow Up: Bernice De LaT orre MD [Primary Care Provider] - Within 2 Weeks Disposition Disposition (needs filled in before D/C Order can be placed): Home, Self Care 10/30/241923 Dewayne Gonzalez DO CC: Dr. Guero Pagan DO; Dr. Bernice De La Torre MD Signed Normal [facility] Eosinophil percentageOrdered By: Alejandro Davila on 10-30-2024 Eosinophils/100 WBC (Bld) 2.3 % 0-5 [facility] Comment on above: Performed By: #### L 100.0100, L300.4310, L300.3900 ####[facility] [address] [place], [address] Erythrocyte distribution wid th ratioOrdered By: Alejandro Davila on 10-30-2024 Erythrocyte distribution width (RBC) [Ratio] 12.9 % 11.6-14.6 [facility] Comment on above: Performed By: #### L 100.0100, L300.4310, L300.3900 ####[facility] [address] [place], [place], [phone]) Erythrocyte distribution wid th standard deviationOrdered By: Alejandro Davila on 10-30-2024 Erythrocyte distribution width (RBC) [Ratio] 44.6 fl High 35.1-43.9 [facility] Hemoglobin measurementOrdere d By: Alejandro Davila on 10-30-2024 Hemoglobin (Bld) [Mass/Vol] 8.3 g/dL Low 12.0-15.0 [facility] Comment on above: Performed By: #### L 100.0100, L300.4310, L300.3900 ####[facility] [address] [place], [place], [id number] Immature granulocytes/100 WB C Auto (Bld)Ordered By: Alejandro Davila on 10-30-2024 Immature granulocytes/100 WBC (Bld) 0.400 % 0.0-0.9 [facility] Comment on above: IG% - Immature Granu locytes (promyelocytes, myelocytes and metamyelocytes) > 1% indicates that a LEFT SHIFT is Present. International normalized rat io (INR) calculationOrdered By: Alejandro Davila on 10-30-2024 INR Coag (Bld) [Relative time] 1.1 {INR} [facility] MCV (mean corpuscular volume ) determinationOrdered By: Alejandro Davila on 10-30-2024 MCV (RBC) [Entitic vol] 96.2 fL 81-99 [facility] Comment on above: Performed By: #### L 100.0100, L300.4310, L300.3900 ####[facility] [facility] [address] [place], [place], [id number] MR/POSTOP.ANEon 10-30-2024 MR/POSTOP.ANE [facility] Medical Records Department [address] [place] [address] Anesthesia Postop Eval I 10/30/241716 MR#: [id number] Acct: [id number] Name: ADEN LINDO Rep #: [id number] : 1950 73 From: Pedro Akers CRNA PCP: Dr. Bernice De La Torre MD Status:ADM IN Y Race: C Location: [place] [address] Anesthesia: Postop Eval I Current Vital Signs [...] Eval 1 completed: Yes 10/30/241717 Date Pedro Delphine PRINTER APPRENTICE Cosigner Signature: Date CC: Signed Normal [facility] MR/YTHDZCNA0km 10-30-2024 [facility] Medical Records Department [address] [facility] [place] [address] Anesthesia Postop Eval II 10/30/241718 MR#: [id number] Acct: [id number] Name: ADEN LINDO Rep #: [id number] : 1950 73 From: Alejandro Davila MD PCP: Dr. Bernice De La Torre MD Status:ADM IN Y Race: C Location: [place] [address] Anesthesia Postop Eval I Sum Postop Eval Completion status Anesthesia document: Postop Eval 1 completed: Yes Anesthesia Postop Eval I Summary Anesthesia Postop Eval I Summary: Anesthesia Postop Eval I: Assessment Summary Airway patent Yes 10/30/24 17:18 PRINTER APPRENTICE.DMAY Spontaneous unlabored Yes 10/30/24 17:18 PRINTER APPRENTICE.DMAY respirations Mental status Awake,Calm 10/30/24 17:18 PRINTER APPRENTICE.DMAY nausea No 10/30/24 17:18 PRINTER APPRENTICE.DMAY Vomiting No 10/30/24 17:18 PRINTER APPRENTICE.DMAY Anesthesia Postop Eval I: Fluid Summary Crystalloid volume administer 300 10/30/24 17:18 PRINTER APPRENTICE.DMAY (ml) Colloids volume administered ( ml) Blood Product volume administered (ml) Total IV fluid infused 300 10/30/24 17:18 PRINTER APPRENTICE.DMAY Anesthesia Postop Eval I: Summary Notes Anesthesia Complication No 10/30/24 17:18 PRINTER APPRENTICE.DMAY Anesthesia Complication Comment: Post-operative progress note Anesthesia: Postop Eval II Evaluation Mental status: Awake Pain Level: 0 nausea: No Vomiting: No 10/30/24 171 Date Alejandro Suarez Signature: Date CC: Signed Normal [facility] Mean corpuscular hemoglobin (MCH) determinationOrdered By: Alejandro Davila on 10-30-2024 MCH (RBC) [Entitic mass] 31.8 pg 27.0-32.0 [facility] Comment on above: Performed By: #### L 100.0100, L300.4310, L300.3900 ####[facility] [address] [place], [place], [id number] Mean corpuscular hemoglobin concentration (MCHC) determinationOrdered By: Alejandro Davila on 10-30-2024 MCHC (RBC) [Mass/Vol] 33.1 g/dL 32-36 [facility] Comment on above: Performed By: #### L 100.0100, L300.4310, L300.3900 ####[facility] [address] [place], [address] Mean platelet volume determi nationOrdered By: Alejandro Davila on 10-30-2024 Platelet mean volume (Bld) [Entitic vol] 10.1 fL 6.2-12.0 [facility] Comment on above: Performed By: #### L 100.0100, L300.4310, L300.3900 ####[facility] [address] [place], [address] Monocyte percentageOrdered B y: Alejandro Davila on 10-30-2024 Monocytes/100 WBC (Bld) 7.8 % 0-10 [facility] Comment on above: Performed By: #### L 100.0100, L300.4310, L300.3900 ####[facility] [address] [place], [address] Neutrophil percentageOrdered By: Alejandro Davila on 10-30-2024 Neutrophils/100 WBC (Bld) 48.5 % 47-70 [facility] Comment on above: Performed By: #### L 100.0100, L300.4310, L300.3900 ####[facility] [address] [place], [address] Nucleated red blood cell per centageOrdered By: Alejandro Davila on 10-30-2024 Nucleated RBC/100 WBC (Bld) [Ratio] 0 % 0-5 [facility] Partial Thromboplast Timeon 10-30-2024 aPTT Coag (Bld) [Time] 26.8 s Normal 24.1-36.2 [facility] Comment on above: Performed By: #### L 100.0100, L300.4310, L300.3900 ####[facility] [address] [place], [address] Platelet countOrdered By: Marco A Davila on 10-30-2024 Platelets (Bld) [#/Vol] 200 10*3/uL 150-450 [facility] Comment on above: Performed By: #### L 100.0100, L300.4310, L300.3900 ####[facility] [address] [place], [place], [address] Prothrombin Time w/INRon INR Coag (PPP) [Relative time] 1.1 {INR} Normal [facility] Comment on above: Performed By: #### L 100.0100, L300.4310, L300.3900 ####[facility] [address] [place], [address] Prothrombin timeOrdered By: Alejandro Davila on 10-30-2024 PT Coag (PPP) [Time] 14.9 s 11.7-14.9 [facility] Comment on above: Performed By: #### L 100.0100, L300.4310, L300.3900 ####[facility] [address] [place], [place], [address] Surgery Specimen Level Carlos 10-30-2024 Surgery Specimen Level IV ---- Patient Age/Sex Location Account Attending Physician ---- ADEN LINDO 73/F [facility] [id number] Dr. Dewayne Gonzalez, DO ---- Specimen: [id number] Received: 10/31/24 Status: CHERELLE Stewart Num: [id number] Spec Type: COLON BX Subm Dr: Ney Moreno, DO HEADER OPERATION: Colonoscopy with biopsies PRE-OP DIAGNOSIS: Anemia, [...] tissue fragment.??? Entirely submitted in 1 cassette. OR 10/31/2024 CPT:77476b8 ---- Patient Age/Sex Location Account Attending Physician ---- ADEN LINDO 73/F U [id number] Dr. Dewayne Gonzalez, DO ---- Signed (signature on file) Dr. Sravanthi Jaramillo MD 11/11/24902 ---- Normal [facility] Comment on above: Performed By: #### P SUIV #### [facility] [address] [place], [place], [id number] Surgical pathology reportOrd ered By: Sulaiman Brown on 10-30-2024 Surgical pathology study [facility] White blood cell (WBC) count Ordered By: Alejandro Davila on 10-30-2024 WBC (Bld) [#/Vol] 4.9 10*3/uL 4.4-11.0 [facility] Comment on above: Performed By: #### L 100.0100, L300.4310, L300.3900 ####[facility] [address] [place], [address] 12 Lead EKGon 10-29-2024 12 Lead EKG [facility] Cardiovascular Services [address] [place] [address] 12 Lead EKG 10/29/24 0508 MR#: [id number] Acct: [id number] Name: ADEN LINDO Rep #: [id number] : 1950 73 From: Kerwin Anne MD Attending Dr: Dr. Dewayne Gonzalez DO Status: A DM IN Ordering Dr: Alejandro Davila MD Date: 10/29/24 Location: [facility] Sex: F C Admitted: 10/28/24 Test Reason [...] previous ECGs available Confirmed by Kerwin Anne ([id number]), editor greeting card CONCHITA SYLVESTER ([id number]) on 10/29/2024 10:38:55 AM Referred By: KEVIN Confirmed By: Kerwin Anne 10/29/24 1038 Date Kerwin Anne MD CC: Dr. Alejandro Davila MD; Dr. Bernice De La Torre MD; Dr. Dewayne Gonzalez DO Signed Normal [facility] Anion gap in Serum or Plasma Ordered By: Guero Pagan on 10-29-2024 Anion gap [Moles/Vol] 9 mmol/L - [facility] BUN/creatinine ratioOrdered By: Guero Pagan on 10-29-2024 Urea nitrogen/Creatinine [Mass ratio] 46.0 mg/mg High - [facility] Basic Metabolic Profile (BMP )on 10-29-2024 BUN/CRE 46.0 RATIO High 10-20 [facility] Comment on above: Performed By: #### L 500.2500, L100.0500 ####[facility] [address] [place], [address] Calcium [Mass/Vol] 8.9 mg/dL Normal 7.6-11.0 [facility] Comment on above: Performed By: #### L 500.2500, L100.0500 ####[facility] [address] [place], [address] Chloride [Moles/Vol] 109 mmol/L High 98-108 [facility] Comment on above: Performed By: #### L 500.2500, L100.0500 ####[facility] [address] [place], [address] CO2 [Moles/Vol] 21.7 mmol/L Normal 21.0-32.0 [facility] Comment on above: Performed By: #### L 500.2500, L100.0500 ####[facility] [address] [place], [address] Creatinine [Mass/Vol] 1.04 mg/dL Normal 0.70-1.20 [facility] Comment on above: Performed By: #### L 500.2500, L100.0500 ####[facility] [address] [place], [address] ECRCL 48.88 ml/min Low 50-250 [facility] Comment on above: Performed By: #### L 500.2500, L100.0500 ####[facility] [address] [place], [address] GAP 9 Normal 5-15 [facility] Comment on above: Performed By: #### L 500.2500, L100.0500 ####[facility] [address] [place], [address] GFR/1.73 sq M.predicted among non-blacks MDRD (S/P/Bld) [Vol rate/Area] 56 mL/min/{1.73_m2} Low >60 [facility] Comment on above: Result Comment: mL/m in/1.73m2 CKD-EPI Creatinine Equation (2020) Performed By: #### L 500.2500, L100.0500 ####[facility] [address] [place], [address] Glucose [Mass/Vol] 84 mg/dL Normal 70-99 [facility] Comment on above: Performed By: #### L 500.2500, L100.0500 ####[facility] [address] [place], [address] Potassium [Moles/Vol] 4.4 mmol/L Normal 3.3-5.1 [facility] Comment on above: Performed By: #### L 500.2500, L100.0500 ####[facility] [address] [place], [address] Sodium [Moles/Vol] 139 mmol/L Normal 133-145 [facility] Comment on above: Performed By: #### L 500.2500, L100.0500 ####[facility] [address] [place], [address] Urea nitrogen [Mass/Vol] 48 mg/dL High 4-19 [facility] Comment on above: Performed By: #### L 500.2500, L100.0500 ####[facility] [address] [place], [address] CBC-Complete Blood Cnt No Di ffon 10-29-2024 Erythrocyte distribution width (RBC) [Ratio] 13.1 % Normal 11.6-14.6 [facility] Comment on above: Performed By: #### L 500.2500, L100.0500 ####[facility] [address] [place], [address] Hematocrit (Bld) [Volume fraction] 26.2 % Low 37-47 [facility] Comment on above: Performed By: #### L 500.2500, L100.0500 ####[facility] [address] [place], [address] Hemoglobin (Bld) [Mass/Vol] 8.6 g/dL Low 12.0-15.0 [facility] Comment on above: Performed By: #### L 500.2500, L100.0500 ####[facility] [address] [place], [address] MCH (RBC) [Entitic mass] 31.4 pg Normal 27.0-32.0 [facility] Comment on above: Performed By: #### L 500.2500, L100.0500 ####[facility] [address] [place], [address] MCHC (RBC) [Mass/Vol] 32.8 g/dL Normal 32-36 [facility] Comment on above: Performed By: #### L 500.2500, L100.0500 ####[facility] [address] [place], [address] MCV (RBC) [Entitic vol] 95.6 fL Normal 81-99 [facility] Comment on above: Performed By: #### L 500.2500, L100.0500 ####[facility] [address] [place], [address] Platelet mean volume (Bld) [Entitic vol] 10.1 fL Normal 6.2-12.0 [facility] Comment on above: Performed By: #### L 500.2500, L100.0500 ####[facility] [address] [place], [address] Platelets (Bld) [#/Vol] 207 10*3/uL Normal 150-450 [facility] Comment on above: Performed By: #### L 500.2500, L100.0500 ####[facility] [address] [place], [address] RBC (Bld) [#/Vol] 2.74 10*6/uL Low 4.2-5.4 [facility] Comment on above: Performed By: #### L 500.2500, L100.0500 ####[facility] [address] [place], [address] RDW SD 45.4 fl High 35.1-43.9 [facility] Comment on above: Performed By: #### L 500.2500, L100.0500 ####[facility] [address] [place], [address] WBC (Bld) [#/Vol] 5.7 10*3/uL Normal 4.4-11.0 [facility] Comment on above: Performed By: #### L 500.2500, L100.0500 ####[facility] [address] [place], [address] Carbon dioxide, total [Moles /volume] in Central venous bloodOrdered By: Guero Pgaan on 10-29-2024 CO2 [Moles/Vol] 21.7 mmol/L 21.0-32.0 [facility] Chloride assayOrdered By: Josué Pagan on 10-29-2024 Chloride [Moles/Vol] 109 mmol/L High 98-108 [facility] EGD Reporton 10-29-2024 EGD Report [facility] Medical Records Department [address] [place] [address] EGD Report MR#: [id number] Acct: [id number] Name: ADEN LINDO Rep #: [id number] : 1950 73 From: [facility] Friend DO PCP: Dr. Bernice De La Torre [...] pathology results. Procedure Code(s): --- Professional --- 46233, Small intestinal endoscopy, enteroscopy beyond second portion of duodenum, not including ileum; with biopsy, single or multiple CPT copyright 2021 [employer]. All rights reserved. The codes documented in this report are preliminary and upon custodial aide review may be revised to meet current compliance requirements. Ney Moreno DO 10/29/2024 12:00:50 PM This report has been signed electronically. Number of Addenda: 0 Note Initiated On: 10/29/2024 11:34 AM 10/29/24 1200 Date Ney Moreno DO Cosigner Signature: Date (if indicated) CC: Dr. Bernice De La Torre MD; Ney Moreno DO Date Dictated: 10/29/24 1134 Date Transcribed: Supervisor Counseling And Guidance: JAYY Signed Normal [facility] Echocardiogram study reportO rdered By: Arya Johnson on 10-29-2024 Study report [facility] Cardiovascular Services [address] [place] [address] Echo Complete 10/28/24 1521 MR#: [id number] Acct: [id number] Name: ADEN LINDO Rep #:[id number] : 1950 73 From: Arya Johnson MD Attending Dr: Dr. Dewayne Gonzalez DO Status: ADM IN Ordering Dr: Guero Pagan DO Da te: 10/28/24 Location: [facility] Sex: F C Admitted: 10/28/24 Reason For [...] Date Dictated: 10/28/24 1521 Date Transcribed: 10/29/24930 Supervisor Counseling And Guidance: Signed [facility] Work Phone: Electrocardiogram reportOrde red By: Kerwin Anne on 10-29-2024 EKG study [facility] Cardiovascular Services [address] [place] [address] 12 Lead EKG 10/29/24 0508 MR#: [id number] Acct: [id number] Name: ADEN LINDO Rep #:[id number] : 1950 73 From: Kerwin de la rosa MD Attending Dr: Dr. Dewayne Gonzalez DO Status: ADM IN Ordering Dr: Alejandro Davila MD Date: 10/19 06/14 Location: [facility] Sex: F C Admitted: 10/28/24 Test Reason [...] repolarization abnormality ( R in aVL , Bland product ) Abnormal ECG No previous ECGs available Confirmed by Kewrin Anne ([id number]), editor greeting card CONCHITA SYLVESTER ([id number]) on 10/29/2024 10:38:55 AM Referred By: KEVIN Confirmed By: Kerwin Anne 10/29/24 1038 Date _ Kerwin Anne MD CC: Dr. Alejandro Davila MD; Dr. Berncie De La Torre MD; Dr. Dewayne Gonzalez, DO ~ Signed [facility] Other Phone: Glomerular filtration rate ( GFR) estimation/1.73 sq m using serum, plasma, or whole bOrdered By: Guero Pagan on 10-29-2024 GFR/1.73 sq M.predicted among non-blacks MDRD (S/P/Bld) [Vol rate/Area] 56 mL/min/{1.73_m2} Low >60 [facility] Comment on above: mL/min/1.73m2 CKD-EP I Creatinine Equation (2020) MR/POSTOP.Amanda 10-29-2024 MR/POSTOP.[facility] Medical Records Department [address] [place] [address] Anesthesia Postop Eval I 10/29/24 120 MR#: [id number] Acct: [id number] Name: ADEN LINDO Rep #: [id number] : 1950 73 From: Kevin Sage PCP: Dr. Bernice De La Torre MD Status:ADM IN Y Race: C Location: [place] [address] Anesthesia: Postop Eval I Current Vital Signs [...] document: Postop Eval 1 completed: Yes 10/29/24 120 Date Kevin Suarez Signature: Date CC: Signed Normal [facility] MR/VHDYOZVK7so 10-29-2024 MR/POSTOPAN2 [facility] Medical Records Department [address] [facility] [place] [address] Anesthesia Postop Eval II 10/29/24 1353 MR#: [id number] Acct: [id number] Name: ADEN LINDO Rep #: [id number] : 1950 73 From: Alejandro Davila MD PCP: Dr. Bernice De La Torre MD Status:ADM IN Y Race: C Location: [place] [address] Anesthesia Postop Eval I Sum Postop Eval [...] No Vomiting: No 10/29/24 1353 Date Alejandro Weeman MD Cosigner Signature: Date CC: Signed Normal [facility] Potassium measurement (mass/ volume)Ordered By: Guero Pagan on 10-29-2024 Potassium (Unsp spec) [Mass/Vol] 4.4 mmol/L 3.3-5.1 [facility] ,Urineon 10-29-2024 Beta HCG ( test) Ql (U) Normal [facility] Comment on above: Order Comment: Femal es 12-55 or menstruation outside age [id number] Result Comment: NOT NEEDED. PATIENT IS 73 Performed By: #### L 400.7600 ####[facility] [address] [place], [place], [address] INTERNAL QC OK? Normal [facility] Comment on above: Order Comment: Femal es 12-55 or menstruation outside age [id number] Result Comment: NOT NEEDED. PATIENT IS 73 Performed By: #### L 400.7600 ####[facility] [address] [place], [place], [address] RECORD KIT LOT# Normal [facility] Comment on above: Order Comment: Femal es 12-55 or menstruation outside age [id number] Result Comment: NOT NEEDED. PATIENT IS 73 Performed By: #### L 400.7600 ####[facility] [address] [place], [place], [address] Serum creatinine measurement (mass/volume)Ordered By: Guero Pagan on 10-29-2024 Creatinine [Mass/Vol] 1.04 mg/dL 0.70-1.20 [facility] Serum glucose measurement (m ass/volume)Ordered By: Guero Pagan on 10-29-2024 Glucose [Mass/Vol] 84 mg/dL 70-99 [facility] Serum or plasma calcium armen urement (mass/volume)Ordered By: Guero Pagan on 10-29-2024 Calcium [Mass/Vol] 8.9 mg/dL 7.6-11.0 [facility] Serum or plasma urea nitroge n measurement (mass/volume)Ordered By: Guero Pagan on 10-29-2024 Urea nitrogen [Mass/Vol] 48 mg/dL High 4-19 [facility] Sodium levelOrdered By: Hector Pagan on 10-29-2024 Sodium [Moles/Vol] 139 mmol/L 133-145 [facility] Surgery Specimen Level Carlos 10-29-2024 Surgery Specimen Level IV ---- Patient Age/Sex Location Account Attending Physician ---- ADEN LINDO 73/F U [id number] Dr. Dewayne Gonzalez DO ---- Specimen: [id number] Received: 10/29/24 Status: CHERELLE Stewart Num: [id number] Spec Type: EGD BIOPSY Subm Dr: DO ELIANA Lockwood OPERATION: EGD with biopsy PRE-OP DIAGNOSIS: Anemia, acute upper GI bleed TISSUE SUBMITTED: A- Gastric body biopsy ---- MICROSCOPIC DIAGNOSIS A. Stomach, body, biopsy: * Oxyntic mucosa with chronic active inflammation * An immunohistochemical stain for Helicobacter pylori is negative. MICROSCOPIC DESCRIPTION Slides are reviewed. All matched controls reacted appropriately. These tests were developed and their performance characteristics determined by [facility]. They may not have been cleared [...] 0.6 cm. Entirely submitted in 1 cassette. [facility] 10/29/2024 [facility]:[id number] ---- Patient Age/Sex Location Account Attending Physician ---- ADEN LINDO 73/F U [id number] Dr. Dewayne Gonzalez DO ---- Signed (signature on file) Dr. Sulaiman Sorensen MD 10/30/24 1333 ---- Normal [facility] Comment on above: Performed By: #### P SUIV ####[facility] [address] [place], [place], [address] Absolute lymphocyte countOrd ered By: Juan Diego Sauer on 10-28-2024 Lymphocytes Auto (Unsp spec) [#/Vol] 1.02 10*3/uL 0.83-4.51 [facility] Absolute neutrophil countOrd ered By: Juan Diego Sauer on 10-28-2024 Neutrophils (Bld) [#/Vol] 7.3 10*3/uL 2.0-7.7 [facility] Anion gap in Serum or Plasma Ordered By: Juan Diego Sauer on 10-28-2024 Anion gap [Moles/Vol] 10 mmol/L 5-15 [facility] Automated lymphocyte count a s percentage of total leukocytesOrdered By: Juan Diego Sauer on 10-28-2024 Lymphocytes/100 WBC Auto (Unsp spec) 11.7 % Low 19-41 [facility] BRCon 10-28-2024 RC Normal [facility] Comment on above: Result Comment: [id number] ON RC XM COMPATIBLE [id number] ON RC XM COMPATIBLE Performed By: #### B RC ####[facility] [address] [place], [address] BUN/creatinine ratioOrdered By: Juan Diego Camacho on 10-28-2024 Urea nitrogen/Creatinine [Mass ratio] 57.8 mg/mg High 10- [facility] Basophil percentageOrdered B y: Juan Diego Camacho on 10-28-2024 Basophils/100 WBC (Bld) 0.3 % 0-1 [facility] Bilirubin, totalOrdered By: Juan Diego Sauer on 10-28-2024 Bilirubin [Mass/Vol] 0.99 mg/dL 0.00-1.30 [facility] CBC W/Diff, Automatedon 10-19 0-2024 Absolute Lymph 1.02 X10 3/uL Normal 0.83-4.51 [facility] Comment on above: Performed By: #### L 300.3900, L500.4050, L100.0100, BTS #### [facility] [address] [place], [address] Absolute Neut 7.3 X10 3/uL Normal 2.0-7.7 [facility] Comment on above: Performed By: #### L 300.3900, L500.4050, L100.0100, BTS #### [facility] [address] [place], [address] Basophils/100 WBC (Bld) 0.3 % Normal 0-1 [facility] Comment on above: Performed By: #### L 300.3900, L500.4050, L100.0100, BTS #### [facility] [address] [place], [address] Eosinophils/100 WBC (Bld) 0.0 % Normal 0-5 [facility] Comment on above: Performed By: #### L 300.3900, L500.4050, L100.0100, BTS #### [facility] [address] [place], [address] Erythrocyte distribution width (RBC) [Ratio] 12.9 % Normal 11.6-14.6 [facility] Comment on above: Performed By: #### L 300.3900, L500.4050, L100.0100, BTS #### [facility] [address] [place], [address] Hematocrit (Bld) [Volume fraction] 30.9 % Low 37-47 [facility] Comment on above: Performed By: #### L 300.3900, L500.4050, L100.0100, BTS #### [facility] [address] [place], [address] Hemoglobin (Bld) [Mass/Vol] 10.3 g/dL Low 12.0-15.0 [facility] Comment on above: Performed By: #### L 300.3900, L500.4050, L100.0100, BTS #### [facility] [address] [place], [address] IG% 0.500 Normal 0.0-0.9 [facility] Comment on above: Result Comment: IG% - Immature Granulocytes (promyelocytes, myelocytes and metamyelocytes) > 1% indicates that a LEFT SHIFT is Present. Performed By: #### L 300.3900, L500.4050, L100.0100, BTS #### [facility] [address] [place], [address] Lymphocytes/100 WBC (Bld) 11.7 % Low 19-41 [facility] Comment on above: Performed By: #### L 300.3900, L500.4050, L100.0100, BTS #### [facility] [address] [place], [address] MCH (RBC) [Entitic mass] 32.0 pg Normal 27.0-32.0 [facility] Comment on above: Performed By: #### L 300.3900, L500.4050, L100.0100, BTS #### [facility] [address] [place], [address] MCHC (RBC) [Mass/Vol] 33.3 g/dL Normal 32-36 [facility] Comment on above: Performed By: #### L 300.3900, L500.4050, L100.0100, BTS #### [facility] [address] [place], [address] MCV (RBC) [Entitic vol] 96.0 fL Normal 81-99 [facility] Comment on above: Performed By: #### L 300.3900, L500.4050, L100.0100, BTS #### [facility] [address] [place], [address] Monocytes/100 WBC (Bld) 3.8 % Normal 0-10 [facility] Comment on above: Performed By: #### L 300.3900, L500.4050, L100.0100, BTS #### [facility] [address] [place], [address] Neutrophils/100 WBC (Bld) 83.7 % High 47-70 [facility] Comment on above: Performed By: #### L 300.3900, L500.4050, L100.0100, BTS #### [facility] [address] [place], [address] Nucleated RBC (Bld) [#/Vol] 0 10*3/uL Normal 0-5 [facility] Comment on above: Performed By: #### L 300.3900, L500.4050, L100.0100, BTS #### [facility] [address] [place], [address] Platelet mean volume (Bld) [Entitic vol] 9.9 fL Normal 6.2-12.0 [facility] Comment on above: Performed By: #### L 300.3900, L500.4050, L100.0100, BTS #### [facility] [address] [place], [address] Platelets (Bld) [#/Vol] 223 10*3/uL Normal 150-450 [facility] Comment on above: Performed By: #### L 300.3900, L500.4050, L100.0100, BTS #### [facility] [address] [place], [address] RBC (Bld) [#/Vol] 3.22 10*6/uL Low 4.2-5.4 [facility] Comment on above: Performed By: #### L 300.3900, L500.4050, L100.0100, BTS #### [facility] [address] [place], [address] RDW SD 45.1 fl High 35.1-43.9 [facility] Comment on above: Performed By: #### L 300.3900, L500.4050, L100.0100, BTS #### [facility] [address] [place], [address] WBC (Bld) [#/Vol] 8.8 10*3/uL Normal 4.4-11.0 [facility] Comment on above: Performed By: #### L 300.3900, L500.4050, L100.0100, BTS #### [facility] [address] [place], [address] CBC-Complete Blood Cnt No Di ffon 10-28-2024 Erythrocyte distribution width (RBC) [Ratio] 13.0 % Normal 11.6-14.6 [facility] Comment on above: Performed By: #### L 100.0500 #### [facility] [address] [place], [address] Hematocrit (Bld) [Volume fraction] 27.1 % Low 37-47 [facility] Comment on above: Performed By: #### L 100.0500 #### [facility] [address] [place], [address] Hemoglobin (Bld) [Mass/Vol] 9.0 g/dL Low 12.0-15.0 [facility] Comment on above: Performed By: #### L 100.0500 #### [facility] [address] [place], [address] MCH (RBC) [Entitic mass] 31.8 pg Normal 27.0-32.0 [facility] Comment on above: Performed By: #### L 100.0500 #### [facility] [address] [place], [address] MCHC (RBC) [Mass/Vol] 33.2 g/dL Normal 32-36 [facility] Comment on above: Performed By: #### L 100.0500 #### [facility] [address] [place], [address] MCV (RBC) [Entitic vol] 95.8 fL Normal 81-99 [facility] Comment on above: Performed By: #### L 100.0500 #### [facility] [address] [place], [address] Platelet mean volume (Bld) [Entitic vol] 9.9 fL Normal 6.2-12.0 [facility] Comment on above: Performed By: #### L 100.0500 #### [facility] [address] [place], [address] Platelets (Bld) [#/Vol] 203 10*3/uL Normal 150-450 [facility] Comment on above: Performed By: #### L 100.0500 #### [facility] [address] [place], [address] RBC (Bld) [#/Vol] 2.83 10*6/uL Low 4.2-5.4 [facility] Comment on above: Performed By: #### L 100.0500 #### [facility] [address] [place], [address] RDW SD 45.1 fl High 35.1-43.9 [facility] Comment on above: Performed By: #### L 100.0500 #### [facility] [address] [place], [address] WBC (Bld) [#/Vol] 6.9 10*3/uL Normal 4.4-11.0 [facility] Comment on above: Performed By: #### L 100.0500 #### [facility] [address] [place], [address] Carbon dioxide, total [Moles /volume] in Central venous bloodOrdered By: Juan Diego Sauer on 10-28-2024 CO2 [Moles/Vol] 21.0 mmol/L 21.0-32.0 [facility] Chloride assayOrdered By: Nav Sauer on 10-28-2024 Chloride [Moles/Vol] 108 mmol/L 98-108 [facility] Comprehensive Metabolic Prof ilon 10-28-2024 Albumin [Mass/Vol] 4.0 g/dL Normal 3.4-4.8 [facility] Comment on above: Performed By: #### L 300.3900, L500.4050, L100.0100, BTS #### [facility] [address] [place], [address] Albumin/Globulin [Mass ratio] 1.6 {ratio} Normal 0.9-2.4 [facility] Comment on above: Performed By: #### L 300.3900, L500.4050, L100.0100, BTS #### [facility] [address] [place] [place], [address] ALK PHOS 90 U/L Normal 35-104 [facility] Comment on above: Performed By: #### L 300.3900, L500.4050, L100.0100, BTS #### [facility] [address] [place], [address] ALT [Catalytic activity/Vol] 12 U/L Normal <=34 [facility] Comment on above: Performed By: #### L 300.3900, L500.4050, L100.0100, BTS #### [facility] [address] [place], [address] AST [Catalytic activity/Vol] 20 U/L Normal <=31 [facility] Comment on above: Performed By: #### L 300.3900, L500.4050, L100.0100, BTS #### [facility] [address] [place], [address] Bilirubin [Mass/Vol] 0.99 mg/dL Normal 0.00-1.30 [facility] Comment on above: Performed By: #### L 300.3900, L500.4050, L100.0100, BTS #### [facility] [address] [place], [address] BUN/CRE 57.8 RATIO High 10-20 [facility] Comment on above: Performed By: #### L 300.3900, L500.4050, L100.0100, BTS #### [facility] [address] [place], [address] Calcium [Mass/Vol] 9.2 mg/dL Normal 7.6-11.0 [facility] Comment on above: Performed By: #### L 300.3900, L500.4050, L100.0100, BTS #### [facility] [address] [place], [address] Chloride [Moles/Vol] 108 mmol/L Normal 98-108 [facility] Comment on above: Performed By: #### L 300.3900, L500.4050, L100.0100, BTS #### [facility] [address] [place], [address] CO2 [Moles/Vol] 21.0 mmol/L Normal 21.0-32.0 [facility] Comment on above: Performed By: #### L 300.3900, L500.4050, L100.0100, BTS #### [facility] [address] [place], [address] Creatinine [Mass/Vol] 0.80 mg/dL Normal 0.70-1.20 [facility] Comment on above: Performed By: #### L 300.3900, L500.4050, L100.0100, BTS #### [facility] [address] [place], [address] ECRCL 63.54 ml/min Normal 50-250 [facility] Comment on above: Performed By: #### L 300.3900, L500.4050, L100.0100, BTS #### [facility] [address] [place], [address] GAP 10 Normal 5-15 [facility] Comment on above: Performed By: #### L 300.3900, L500.4050, L100.0100, BTS #### [facility] [address] [place], [address] GFR/1.73 sq M.predicted among non-blacks MDRD (S/P/Bld) [Vol rate/Area] 76 mL/min/{1.73_m2} Normal >60 [facility] Comment on above: Result Comment: mL/m in/1.73m2 CKD-EPI Creatinine Equation (2020) Performed By: #### L 300.3900, L500.4050, L100.0100, BTS #### [facility] [address] [place], [address] Globulin (S) [Mass/Vol] 2.6 g/dL Normal 2.2-4.2 [facility] Comment on above: Performed By: #### L 300.3900, L500.4050, L100.0100, BTS #### [facility] [address] [place], [address] Glucose [Mass/Vol] 115 mg/dL High 70-99 [facility] Comment on above: Performed By: #### L 300.3900, L500.4050, L100.0100, BTS #### [facility] [address] [place], [address] Potassium [Moles/Vol] 4.7 mmol/L Normal 3.3-5.1 [facility] Comment on above: Performed By: #### L 300.3900, L500.4050, L100.0100, BTS #### [facility] [address] [place], [address] Sodium [Moles/Vol] 139 mmol/L Normal 133-145 [facility] Comment on above: Performed By: #### L 300.3900, L500.4050, L100.0100, BTS #### [facility] [address] [place], [address] T PROT 6.6 g/dL Normal 5.9-8.4 [facility] Comment on above: Performed By: #### L 300.3900, L500.4050, L100.0100, BTS #### [facility] [address] [place], [address] Urea nitrogen [Mass/Vol] 46 mg/dL High 4-19 [facility] Comment on above: Performed By: #### L 300.3900, L500.4050, L100.0100, BTS #### [facility] [address] [place], [address] Echo Completeon 10-28-2024 Echo Complete [facility] [address] [place] [address] Echo Complete 10/28/24 1521 MR#: [id number] Acct: [id number] Name: ADEN LINDO Rep #: [id number] : 1950 73 From: Arya Johnson MD Attending Dr: Dr. Dewayne Gonzalez DO Status: A DM IN Ordering Dr: Guero Pagan DO Date: 10/28/24 Location: [facility] Sex: F C Admitted: 10/28/24 Reason For [...] Date Dictated: 10/28/24 1521 Date Transcribed: 10/29/24930 Supervisor Counseling And Guidance: Signed Normal [facility] Emergency Department Summary on 10-28-2024 Emergency Department Summary [facility] Medical Records Department [address] [place] [address] Emergency Department Summary 10/28/24 MR#: [id number] Acct: [id number] Name: ADEN LINDO Rep #: [id number] : 1950 73 From: Juan Diego Sauer [...] symptoms: No Recent Illness/Hospitalizatio n: No PFSH PFSH Medical History Pneumonia History [...] cachectic, contractures or unkempt General Appearance ED: well develo (more content not included)... Normal [facility] Eosinophil percentageOrdered By: Juan Diego Sauer on 10-28-2024 Eosinophils/100 WBC (Bld) 0.0 % 0-5 [facility] Erythrocyte distribution wid th ratioOrdered By: Juan Diego Sauer on 10-28-2024 Erythrocyte distribution width (RBC) [Ratio] 12.9 % 11.6-14.6 [facility] Erythrocyte distribution wid th standard deviationOrdered By: Juan Diego Sauer on 10-28-2024 Erythrocyte distribution width (RBC) [Ratio] 45.1 fl High 35.1-43.9 [facility] Glomerular filtration rate ( GFR) estimation/1.73 sq m using serum, plasma, or whole bOrdered By: Juan Diego Sauer on 10-28-2024 GFR/1.73 sq M.predicted among non-blacks MDRD (S/P/Bld) [Vol rate/Area] 76 mL/min/{1.73_m2} >60 [facility] Comment on above: mL/min/1.73m2 CKD-EP I Creatinine Equation (2020) H AND P Exam - Hospitaliston 10-28-2024 H&P Exam - Hospitalist [facility] Medical Records Department [address] [facility] [place] [address] H P Exam - Hospitalist 10/28/24 1433 MR#: [id number] Acct: [id number] Name: ADEN LINDO Rep #: [id number] : 1950 73 From: Guero Pagan DO PCP: Dr. Bernice De La Torre MD Status:ADM IN Location: [place] [id number] HPI - General General Date of Admission: 10/28/24 Date of Service: 10/28/24 Chief Complaint: Bright red and dark stools HPI Narrative ADEN LINDO, is a 73 F who presented to [facility] ED on 10/28/2024 with bright red and [...] No other acute concerns at this time. [facility] Medical History Pneumonia History of stroke [...] (more content not included)... Normal [facility] Hematocrit Auto (Bld) [Volum e fraction]Ordered By: Juan Diego Sauer on 10-28-2024 Hematocrit (Bld) [Volume fraction] 30.9 % Low 37-47 [facility] Hemoglobin measurementOrdere d By: Juan Diego Sauer on 10-28-2024 Hemoglobin (Bld) [Mass/Vol] 10.3 g/dL Low 12.0-15.0 [facility] Immature granulocytes/100 WB C Auto (Bld)Ordered By: Juan Diego Sauer on 10-28-2024 Immature granulocytes/100 WBC (Bld) 0.500 % 0.0-0.9 [facility] Comment on above: IG% - Immature Granu locytes (promyelocytes, myelocytes and metamyelocytes) > 1% indicates that a LEFT SHIFT is Present. International normalized rat io (INR) calculationOrdered By: Juan Diego Sauer on 10-28-2024 INR Coag (Bld) [Relative time] 1.1 {INR} [facility] Laboratory - Chemistry and C hemistry - challengeOrdered By: Juan Diego Sauer on 10-28-2024 AST [Catalytic activity/Vol] 20 U/L <32 [facility] MCV (mean corpuscular volume ) determinationOrdered By: Juan Diego Sauer on 10-28-2024 MCV (RBC) [Entitic vol] 96.0 fL 81-99 [facility] Mean corpuscular hemoglobin (MCH) determinationOrdered By: Juan Diego Sauer on 10-28-2024 MCH (RBC) [Entitic mass] 32.0 pg 27.0-32.0 [facility] Mean corpuscular hemoglobin concentration (MCHC) determinationOrdered By: Juan Diego Sauer on 10-28-2024 MCHC (RBC) [Mass/Vol] 33.3 g/dL 32-36 [facility] Mean platelet volume determi nationOrdered By: Juan Diego Sauer on 10-28-2024 Platelet mean volume (Bld) [Entitic vol] 9.9 fL 6.2-12.0 [facility] Monocyte percentageOrdered B y: Juan Diego Sauer on 10-28-2024 Monocytes/100 WBC (Bld) 3.8 % 0-10 [facility] Neutrophil percentageOrdered By: Juan Diego Sauer on 10-28-2024 Neutrophils/100 WBC (Bld) 83.7 % High 47-70 [facility] Nucleated red blood cell per centageOrdered By: Juan Diego Sauer on 10-28-2024 Nucleated RBC/100 WBC (Bld) [Ratio] 0 % 0-5 [facility] Platelet countOrdered By: Nav Sauer on 10-28-2024 Platelets (Bld) [#/Vol] 223 10*3/uL 150-450 [facility] Potassium measurement (mass/ volume)Ordered By: Juan Diego Sauer on 10-28-2024 Potassium (Unsp spec) [Mass/Vol] 4.7 mmol/L 3.3-5.1 [facility] Prothrombin Time w/INRon INR Coag (PPP) [Relative time] 1.1 {INR} Normal [facility] Comment on above: Performed By: #### L 300.3900, L500.4050, L100.0100, BTS #### [facility] [address] [place], [place], [id number] PT Coag (PPP) [Time] 13.9 s Normal 11.7-14.9 [facility] Comment on above: Performed By: #### L 300.3900, L500.4050, L100.0100, BTS #### [facility] [address] [facility] [address] [place], [place], [address] Prothrombin timeOrdered By: Juan Diego Sauer on 10-28-2024 PT Coag (PPP) [Time] 13.9 s 11.7-14.9 [facility] RBC Auto (Bld) [#/Vol]Ordere d By: Juan Diego Sauer on 10-28-2024 RBC (Bld) [#/Vol] 3.22 10*6/uL Low 4.2-5.4 [facility] Serum creatinine measurement (mass/volume)Ordered By: Juan Diego Sauer on 10-28-2024 Creatinine [Mass/Vol] 0.80 mg/dL 0.70-1.20 [facility] Serum globulin measurementOr dered By: Juan Diego Sauer on 10-28-2024 Globulin (S) [Mass/Vol] 2.6 g/dL 2.2-4.2 [facility] Serum glucose measurement (m ass/volume)Ordered By: Juan Diego Sauer on 10-28-2024 Glucose [Mass/Vol] 115 mg/dL High 70-99 [facility] Serum or plasma alanine jackson otransferase (ALT) measurementOrdered By: Juan Diego Sauer on 10-28-2024 ALT [Catalytic activity/Vol] 12 U/L <35 [facility] Serum or plasma albumin armen urement (mass/volume)Ordered By: Juan Diego Sauer on 10-28-2024 Albumin [Mass/Vol] 4.0 g/dL 3.4-4.8 [facility] Serum or plasma albumin/glob ulin mass ratioOrdered By: Juan Diego Sauer on 10-28-2024 Albumin/Globulin [Mass ratio] 1.6 {ratio} 0.9-2.4 [facility] Serum or plasma alkaline erasmo sphatase measurementOrdered By: Juan Diego Sauer on 10-28-2024 ALP [Catalytic activity/Vol] 90 U/L 35-104 [facility] Serum or plasma calcium armen urement (mass/volume)Ordered By: Juan Diego Sauer on 10-28-2024 Calcium [Mass/Vol] 9.2 mg/dL 7.6-11.0 [facility] Serum or plasma urea nitroge n measurement (mass/volume)Ordered By: Juan Diego Sauer on 10-28-2024 Urea nitrogen [Mass/Vol] 46 mg/dL High 4-19 [facility] Sodium levelOrdered By: Juan Diego Sauer on 10-28-2024 Sodium [Moles/Vol] 139 mmol/L 133-145 [facility] Total proteinOrdered By: Michael Sauer on 10-28-2024 Protein [Mass/Vol] 6.6 g/dL 5.9-8.4 [facility] Type AND Screenon 10-28-2024 Ab SCREEN GEL Negative Normal [facility] Comment on above: Order Comment: HGI Performed By: #### L 300.3900, L500.4050, L100.0100, BTS ####[facility] [address] [place], [place], [id number] White blood cell (WBC) count Ordered By: Juan Diego Sauer on 10-28-2024 WBC (Bld) [#/Vol] 8.8 10*3/uL 4.4-11.0 [facility] CHEST 2 VIEWSon 05-07-2024 CHEST [address] [address] Patient: ADEN LINDO Phone#: : 1950 Age: 73 Gender: F Pt. Type: Out Account: [id number] Location: Ordering: BERNICE DE LA TORRE Exam Date: 05/07/2024/10:44 Family Phys: Charge Code: 953016 Physician: [place] Order #: [id number] Dose#: PROCEDURE: X-RAY CHEST 2 VIEWS COMPARISON: [...] [place] MD on 05/07/2024 at 11:18 Normal [facility] MR/[facility]MS.[facility] 05-07-2024 MR/BMS.[facility] [address] [facility] [address] [place] [address] OFFICE VISIT Date of Service: 05/07/24 MR#: [id number] Acct: [id number] Name: ADEN LINDO Rep #: [id number] : 1950 Provider: Dr. Bernice edmodn MD Age/Sex: 73/F Location: [facility] Status: Signed Intake Vital Signs 04/28/21 10:11 [...] Reasons: Cough, Congestion Chief Complaint: cough, congestion [employer] Dresser Required: No Accompanied by: Is patient in [...] you fallen in the past year?: No [facility] Medical History (Updated 05/07/24 @ 09:40 by [...] (more content not included)... Normal [facility] Vital Signs Date Time Vital Sign Value Performing Clinician Faci lity 11-27-2024 15:00-0400 Diastolic blood pressure 71 mm[Hg] Dr. Bernice De La Torre MD Work Phone: [facility] 11-27-2024 15:00-0400 Heart rate 73 /min Dr. Bernice De La Torre MD Work Phone: [facility] 11-27-2024 15:00-0400 Respiratory rate 20 /min Dr. Bernice De La Torre MD Work Phone: [facility] 11-27-2024 15:00-0400 SaO2% (BldA) [Mass fraction] 100 % Dr. Bernice De La Torre MD Work Phone: [facility] 11-27-2024 15:00-0400 Systolic blood pressure 111 mm[Hg] Dr. Bernice De La Torre MD Work Phone: [facility] 11-27-2024 14:43-0400 Body temperature 98.5 [degF] Dr. Bernice De La Torre MD Work Phone: [facility] 11-27-2024 09:19-0400 Body mass index (BMI) [Ratio] 31.1 kg/m2 Dr. Bernice De La Torre MD Work Phone: [facility] 11-27-2024 09:19-0400 Body weight 77.[address] Bernice De La Torre MD Work Phone: [facility] 11-27-2024 08:59-0400 Body height 157.[address] Bernice De La Torre MD Work Phone: [facility] 11-19-2024 09:52-0400 Body height 165.[address] Bernice De La Torre MD Work Phone: [facility] 11-19-2024 09:52-0400 Body mass index (BMI) [Ratio] 28.5 kg/m2 Dr. Bernice De La Torre MD Work Phone: [facility] 11-19-2024 09:52-0400 Body temperature 98.6 [degF] Dr. Bernice De La Torre MD Work Phone: [facility] 11-19-2024 09:52-0400 Body weight 77.[address] Bernice De La Torre MD Work Phone: [facility] 11-19-2024 09:52-0400 Diastolic blood pressure 69 mm[Hg] Dr. Bernice De La Torre MD Work Phone: [facility] 11-19-2024 09:52-0400 Heart rate 55 /min Dr. Bernice De La Torre MD Work Phone: [facility] 11-19-2024 09:52-0400 Respiratory rate 16 /min Dr. Bernice De La Torre MD Work Phone: [facility] 11-19-2024 09:52-0400 SaO2% (BldA) [Mass fraction] 98 % Dr. Bernice De La Torre MD Work Phone: [facility] 11-19-2024 09:52-0400 Systolic blood pressure 163 mm[Hg] Dr. Bernice De La Torre MD Work Phone: [facility] 10-30-2024 18:33-0400 Body temperature 98.2 [degF] Dr. Bernice De La Torre MD Work Phone: [facility] 10-30-2024 18:33-0400 Diastolic blood pressure 79 mm[Hg] Dr. Bernice De La Torre MD Work Phone: [facility] 10-30-2024 18:33-0400 Heart rate 66 /min Dr. Bernice De La Torre MD Work Phone: [facility] 10-30-2024 18:33-0400 Respiratory rate 16 /min Dr. Bernice De La Torre MD Work Phone: [facility] 10-30-2024 18:33-0400 SaO2% (BldA) [Mass fraction] 97 % Dr. Bernice De La Torre MD Work Phone: [facility] 10-30-2024 18:33-0400 Systolic blood pressure 133 mm[Hg] Dr. Bernice De La Torre MD Work Phone: [facility] 10-29-2024 13:49-0400 Body height 165.[address] Bernice De La Torre MD Work Phone: [facility] 10-29-2024 13:49-0400 Body weight 80.[address] Bernice De La Torre MD Work Phone: [facility] 10-28-2024 16:40-0400 Body mass index (BMI) [Ratio] 29.3 kg/m2 Dr. Bernice De La Torre MD Work Phone: [facility] 10-28-2024 16:00-0400 Diastolic blood pressure 59 mm[Hg] Dr. Bernice De La Torre MD Work Phone: [facility] 10-28-2024 16:00-0400 Heart rate 71 /min Dr. Bernice De La Torre MD Work Phone: [facility] 10-28-2024 16:00-0400 Respiratory rate 17 /min Dr. Bernice De La Torre MD Work Phone: [facility] 10-28-2024 16:00-0400 SaO2% (BldA) [Mass fraction] 98 % Dr. Bernice De La Torre MD Work Phone: [facility] 10-28-2024 16:00-0400 Systolic blood pressure 93 mm[Hg] Dr. Bernice De La Torre MD Work Phone: [facility] 10-28-2024 14:59-0400 Body temperature 98.4 [degF] Dr. Bernice De La Torre MD Work Phone: [facility] 10-28-2024 12:02-0400 Body mass index (BMI) [Ratio] 29.3 kg/m2 Dr. Bernice De La Torre MD Work Phone: [facility] 10-28-2024 12:02-0400 Body weight 80.[address] Bernice De La Torre MD Work Phone: [facility] 10-28-2024 11:02-0400 Body height 165.[address] Bernice De La Torre MD Work Phone: [facility] Encounters Encounter Date Encounter Type Care Provider Facility Start: 11-27-2024 Non-patient / Non-visit Dr. Harley Berrios MD -[facility] Work Phone: Start: 11-27-2024 Evaluation and management of inpatient Dr. Harley Berrios MD -[facility] Work Phone: Start: 11-19-2024 End: 11-19-[address] Bernice De La Torre MD -[facility] Work Phone: Start: 11-19-2024 End: 11-19-[address] Bernice De La Torre MD Work Phone: [facility] Start: 10-30-2024 Non-patient / Non-visit Dr. Dewayen Parrish DO [facility] Work Phone: Start: 10-30-2024 ambulatory Neymarina Moreno Facility :[facility] Start: 10-30-2024 Non-patient / Non-visit Ney Hever nd [facility] Start: 10-29-2024 Non-patient / Non-visit Dr. Dewayne Parrish DO [facility] Work Phone: Start: 10-29-2024 Non-patient / Non-visit Ney Hever carlin [facility] Start: 10-28-2024 Non-patient / Non-visit Dr. Arya schwartz MD -[facility] Start: 10-28-2024 ambulatory [facility] Start: 10-28-2024 End: 10-30-2024 Evaluation and management of inpatient Dr. Guero Pagan [facility] Work Phone: Start: 05-07-2024 End: 05-07-2024 [facility] Start: 05-07-2024 End: 05-07-2024 ambulatory Bernice De La Torre Facility:[facility] Procedures Date Procedure Procedure Detail Performing Clinician Start: 11-27-2024 Measurement of occult blood in stool specimen using immunoassay Dr. Bernice De La Torre MD Work Phone: Start: 11-27-2024 Urnls dip stick/tablet reagent auto microscopy Dr. Bernice De La Torre MD Work Phone: Start: 11-27-2024 Computed tomography of abdomen and pelvis with intravenous contrast Dr. Bernice De La Torre MD Work Phone: Start: 11-27-[address] Bernice De La Torre MD Work Phone: Start: 11-27-2024 Serum inorganic phosphate measurement Dr. Bernice De La Torre MD Work Phone: Start: 10-30-[address] Bernice De La Torre MD Work Phone: Start: 10-29-[address] Bernice ceballos MD Work Phone: Start: 10-29-[address] Bernice De La Torre MD Work Phone: Start: 10-28-[address] Bernice De La Torre MD Work Phone: Plan of Treatment Date Care Activity Detail Author Start: 11-27-2024 Esophagogastroduodenoscopy EGD (Not Applicable) [facility] Start: 11-27-2024 Hospital admission, emergency, from emergency room, medical nature [facility] Start: 11-27-2024 Verification routine [facility] Start: 11-27-2024 Admission procedure [facility] Start: 10-30-2024 Patient discharge [facility] Start: 10-29-2024 Care planning and problem solving actions [facility] Start: 10-28-2024 Application of intermittent pneumatic compression device [facility] Start: 10-28-2024 Following clinical pathway protocol [facility] Start: 10-28-2024 Ambulation without limitation [facility] Start: 10-28-2024 Assessment of risk of venous thromboembolism [facility] Start: 10-28-2024 Insertion of catheter into peripheral vein [facility] Start: 10-28-2024 Oxygen therapy [facility] Start: 10-28-2024 Providing care according to standard [facility] Start: 10-28-2024 Referral to gastroenterology service [facility] Start: 10-28-2024 [facility] Start: 10-28-2024 Verification routine [facility] Start: 10-28-2024 Admission procedure [facility] Start: 10-28-2024 Hospital admission, emergency, from emergency room, medical nature [facility] Start: 10-28-2024 Leukocyte reduced red blood cells [facility] Start: 10-28-2024 [facility] Start: 10-28-2024 Patient referral to dietitian [facility] Basic metabolic 2008 panel with ionized calcium - Serum or Plasma [facility] CBC W Auto Different ial panel - Blood [facility] Iron and Iron bindin g capacity panel - Serum or Plasma [facility] Patient referral [facility] Work Phone: Thyroid stimulating hormone measurement [facility] Payers Date Payer Category Payer Medicare [id number] 2024 Medicare [id number] 2024 Self-pay 2024 Unknown [id number] 1950 Unknown [id number] 2.16.8 [id number] Unknown [id number] 2.16.8 [id number] Unknown [id number] 2.16.8 [id number] Unknown [id number] 2.16.8 [id number] Unknown [id number] 2.16.8 [id number] Unknown [id number] 2.16.8 [id number] Unknown [id number] 2.16.8 [id number] Unknown [id number] 2.16.8 [id number] Unknown [id number] 2.16.8 [id number] Unknown [id number] 2.16.8 [id number] Unknown [id number] 2.16.8 [id number] Social History Date Type Detail Facility Start: 10-28-2024 End: 11-27-2024 Tobacco smoking status NHIS Never smoked tobacco (finding) [facility] Start: 1950 Sex Assigned At Female [facility] Goals Date Patient Goal Desired Activity /State Functional Status Date Assessment Result Facility 10-30-2024 Functional status Ambulates [facility] Work Phone: Mental Status Date Assessment Result Facility 11-27-2024 Cognitive function Level Of Cons ciousness Awake;Alert;Appropriate;Follow s Commands [facility] Work Phone: 10-30-2024 Cognitive function Voice/Name [facility] Work Phone: 10-30-2024 Cognitive function Appropriate;Cooperativ e [facility] Work Phone: Clinical Notes 10-28-2024 to 11-27-2024 Note Date & Type Note Facility 11-27-2024 History and physi brooke note [facility] 11-27-2024 Radiology Diagnostic study note [facility] Imaging Services [address] [place], [place] [address] Abdomen/Pelvis W IV Cont ONLY MR#: [id number] Acct: [id number] Name: ADEN LINDO Rep #: [id number] : 1950 F 73 From: Edd Simmons MD PCP: Dr. Bernice De La Torre MD Status: REG ER Study:Abdomen/Pelvis W IV Cont ONLY Date of E xam: 11/27/24 Exam# [id number] Ordering Dr: Harvey Morrissey DO PROCEDURE: ABDOMEN/PELVIS W IV CONT ONLY 11/27/2024 REASON FOR EXAM: ABDOMINAL PAIN Weakness. Decreased appetite. History of bladder cancer. TECHNIQUE: ABDOMEN/PELVIS W IV CONT ONLY Coronal and Sagittal reconstruction series were provided. CONTRAST: Isovue-300 VOLUME: 100 mL One or more dose reduction techniques were used (e.g., Automated exposure control, adjustment of the mA and/or kV according to patient size, use of iterative reconstruction technique. RADIATION DOSE SUMMARY: CTDlvol: 16 mGy DLP: 715.45 mGycm COMPARISON: None FINDINGS: Lung bases: Mild dependent atelectasis Liver: Diffuse fatty infiltration.. Hepatomegaly. Gallbladder: Solitary gallstone. Spleen: Normal size. Pancreas: Diffuse fatty atrophy. Adrenals: Unremarkable Kidneys: Normal renal sizes. No hydronephrosis. Bladder: Unremarkable Reproductive Organs: Status post hysterectomy. Bowel: Colonic diverticulosis without diverticulitis. Appendix: The appendix is not identified. There is no inflammatory process identified in the right lower quadrant to suggest appendicitis. Lymph nodes: Unremarkable. Vasculature: Mild diffuse atherosclerotic calcifications are noted. Peritoneum / Retroperitoneum: Unremarkable Bones: Degenerative changes of the spine. CT/Abdomen/Pelvis W IV Cont ONLY IMPRESSION: Hepatomegaly and fatty infiltration of the liver. Solitary gallstone Reading Location: [facility] CC: Dr. Harvey Morrissey DO; Dr. Bernice De La Torre MD ~ Supervisor Counseling And Guidance: Signed [facility] 10-30-2024 Discharge summary Note Date/Time October 30, 2024 7:24pm [facility] Medical Records Department [address] [place] [address] Instructions for Home/Discharge Instructions 10/30/241918 MR#: [id number] Acct: [id number] Name: ADEN LINDO Rep #:[id number] : 1950 73 From: Dewayne Gonzalez DO [...] La Torre MD ~ Signed [facility] Work Phone: 1(366) 951-969406-12-2025 Procedure note [facility] Medical Records Department [address] [place] [address] Colonoscopy Report MR#: [id number] Acct: [id number] Name: ADEN LINDO Rep #:[id number] : 1950 73 From: Ney Moreno DO [...] for review. Procedure Code(s): --- Professional --- 79211, Colonoscopy, flexible; with biopsy, single or multiple CPT copyright 2021 [employer]. All rights reserved. The codes documented in this report are preliminary and upon custodial aide review may be revised to meet current compliance requirements. Ney Moreno DO 10/30/2024 7:27:16 PM This report has been signed electronically. Number of Addenda: 0 Note Initiated On: 10/30/2024 4:26 PM 10/30/241926 Date _ Ney Moreno DO Cosigner Signature: Date (if indicated) CC: Dr. Bernice De La Torre MD; Ney Moreno DO ~ Date Dictated: 10/30/24 1626 Date Transcribed: Supervisor Counseling And Guidance: RF Signed [facility]06-12-2025 Procedure note [facility] Medical Records Department [address] [facility] [place] [address] Operative Report - CC Letter MR#: [id number] Acct: [id number] Name: ADEN LINDO Rep #:[id number] : 1950 73 From: Ney Moreno DO PCP: Dr. Bernice De La Torre MD Status:ADM IN 10/30/2024 Bernice De La Torre [facility] [address] [place] [id number] Re : Colonoscopy procedure for Aden Lindo [...] been signed electronically. 10/30/241926 Date _ Ney Sloan Signature: Date (if indicated) CC: Dr. Guero Pagan DO; Dr. Bernice De La Torre MD; Dr. Dewayne Gonzalez DO ~ Date Dictated: 10/30/24 1626 Date Transcribed: Supervisor Counseling And Guidance: RF Signed [facility]06-12-2025 Discharge summary [facility] Medical Records Department [address] [place] [address] Instructions for Home/Discharge Instructions 10/30/241918 MR#: [id number] Acct: [id number] Name: ADEN LINDO Rep #:[id number] : 1950 73 From: Dewayne Gonzalez DO PCP: Dr. Berince De La Torre MD Status:ADM IN Discharge [...] Dr. Bernice De La Torre MD ~ [facility]06-12-2025 [facility] Medical Records Department [address] [place] [address] Discharge Summary 10/30/241923 MR#: [id number] Acct: [id number] Name: ADEN LINDO Rep #: [id number] : 1950 73 From: Dewayne Gonzalez DO PCP: Dr. Bernice De La Torre MD Status:DIS IN [facility] Prov[facility] Date of Admission: 10/28/24 Date of Discharge: 10/30/24 Primary Care Physician: Dr. 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 #3 essential hypertension-patient will remain on her [...] in the emergency room at [facility] with complaints of rectal bleeding and melanotic [...] % (Auto) 48.5, Lymph % (Auto) 40.2, [place] % (Auto) 7.8, Eos % (Auto) 2.3, [...] DAILY Atorvas (more content not included)...[facility]06-12-2025 Consult note Author Alejandro Davila [facility] Note Date/Time October 30, 2024 5:19 pm [facility] Medical Records Department [address] [place] [address] Anesthesia Postop Eval II 10/30/24 1719 MR#: [id number] Acct: [id number] Name: ADEN LINDO Rep #:[id number] : 1950 73 From: Alejandro Davila MD PCP: Dr. Bernice De La Torre MD Status:ADM IN Y Race: C Location: [address] Anesthesia Postop Eval I Sum Postop Eval Completion status Anesthesia document: Postop Eval 1 completed: Yes Anesthesia Postop Eval I Summary Anesthesia Postop Eval I Summary: Anesthesia Postop Eval I: Assessment Summary Airway patent Yes 10/30/24 17:18 PRINTER [email or web address] Spontaneous unlabored Yes 10/30/24 17:18 PRINTER [email or web address] respirations Mental status Awake,Calm 10/30/24 17:18 PRINTER [email or web address] nausea No 10/30/24 17:18 PRINTER APPRENTICE.[email or web address] Vomiting No 10/30/24 17:18 PRINTER [email or web address] Anesthesia Postop Eval I: Fluid Summary Crystalloid volume administer 300 10/30/24 17:18 PRINTER [email or web address].[email or web address] (ml) Colloids volume administered ( ml) Blood Product volume administered (ml) Total IV fluid infused 300 10/30/24 17:18 PRINTER [email or web address] Anesthesia Postop Eval I: Summary Notes Anesthesia Complication No 10/30/24 17:18 PRINTER [email or web address] Anesthesia Complication Comment: Post-operative progress note Anesthesia: Postop Eval II Evaluation Mental status: Awake Pain Level: 0 nausea: No Vomiting: No 10/30/241718 <Electronically signed by Alejandro Davila MD > Date _ Alejandro Davila MD Cosigner Signature: Date CC: ~ Signed [facility] Work Phone: 1(556) 187-957406-12-2025 Consult note Author [facility] Note Date/Time October 30, 2024 5:18 pm [facility] Medical Records Department [address] [place] [address] Anesthesia Postop Eval I 10/30/241716 MR#: [id number] Acct: [id number] Name: ADEN LINDO Rep #:[id number] : 1950 73 From: Pedro Negrete PCP: Dr. Bernice De La Torre MD Status:ADM IN Y Race: C Location: [place] [address] Anesthesia: Postop Eval I Current Vital Signs [...] completed: Yes 10/30/241717 <Electronically signed by Pedro BROWNE> Date _ Pedro Akers PRINTER APPRENTICE Cosigner Signature: Date CC: ~ Signed [facility] Work Phone: 1(868) 681-786906-12-2025 Consult note [facility] Medical Records Department [address] [place] [address] Anesthesia Postop Eval II 10/30/24 1719 MR#: [id number] Acct: [id number] Name: ADEN LINDO Rep #:[id number] : 1950 73 From: Alejandro Davila MD PCP: Dr. Bernice De La Torre MD Status:ADM IN Y Race: C Location: [place] [address] 3-1 Anesthesia Postop Eval I Sum Postop Eval Completion status Anesthesia document: Postop Eval 1 completed: Yes Anesthesia Postop Eval I Summary Anesthesia Postop Eval I Summary: Anesthesia Postop Eval I: Assessment Summary Airway patent Yes 10/30/24 17:18 PRINTER [email or web address] Spontaneous unlabored Yes 10/30/24 17:18 PRINTER [email or web address] respirations Mental status Awake,Calm 10/30/24 17:18 PRINTER [email or web address] nausea No 10/30/24 17:18 PRINTER APPRENTICE.[email or web address] Vomiting No 10/30/24 17:18 PRINTER [email or web address] Anesthesia Postop Eval I: Fluid Summary Crystalloid volume administer 300 10/30/24 17:18 PRINTER [email or web address].[email or web address] (ml) Colloids volume administered ( ml) Blood Product volume administered (ml) Total IV fluid infused 300 10/30/24 17:18 PRINTER [email or web address] Anesthesia Postop Eval I: Summary Notes Anesthesia Complication No 10/30/24 17:18 PRINTER [email or web address] Anesthesia Complication Comment: Post-operative progress note Anesthesia: Postop Eval II Evaluation Mental status: Awake Pain Level: 0 nausea: No Vomiting: No 10/30/24 1719 > Date _ Alejandro Figueroaignye Signature: Date CC: ~ Signed [facility]06-12-2025 Consult note [facility] Medical Records Department [address] [place] [address] Anesthesia Postop Eval I 10/30/241716 MR#: [id number] Acct: [id number] Name: ADEN LINDO Rep #:[id number] : 1950 73 From: Pedro Negrete PCP: Dr. Bernice De La Torre MD Status:ADM IN Y Race: C Location: [place] [address] 07-19 Anesthesia: Postop Eval I Current Vital [...] Yes 10/30/241717 RNA> Date _ Pedro Akers CRNA Cosigner Signature: Date CC: ~ Signed [facility]06-12-2025 Consult note Author Alejandro Davila [facility] Note Date/Time October 30, 2024 3:17 pm [facility] Medical Records Department [address] [place] [address] Pre-Anesthesia Evaluation 10/30/241516 MR#: [id number] Acct: [id number] Name: ADEN LINDO Rep #:[id number] : 1950 73 From: Alejandro Davila MD PCP: Dr. Bernice De La Torre MD Status:ADM IN Y Race: C Location: [place] [address] 3-1 ASA Classification* ASA Classification ASA Classification: [...] Procedure(s): Colonoscopy Anesthesia History Anesthesia History - nanotechnologist: Anesthesia History - nanotechnologist Hx Hospitalization Any Problems With Anesthesia Cholinesterase [...] take am of surgery PONV PONV - nanotechnologist: PONV - nanotechnologist Female HX of Motion Sickness HX of N/V After Surgery Non-Smoker Duration of Surgery greater than 60 minutes Number of Risk Factors PONV Score Height & Weight Height & Weight: Anesthesia: Height & Weight Height 5 ft 5 in 10/29/24 13:49 Weight: 80.104 kg 10/29/24 13:49 Body Mass Index (BMI) 29.3 10/28/24 16:40 Respiratory Assessment Respiratory Assessment - nanotechnologist: Respiratory Tract Infection Hx - nanotechnologist Hx Respiratory Tract Infection STOP Sleep Apnea STOP Sleep Apnea - nanotechnologist: STOP Sleep Apnea - nanotechnologist Hx Hypertension No 10/28/24 16:40 Hx Sleep [...] Tobacco Use History Tobacco Use History - nanotechnologist: Tobacco Use History - nanotechnologist Tobacco Use Smoking Status Never smoker 10/28/24 16:40 Hx Tobacco Use No 10/28/24 16:40 Years Smoking Packs Smoked per Day Smoking Cessation Date was within the last 15 years Hx Smoking Cessation Date Hx Smoking Cessation Counseling Hematologic Medial History Hematologic Hx - nanotechnologist: Hematologic Medical Hx - alternative energy engineer Hx of Blood Transfusion No 10/28/24 16:40 [...] confused, unrespo /Reproduction History /Reproductive History - nanotechnologist: /Reproductive Hx- nanotechnologist Hx Now Gestational Age (in weeks): EDC: [...] Signature: Date CC: ~ Signed [facility] Work Phone: 1(237) 158-929406-12-2025 Consult note [facility] Medical Records Department [facility] [place] [place] [address] Pre-Anesthesia Evaluation 10/30/241516 MR#: [id number] Acct: [id number] Name: ADEN LINDO Rep #:[id number] : 1950 73 From: Alejandro Davila MD PCP: Dr. Bernice De La Torre MD Status:ADM IN Y Race: C Location: [place] [address] 3-1 ASA Classification* ASA Classification ASA Classification: [...] Procedure(s): Colonoscopy Anesthesia History Anesthesia History - nanotechnologist: Anesthesia History - nanotechnologist Hx Hospitalization Any Problems With Anesthesia Cholinesterase [...] take am of surgery PONV PONV - nanotechnologist: PONV - nanotechnologist Female HX of Motion Sickness HX of N/V After Surgery Non-Smoker Duration of Surgery greater than 60 minutes Number of Risk Factors PONV Score Height & Weight Height & Weight: Anesthesia: Height & Weight Height 5 ft 5 in 10/29/24 13:49 Weight: 80.104 kg 10/29/24 13:49 Body Mass Index (BMI) 29.3 10/28/24 16:40 Respiratory Assessment Respiratory Assessment - nanotechnologist: Respiratory Tract Infection Hx - nanotechnologist Hx Respiratory Tract Infection STOP Sleep Apnea STOP Sleep Apnea - nanotechnologist: STOP Sleep Apnea - nanotechnologist Hx Hypertension No 10/28/24 16:40 Hx Sleep [...] Tobacco Use History Tobacco Use History - nanotechnologist: Tobacco Use History - nanotechnologist Tobacco Use Smoking Status Never smoker 10/28/24 16:40 Hx Tobacco Use No 10/28/24 16:40 Years Smoking Packs Smoked per Day Smoking Cessation Date was within the last 15 years Hx Smoking Cessation Date Hx Smoking Cessation Counseling Hematologic Medial History Hematologic Hx - nanotechnologist: Hematologic Medical Hx - alternative energy 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 Hx of Blood Transfusion No 10/28/24 16:40 [...] confused, unrespo /Reproduction History /Reproductive History - nanotechnologist: /Reproductive Hx- nanotechnologist Hx Now Gestational Age (in weeks): EDC: [...] Signature: Date CC: ~ Signed [facility]06-11-2025 Progress note Author Dewayne Gonzalez [facility] Note Date/Time October 29, 2024 8:19 pm [facility] Medical Records Department [address] [place] [address] Progress Note - Hospitalist 10/29/241912 MR#: [id number] Acct: [id number] Name: ADEN LINDO Rep #:[id number] : 1950 73 From: Dewayne Gonzalez DO PCP: Dr. Bernice De La Torre MD Status:ADM IN Location: [place] [address] Reason for Visit Reason for Visit: Diagnoses [...] gradient, patient will need follow-up with her migrant leader #3 essential hypertension-patient will remain on her current blood pressure medication #4 melena with red rectal bleeding-again patient will undergo colonoscopy tomorrow Total clinical time spent by myself addressing the patient's medical issues, reviewing all of her data, and collaborating with patient's care team: 35-minute Charges/Coding Visit Charges Inpatient E&M: 28680 Subs Hosp L2 10/29/242018 <Electronically signed by Dewayne Gonzalez DO> Cosigner Signature (if applicable): CC: ~ Signed [facility] Work Phone: 1(995) 616-374906-11-2025 Progress note [facility] Medical Records Department [address] [place] [address] Progress Note - Hospitalist 10/29/241912 MR#: [id number] Acct: [id number] Name: ADEN LINDO Rep #:[id number] : 1950 73 From: Dewayne Gonzalez DO PCP: Dr. Bernice De La Torre MD Status:ADM IN Location: [place] [address] Reason for Visit Reason for Visit: Diagnoses [...] Bernice De La Torre Performed By: Yi Guzman RDCS, RVT Physical Exam Const alert, oriented x3, [...] gradient, patient will need follow-up with her migrant leader #3 essential hypertension-patient will remain on her current blood pressure medication #4 melena with red rectal bleeding-again patient will undergo colonoscopy tomorrow Total clinical time spent by myself addressing the patient's medical issues, reviewing all of her data, and collaborating with patient's care team: 35-minute Charges/Coding Visit Charges Inpatient E&M: 49576 Subs Hosp L2 10/29/242018 Cosigner Signature (if applicable): CC: ~ Signed [facility]06-11-2025 Consult note Author Alejandro Davila [facility] Note Date/Time October 29, 2024 1:53 pm [facility] Medical Records Department [address] [place] [address] Anesthesia Postop Eval II 10/29/24 1353 MR#: [id number] Acct: [id number] Name: ADEN LINDO Rep #:[id number] : 1950 73 From: Alejandro Davila MD PCP: Dr. Bernice De La Torre MD Status:ADM IN Y Race: C Location: [place] [address] 3-1 Anesthesia Postop Eval I Sum Postop [...] Signature: Date CC: ~ Signed [facility] Work Phone: [phone] Consult note Author Kevin Sage [facility] Note Date/Time October 29, 2024 12:0 4pm [facility] Medical Records Department [address] [place] [address] Anesthesia Postop Eval I 10/29/24 1204 MR#: [id number] Acct: [id number] Name: ADEN LINDO Rep #:[id number] : 1950 73 From: Kevin Sage PCP: Dr. Bernice De La Torre MD Status:ADM IN Y Race: C Location: [place] [address] Anesthesia: Postop Eval I Current Vital Signs [...] document: Postop Eval 1 completed: Yes 10/29/24 120 <Electronically signed by Kevin Sage > Date _ Kevin Suarez Signature: Date CC: ~ Signed [facility] Work Phone: 1(901) 107-578006-11-2025 Consult note [facility] Medical Records Department [address] [facility] [place] [place] [address] Anesthesia Postop Eval II 10/29/24 1353 MR#: [id number] Acct: [id number] Name: KARYN LINDOFRANKIE Manzano Rep #:[id number] : 1950 73 From: Alejandro Davila MD PCP: Dr. Bernice De La Torre MD Status:ADM IN Y Race: C Location: [place] [address] 3-1 Anesthesia Postop Eval I Sum Postop [...] Signature: Date CC: ~ Signed [facility]06-11-2025 Progress note Author Ney Moreno [facility] Note Date/Time October 29, 2024 11:3 5am [facility] Medical Records Department [address] [place] [address] Progress Note 10/29/24 1134 MR#: [id number] Acct: [id number] Name: BELGICAADEN E Rep #:[id number] : 1950 73 From: Ney Moreno DO PCP: Dr. Bernice De La Torre MD Status:ADM IN Location: [place] [id number]- 1 Progress Note 73-year-old female history of [...] 10/29/24 at 1135 Visit Charges Inpatient E&M: 00215 Subs Hosp L2 10/29/24 1135 <Electronically signed by Ney diggs DO> Date _ Ney Moreno DO Cosigner Signature (if applicable): Date cc: ~* Signed [facility] Work Phone: 1([phone]) 285-599706-11-2025 Consult note Author Alejandro Davila [facility] Note Date/Time October 29, 2024 10:3 1am [facility] Medical Records Department [address] [place] [address] Pre-Anesthesia Evaluation 10/29/24 1031 MR#: [id number] Acct: [id number] Name: ADEN LINDO Rep #:[id number] : 1950 73 From: Alejandro Davila MD PCP: Dr. Bernice De La Torre MD Status:ADM IN Y Race: C Location: [place] [address] 3-1 ASA Classification* ASA Classification ASA Classification: [...] Procedure(s): EGD Anesthesia History Anesthesia History - nanotechnologist: Anesthesia History - nanotechnologist Hx Hospitalization Any Problems With Anesthesia Cholinesterase [...] take am of surgery PONV PONV - nanotechnologist: PONV - nanotechnologist Female HX of Motion Sickness HX of N/V After Surgery Non-Smoker Duration of Surgery greater than 60 minutes Number of Risk Factors PONV Score Height & Weight Height & Weight: Anesthesia: Height & Weight Height 5 ft 5 in 10/28/24 16:40 Weight: 80.104 kg 10/28/24 16:40 Body Mass Index (BMI) 29.3 10/28/24 16:40 Respiratory Assessment Respiratory Assessment - nanotechnologist: Respiratory Tract Infection Hx - nanotechnologist Hx Respiratory Tract Infection STOP Sleep Apnea STOP Sleep Apnea - nanotechnologist: STOP Sleep Apnea - nanotechnologist Hx Hypertension No 10/28/24 16:40 Hx Sleep [...] Tobacco Use History Tobacco Use History - nanotechnologist: Tobacco Use History - nanotechnologist Tobacco Use Smoking Status Never smoker 10/28/24 16:40 Hx Tobacco Use No 10/28/24 16:40 Years Smoking Packs Smoked per Day Smoking Cessation Date was within the last 15 years Hx Smoking Cessation Date Hx Smoking Cessation Counseling Hematologic Medial History Hematologic Hx - nanotechnologist: Hematologic Medical Hx - alternative energy 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 Hx of Blood Transfusion No 10/28/24 16:40 [...] confused, unrespo /Reproduction History /Reproductive History - nanotechnologist: /Reproductive Hx- nanotechnologist Hx Now Gestational Age (in weeks): EDC: [...] MD > Date _ Alejandro Davila MD Cosign Signature: Date CC: ~ Signed [facility] Work Phone: 1([phone]) [phone] Consult note [facility] Medical Records Department [address] [place] [address] Anesthesia Postop Eval I 10/29/24 1204 MR#: [id number] Acct: [id number] Name: ADEN LINDO Rep #:[id number] : 1950 73 From: Kevin Sage PCP: Dr. Bernice De La Torre MD Status:ADM IN Y Race: C Location: [place] [address] Anesthesia: Postop Eval I Current Vital Signs [...] Yes 10/29/24 1204 > Date _ Kevin Sage Cosigner Signature: Date CC: ~ Signed [facility]06-11-2025 Procedure note [facility] Medical Records Department [address] [place] [address] EGD Report MR#: [id number] Acct: [id number] Name: ADEN LINDO Rep #:[id number] : 1950 73 From: Ney Moreno DO [...] pathology results. Procedure Code(s): --- Professional --- 57022, Small intestinal endoscopy, enteroscopy beyond second portion of duodenum, not including ileum; with biopsy, single or multiple CPT copyright 2021 [employer]. All rights reserved. The codes documented in this report are preliminary and upon custodial aide review may be revised to meet current compliance requirements. Ney Moreno DO 10/29/2024 12:00:50 PM This report has been signed electronically. Number of Addenda: 0 Note Initiated On: 10/29/2024 11:34 AM 10/29/24 1200 Date _ Ney Moreno DO Cosigner Signature: Date (if indicated) CC: Dr. Bernice De La Torre MD; Ney Moreno DO ~ Date Dictated: 10/29/24 1134 Date Transcribed: Supervisor Counseling And Guidance: RF Signed [facility]06-11-2025 Procedure note [facility] Medical Records Department [address] [place] [address] Operative Report - CC Letter MR#: [id number] Acct: [id number] Name: ADEN LINDO Rep #:[id number] : 1950 73 From: Ney Moreno DO PCP: Dr. Bernice De La Trore MD Status:ADM IN 10/29/2024 Bernice De La Torre [facility] [address] [place] [id number] Re : Upper GI endoscopy procedure for [...] signed electronically. 10/29/24 1200 Date _ Ney Moreno DO Cosigner Signature: Date (if indicated) CC: Dr. Guero Pagan DO; Dr. Bernice De La Torre MD; Dr. Dewayne Gonzalez DO ~ Date Dictated: 10/29/24 1134 Date Transcribed: Supervisor Counseling And Guidance: RF Signed [facility]06-11-2025 Progress note [facility] Medical Records Department [address] [place] [address] Progress Note 10/29/24 113 MR#: [id number] Acct: [id number] Name: ADEN LINDO Rep #:[id number] : 1950 73 From: Ney Moreno DO PCP: Dr. Bernice De La Torre MD Status:ADM IN Location: [place] [address] Progress Note 73-year-old female history of hypertension. [...] of upper or lower endoscopy. 10/29/24 1135 Ney Sloan Signature (if applicable): CC: ~ Signed ADDENDUM by Ney Moreno DO on 10/29/24 at 1135 Visit Charges Inpatient E&M: 67367 Subs Hosp L2 10/29/24 1135 d DO> Date _ Ney Moreno DO Cosigner Signature (if applicable): Date cc: ~* Signed [facility]06-11-2025 Consult note [facility] Medical Records Department [address] [facility] [place] [address] Pre-Anesthesia Evaluation 10/29/24 1031 MR#: [id number] Acct: [id number] Name: ADEN LINDO Rep #:[id number] : 1950 73 From: Alejandro Davila MD PCP: Dr. Bernice De La Torre MD Status:ADM IN Y Race: C Location: [place] [address] 3-1 ASA Classification* ASA Classification ASA Classification: [...] Procedure(s): EGD Anesthesia History Anesthesia History - nanotechnologist: Anesthesia History - nanotechnologist Hx Hospitalization Any Problems With Anesthesia Cholinesterase [...] take am of surgery PONV PONV - nanotechnologist: PONV - nanotechnologist Female HX of Motion Sickness HX of N/V After Surgery Non-Smoker Duration of Surgery greater than 60 minutes Number of Risk Factors PONV Score Height & Weight Height & Weight: Anesthesia: Height & Weight Height 5 ft 5 in 10/28/24 16:40 Weight: 80.104 kg 10/28/24 16:40 Body Mass Index (BMI) 29.3 10/28/24 16:40 Respiratory Assessment Respiratory Assessment - nanotechnologist: Respiratory Tract Infection Hx - nanotechnologist Hx Respiratory Tract Infection STOP Sleep Apnea STOP Sleep Apnea - nanotechnologist: STOP Sleep Apnea - nanotechnologist Hx Hypertension No 10/28/24 16:40 Hx Sleep [...] Tobacco Use History Tobacco Use History - nanotechnologist: Tobacco Use History - nanotechnologist Tobacco Use Smoking Status Never smoker 10/28/24 16:40 Hx Tobacco Use No 10/28/24 16:40 Years Smoking Packs Smoked per Day Smoking Cessation Date was within the last 15 years Hx Smoking Cessation Date Hx Smoking Cessation Counseling Hematologic Medial History Hematologic Hx - nanotechnologist: Hematologic Medical Hx - alternative energy engineer Hx of Blood Transfusion No 10/28/24 16:40 [...] confused, unrespo /Reproduction History /Reproductive History - nanotechnologist: /Reproductive Hx- nanotechnologist Hx Now Gestational Age (in weeks): EDC: [...] documented. 10/29/24 1031 > Date _ Alejandro Figueroaigner Signature: Date CC: ~ Signed [facility]06-10-2025 Progress note Author [facility] Note Date/Time October 28, 2024 8:55 pm [facility] Medical Records Department [address] [place] [address] Progress Note - Hospitalist 10/28/242053 MR#: [id number] Acct: [id number] Name: ADEN LINDO Rep #:[id number] : 1950 73 From: Guero scales DO PCP: Dr. Bernice De La Torre MD Status:ADM IN Location: [place] [address] Hospitalist Note Notified by cardiac imaging department that preliminary read for echo showed severe aortic stenosis. Full report will be finalized tomorrow morning. I notified Dr. Moreno of this finding and will defer to him on timing of EGD giventhis finding. 10/28/242054 <Electronically signed by Guero Pagan DO> Hoaer Signature (if applicable): CC: ~ Signed [facility] Work Phone: 1(174) 385-443406-10-2025 Progress note [facility] Medical Records Department [address] [place] [address] Progress Note - Hospitalist 10/28/242053 MR#: [id number] Acct: [id number] Name: ADEN LINDO Rep #:[id number] : 1950 73 From: Guero scales DO PCP: Dr. Bernice De La Torre MD Status:ADM IN Location: [place] [id number]- 1 Hospitalist Note Notified by cardiac imaging department that preliminary read for echo showed severe aortic stenosis. Full report will be finalized tomorrow morning. I notified Dr. Moreno of this finding and will defer to him on timing of EGD giventhis finding. 10/28/242054 Cosigner Signature (if applicable): CC: ~ Signed [facility]06-10-2025 History and physical note Author Guero Pagan [facility] Note Date/Time October 28, 2024 3:09 pm [facility] Medical Records Department [address] [place] [address] H&P Exam - Hospitalist 10/28/24 1433 MR#: [id number] Acct: [id number] Name: ADEN LINDO Rep #:[id number] : 1950 73 From: Guero scales DO PCP: Dr. Bernice De La Torre MD Status:ADM IN Location: [place] [address] HPI - General General Date of Admission: 10/28/24 Date of Service: 10/28/24 Chief Complaint: Bright red and dark stools HPI Narrative ADEN LINDO, is a 73 F who presented to [facility] ED on 10/28/2024 with bright red and [...] No other acute concerns at this time. [facility] Medical History Pneumonia History of stroke [...] 83.7 H, Lymph % (Auto) 11.7 L, Van Z[place]t % (Auto) 3.8, Eos % (Auto) 0.0, Baso % (Auto) 0.3, Absolute Neuts (auto) 7.3, Absolute Lymphs (auto) 1.02, Nucleated RBC % 0, Blood Type A NEGATIVE, Antibody Screen NEGATIVE Assessment & Plan Assessment/Plan (1) Acute upper GI bleed: PLAN: Plan Patient is a 73-year-old female who presented to [facility] ED on 10/28/2024 with bright red and [...] 75 minutes. Charges/Coding Visit Charges Inpatient E&M: 42284 Init Hosp L3 10/28/24 1509 <Electronically signed by Guero Pagan DO> Cosigner Signature (if applicable): CC: Dr. Guero Pagan DO; Dr. Bernice De La Torre MD~ Signed [facility] Work Phone: [phone]) [phone] Evaluation note* Diagnosis Onset Date Resolution Status Admit Date Acute upper GI bleed acute October 28, 2024 2:34pm [facility] Work Phone: [phone]) 542-533006-10-2025 Evaluation note* Diagnosis Onset Date Resolution Status Admit Date Acute upper GI bleed acute October 28, 2024 2:34pm Anemia acute October 28 2:34pm [facility] Work Phone: [phone]) [phone] Evaluation note* Diagnosis Onset Date Resolution Status Admit Date Anemia acute October 28 2:34pm Acute upper GI bleed inactive October 28, 2024 2:34pm Anemia acute November 19, 2024 9:45am [facility] Work Phone: [phone]) [phone] Evaluation note* Diagnosis Onset Date Resolution Status Admit Date Anemia acute October 28 2:34pm Acute upper GI bleed inactive October 28, 2024 2:34pm Anemia acute November 19, 2024 9:45am Aortic regurgitation acute November 19, 2024 9:45am Aortic stenosis acute November 19, 2024 9:45am Hypertension chronic November 19 9:45am Anemia acute November 27 1:32pm Aortic stenosis acute November 1:32pm Gastrointestinal bleeding, upper acu te November 27, 2024 1:32pm [facility] Work Phone: [phone] Discharge summary Author Juan Diego Sauer [facility] Note Date/Time October 28, 2024 2:33 pm [facility] Medical Records Department [address] [place] [address] Emergency Department Summary 10/28/24 MR#: [id number] Acct: [id number] Name: ADEN LINDO Rep #:[id number] : 1950 73 From: Juan Diego Sauer [...] 83.7 H Lymph % (Auto) 11.7 L Van Zandt % (Auto) 3.8 Eos % (Auto) 0.0 [...] MD [Primary Care Provider] - Print Language: Namibian Disposition Disposition: Acute Care Hospital [facility] What to do if you have Problems For any increased pain, shortness of breath, bleeding, nausea or vomiting, chestpain, or any unexpected problems, contact your Primary Care Provider. Call [facility] ([phone]) or report to the closest Emergency Room. Call 911 if necessary. 10/28/24 1433 <Electronically signed by Juan Diego Sauer MD> Cosigner Signature (if applicable): CC: Dr. Bernice De La Torre MD ~ Signed [facility] Work Phone: [phone]) 327-511106-10-2025 Discharge summary Author Juan Diego Sauer [facility] Note Date/Time October 28, 2024 2:33 pm [facility] Medical Records Department [address] [place] [address] Emergency Department Summary 10/28/24 MR#: [id number] Acct: [id number] Name: ADEN LINDO Rep #:[id number] : 1950 73 From: Juan Diego Sauer [...] Prior similar symptoms: No Recent Illness[facility] Medical History Pneumonia History of stroke [...] 83.7 H Lymph % (Auto) 11.7 L Van Z[place]t % (Auto) 3.8 Eos % (Auto) 0.0 [...] MD [Primary Care Provider] - Print Language: [place]ian Disposition Disposition: Acute Care Hospital [facility] What to do if you have Problems For any increased pain, shortness of breath, bleeding, nausea or vomiting, chestpain, or any unexpected problems, contact your Primary Care Provider. Call [facility] ([phone]) or report to the closest Emergency Room. Call 911 if necessary. 10/28/241432 <Electronically signed by Juan Diego Sauer MD> Cosigner Signature (if applicable): CC: Dr. Bernice De La Torre MD ~ Signed [facility] Work Phone: [phone]) [phone] History and physical note [facility] Note Date/Time October 28, 2024 3:09 pm [facility] Medical Records Department [address] [place] [address] H&P Exam - Hospitalist 10/28/24 143 MR#: [id number] Acct: [id number] Name: ADEN LINDO Rep #:[id number] : 1950 73 From: Guero scales DO PCP: Dr. Bernice De La Torre MD Status:ADM IN Location: [place] [id number] 1 HPI - General General Date of Admission: 10/28/24 Date of Service: 10/28/24 Chief Complaint: Bright red and dark stools HPI Brittany LINDO, is a 73 F who presented to [facility] ED on 10/28/2024 with bright red and [...] No other acute concerns at this time. [facility] Medical History Pneumonia History of stroke [...] 250 mg tablet 250 mg PO QDAY 05/07/24/02/12 History turmeric 400 mg capsule 400 mg [...] 83.7 H, Lymph % (Auto) 11.7 L, Van Z[place]t % (Auto) 3.8, Eos % (Auto) 0.0, Baso % (Auto) 0.3, Absolute Neuts (auto) 7.3, Absolute Lymphs (auto) 1.02, Nucleated RBC % 0, Blood Type A NEGATIVE, Antibody Screen NEGATIVE Assessment & Plan Assessment/Plan (1) Acute upper GI bleed: PLAN: Plan Patient is a 73-year-old female who presented to [facility] ED on 10/28/2024 with bright red and [...] 75 minutes. Charges/Coding Visit Charges Inpatient E&M: 59531 Init Hosp L3 10/28/24 1509 <Electronically signed by Guero Pagan DO> Cosigner Signature (if applicable): CC: Dr. Guero Pagan DO; Dr. Bernice De La Torre MD~ Signed [facility] Work Phone: [phone]) 924-306206-10-2025 History and physical note [facility] Medical Records Department [address] [place] [address] H&P Exam - Hospitalist 10/28/24 1433 MR#: [id number] Acct: [id number] Name: ADEN LINDO Rep #:[id number] : 1950 73 From: Guero scales DO PCP: Dr. Bernice De La Torre MD Status:ADM IN Location: [place] [address] HPI - General General Date of Admission: 10/28/24 Date of Service: 10/28/24 Chief Complaint: Bright red and dark stools HPI Narrative ADEN LINDO, is a 73 F who presented to [facility] ED on 10/28/2024 with bright red and [...] No other acute concerns at this time. [facility] Medical History Pneumonia History of stroke [...] 83.7 H, Lymph % (Auto) 11.7 L, Van Zandt % (Auto) 3.8, Eos % (Auto) 0.0, Baso % (Auto) 0.3, Absolute Neuts (auto) 7.3, Absolute Lymphs (auto) 1.02, Nucleated RBC % 0, Blood Type A NEGATIVE, Antibody Screen NEGATIVE Assessment & Plan Assessment/Plan (1) Acute upper GI bleed: PLAN: Plan Patient is a 73-year-old female who presented to [facility] ED on 10/28/2024 with bright red and [...] 75 minutes. Charges/Coding Visit Charges Inpatient E&M: 81396 Init Hosp L3 10/28/24 1509 Cosigner Signature (if applicable): CC: Dr. Guero Pagan DO; Dr. Bernice De La Torre MD~ Signed [facility]06-10-2025 Discharge summary [facility] Medical Records Department [address] [place] [address] Emergency Department Summary 10/28/24 MR#: [id number] Acct: [id number] Name: ADEN LINDO Rep #:[id number] : 1950 73 From: Juan Diego Sauer [...] 83.7 H Lymph % (Auto) 11.7 L Van Zandt % (Auto) 3.8 Eos % (Auto) 0.0 [...] MD [Primary Care Provider] - Print Language: Nam[place]ian Disposition Disposition: Acute Care Hospital [facility] What to do if you have Problems For any increased pain, shortness of breath, bleeding, nausea or vomiting, chestpain, or any unexpected problems, contact your Primary Care Provider. Call [facility] ([phone]) or report tothe closest Emergency Room. Call 911 if necessary. 10/28/24 1437 Cosigner Signature (if applicable): CC: Dr. Bernice De La Torre MD ~ Signed [facility] Author Harley Berrios [facility] Note Date/Time November 27, 2024 2:58 pm [facility] Medical Records Department [address] [place] [address] H&P Exam - Hospitalist 11/27/24 1338 MR#: [id number] Acct: [id number] Name: ADEN LINDO Rep #:[id number] : 1950 73 From: Harley Diggs PCP: Dr. Bernice De La Torre MD Status:ADM IN Location: [id number]- 1 HPI - General General Date of Admission: 11/27/24 Date of Service: 11/27/24 Chief Complaint: Patient not feeling good since her last EGD and colonoscopy feeling weak. Melena today HPI Narrative ADEN LINDO, is a 73 F with recent admission in October came to ED with 2024 feeling very weak, dizziness lightheadedness with no energy or walking. She also was getting shortness of breath on walking. No chest pain/pressure or tightness she felt like she will fall when she stand up or walk. She had one-time moderate amount of melena, black stool with surrounding brownish/reddish hue. She also complained of epigastric/RUQ discomfort felt like not but she states it is not pain. In ED, her BP was low 86/55, 89/59, MAP 65 went up with IV fluid normal send bolus 102/54 but again dropped to 97/60. Hemoglobin was 7.8. she had EGD and colonoscopy on 10/30/2024. She is undergoing resuscitation with 1 more liter of Ringer lactate bolus and then admitted. [facility] Medical History Aortic regurgitation Aortic stenosis Anemia Acute upper GI bleed Pneumonia History of stroke History of bladder cancer Hypertension Home Medications ?Medication ?Instructions ?Recorded ?Last Taken ?Type aspirin 81 mg tablet,delayed 81 mg PO DAILY 01/01/20 0 11/26/24 History release amlodipine 5 mg tablet 5 mg PO DAILY #90 tabs 02/1311/26/24 Rx losartan 50 mg tablet 50 mg PO DAILY #90 tabs 01/2011/26/24 Rx magnesium 250 mg tablet 250 mg PO QDAY 05/07/2402/12 History turmeric 400 mg capsule 400 mg PO DAILY 10/28/2402/12 History iron bisglycinate chelate 28 mg PO QDAY #90 caps 11/1911/26/24 Rx Allergy/AdvReac Type Severity Reaction Status Date / Time No Known Allergies Allergy Verified 11/27/24 08:59 Family History Mother Myocardial infarction, Onset Age: 80 Heart disease Hypertension CVA (cerebral vascular accident) Father Myocardial infarction, Onset Age: 56 Surgical History History of hysterectomy Social History Smoking Status: Never smoker alcohol intake: never substance use type: does not use what type of physical activity do you participate in: none ROS ROS Narrative Constitutional: Reports fatigue and weakness. No fever. HEENT: Reports systems reviewed and no addt'l complaints, except as documented Respiratory/Chest: No acute shortness of breath or respiratory distress or wheezing. CVS: No chest pain pressure or tightness Gastrointestinal: No nausea/vomiting/hematemesis. Rest as described in HPI Genitourinary: Denies burning urination or new urinary tract symptoms Musculoskeletal: Denies acute joint pain or limited range of motion. No acute injury Neurologic: Denies seizure-like symptoms. skin: No ulcer. No rash Endocrinology: Reports systems reviewed and no addt'l complaints, except as documented Hematologic/Lymphatic: Reports systems reviewed and no addt'l complaints, exceptas documented Rest 14 ROS are negative except as mentioned in HPI Vital Signs Vital Signs Vital Signs: 11/27/24 08:59 11/27/24 08:59 11/27/24 09:18 Temperature 97 F L Temperature Source Temporal Pulse Rate 77 66 Respiratory Rate 14 12 Respiratory Effort Normal Respiratory Pattern Normal Blood Pressure 86/55 L 89/59 L Blood Pressure Mean 65 69 Pulse Ox 100 100 Oxygen Delivery Method Room Air Room Air 11/27/24 10:05 11/27/24 11:00 11/27/24 12:00 Temperature Temperature Source Pulse Rate 66 72 89 Respiratory Rate 16 21 H 24 H Respiratory Effort Respiratory Pattern Blood Pressure 102/54 L 101/54 L 90/60 Blood Pressure Mean 70 69 70 Pulse Ox 93 98 100 Oxygen Delivery Method Room Air 11/27/24 13:00 Temperature Temperature Source Pulse Rate 65 Respiratory Rate 19 H Respiratory Effort Respiratory Pattern Blood Pressure 119/58 L Blood Pressure Mean 78 Pulse Ox 100 Oxygen Delivery Method Weight Weight: 170 lb 3.15 oz Body Mass Index (BMI) 31.1 Physical Exam Narrative General: Alert, Oriented x3, Cooperative. BMI 31.1 kg/m?, looks fatigued HEENT: Atraumatic, PERRLA, EOMI, Normocephalic. Oral: No Gingival or Mucosal Lesions/ Ulcerations Neck: Supple, No JVD, Negative Carotid Bruits Chest wall/Lungs: Air entry equal in bilateral lung bases. No crepitation/rhonchi Cardiovascular: Regular rate and rhythm, Normal S1,S2, systolic murmur right second ICS/6. Abdomen: Bowel Sounds Present, Soft, Non Tender, Non-Distended : No dysuria. No renal angle tenderness. No suprapubic tenderness. Extremities: No edema, Capillary Refill Less than 3 Seconds Skin: No rashes, No breakdown Musculoskeletal: No Tenderness to Palpation of Joints or Extremities. Degenerative arthritis of knees. Neurological: Cranial nerves II-XII grossly intact, DTR 2+/4. No acute focal neurological deficit. Psych/Mental Status: Normal Affect, Appropriate. Results Lab / Micro Data 11/27/24 09:17 11/27/24 09:17 Labs: Laboratory Results - last 24 hr 11/27/24 09:16: Blood Type A NEGATIVE, Antibody Screen NEGATIVE 11/27/24 09:17: WBC 8.8, RBC 2.53 L, Hgb 7.8 L, Hct 24.6 L, MCV 97.2, MCH 30.8, MCHC 31.7 L, RDW Std Deviation 46.8 H, RDW Coeff of Roshni 13.2, Plt Count 260, MPV10.0, Immature Gran % (Auto) 0.300, Neut % (Auto) 85.0 H, Lymph % (Auto) 10.6 L,[place] % (Auto) 3.6, Eos % (Auto) 0.2, Baso % (Auto) 0.3, Absolute Neuts (auto) 7.5, Absolute Lymphs (auto) 0.93, Nucleated RBC % 0, PT 14.2, INR 1.1, APTT 23.8L, Sodium 139, Potassium 4.6, Chloride 108, Carbon Dioxide 19.3 L, Anion Gap 12,BUN 38 H, Creatinine 1.12, Estim Creat Clear Calc 41.75 L, Est GFR (MDRD) Non-Af51 L, BUN/Creatinine Ratio 33.6 H, Glucose 155 H, Calcium 8.8, Total Bilirubin 0.82, AST 17, ALT 11, Alkaline Phosphatase 87, Total Protein 6.2, Albumin 3.8, Globulin 2.5, Albumin/Globulin Ratio 1.5 11/27/24 10:40: Urine Color Yellow, Urine Clarity Clear, Urine pH 6.0, Ur Specific [place] 1.020, Urine Protein 30 H, Urine Glucose (UA) Normal, Urine Ketones 5 H, Urine Occult Blood 10 H, Urine Nitrite Positive H, Urine Bilirubin Negative, Urine Urobilinogen Normal, Ur Leukocyte Esterase 100 H, Urine RBC 0 SEEN, Urine WBC 0- 5 SEEN, Ur Squamous Epith Cells 0-5 SEEN, Urine Bacteria 1+, Hyaline Casts 0-5 SEEN, Urine Mucus 1+ Micro: Microbiology 11/27/24 12:27 Stool Stool Occult Blood (GERALDO) - Final Occult Blood Positive Imaging Radiology Impression Abdomen/Pelvis CT 11/27/24 09:36 IMPRESSION: Hepatomegaly and fatty infiltration of the liver. Solitary gallstone Reading Location: [place] [id number] Assessment & Plan Assessment/Plan (1) Gastrointestinal bleeding, upper: PLAN: Plan This is a 73-year-old female Came to ED with acute on recurrent GI bleed presented with melena, hypotension and near syncope symptoms. 1. Acute GI bleed most likely upper GI bleed: Patient is being admitted in PCU. 1 more liter of Ringer lactate bolus, IV fluid resuscitation. Keep MAP more than 65, SBP more than 90. Hold antihypertensive medications. H&H every 6 hourly. Keep NPO as she might be taken for EGD today. Type and crossmatch and transfuse if hemoglobin less than 7 g%. GI consulted discussed with Dr. Moreno. 2. Symptomatic anemia: Patient has been symptomatic for about 1 month with fatigue and near syncope symptoms. No fall. Baseline H&H stays between 8 to 9 g. She was 10.3 on 10/28. Currently 7.8/24.6%. Platelet count 260K. IV iron infusion ordered later for the day. At home she is on iron sulfate 3. Aortic stenosis plus aortic regurgitation. 2D echo showed EF 65%, stage I diastolic dysfunction, LA severely enlarged, mild MR, moderately calcified aortic valve with mean peak gradient severely elevated 68 mmHg possible high output state/supravalvular stenosis. Moderate AR. Bioprosthetic aortic valve. RADHA area 1.8 cm. Follow-up cardiology office. 4. Hypertension: Currently patient blood pressure is low. 5. History of remote CVA: No residual defect. Hold baby aspirin. DVT prophylaxis, high risk but patient has active hemorrhage therefore absolute contraindication to pharmacological prophylaxis. Bilateral SCD Living will/advanced directive/end of life care: Patient does not have living will or advanced directive. Does not have DailyD power of erisa attorney for health but her daughter in the ED is next of kin. After discussion of benefits/risks procedures involved with full code, DNR CC arrest and DNR CC, the patient optedfor full code. Patient does want artificial life support including intubation, tube feed, ventilator and/chest compression, central venous catheter, vasopressor and DC shock if needed Total time spent in [id number] encounter in discussion of advanced directive 17 minutes. Microbiology Past 72 Hours 11/27/24 12:27 Stool Stool Occult Blood (GERALDO) - Final Occult Blood Positive Laboratory Results 11/27/24 09:16: Blood Type A NEGATIVE, Antibody Screen NEGATIVE 11/27/24 09:17: WBC 8.8, RBC 2.53 L, Hgb 7.8 L, Hct 24.6 L, MCV 97.2, MCH 30.8, MCHC 31.7 L, RDW Std Deviation 46.8 H, RDW Coeff of Roshni 13.2, Plt Count 260, MPV10.0, Immature Gran % (Auto) 0.300, Neut % (Auto) 85.0 H, Lymph % (Auto) 10.6 L,[place] % (Auto) 3.6, Eos % (Auto) 0.2, Baso % (Auto) 0.3, Absolute Neuts (auto) 7.5, Absolute Lymphs (auto) 0.93, Nucleated RBC % 0, PT 14.2, INR 1.1, APTT 23.8L, Sodium 139, Potassium 4.6, Chloride 108, Carbon Dioxide 19.3 L, Anion Gap 12,BUN 38 H, Creatinine 1.12, Estim Creat Clear Calc 41.75 L, Est GFR (MDRD) Non-Af51 L, BUN/Creatinine Ratio 33.6 H, Glucose 155 H, Calcium 8.8, Total Bilirubin 0.82, AST 17, ALT 11, Alkaline Phosphatase 87, Total Protein 6.2, Albumin 3.8, Globulin 2.5, Albumin/Globulin Ratio 1.5 11/27/24 10:40: Urine Color Yellow, Urine Clarity Clear, Urine pH 6.0, Ur Specific [place] 1.020, Urine Protein 30 H, Urine Glucose (UA) Normal, Urine Ketones 5 H, Urine Occult Blood 10 H, Urine Nitrite Positive H, Urine Bilirubin Negative, Urine Urobilinogen Normal, Ur Leukocyte Esterase 100 H, Urine RBC 0 SEEN, Urine WBC 0- 5 SEEN, Ur Squamous Epith Cells 0-5 SEEN, Urine Bacteria 1+, Hyaline Casts 0-5 SEEN, Urine Mucus 1+ Charges/Coding Visit Charges Inpatient E&M: 44104 Init Hosp L3 Procedures Hospitalists Procedures: 71235 Advncd Care Plan 30 Min 11/27/24 1354 <Electronically signed by Harley Berrios MD> Cosigner Signature (if applicable): CC: Dr. Bernice De La Torre MD; Dr. Harley Berrios MD~ Signed ADDENDUM by Dr. Harley Berrios MD on 11/27/24 at 1458 Addendum Her previous EGD and colonoscopy reviewed on 10/30/2024 EGD showed chronic gastritis but no gross lesions in entire examined duodenum. Normal esophagus. Colonoscopy nonbleeding internal hemorrhoids, melanosis in colon. Localized moderate inflammation at the splenic flexure secondary to ischemic colitis. Congested mucosa in terminal ileum. 11/27/24 1458<Electronically signed by Harley Berrios MD> Cosigner Signature (if applicable): cc: Dr. Bernice De La Torre MD; Dr. Harley Berrios MD ~* Signed [facility] Work Phone: Reason for referral (narrative)No reason for referral information availableWTriHealth Work Phone: Summary Purpose Family History Relationship Condition Age at Onset Recorded Date/T nelia mother Myocardial infarction 80 Cardiac disease Unknown Hypertension Unknown Cerebrovascular accident (CVA) Unknown father Myocardial infarction 56 Advance Directives Advance Directive Response Recorded Date/ Time Do you have a Healthcare Power of [employer]? No October 28, 2024 12:31pm Advance Directive Response Recorded Date/ Time Do you have a Healthcare Power of [employer]? No October 28, 2024 4:40pm Advance Directive Response Recorded Date/ Time Do you have a Healthcare Power of [employer]? No November 27, 2024 9:18am Do you have a Healthcare Power of [employer]? No October 28, 2024 4:40pm Chief Complaint [...] GI BLEED October 30, 2024 7:24 pm [facility] Discharge FU November 19, 2024 9:45a m Reason for Visit Admit Date Anemia October 28, 2024 2:34 pm Acute upper GI bleed October 28, 2024 2:3 4pm Anemia November 19, 2024 9:45a m Chief Complaint Admit Date GI BLEED October 28, 2024 2:34 pm GI BLEED October 29, 2024 11:3 4am GI BLEED October 29, 2024 7:13 pm GI BLEED October 30, 2024 7:24 pm [facility] Discharge FU November 19, 2024 9:45a m GI BLEED November 27, 2024 1:32 pm GI BLEED November 27, 2024 1:38 pm Reason for Visit Admit Date Anemia October 28, 2024 2:34 pm Acute upper GI bleed October 28, 2024 2:3 4pm Anemia November 19, 2024 9:45a m Aortic regurgitation November 19, 2024 9:45 am Aortic stenosis November 19, 2024 9:45a m Hypertension November 19, 2024 9:45a m Anemia November 27, 2024 1:32 pm Aortic stenosis November 27, 2024 1:32 pm Gastrointestinal bleeding, upper November 272024 1:32pm Additional Source Comments INFORMATION SOURCE (unrecogn ized section and content) DATE CREATED AUTHOR 05/10/2024 [facility] DATE CREATED AUTHOR AUTHOR'S ORGANIZ ATION 11/20/2024 [facility] Care Teams (unrecognized sec tion and content) [...] Active Start: October 29, 2024 Dr. Guero Mosteller , DO Other Provider Active Start: October 29, 2024 Dr. Dewayne Gonzalez DO Referring Provider Active Start: October 29, 2024 Dr. Dewayne Gonzalez , DO Other Provider Active S tart: October 29, 2024 Dr. Ney Moreno , Attending Provider Active Start: October 29, 2024 Team Status: Active Member Role/Relationship Status Dates Dr. Bernice De La Torre MD Primary Care Provider Active Start: October 29, 2024 Dr. Juan Diego Sauer MD Emergency Provider Active S tart: October 29, 2024 Dr. Guero Pagan , Admit Provider Active Start: October 29, 2024 [...] November 19, 2024 End: November 19, 2024 Team Status: Active Member Role/Relationship Status Dates Dr. Bernice De La Torre MD Primary Care Provider Active Start: November 27, 2024 Dr. Harvey Morrissey , Emergency Provider Active Start: November 27, 2024 Dr. Harley Berrios MD Admit Provider Active Sta rt: November 27, 2024 Dr. Harley Berrios MD Attending Provider Active Start: November 27, 2024 Team Status: Active Member Role/Relationship Status Dates Dr. Bernice De La Torre MD Primary Care Provider Active Start: November 27, 2024 Dr. Harvey Morrissey DO Emergency Provider Active Start: November 27, 2024 Dr. Harley Berrios MD Admit Provider Active Sta rt: November 27, 2024 Dr. Harley Berrios MD Attending Provider Active Start: November 27, 2024 Dr. Harley Berrios MD Other Provider Active Sta rt: November 27, 2024 Goals (unrecognized section and content) Goals [...] BE BASED ON THE PRIMARY CLINICAL RECORDS. [facility] [employer] provides no warranty or guarantee of the accuracy or completeness of information in this document.
[2024-11-28] VITALS (22 sets, daily range): BP systolic 95–135; BP diastolic 52–89; PULSE 66–88; RESP 14–18; TEMP 36.2–37.2; O2SAT 90–99; BMI 31.4
[2024-11-28 04:51] LABS: Hematocrit 21.4 % (37-47); Hemoglobin 7.0 g/dL (12.0-15.0); Immature Granulocytes Count 0.040 X10^3/uL (0.0-0.0); Mean Corp Hgb Conc 32.7 g/dL (32-36); Mean Corpuscular Volume 93.0 fL (81-99); Mean Platelet Vol. 9.9 fl (6.2-12.0); NRBC Flagged by Analyzer 0 % (0-5); Platelet Count 201 K/mm3 (150-450); RBC Distribution Width CV 15.1 % (11.6-14.6); RBC Distribution Width SD 51.8 fl (35.1-43.9); Red Blood Count 2.30 M/mm3 (4.2-5.4); White Blood Count 9.9 K/mm3 (4.4-11.0)
[2024-11-28 05:29] LABS: Anion Gap 8 (5-15); BUN 36 mg/dL (4-19); BUN/Creat Ratio 38.1 RATIO (10-20); Calcium,Total 8.0 mg/dL (7.6-11.0); Carbon Dioxide 18.7 mmol/L (21.0-32.0); Chloride 111 mmol/L (98-108); Estimated Creatinine Clearance 51.98 ml/min (50-250); Glucose 96 mg/dL (70-99); Potassium 4.7 mmol/L (3.3-5.1)
[2024-11-28] MEDS: Pantoprazole Sodium 40 MG in 0.9% Normal Saline (100mL MB+) 100 ML 300 MG IV ×2 (09:02→22:18)
[2024-11-28 13:29] LABS: Hematocrit 25.4 % (37-47); Hemoglobin 8.5 g/dL (12.0-15.0)
--- NOTE | 2024-11-28 13:36 | PCM.PRE.AN2 ---
ASA Classification* ASA Classification ASA Classification: 3 Assessment & Plan Anesthesia* Anesthesia Assessment Anesthesia Assessment: Discussed sedation and/or anesthesia options, risks, benefits, and alternatives with patient/parents/legal guardian/POA. Questions invited. The patient/parents/legal guardian/POA seems to understand and agrees to proceed with anesthesia plan. Reviewed the physical assessment, medical history, allergy history and patient home medications list prior to surgery/procedure/anesthetic and documented any changes. Performed airway and anesthesia risk assessments. Anesthesia Type Anesthesia Type: MAC Anesthesia Focused Assessment* Temperature: 98.3 F Pulse Rate: 67 Blood Pressure: 111/63 Respiratory Rate: 16 Pulse Ox: 92 Oxygen Flow Rate (L/min): 2 Airway Assessment Mouth opens: >3 cm Mallampati Score: II Labs Anesthesia Preop lab: CBC WBC 9.9 K/mm3 (4.4-11.0) 11/28/24 04:42 11/28/24 RBC 2.30 M/mm3 (4.2-5.4) L 11/28/24 04:42 11/28/24 Hgb 8.5 g/dL (12.0-15.0) L 11/28/24 13:20 11/28/24 Hct 25.4 % (37-47) L 11/28/24 13:20 11/28/24 Plt Count 201 K/mm3 (150-450) 11/28/24 04:42 11/28/24 CHEMISTRY Potassium 4.7 mmol/L (3.3-5.1) 11/28/24 04:42 11/28/24 Sodium 137 mmol/L (133-145) 11/28/24 04:42 11/28/24 Magnesium 2.1 mg/dL (1.5-2.2) 11/27/24 09:17 11/27/24 Phosphorus 2.1 mg/dL (2.7-4.5) L 11/27/24 09:17 11/27/24 BUN 36 mg/dL (4-19) H 11/28/24 04:42 11/28/24 Creatinine 0.94 mg/dL (0.70-1.20) 11/28/24 04:42 11/28/24 Glucose 96 mg/dL (70-99) 11/28/24 04:42 11/28/24 TSH 2.64 uIU/mL (0.358-3.74) 02/09/20 16:16 02/09/20 COAG PT 14.2 SECONDS (11.7-14.9) 11/27/24 09:17 11/27/24 Pre-Assessment Diagnosis/Proposed Procedure Planned Operative Procedure(s): Esophagogastroduodenoscopy. 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 When Was Last Pacemaker Check QUESTION #4 FULL TEXT: You/Your Family Experience fever (hyperthermia) with Anesthesia Last Oral Intake Last Oral intake: Last Oral Intake NPO since 00:01 11/28/24 13:02 Meds taken in AM with sips of No 11/28/24 13:02 water? 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 Has anyone observed you stop No 11/27/24 18:36 breathing during sleep? STOP Results Negative 11/27/24 18:36 QUESTION #5 FULL TEXT : Do you snore loudly (louder than talking or can be heard through closed doors)? 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 Specify any problems Hx of Preganancy in last 3 No 11/27/24 18:36 Months Nurse Filling Out Transfusion JNORRIS 11/27/24 18:36 & Questions: Date: 11/27/24 11/27/24 18:36 Time: 18:47 11/27/24 18:36 Patient unable to answer at this time (ie. 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: /Reproductive Hx- lime sludge kiln operator Hx Now Gestational Age (in weeks): EDC: Hx Hx Para Hx Section SAB Active Medications Active Medications: Current Medications Generic Name Dose Route Start Last Admin Trade Name Freq PRN Reason Stop Dose Admin Acetaminophen 650 mg 11/27/24 18:34 Acetaminophen 325 Mg Tablet PO Q6H PRN PRN Pain 1-10 Or Fever>100.7 Pantoprazole Sodium 40 mg/ 100 mls @ 300 mls/hr 11/27/24 18:34 11/28/24 11:31 Sodium Chloride IV Infused Q12 RAIN Infusion Sodium Chloride 250 mls @ 15 mls/hr 11/27/24 18:40 IV .[id number] PRN Saline Flush Sodium Chloride 250 mls @ 15 mls/hr 11/27/24 18:40 IV .[id number] PRN Additional IVPB Infusion Lactated Ringer's 1,000 mls @ 125 mls/hr 11/28/24 09:00 11/28/24 11:40 IV 11/28/24 16:59 Not Given .Q8H RAIN Lactated Ringer's 1,000 mls @ 15 mls/hr 11/28/24 13:45 IV .Q48H RAIN Magnesium Chloride 64 mg 11/27/24 19:00 11/28/24 09:02 Magnesium Chloride 64 Mg Delay Rel.Tablet PO Not Given DAILY RAIN Oxycodone HCl 2.5 - 5 mg 11/27/24 18:34 Oxycodone 5 Mg Tablet PO Q4H PRN PRN Pain Score 4-10 Senna/Docusate Sodium 2 tablet 11/27/24 18:34 Senna/Docusate Sodium 1 Tablet PO BID PRN PRN Constipation Sodium Chloride 10 - 40 ml 11/27/24 18:40 11/27/24 21:20 0.9% Saline Lock 10 Ml Syringe IV 10 ml UD PRN Administration SALINE FLUSH PFSH Medical History Aortic regurgitation Aortic stenosis Anemia Acute upper GI bleed Pneumonia History of stroke History of bladder cancer Hypertension Home Medications ?Medication ?Instructions ?Recorded ?Last Taken ?Type aspirin 81 mg tablet,delayed 81 mg PO DAILY 01/01/20 11/26/24 History release amlodipine 5 mg tablet 5 mg PO DAILY #90 tabs 02/14/24 11/26/24 Rx losartan 50 mg tablet 50 mg PO DAILY #90 tabs 02/14/24 11/26/24 Rx magnesium 250 mg tablet 250 mg PO QDAY 05/07/24 11/26/24 History turmeric 400 mg capsule 400 mg PO DAILY 10/28/24 11/26/24 History iron bisglycinate chelate 28 mg PO QDAY #90 caps 11/19/24 11/26/24 Rx Allergy/AdvReac Type Severity Reaction Status Date / Time No Known Allergies Allergy Verified 11/27/24 08:59 Family History Mother Myocardial infarction, Onset Age: 80 Heart disease Hypertension CVA (cerebral vascular accident) Father Myocardial infarction, Onset Age: 56 Surgical History H/O esophagogastroduodenoscopy History of hysterectomy Social History Smoking Status: Never smoker alcohol intake: never substance use type: does not use what type of physical activity do you participate in: none Review of Systems (Anesthesia) ROS Narrative System reviewed and no additional complaints, except as documented.
--- NOTE | 2024-11-28 15:15 | PCM.PN.BLA ---
Progress Note Patient underwent EGD yesterday with discovered to have 3 large gastric ulcers that were actively bleeding. She has been n.p.o. on PPI drip. Her hemoglobin went down to 6.8 and she was transfused 1 unit of packed red blood cells. Physical Exam Const alert, oriented x3, no apparent distress and healthy appearing General Appearance: cooperative GI normal to inspection, nondistended, normoactive bowel sounds, soft to palpation, non-tender and non-distended Percussion: normal to percussion Rectal Exam: deferred Assessment & Plan Assessment/Plan (1) Gastrointestinal bleeding, upper: (2) Anemia: PLAN: 73-year-old who was recently in the hospital for acute GI bleed and was discovered to have ischemic colitis. She comes in now with recurrent GI bleeding. Hemoglobin is down to 76.8. She is on a PPI drip. Because of her elevated BUN/creatinine ratio I think she would benefit from an upper endoscopy. She may need a capsule endoscopy. She was explained alternatives, risk and benefits include not withstanding bleeding, infection, subs, perforation, need for surgery . She will have an ASA of 3. Visit Charges Inpatient E&M: 33017 Subs Hosp L3
--- NOTE | 2024-11-28 16:23 | PCM.PN.HOSP ---
Reason for Visit Reason for Visit: Diagnoses Anemia, unspecified (11/27/24) Gastrointestinal hemorrhage, unspecified (11/27/24) Subjective Subjective Patient was seen and examined today, she is going to undergo an EGD today, her hemoglobin this morning was 7. I talked briefly to gastroenterology, yesterday she had an EGD which showed oozing gastric ulcers, clip was placed and there was another gastric ulcer with a visible vessel which was bleeding and treated with argon plasma coagulation., In addition there was a nonbleeding duodenal ulcer noted that was treated with argon plasma coagulation. Patient has received 2 units of packed red blood cells this admission so far. Objective Data Objective Data Vital Signs: Vital Signs Temp Pulse Resp BP Pulse Ox O2 Del Method O2 Flow Rate 97.2 F L 72 16 133/62 H 95 Nasal Cannula 2 11/28/24 15:48 11/28/24 16:05 11/28/24 16:05 11/28/24 16:05 11/28/24 16:05 11/28/24 16:05 11/28/24 16:05 Oxygen Flow Rate (L/min) 2 Oxygen Delivery Method Nasal Cannula Weight: 80.4 kg Body Mass Index (BMI) 31.4 Intake & Output: Intake and Output for Last 24 Hours 11/26/24 11/27/24 11/28/24 23:59 23:59 23:59 Intake Total 3000.83 / 3000.83 1004.17 / 1004.17 Balance 3000.83 / 3000.83 1004.17 / 1004.17 Lab / Micro Data 11/29/24 05:40 11/28/24 04:42 Labs: Laboratory Results - last 24 hr 11/27/24 09:16: Crossmatch See Detail 11/27/24 09:16: Crossmatch See Detail 11/27/24 19:38: Hgb 6.7 L, Hct 21.2 L 11/28/24 04:42: WBC 9.9, RBC 2.30 L, Hgb 7.0 L, Hct 21.4 L, MCV 93.0, MCH 30.4, MCHC 32.7, RDW Std Deviation 51.8 H, RDW Coeff of Roshni 15.1 H, Plt Count 201, MPV 9.9, Immature Gran % (Auto) 0.400, Neut % (Auto) 75.6 H, Lymph % (Auto) 18.6 L, [place] % (Auto) 5.2, Eos % (Auto) 0.0, Baso % (Auto) 0.2, Absolute Neuts (auto) 7.5, Absolute Lymphs (auto) 1.83, Nucleated RBC % 0, Sodium 137, Potassium 4.7, Chloride 111 H, Carbon Dioxide 18.7 L, Anion Gap 8, BUN 36 H, Creatinine 0.94, Estim Creat Clear Calc 51.98, Est GFR (MDRD) Non-Af 64, BUN/Creatinine Ratio 38.1 H, Glucose 96, Calcium 8.0 11/28/24 13:20: Hgb 8.5 L, Hct 25.4 L Micro: Microbiology 11/27/24 12:27 Stool Stool Occult Blood (GERALDO) - Final Occult Blood Positive Physical Exam Const alert, oriented x3, no apparent distress and healthy appearing General Appearance: cooperative, well kempt and well developed Orientation / Consciousness: awake, oriented to person, oriented to place and oriented to time HEENT normocephalic, head/scalp atraumatic and moist oral mucous membranes Eyes PERRL, EOMs intact bilaterally and conjunctivae normal Neck supple, no JVD, thyroid normal and no carotid bruits General: trachea midline Resp normal respiratory effort, no retractions, no use of accessory muscles and clear to auscultation bilaterally Auscultation: Negative for rales, rhonchi or wheezes Cardio regular rate, regular rhythm, S1 normal heart sound, S2 normal heart sound, no rub and no gallops Cardio Narrative: There is a 2/6 systolic murmur noted at the apex and left sternal border GI normal to inspection, nondistended, normoactive bowel sounds, soft to palpation, non-tender and non-distended Extremity no clubbing, cyanosis or edema Skin no rashes or lesions noted General Skin Exam: no breakdown Neuro oriented x3, CN's II-XII intact bilaterally, no focal motor deficits and no sensory deficits noted Sensorium / Orientation: awake and alert Speech: speech normal Psych affect normal Assessment & Plan Assessment/Plan (1) Gastrointestinal bleeding, upper: PLAN: Plan 1. Acute upper GI hemorrhage secondary to gastric ulcers with hemorrhage-patient will receive packed red blood cells, CBC will be monitored #2 gastric ulcerations and duodenal ulceration-patient will remain on PPI, again she will undergo repeat endoscopy today #3 aortic valvular disease with regurgitation-this is moderate #4 essential hypertension-patient will remain on her current medication, blood pressure will be monitored Total clinical time spent by myself addressing patient's medical issues, reviewing all of her data, and collaborating with the patient's care team: 35 minutes Charges/Coding Visit Charges Inpatient E&M: 28537 Subs Hosp L2
--- NOTE | 2024-11-28 16:28 | OP.EGD_ITS ---
Patient Name: Ida Sen Procedure Date: 11/28/2024 3:19 PM Date of : 1950 Age: 73 Procedure: Upper GI endoscopy Indications: Epigastric abdominal pain, Iron deficiency anemia, Melena Providers: Ney Moreno DO Referring MD: Ney Moreno DO Medicines: Monitored Anesthesia Care Patient Profile: This is a 73 year old female. Refer to note in patient chart for documentation of history and physical. Patient has symptoms. Complications: No immediate complications. Procedure: Pre-Anesthesia Assessment: - Prior to the procedure, a History and Physical was performed, and patient medications and allergies were reviewed. The patient is competent. The risks and benefits of the procedure and the sedation options and risks were discussed with the patient. All questions were answered and informed consent was obtained. Patient identification and proposed procedure were verified by the physician in the pre-procedure area. Mental Status Examination: alert and oriented. Airway Examination: normal oropharyngeal airway and neck mobility. Respiratory Examination: clear to auscultation. CV Examination: normal. Prophylactic Antibiotics: The patient does not require prophylactic antibiotics. Prior Anticoagulants: The patient has taken no anticoagulant or antiplatelet agents. ASA Grade Assessment: II - A patient with mild systemic disease. After reviewing the risks and benefits, the patient was deemed in satisfactory condition to undergo the procedure. The anesthesia plan was to use monitored anesthesia care (MAC). Immediately prior to administration of medications, the patient was re-assessed for adequacy to receive sedatives. The heart rate, respiratory rate, oxygen saturations, blood pressure, adequacy of pulmonary ventilation, and response to care were monitored throughout the procedure. The physical status of the patient was re-assessed after the procedure. After obtaining informed consent, the endoscope was passed under direct vision. Throughout the procedure, the patient's blood pressure, pulse, and oxygen saturations were monitored continuously. The Endoscope was introduced through the mouth, and advanced to the fourth part of the duodenum. Small bowel enteroscopy was deemed necessary. The upper GI endoscopy was accomplished without difficulty. The patient tolerated the procedure well. Scope In: 3:29:09 PM Scope Out: 3:44:39 PM Total Procedure Duration Time 0 hours 15 minutes 30 seconds Findings: The examined esophagus was normal. One non-bleeding cratered gastric ulcer with pigmented material was found in the gastric body. The lesion was 20 mm in largest dimension. Coagulation for hemostasis of bleeding caused by the procedure using argon plasma at 0.3 liters/minute and 30 talbot was successful. Estimated blood loss was minimal. Two non-bleeding cratered gastric ulcers with no stigmata of bleeding were found on the greater curvature of the stomach. The largest lesion was 11 mm in largest dimension. To prevent bleeding post-intervention, four hemostatic clips were successfully placed. 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 There was no bleeding at the end of the procedure. No gross lesions were noted in the entire examined duodenum. Impression: - Normal esophagus. - Non-bleeding gastric ulcer with pigmented material. Treated with argon plasma coagulation (APC). - Non-bleeding gastric ulcers with no stigmata of bleeding. Clips were placed. 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 - No gross lesions in the entire examined duodenum. - No specimens collected. Recommendation: - Return patient to hospital chaudhry for observation. - Advance diet as tolerated. - Continue present medications. Procedure Code(s): --- Professional --- 90174, Small intestinal endoscopy, enteroscopy beyond second portion of duodenum, not including ileum; diagnostic, including collection of specimen(s) by brushing or washing, when performed (separate procedure) CPT copyright 2021 [employer]. All rights reserved. The codes documented in this report are preliminary and upon relocation manager review may be revised to meet current compliance requirements. Ney Moreno DO 11/28/2024 4:27:52 PM This report has been signed electronically. Number of Addenda: 0 Note Initiated On: 11/28/2024 3:19 PM
--- NOTE | 2024-11-28 16:28 | OP.CCLET_ITS ---
11/28/2024 Shirin De Oliveira [facility] [address] [place] [address] Re : Upper GI endoscopy procedure for Ida Sen Dear Dr. De Oliveira This procedure was performed on Thursday, November 28, 2024. My impressions and recommendations are as follows: Impressions : - Normal esophagus. - Non-bleeding gastric ulcer with pigmented material. Treated with argon plasma coagulation (APC). - Non-bleeding gastric ulcers with no stigmata of bleeding. Clips were placed. 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 - No gross lesions in the entire examined duodenum. - No specimens collected. Recommendations : - Return patient to hospital chaudhry for observation. - Advance diet as tolerated. - Continue present medications. My findings are described in the full procedure note, which is enclosed. If I can be of further assistance, please feel free to contact me at . Sincerely, Ney Moreno, 11/28/2024 4:27:52 PM This report has been signed electronically.
--- NOTE | 2024-11-28 16:33 | ANES.CONFIRM ---
Anesthesia: Confirm Documents Multiple Procedures on Account (2) Confirmed Documents: Yes
--- NOTE | 2024-11-28 16:40 | PCM.POST.ANE ---
Anesthesia: Postop Eval I Current Vital Signs Temperature: 98 F Pulse Rate: 68 Blood Pressure: 131/63 Respiratory Rate: 16 Pulse Ox: 95 Assessment Airway patent: Yes Spontaneous unlabored respirations: Yes Mental status: Awake and Calm nausea: No Vomiting: No Anesthesia Complication: No Fluid Hydration Crystalloid volume administer (ml): 50 Total IV fluid infused: 50 Progress Note Anesthesia document: Postop Eval 1 completed: Yes
--- NOTE | 2024-11-28 16:41 | PCM.POSTANE2 ---
Anesthesia Postop Eval I Sum Postop Eval Completion status Anesthesia document: Postop Eval 1 completed: Yes Anesthesia Postop Eval I Summary Anesthesia Postop Eval I Summary: Anesthesia Postop Eval I: Assessment Summary Airway patent Yes 11/28/24 16:41 Spontaneous unlabored Yes 11/28/24 16:41 respirations Mental status Awake,Calm 11/28/24 16:41 nausea No 11/28/24 16:41 Vomiting No 11/28/24 16:41 Anesthesia Postop Eval I: Fluid Summary Crystalloid volume administer 50 11/28/24 16:41 (ml) Colloids volume administered ( ml) Blood Product volume administered (ml) Total IV fluid infused 50 11/28/24 16:41 Anesthesia Postop Eval I: Summary Notes Anesthesia Complication No 11/28/24 16:41 Anesthesia Complication Comment: Post-operative progress note Anesthesia: Postop Eval II Evaluation Mental status: Awake and Calm Pain Level: 0 nausea: No Vomiting: No Progress Note Post-operative progress note: 4-5 second pause noted at 1550 by pacu nurse, will check ekg. patient is on telemetry, Floor aware. Complications Anesthesia Complication: No
--- NOTE | 2024-11-28 16:44 | EKG12_ITS ---
Test Reason : POST-OP Blood Pressure : */* mmHG Vent. Rate : 69 BPM Atrial Rate : 69 BPM P-R Int : 216 ms QRS Dur : 94 ms QT Int : 404 ms P-R-T Axes : 22 -13 160 degrees QTcB Int : 432 ms Sinus rhythm with 1st degree A-V block Left ventricular hypertrophy with repolarization abnormality ( R in aVL , Drexel product ) Abnormal ECG When compared with ECG of 28-Nov-2024 05:29, Premature atrial complexes are no longer Present [place] interval has increased Confirmed by MD DAVE, JAXON ([id number]), newspaper or periodical editor CONCHITA SYLVESTER ([id number]) on 12/02/2024 10:59:15 AM Referred By: Ney Moreno Confirmed By: JAXON ACOSTA MD
--- NOTE | 2024-11-28 17:27 | SUR.PHASEI ---
ARRIVED IN PACU AT 15:48. MOIST SOUNDING COUGH. EXPECTORATING CLEAR MUCOUS. HAD A 3-4 SECOND PERIOD OF COMPLETE HEART BLOCK NOTED ON MONITOR WITH RETURN TO SINUS RHYTHM IN 70s AFTER COUGHING AND EXPECTORATING MUCOUS. RHYTHM STRIP IS POSTING ON PATIENT'S CHART. AT APPROXIMATELY 1630, RHYTHM STRIP SHOWN TO DR Naga BAINS. DR. BAINS OBTAINED A 12 LEAD EKG AT 16:50. AFTER VIEWING THE 12 LEAD EKG THAT SHOWED NO CHANGE, DR Naga BAINS SAID PATIENT COULD RETURN TO PCU. CHARGE NURSE, HIRO UPDATED ON PATIENT PRIOR TO TRANSFER.
--- NOTE | 2024-11-28 18:00 | CASEMGMT ---
ARNULFO MCCALL readmission note: Index admission: 10/28-10/30, GIB. Pt was admitted from home. She lives w/her and is independent. Pt discharged home w/instructions to f/u with PCP in 2 weeks. Pt was not discharged home w/any new Rx's. Per Dr Vogt discharge summary 11/29: , This 73-year-old white female was seen in the emergency room at [facility] with complaints of rectal bleeding and melanotic appearing stools. CBC showed a hemoglobin of 10.3, chemistry profile showed a BUN of 46 but was otherwise unremarkable. Patient was admitted to PCU and CBCs were monitored, patient did not require any blood transfusion. Patient underwent an EGD which showed chronic gastritis and no evidence of bleeding. Patient then underwent a colonoscopy the next day which showed areas compatible with ischemic colitis. Current admission: 11/27, GIB ARNULFO MCCALL to room. Introduced self and role. Pt resting in bed. and dtr @ bedside and pt agreeable with them being present while discussing readmission and discharge planning. Pt states she had been doing well @ home up until a day or so ago. She states she was taking her medications as prescribed. She did see Dr De Oliveira 11/19. She plans to discharge home when medically ready and denies having any discharge needs or concerns. She lives w/her and she has 4 adult children that live nearby, as well as supportive neighbors. She was using a walker on admission d/t weakness, but states that has mostly resolved now and she has been up in room w/out assisted device. She states he is almost back to her baseline. Plan: Home w/family support.
[2024-11-28] MEDS: 0.9% Saline Lock 10 ML Syringe IV ×2 (19:57→22:19)
[2024-11-29 04:10] VITALS: BP 118/67; PULSE 87; RESP 16; TEMP 37; O2SAT 96
[2024-11-29 06:00] VITALS: BMI 30.6
[2024-11-29 06:03] LABS: Hematocrit 24.7 % (37-47); Hemoglobin 8.1 g/dL (12.0-15.0); Immature Granulocytes Count 0.060 X10^3/uL (0.0-0.0); Mean Corp Hgb Conc 32.8 g/dL (32-36); Mean Corpuscular Volume 91.1 fL (81-99); Mean Platelet Vol. 9.8 fl (6.2-12.0); NRBC Flagged by Analyzer 0 % (0-5); Platelet Count 186 K/mm3 (150-450); RBC Distribution Width CV 15.4 % (11.6-14.6); RBC Distribution Width SD 51.7 fl (35.1-43.9); Red Blood Count 2.71 M/mm3 (4.2-5.4); White Blood Count 10.8 K/mm3 (4.4-11.0)
[2024-11-29 06:45] VITALS: BP 108/63; PULSE 70; RESP 16; TEMP 37.1; O2SAT 93
[2024-11-29] MEDS: Magnesium Chloride 64 MG Delay Rel.Tablet PO (09:52)
[2024-11-29] MEDS: 0.9% Saline Lock 10 ML Syringe IV (09:53)
[2024-11-29] MEDS: Pantoprazole Sodium 40 MG in 0.9% Normal Saline (100mL MB+) 100 ML 300 MG IV (09:53)
--- NOTE | 2024-11-29 10:37 | PCM.DC ---
Discharge Instructions DC O2, CPAP, BIPAP needs Home O2 Discharge instructions: No Dressing / Incision Discharge Activity: Return to Normal Activity Weight Bearing Status: Full weight bearing Follow Up Care Test Results: Test results from this visit will be discussed in further detail at your follow-up appointment, if applicable. Discharge Plan Admission Admit Date/Time: 11/27/24 13:32 Primary Reason for Your Visit: uuper GI bleed Attending Provider: Dewayne Gonzalez Primary Care Provider: Shirin De Oliveira Consulting Providers: Harley Berrios Discharge Orders/Prescriptions Prescriptions: New pantoprazole [Protonix] 40 mg tablet,delayed release (DR/EC) 40 mg PO DAILY Qty: 60 0RF sucralfate [Carafate] 1 gram tablet 1 g PO TID Qty: 90 0RF No Action aspirin 81 mg tablet,delayed release (DR/EC) 81 mg PO DAILY magnesium 250 mg tablet 250 mg PO QDAY iron bisglycinate chelate 28 mg iron capsule 28 mg PO QDAY Qty: 90 1RF turmeric 400 mg capsule 400 mg PO DAILY amlodipine 5 mg tablet 5 mg PO DAILY Qty: 90 3RF losartan 50 mg tablet 50 mg PO DAILY Qty: 90 3RF Other Ambulatory Orders: 30 Day Event Recorder Preventi (Urgent) Timeframe: 1 Day Facility: [facility] - Location: Cardiovascular Services Ordered By: Dr. Dewayne Gonzalez Referrals / Follow Up: Isaiah Norris MD [Med Staff - Active Staff] - See Referral Note (in 5 weeks-call for appointment, tell them that you have a valve problem and need to be seen) Shirin De Oliveira MD [Primary Care Provider] - Disposition Disposition (needs filled in before D/C Order can be placed): Home, Self Care
--- NOTE | 2024-11-29 11:12 | PCM.DC.SUM ---
Providers Date of Admission: 11/27/24 Date of Discharge: 11/29/24 Primary Care Physician: Dr. Shirin De Oliveira MD Consultations 11/27/24 18:34 Consult: Gastroenterology Routine Consulting Provider: [facility] Reason for Consult: GI bleed EMERGENT Consult: No MD Notified: Yes Date Notified: 11/27/24 Time Notified: 13:33 Method of Notification: ED Physician Initiated Reason For Visit: GI BLEED Diagnosis Discharge Diagnosis (1) Gastrointestinal bleeding, upper: Status: Acute Code(s): K92.2 - Gastrointestinal hemorrhage, unspecified Plan 1. Acute upper GI hemorrhage secondary to gastric ulcers with hemorrhage-patient will receive packed red blood cells, CBC will be monitored #2 gastric ulcerations and duodenal ulceration-patient will remain on PPI, again she will undergo repeat endoscopy today #3 aortic valvular disease with regurgitation-this is moderate #4 essential hypertension-patient will remain on her current medication, blood pressure will be monitored Total clinical time spent by myself addressing patient's medical issues, reviewing all of her data, and collaborating with the patient's care team: 35 minutes Medications at Discharge Home Medications aspirin 81 mg tablet,delayed release 81 mg PO DAILY 01/01/20 amlodipine 5 mg tablet 5 mg PO DAILY #90 tabs 02/14/24 losartan 50 mg tablet 50 mg PO DAILY #90 tabs 02/14/24 magnesium 250 mg tablet 250 mg PO QDAY 05/07/24 turmeric 400 mg capsule 400 mg PO DAILY 10/28/24 iron bisglycinate chelate 28 mg PO QDAY #90 caps 11/19/24 pantoprazole 40 mg tablet,delayed release (Protonix) 40 mg PO DAILY #60 tabs 11/29/24 sucralfate 1 gram tablet (Carafate) 1 g PO TID #90 tabs 11/29/24 Hospital Course Operations None Procedures Blood transfusion and EGD Summary of Care Provided Minutes Spent on Discharge: 31 Hospital Course: This 73-year-old white female was seen in the emergency room at [facility] with a chief complaint of blood in her stool. Patient had recently been hospitalized at [facility] for ischemic colitis and was discharged on 10/30/2024. Pain of stool with dark red blood along with abdominal discomfort. Labs were remarkable for a hemoglobin of 7.8, and chemistry profile was remarkable for glucose of 155 and a BUN of 38. Patient was admitted to PCU and seen in consultation by gastroenterology. She was placed on IV PPI. Labs were monitored. Patient underwent an EGD which showed a normal esophagus, nonbleeding gastric ulcer with pigmented material, and nonbleeding gastric ulcers with no stigmata of bleeding. Patient received 2 units of packed red blood cells during her hospital stay. On 11/29/2024, patient was seen and examined: On examination she appeared in good health and spirits, she does not appear to be in any distress. Vital signs as documented. Skin warm and dry and without overt rashes. Neck without JVD, thyroid appears normal, trachea is midline, neck is supple. Lungs clear, normal air movement was noted. Heart exam notable for regular rhythm, normal sounds and absence of murmurs, rubs or gallops. Abdomen unremarkable and without evidence of organomegaly, masses, or abdominal aortic enlargement, bowel sounds are present in all 4 quadrants, no abdominal tenderness was noted. Extremities nonedematous, no cyanosis was noted, no clubbing was noted. Neuro: Cranial nerves II through XII are grossly intact, no focal motor deficits were noted, sensation to light touch and pinprick is intact, motor exam 5/5 throughout. Psych: Patient is alert and oriented x3, she does not appear anxious or depressed, she does not appear agitated. Patient was discharged home in stable condition on 11/29/2024 Weight / BMI Weight Weight: 78.4 kg Body Mass Index (BMI) 30.6 ABG / Lab / Microbiology Data 11/29/24 05:40 11/28/24 04:42 Laboratory: Laboratory Results - last 24 hr 11/28/24 13:20: Hgb 8.5 L, Hct 25.4 L 11/29/24 05:40: WBC 10.8, RBC 2.71 L, Hgb 8.1 L, Hct 24.7 L, MCV 91.1, MCH 29.9, MCHC 32.8, RDW Std Deviation 51.7 H, RDW Coeff of Roshni 15.4 H, Plt Count 186, MPV 9.8, Immature Gran % (Auto) 0.600, Neut % (Auto) 76.4 H, Lymph % (Auto) 14.2 L, [place] % (Auto) 7.3, Eos % (Auto) 1.0, Baso % (Auto) 0.5, Absolute Neuts (auto) 8.3 H, Absolute Lymphs (auto) 1.54, Nucleated RBC % 0 Microbiology: Microbiology 11/27/24 12:27 Stool Stool Occult Blood (GERALDO) - Final Occult Blood Positive D/C Instructions Weight Bearing Status: Full weight bearing DC O2, CPAP, BIPAP Needs Home O2 Discharge instructions: No Meaningful Use Info Meaningful Use Meaningful Use Diagnoses (Choose all that apply): None applicable Discharge Plan Admission Admit Date/Time: 11/27/24 13:32 Primary Reason for Your Visit: uuper GI bleed Attending Provider: Dewayne Gonzalez Primary Care Provider: Shirin De Oliveira Consulting Providers: Harley Berrios Discharge Orders/Prescriptions Prescriptions: New pantoprazole [Protonix] 40 mg tablet,delayed release (DR/EC) 40 mg PO DAILY Qty: 60 0RF sucralfate [Carafate] 1 gram tablet 1 g PO TID Qty: 90 0RF No Action aspirin 81 mg tablet,delayed release (DR/EC) 81 mg PO DAILY magnesium 250 mg tablet 250 mg PO QDAY iron bisglycinate chelate 28 mg iron capsule 28 mg PO QDAY Qty: 90 1RF turmeric 400 mg capsule 400 mg PO DAILY amlodipine 5 mg tablet 5 mg PO DAILY Qty: 90 3RF losartan 50 mg tablet 50 mg PO DAILY Qty: 90 3RF Other Ambulatory Orders: 30 Day Event Recorder Preventi (Urgent) Timeframe: 1 Day Facility: [facility] - Location: Cardiovascular Services Ordered By: Dr. Dewayne Gonzalez Referrals / Follow Up: Isaiah Norris MD [Med Staff - Active Staff] - See Referral Note (in 5 weeks-call for appointment, tell them that you have a valve problem and need to be seen) Shirin De Oliveira MD [Primary Care Provider] - Disposition Disposition (needs filled in before D/C Order can be placed): Home, Self Care Charges/Coding Visit Charges Inpatient E&M: 05372 Disch Hosp >30min
[2024-11-29 12:28] VITALS: BP 123/70; PULSE 68; RESP 16; TEMP 35.9; O2SAT 95
== END 2024-11-29 13:22 | disposition home or self-care (01) | DRG 378 ==
LOC: ED 13:39 → PCU 15:23
PROVIDERS: Admitting Provider Internal Medicine; Emergency Provider Emergency Medicine; PCP Internal Medicine; Referring Provider Internal Medicine Gastroenterology; Visit Provider Internal Medicine
PROC: 0DJ08ZZ Inspection of Upper Intestinal Tract, Via Natural or Artificial Opening Endoscopic (ICD-10-PCS; CPT 43235; principal; 2024-11-27 15:40)
DX: K25.0 Acute gastric ulcer with hemorrhage (principal); D68.32 Hemorrhagic disorder due to extrinsic circulating anticoagulants; D62 Acute posthemorrhagic anemia; I10 Essential (primary) hypertension; I35.1 Nonrheumatic aortic (valve) insufficiency; K26.9 Duodenal ulcer, unspecified as acute or chronic, without hemorrhage or perforation; T39.015A Adverse effect of aspirin, initial encounter; Z95.2 Presence of prosthetic heart valve; Z79.82 Long term (current) use of aspirin; Z79.899 Other long term (current) drug therapy; Z86.73 Personal history of transient ischemic attack (TIA), and cerebral infarction without residual deficits
CPT/HCPCS: 36415; 74177; 80048; 80053; 81001; 82274; 83735; 84100; 85014; 85018; 85025; 85610; 85730; 86850; 86900; 86901; 93005; 94668; 99284; C1889; P9016; Q9967; A4216; J2405; J2916

== ENCOUNTER → 2025-01-05 | Outpatient (CLI) | payer MEDICARE, SELFPAY ==
[2025-01-05 10:28] LABS: Hematocrit 32.7 % (37-47); Hemoglobin 10.2 g/dL (12.0-15.0); Immature Granulocytes Count 0.020 X10^3/uL (0.0-0.0); Mean Corp Hgb Conc 31.2 g/dL (32-36); Mean Corpuscular Volume 93.7 fL (81-99); Mean Platelet Vol. 9.7 fl (6.2-12.0); NRBC Flagged by Analyzer 0 % (0-5); Platelet Count 260 K/mm3 (150-450); RBC Distribution Width CV 13.6 % (11.6-14.6); RBC Distribution Width SD 46.5 fl (35.1-43.9); Red Blood Count 3.49 M/mm3 (4.2-5.4); White Blood Count 6.0 K/mm3 (4.4-11.0)
[2025-01-05 11:17] LABS: Anion Gap 10 (5-15); BUN 22 mg/dL (4-19); BUN/Creat Ratio 24.1 RATIO (10-20); Calcium,Total 9.4 mg/dL (7.6-11.0); Carbon Dioxide 23.2 mmol/L (21.0-32.0); Chloride 105 mmol/L (98-108); Glucose 110 mg/dL (70-99); Iron 120 ug/dL (50-170); Iron Binding Capacity,Total 322 ug/dL (250-450); Iron Binding Capacity,Unsat 202 ug/dL (228-428); Potassium 4.6 mmol/L (3.3-5.1)
== END | disposition home or self-care (01) ==
LOC: LAB 10:13
PROVIDERS: PCP Internal Medicine; Referring Provider Internal Medicine; Visit Provider Internal Medicine
DX: I10 Essential (primary) hypertension (principal); D64.9 Anemia, unspecified
CPT/HCPCS: 36415; 80048; 83540; 83550; 84443; 85025